=== PATIENT | male | born 1965 | race Caucasian/White ===

== ENCOUNTER → 2019-04-27 07:46 | Outpatient (BNVA) | payer MEDICAID, SELFPAY | PROVIDERS: Family Provider Nurse Practitioner; PCP Nurse Practitioner; Visit Provider Nurse Practitioner | DX: F20.89 Other schizophrenia (principal) | CPT/HCPCS: 99214 ==

== ENCOUNTER → 2019-07-02 08:17 | Outpatient (BNVA) | payer MEDICAID, SELFPAY | PROVIDERS: Family Provider Nurse Practitioner; PCP Nurse Practitioner; Visit Provider Nurse Practitioner | DX: F20.89 Other schizophrenia (principal); F33.1 Major depressive disorder, recurrent, moderate | CPT/HCPCS: 99213 ==

== ENCOUNTER → 2019-08-02 15:09 | Outpatient (BNVA) | payer MEDICAID, SELFPAY | PROVIDERS: Family Provider Nurse Practitioner; PCP Nurse Practitioner; Visit Provider Nurse Practitioner | DX: E11.65 Type 2 diabetes mellitus with hyperglycemia (principal); K59.04 Chronic idiopathic constipation; J44.9 Chronic obstructive pulmonary disease, unspecified; K21.9 Gastro-esophageal reflux disease without esophagitis | CPT/HCPCS: 80053; 80061; 81000; 82044; 83036; 85025 ==

== ENCOUNTER → 2019-09-28 07:39 | Outpatient (BNVA) | payer MEDICAID, SELFPAY | PROVIDERS: Family Provider Nurse Practitioner; PCP Nurse Practitioner; Visit Provider Nurse Practitioner | DX: F20.89 Other schizophrenia (principal); F33.1 Major depressive disorder, recurrent, moderate; F33.2 Major depressive disorder, recurrent severe without psychotic features | CPT/HCPCS: 99213 ==

== ENCOUNTER → 2019-10-29 07:51 | Outpatient (BNVA) | payer MEDICAID, SELFPAY | PROVIDERS: Family Provider Nurse Practitioner; PCP Nurse Practitioner; Visit Provider Nurse Practitioner | DX: F20.89 Other schizophrenia (principal); F33.1 Major depressive disorder, recurrent, moderate | CPT/HCPCS: 99213 ==

== ENCOUNTER → 2019-11-30 14:04 | Outpatient (BNVA) | payer MEDICAID, SELFPAY | PROVIDERS: Family Provider Nurse Practitioner; PCP Nurse Practitioner; Visit Provider Nurse Practitioner Family | DX: E11.65 Type 2 diabetes mellitus with hyperglycemia (principal); R21 Rash and other nonspecific skin eruption | CPT/HCPCS: 80053; 80061; 83036; 84443; 85025 ==

== ENCOUNTER → 2020-01-04 07:36 | Outpatient (BNVA) | payer MEDICAID, SELFPAY | PROVIDERS: Family Provider Nurse Practitioner; PCP Nurse Practitioner; Visit Provider Nurse Practitioner | DX: F33.1 Major depressive disorder, recurrent, moderate (principal); F20.89 Other schizophrenia | CPT/HCPCS: 99213 ==

== ENCOUNTER → 2020-03-16 08:12 | Outpatient (BNVA) | payer MEDICAID, SELFPAY | PROVIDERS: Family Provider Nurse Practitioner; PCP Nurse Practitioner; Visit Provider Nurse Practitioner | DX: F20.89 Other schizophrenia (principal); F33.1 Major depressive disorder, recurrent, moderate | CPT/HCPCS: 99213 ==

== ENCOUNTER → 2020-04-14 12:20 | Outpatient (BNVA) | payer MEDICAID, SELFPAY | PROVIDERS: Family Provider Nurse Practitioner; PCP Nurse Practitioner; Visit Provider Nurse Practitioner | DX: E11.65 Type 2 diabetes mellitus with hyperglycemia (principal); F20.89 Other schizophrenia; F33.1 Major depressive disorder, recurrent, moderate; J44.9 Chronic obstructive pulmonary disease, unspecified; K59.04 Chronic idiopathic constipation; K21.9 Gastro-esophageal reflux disease without esophagitis | CPT/HCPCS: 80053; 80061; 83036; 84443; 85025 ==

== ENCOUNTER → 2020-07-24 15:39 | Outpatient (BNVA) | payer MEDICAID, SELFPAY | PROVIDERS: Family Provider Nurse Practitioner; PCP Nurse Practitioner; Visit Provider Nurse Practitioner | DX: E11.65 Type 2 diabetes mellitus with hyperglycemia (principal); J44.9 Chronic obstructive pulmonary disease, unspecified; K59.04 Chronic idiopathic constipation; K21.9 Gastro-esophageal reflux disease without esophagitis; K29.70 Gastritis, unspecified, without bleeding; M54.12 Radiculopathy, cervical region; I10 Essential (primary) hypertension | CPT/HCPCS: 80053; 80061; 83036; 84443; 85025 ==

== ENCOUNTER → 2020-09-11 14:20 | Outpatient (BNVA) | payer MEDICAID, SELFPAY | PROVIDERS: Family Provider Nurse Practitioner; PCP Nurse Practitioner; Visit Provider Nurse Practitioner | DX: F33.1 Major depressive disorder, recurrent, moderate (principal); F20.89 Other schizophrenia; F17.218 Nicotine dependence, cigarettes, with other nicotine-induced disorders | CPT/HCPCS: 99214 ==

== ENCOUNTER → 2020-11-16 07:28 | Outpatient (BNVA) | payer MEDICAID, SELFPAY | PROVIDERS: Family Provider Nurse Practitioner; PCP Nurse Practitioner; Visit Provider Nurse Practitioner | DX: F33.1 Major depressive disorder, recurrent, moderate (principal); F17.218 Nicotine dependence, cigarettes, with other nicotine-induced disorders; F20.89 Other schizophrenia | CPT/HCPCS: 99214 ==

== ENCOUNTER 2020-11-29 13:50 | Emergency (ER) | payer MEDICAID, SELFPAY ==
[2020-11-29 13:55] VITALS: BP 124/72; PULSE 71; RESP 17; TEMP 37; O2SAT 92; BMI 27.3
--- NOTE | 2020-11-29 14:14 | ECG_ITS ---
[facility] Test Date: 2020-11-29 Pat Name: Osmar Becker Department: Room: Gender: Male Senior Auditor: : 1965 Requested By: Janae Turpin Order Number: [id number] Reading MD: CECILLE STEWART Measurements Intervals [place] Rate: 68 P: -15 RI: 159 QRS: 81 QRSD: 84 T: 64 QT: 375 QTc: 399 Interpretive Statements SINUS RHYTHM Compared to ECG 03/28/2019 16:39:15 No significant changes Electronically Signed On 11-29-2020 21:07:29 CDT by CECILLE STEWART [id number] f
--- NOTE | 2020-11-29 14:14 | XR_ITS ---
WS: [id number] Exam: XR chest 1V portable [id number] Date/Time of Exam: 11/29/2020 2:14 PM Reason For Exam: chest pain Comparison 03/28/2019. Right basal pleural effusion noted with compressive atelectasis of the right lower lobe. There is inf iltrate in the mid and lower right lung. The left lung is clear. Heart does not appear to be enlarged . The mediastinum is not widened. Regional bony structures are intact. XR/XR chest 1V portable [id number] IMPRESSION: 1. Infiltrate in the mid and lower right lung suggesting pneumonia. 2. Moderate-sized right basal pleural effusion with compressive atelectasis of the right lower lobe.
== END 2020-11-29 14:46 | disposition left against medical advice (07) ==
PROVIDERS: Emergency Provider Emergency Medicine; PCP Nurse Practitioner
DX: R07.9 Chest pain, unspecified (principal); R06.02 Shortness of breath; M54.9 Dorsalgia, unspecified; Z53.21 Procedure and treatment not carried out due to patient leaving prior to being seen by health care provider
CPT/HCPCS: 71045; 93005

== ENCOUNTER → 2020-12-15 11:20 | Outpatient (BNVA) | payer MEDICAID, SELFPAY | PROVIDERS: PCP Nurse Practitioner; Visit Provider Nurse Practitioner Family | DX: Z20.822 Contact with and (suspected) exposure to COVID-19 (principal); E11.65 Type 2 diabetes mellitus with hyperglycemia; J18.9 Pneumonia, unspecified organism | CPT/HCPCS: 80053; 80061; 83036; 84443; 85025; 87635 ==

== ENCOUNTER → 2021-01-25 11:35 | Outpatient (BNVA) | payer MEDICAID, SELFPAY | PROVIDERS: PCP Nurse Practitioner; Visit Provider Nurse Practitioner | DX: K59.04 Chronic idiopathic constipation (principal); E11.65 Type 2 diabetes mellitus with hyperglycemia | CPT/HCPCS: 74018; 80053; 81000; 85025 ==

== ENCOUNTER → 2021-02-14 07:23 | Outpatient (BNVA) | payer MEDICAID, SELFPAY | PROVIDERS: PCP Nurse Practitioner; Visit Provider Nurse Practitioner | DX: F33.1 Major depressive disorder, recurrent, moderate (principal); F20.9 Schizophrenia, unspecified; F17.218 Nicotine dependence, cigarettes, with other nicotine-induced disorders | CPT/HCPCS: 99214 ==

== ENCOUNTER → 2021-05-29 14:45 | Outpatient (BNVA) | payer MEDICAID, SELFPAY | PROVIDERS: PCP Nurse Practitioner; Visit Provider Nurse Practitioner | DX: E11.65 Type 2 diabetes mellitus with hyperglycemia (principal) | CPT/HCPCS: 80053; 80061; 83036; 83721; 85025 ==

== ENCOUNTER 2021-08-23 12:37 | Emergency (ER) | payer MEDICAID, SELFPAY ==
[2021-08-23 12:43] VITALS: BP 155/77; PULSE 82; RESP 16; TEMP 36.4; O2SAT 95
--- NOTE | 2021-08-23 13:13 | ED_ITS ---
HPI - General Adult General: Chief complaint: General Medical Stated complaint: headache/lethargic/chest pains/right foot injury Time Seen by Provider: 08/23/21 13:12 Source: patient Mode of arrival: ambulatory Limitations: no limitations History of Present Illness: 55-year-old male presents emergency room after a fall at home. He felt weak he fell backwards hit the back of his head. He also has some chest discomfort. He is not having any pain at this time there is no reported loss of consciousness he is also having come some complaint of right foot pain. Onset (ago): minute(s) Location: head, chest and back Severity: mild Pain Consistency: constant Relieving factors: none Exacerbating factors: none Associated symptoms: Deny chest pain, confusion, cough, diaphoresis, decreased appetite, dyspnea, fevers/chills, headache(s), malaise, nausea, rash, palpitations, seizures, short of breath, syncope, vomiting or weakness Treatments prior to arrival: none Review of Systems Const: Denies: fever(s), chills, body aches, malaise or diaphoresis ENMT: Denies: throat pain, ear or mastoid pain, nasal discharge or nasal congestion Card: Denies: chest pain, palpitations or syncope Resp: Denies: dyspnea GI: Denies: abdominal pain, nausea or vomiting : Denies: flank pain, dysuria, urinary frequency or urinary urgency Musc: Reports: back pain Skin/Breast: Denies: rash Neuro: Denies: headache(s) or confusion PFSH ED PFSH: Medical History Acid reflux Cervical radicular pain Chronic hepatitis C Chronic idiopathic constipation Controlled diabetes mellitus with hyperglycemia, without long-term current use of insulin COPD (chronic obstructive pulmonary disease) Dependence on nocturnal oxygen therapy Essential (primary) hypertension Gastritis HIV disease Major depressive disorder, recurrent, moderate Nicotine dependence, cigarettes, with other nicotine-induced disorders Nocturnal hypoxia 2018 Psychiatric care Schizophrenia Tardive dyskinesia Vitamin D deficiency Surgical History History of adenoidectomy History of appendectomy History of colonoscopy History of tonsillectomy History of tympanostomy Family History Father COPD (chronic obstructive pulmonary disease) Mother COPD (chronic obstructive pulmonary disease) Other Cancer Social History Smoking and tobacco status: current every day smoker cigarettes Second hand smoke exposure: Yes Smoking risk assessment/counseling performed?: Yes Tobacco counseling given: counseling >3 minutes Alcohol intake: unknown Desire information about alcohol rehabilitation?: No Counseling given: No Desire information about substance/drug rehabilitation?: No Counseling given: No Adopted: No Caregiver/support person: Yes (family assists) Lives independently: Yes Household members: none Marital status: Single Number of children: 0 service: No Current occupational status: disabled Current occupational exposures/hazards: No History of recent travel: No Current gender identity: Male Physical Exam Const: COMMON NORMALS: no acute distress GENERAL APPEARANCE: cooperative and comfortable ORIENTATION/CONSCIOUSNESS: Yes awake, Yes oriented to person, Yes oriented to place and Yes oriented to time HENMT: COMMON NORMALS: normocephalic and atraumatic HEAD & SCALP: norm ocephalic and atraumatic Neck/C-Spine: COMMON NORMALS: no JVD Resp: AUSCULTATION: rhonchi right lower Cardio: COMMON NORMALS: no JVD, regular rate, regular rhythm and No murmurs present (Cardio) RATE: regular rate RHYTHM: regular rhythm GI: COMMON NORMALS: Soft to palpation and No hepatosplenomegaly present AUSCULTATION: Yes normoactive bowel sounds PALPATION: Yes Soft to palpation, No Tenderness to palpation present (GI), No Guarding due to palpation present (GI) and Yes No hepatosplenomegaly present Extremity: COMMON NORMALS: normal to inspection, capillary refill normal, no clubbing, cyanosis or edema, no calf tenderness and no pedal edema Neuro: SENSORIUM/ORIENTATION: Yes oriented to person, Yes oriented to place and Yes oriented to time Skin: COMMON NORMALS: no rashes or lesions noted GENERAL SKIN EXAM: no rashes or lesions noted Course Vital Signs: Vital signs: Vital Signs Temperature 97.6 F 08/23/21 12:43 Pulse Rate 73 08/23/21 16:42 Respiratory Rate 16 08/23/21 16:42 Blood Pressure 144/86 08/23/21 16:42 Pulse Oximetry 94 08/23/21 16:42 [facility] - General Adult Medical Decision Making Abnormal chest x-ray and chest CT reviewed with Dr. Colon. He feels it to be appropriate to work-up as an outpatient patient is otherwise doing well he has no signs of injury from his fall. We will discharge him home set him up for follow-up with pulmonology as an outpatient. Return if he has further problems. Medical Records I reviewed the patient's medical records. Lab Data I reviewed the patient's lab results. : 08/23/21 13:30 08/23/21 13:30 Radiology Impressions Chest X-Ray 08/23/21 13:14 Impression: 1. No change in moderate right pleural effusion. 2. No change in interstitial and atelectatic changes of the right lower lobe. 3. Possible small loculated pneumothorax in the right lower space. Head CT 08/23/21 13:14 IMPRESSION: 1. No evidence of intracranial hemorrhage or mass effect. 2. Mild small vessel changes. Moderate parenchymal volume loss. 3. Partial opacification of the RIGHT middle ear. Recommend correlation for otitis media. 4. No acute intracranial findings. Foot X-Ray 08/23/21 13:16 Impression: Negative right foot. Chest CT 08/23/21 14:42 IMPRESSION: 1. Small RIGHT pleural effusion with diffuse pleural thickening extending laterally about the RIGHT lung. Thickening of the parietal and visceral pleura suspicious for empyema. 2. Volume loss RIGHT lung with peripheral fibrotic changes worse in the RIGHT l ower lobe. Cavitary masslike opacity in the RIGHT lower lobe extending to the pleura measuring 1.8 x 3.5 CM. Neoplasm not excluded. Recommend follow-up after treatment and/or pulmonary evaluation. 3. Trace pleural air seen on the sagittal reformats posteriorly. No significant pneumothorax. 4. LEFT lung is well aerated. 5. Numerous normal size anterior mediastinal lymph nodes. 6. Moderate esophageal hiatal hernia. Notified Jalil Otero DO at 08/23/2021 3:54 PM. Laboratory Results WBC 9.2 10^3/uL (4.0-10.0) 08/23/21 13:30 RBC 5.35 10^6/uL (4.1-5.3) H 08/23/21 13:30 Hgb 13.3 g/dL (11.7-16.6) 08/23/21 13:30 Hct 44.2 % (42.0-52.0) 08/23/21 13:30 MCV 82.6 fl (80-94) 08/23/21 13:30 MCH 24.9 pg (28.0-34.0) L 08/23/21 13:30 MCHC 30.1 g/dL (30.0-36.0) 08/23/21 13:30 RDW 15.0 % (12.1-15.1) 08/23/21 13:30 Plt Count 291 10^3/cmm (130-400) 08/23/21 13:30 MPV 9.1 fL (7.4-10.4) 08/23/21 13:30 Neut % (Auto) 69.3 % 08/23/21 13:30 Lymph % (Auto) 19.1 % 08/23/21 13:30 [place] % (Auto) 9.6 % 08/23/21 13:30 Eos % (Auto) 0.7 % 08/23/21 13:30 Baso % (Auto) 0.9 % 08/23/21 13:30 Neut # (Auto) 6.37 10^3/uL (1.8-7.7) 08/23/21 13:30 Lymph # (Auto) 1.8 10^3/uL (0.8-4.8) 08/23/21 13:30 [place] # (Auto) 0.9 10^3/uL (0.2-0.9) 08/23/21 13:30 Eos # (Auto) 0.1 10^3/uL (0.0-0.8) 08/23/21 13:30 Baso # (Auto) 0.1 10^3/uL (0.0-0.1) 08/23/21 13:30 Nucleated RBC % (auto) 0 % 08/23/21 13:30 Nucleated RBCs # 0.0 /100WBC 08/23/21 13:30 Sodium 133 mmol/L (136-145) L 08/23/21 13:30 Potassium 4.1 mmol/L (3.5-5.1) 08/23/21 13:30 Chloride 96 mmol/L (98-107) L 08/23/21 13:30 Carbon Dioxide 27 mmol/L (22-29) 08/23/21 13:30 Anion Gap 14.1 (5-19) 08/23/21 13:30 BUN 8 mg/dL (6-20) 08/23/21 13:30 Creatinine 0.6 mg/dL (0.7-1.2) L 08/23/21 13:30 GFR Calculation 139.9 mL/min (90-130) H 08/23/21 13:30 Glucose 100 mg/dL (65-115) 08/23/21 13:30 Calculated Osmolality 274 mOsm/kg (285-295) L 08/23/21 13:30 Calcium 8.9 mg/dL (8.5-10.5) 08/23/21 13:30 Total Bilirubin 0.2 mg/dL (0.15-1.2) 08/23/21 13:30 AST 20 U/L (0-40) 08/23/21 13:30 ALT 23 U/L (0-41) 08/23/21 13:30 Alkaline Phosphatase 83 IU/L (40-130) 08/23/21 13:30 Troponin T Baseline 14 ng/L (0-15) 08/23/21 13:30 Troponin T 120 Minute 12.12 ng/L (0-15) 08/23/21 15:40 Delta Troponin T -1.88 ABS# (0-10) L 08/23/21 15:40 Total Protein 8.2 g/dL (6.6-8.7) 08/23/21 13:30 Albumin 4.6 g/dL (3.5-5.2) 08/23/21 13:30 Globulin 3.6 g/dL (1.3-4.6) 08/23/21 13:30 Discharge Plan Discharge Patient Disposition: Home Clinical Impression: Fall, Lung abnormality Condition: Stable Prescriptions: No Action aspirin 325 mg tablet,delayed release (DR/EC) 325 mg PO DAILY 0RF nitroglycerin [Nitrostat] 0.4 mg tablet, sublingual 0.4 mg SUBLINGUAL ONCE PRN (Reason: chest pain) 0RF Rx Instructions: take as needed for chest pain albuterol sulfate 90 mcg/actuation HFA aerosol inhaler 2 puff INHALATION Q4H PRN (Reason: shortness of breath) Qty: 8.5 2RF gabapentin 300 mg capsule 300 mg PO BID Qty: 60 2RF Linzess 145 mcg capsule 145 mcg PO QAM Qty: 30 2RF magnesium oxide 400 mg magnesium tablet 400 mg PO BID Qty: 60 2RF pravastatin 10 mg tablet 10 mg PO DAILY Qty: 30 2RF pyridoxine (vitamin B6) 250 mg tablet 250 mg PO DAILY Qty: 30 2RF valsartan 40 mg tablet 40 mg PO DAILY Qty: 30 2RF MediHoney (honey) 100 % paste 1 applic topical BID Qty: 103 0RF Farxiga 5 mg tablet 5 mg PO QAM Qty: 30 2RF triamcinolone acetonide 0.1 % ointment 1 applic TOPICAL BID Qty: 30 0RF Rx Instructions: refill request nystatin 100,000 unit/gram cream 1 applic topical BID PRN (Reason: itching) Qty: 30 0RF Rx Instructions: refill request replacement paliperidone 6 mg tablet extended release 24hr 6 mg PO QAM Qty: 30 2RF paroxetine HCl [Paxil] 10 mg tablet 10 mg PO DAILY Qty: 30 2RF Rx Instructions: Take with Paxil 40mg trihexyphenidyl 5 mg tablet 2.5 mg PO BID Qty: 30 2RF magnesium hydroxide [Milk of Magnesia] 400 mg/5 mL suspension 30 ml PO BID Qty: 480 2RF metformin 500 mg tablet extended release 24 hr 500 mg PO DAILY 0RF trazodone 50 mg tablet 50 mg PO BEDTIME 0RF paroxetine HCl 40 mg tablet 40 mg PO BEDTIME 0RF omeprazole 20 mg tablet,delayed release (DR/EC) 20 mg PO DAILY 0RF Discharge Orders: Discharge ED (Routine); Ordered 08/23/21 Ordered By: Jalil Otero Referrals: Mega Leung DO [Primary Care Provider] - Discharge Diet: Usual diet Discharge Activity: Resume usual activity Patient Instructions: Opioid Safety Activity Restrictions/Additional Instructions: Case management will call to make arrangements for a follow-up with pulmonology. Coding Level of Care Code ED Investigation Manager for Jennyfer Fwmisty Exam Comprehensive
--- NOTE | 2021-08-23 13:14 | CT_ITS ---
WS: [email or web address] CT HEAD TECHNIQUE: Noncontrast CT of the head obtained from the skullbase to the vertex. CLINICAL INFORMATION: closed head injury COMPARISON: CT 4 DLP: 728.[address] scans at [facility] use at least one of these dose optimization techniques: automated e xposure control; mA and/or kV adjustment per patient size (includes targeted exams where dose is matc hed to clinical indication); or iterative reconstruction. FINDINGS: No evidence of intracranial hemorrhage or mass effect. Ventricular system and basal cisterns are ruvalcaba nt. Mild small vessel changes with moderate parenchymal volume loss. No extra-axial fluid collections . No evidence of mass or mass effect Mild mucosal thickening paranasal sinuses. Soft tissue thickening involving the RIGHT tympanic membr ane and RIGHT middle ear likely infectious or inflammatory. Chronic appearing opacification of the RI GHT mastoid air cells. Sclerotic LEFT mastoid air cells. CT/CT head wo con* [id number] IMPRESSION: 1. No evidence of intracranial hemorrhage or mass effect. 2. Mild small vessel changes. Moderate parenchymal volume loss. 3. Partial opacification of the RIGHT middle ear. Recommend correlation for ot itis media. 4. No acute intracranial findings.
--- NOTE | 2021-08-23 13:14 | XR_ITS ---
WS: [id number] Portable AP upright chest, 08/23/2021 Clinical Data: trauma Comparison: Portable chest, 11/29/2020. Findings: The right moderate pleural effusion remains the same. There are atelectatic changes in the right lower lobe. There may be a small loculated right pneumothorax adjacent to the right seventh rib . The left lung shows no change. The heart is normal. There are monitor leads on the chest wall. XR/XR chest 1V portable [id number] Impression: 1. No change in moderate right pleural effusion. 2. No change in interstitial and atelectatic changes of the right lower lobe. 3. Possible small loculated pneumothorax in the right lower space.
--- NOTE | 2021-08-23 13:14 | ECG_ITS ---
[facility] Test Date: 2021-08-23 Pat Name: Osmar Becker Department: Room: Gender: Male Drug Abuse Worker: : 1965 Requested By: Jalil Ruffin Order Number: [id number] Dany MD: Donte Olivia M.D. Measurements Intervals [place] Rate: 74 P: -34 [place]: 156 QRS: 67 QRSD: 86 T: 46 QT: 367 QTc: 410 Interpretive Statements SINUS RHYTHM Compared to ECG 11/29/2020 14:02:35 No significant changes Electronically Signed On 08-23-2021 17:15:17 CDT by Donte Olivia M.D. [email or web address] dav[facility] community hospitalChampionVillagepromedica fostoria community hospitalSimplex Healthcare/store/OM/[id number]/[id number]
--- NOTE | 2021-08-23 13:16 | XR_ITS ---
WS: [email or web address] Right foot, 3 views, 08/23/2021 Clinical Data: pain Comparison: None. Findings: No fractures or dislocations are seen. No bone destruction or erosion is noted. The joint spaces and soft tissues are normal. There is a small plantar spur. XR/XR foot RT min 3V* [id number] Impression: Negative right foot.
[2021-08-23 13:19] VITALS: BP 135/85; PULSE 92; RESP 16; O2SAT 96
[2021-08-23 13:49] LABS: Basophils # 0.1 10^3/uL (0.0-0.1); Basophils % 0.9 %; Eosinophils # 0.1 10^3/uL (0.0-0.8); Eosinophils % 0.7 %; Hematocrit 44.2 % (42.0-52.0); Hemoglobin 13.3 g/dL (11.7-16.6); Lymphocytes # 1.8 10^3/uL (0.8-4.8); Lymphocytes % 19.1 %; Mean Corpuscular HGB Conc 30.1 g/dL (30.0-36.0); Mean Corpuscular Hemoglobin 24.9 pg (28.0-34.0); Mean Corpuscular Volume 82.6 fl (80-94); Mean Platelet Volume 9.1 fL (7.4-10.4); Monocytes # 0.9 10^3/uL (0.2-0.9); Monocytes % 9.6 %; Neutrophils # 6.37 10^3/uL (1.8-7.7); Neutrophils % 69.3 %; Nucleated Red Blood Cells % 0 %; Platelet Count 291 10^3/cmm (130-400); Red Blood Count 5.35 10^6/uL (4.1-5.3); White Blood Count 9.2 10^3/uL (4.0-10.0)
[2021-08-23 14:05] LABS: Alanine Aminotransferase 23 U/L (0-41); Albumin Level 4.6 g/dL (3.5-5.2); Alkaline Phosphatase 83 IU/L (40-130); Anion Gap 14.1 (5-19); Aspartate Amino Transferase 20 U/L (0-40); Blood Urea Nitrogen 8 mg/dL (6-20); Calcium 8.9 mg/dL (8.5-10.5); Carbon Dioxide 27 mmol/L (22-29); Chloride 96 mmol/L (98-107); Globulin 3.6 g/dL (1.3-4.6); Glomerular Filtration Rate 139.9 mL/min (90-130); Glucose 100 mg/dL (65-115); Osmolality Calculated 274 mOsm/kg (285-295); Potassium 4.1 mmol/L (3.5-5.1); Sodium 133 mmol/L (136-145); Total Bilirubin 0.2 mg/dL (0.15-1.2); Total Protein 8.2 g/dL (6.6-8.7)
[2021-08-23 14:07] LABS: Troponin(5th) Baseline 14 ng/L (0-15)
--- NOTE | 2021-08-23 14:42 | CT_ITS ---
WS: [id number] CT CHEST TECHNIQUE: Noncontrast CT of the chest with coronal and sagittal reformatted images. CLINICAL INFORMATION: question of small pneumothorax COMPARISON: CT 4 and radiograph August 23, 2021 DLP: 782.[address] scans at [facility] use at least one of these dose optimization techniques: automated e xposure control; mA and/or kV adjustment per patient size (includes targeted exams where dose is matc hed to clinical indication); or iterative reconstruction. FINDINGS: Volume loss RIGHT hemithorax. Small RIGHT pleural effusion with pleural thickening in the RIGHT lower lobe and RIGHT lateral lung. Fibrotic changes involving the RIGHT lung peripherally with more massli ke consolidation in the RIGHT lower lobe. Recommend correlation for pneumonia. Increased attenuation involving the pleural surfaces suspicious for empyema. More focal area of consolidation RIGHT lower l obe with slight central cavitation measures 3.5 x 1.8 cm. Trace amount of pleural air seen on the sagittal images likely due to fibrotic lung or adhesions. Oth erwise no significant pneumothorax. LEFT lung is well aerated. Normal caliber thoracic aorta. Mild aortic calcification. No mediastinal or hilar lymphadenopathy. Ca lcified RIGHT hilar nodes. Moderate esophageal hiatal hernia. Hepatomegaly partially visualized. CT/CT chest wo con [id number] IMPRESSION: 1. Small RIGHT pleural effusion with diffuse pleural thickening extending late rally about the RIGHT lung. Thickening of the parietal and visceral pleura susp icious for empyema. 2. Volume loss RIGHT lung with peripheral fibrotic changes worse in the RIGHT lower lobe. Cavitary masslike opacity in the RIGHT lower lobe extending to the pleura measuring 1.8 x 3.5 CM. Neoplasm not excluded. Recommend follow-up after treatment and/or pulmonary evaluation. 3. Trace pleural air seen on the sagittal reformats posteriorly. No significan t pneumothorax. 4. LEFT lung is well aerated. 5. Numerous normal size anterior mediastinal lymph nodes. 6. Moderate esophageal hiatal hernia. Notified Jalil Otero DO at 08/23/2021 3:54 PM.
--- NOTE | 2021-08-23 15:14 | ECG_ITS ---
[facility] Test Date: 2021-08-23 Pat Name: Osmar Becker Department: Room: Gender: Male Insurance Adviser: : 1965 Requested By: Jalil Ruffin Order Number: [id number] Reading MD: Measurements Intervals [place] Rate: 74 P: -34 [place]: 156 QRS: 67 QRSD: 86 T: 46 QT: 367 QTc: 410 Interpretive Statements SINUS RHYTHM Compared to ECG 11/29/2020 14:02:35 No significant changes [id number]
[2021-08-23 16:10] LABS: Troponin 5 2HR 12.12 ng/L (0-15)
[2021-08-23 16:42] VITALS: BP 144/86; PULSE 73; RESP 16; O2SAT 94
[2021-08-23 16:43] LABS: Troponin 5 2HR Delta -1.88 ABS# (0-10)
--- NOTE | 2021-08-24 09:40 | DCPLANNER ---
Addendum entered by Princess Núñez 11/28/21 11:29: Patient had a follow up appointment scheduled for 10.03.21 with [facility], pulmonology - patient did not attend appointment. Addendum entered by Princess Núñez 09/14/21 13:47: Patient has a follow up appointment scheduled for 10.03.21 at 9:[address] Colon at [facility]. Clinic will call patient with appointment information. Addendum entered by Princess Núñez 09/01/21 10:13: residential sales manager was told that clinic has not been able to reach patient to schedule a follow up appointment. Patient did not answer phone and no voicemail set up. Original Note: residential sales manager had message to schedule a follow up appointment for patient with pulmonology. residential sales manager sent patients information to the front office staff at [facility]. Patients information will be printed and reviewed. Clinic will call patient with appointment information.
== END 2021-08-23 16:44 | disposition home or self-care (01) ==
PROVIDERS: Emergency Provider Family Medicine; PCP Psychiatry & Neurology Psychiatry
DX: R91.8 Other nonspecific abnormal finding of lung field (principal); F17.210 Nicotine dependence, cigarettes, uncomplicated; R93.89 Abnormal findings on diagnostic imaging of other specified body structures; W19.XXXA Unspecified fall, initial encounter; Z79.84 Long term (current) use of oral hypoglycemic drugs
CPT/HCPCS: 36415; 70450; 71045; 71250; 73630; 80053; 84484; 85025; 87040; 93005; 99284

== ENCOUNTER 2021-08-30 17:40 | Inpatient (IN) | payer MEDICAID, SELFPAY ==
[2021-08-30] VITALS (8 sets, daily range): BP systolic 107–173; BP diastolic 57–93; PULSE 69–87; RESP 16–25; TEMP 36.7–38.5; O2SAT 86–96; BMI 31.6
--- NOTE | 2021-08-30 17:51 | CTR_ITS ---
PROCEDURE INFORMATION: Exam: CT Head Without Contrast Exam date and time: 08/30/2021 5:43 PM Age: 55 years old Clinical indication: Altered mental status/memory loss; Patient HX: RT facial droop. Slurred speech; Additional info: Symptoms of acute stroke TECHNIQUE: Imaging protocol: Computed tomography of the head without contrast. Sagittal and coronal reformatted images were created and reviewed. Radiation optimization: All CT scans at this facility use at least one of these dose optimization techniques: automated exposure control; mA and/or kV adjustment per patient size (includes targeted exams where dose is matched to clinical indication); or iterative reconstruction. COMPARISON: CT head wo con* [id number] 08/23/2021 1:51 PM RADIATION DOSE METRICS: Total DLP (mGy-cm): 1500.02 FINDINGS: Brain: No acute intracranial hemorrhage. No acute infarct. No intra-axial or extra-axial masses. Banegas-white matter differentiation is preserved. No cerebral edema. No extra-axial fluid collections. No midline shift. No evidence for Chiari 1 malformation. Cerebral ventricles: No hydrocephalus. Paranasal sinuses: Paranasal sinuses are clear. Mastoid air cells: Sclerosis of the right and left mastoid suggesting sequela of chronic inflammation. Orbital cavities: Globes and lenses, extraocular muscles, and optic nerves are intact bilaterally. No acute intraorbital abnormality. Bones/joints: Degenerative changes at the temporomandibular joints. Soft tissues: The extracranial soft tissues are unremarkable. CT/CT head wo con* [id number] IMPRESSION: 1. No acute abnormality of the brain. 2. Incidental/nonacute findings are listed in the report.
--- NOTE | 2021-08-30 17:51 | XRR_ITS ---
PROCEDURE INFORMATION: Exam: XR Chest Exam date and time: 08/30/2021 6:08 PM Age: 55 years old Clinical indication: Other: [place]; Additional info: AMS TECHNIQUE: Imaging protocol: XR of the chest. Views: 1 view. COMPARISON: CT chest con [id number] 08/23/2021 3:18 PM FINDINGS: Lungs: Stable scarring with volume loss in the right hemithorax.No focal consolidation. No pulmonary edema. Pleural spaces: Stable chronic right pleural effusion versus pleural thickening. No pneumothorax. Heart/Mediastinum: Stable mild enlargement of the cardiac silhouette. Mediastinal contours are unremarkable. Bones/joints: Unremarkable for age. XR/XR chest 1V portable [id number] IMPRESSION: 1. No acute cardiopulmonary process. 2. Stable chronic right pleural effusion versus pleural thickening. 3. Incidental/nonacute findings are listed in the report.
--- NOTE | 2021-08-30 17:51 | ECG_ITS ---
[facility] Test Date: 2021-08-30 Pat Name: Osmar Becker Department: Room: Gender: Male Sketch Artist: : 1965 Requested By: Vadim Ramirez Order Number: [id number] Dany MD: Donte Olivia M.D. Measurements Intervals [place] Rate: 85 P: -35 [place]: 147 QRS: 79 QRSD: 85 T: 55 QT: 351 QTc: 419 Interpretive Statements SINUS RHYTHM Compared to ECG 08/23/2021 12:48:11 No significant changes Electronically Signed On 08-30-2021 22:24:24 CDT by Donte Olivia M.D. [email or web address] grady memorial hospital.[email or web address]/store/NU/[id number]
[2021-08-30 18:09] LABS: Glucose Point of Care 117 mg/dL (70-110)
[2021-08-30 18:14] LABS: Basophils % 0.3 %; Eosinophils % 0.2 %; Hematocrit 38.9 % (42.0-52.0); Hemoglobin 11.8 g/dL (11.7-16.6); Lymphocytes # 0.8 10^3/uL (0.8-4.8); Lymphocytes % 12.4 %; Mean Corpuscular HGB Conc 30.3 g/dL (30.0-36.0); Mean Corpuscular Hemoglobin 25.2 pg (28.0-34.0); Mean Corpuscular Volume 82.9 fl (80-94); Mean Platelet Volume 8.9 fL (7.4-10.4); Monocytes # 0.6 10^3/uL (0.2-0.9); Monocytes % 9.8 %; Neutrophils # 4.79 10^3/uL (1.8-7.7); Nucleated Red Blood Cells % 0 %; Platelet Count 158 10^3/cmm (130-400); Red Blood Count 4.69 10^6/uL (4.1-5.3); Red Cell Distribution Width 15.5 % (12.1-15.1); White Blood Count 6.2 10^3/uL (4.0-10.0)
[2021-08-30 18:39] LABS: INR 0.98 (0.8-1.2)
[2021-08-30 18:40] LABS: Partial Thromboplastin Time 34.7 SECONDS (23.9-36.7)
[2021-08-30 18:46] LABS: Alanine Aminotransferase 23 U/L (0-41); Albumin Level 4.1 g/dL (3.5-5.2); Alkaline Phosphatase 69 IU/L (40-130); Anion Gap 10.9 (5-19); Aspartate Amino Transferase 21 U/L (0-40); Blood Urea Nitrogen 11 mg/dL (6-20); Calcium 8.7 mg/dL (8.5-10.5); Carbon Dioxide 28 mmol/L (22-29); Chloride 98 mmol/L (98-107); Globulin 2.9 g/dL (1.3-4.6); Glomerular Filtration Rate 172.6 mL/min (90-130); Glucose 102 mg/dL (65-115); Osmolality Calculated 276 mOsm/kg (285-295); Potassium 3.9 mmol/L (3.5-5.1); Sodium 133 mmol/L (136-145); Total Bilirubin 0.2 mg/dL (0.15-1.2)
[2021-08-30 18:47] LABS: Acetaminophen < 5.0 ug/mL (10-30); Salicylate < 0.3 mg/dL (3-10)
[2021-08-30 18:56] LABS: Lactic Sepsis W/Reflex 0.9 mmol/L (0.5-2.2)
[2021-08-30 19:12] LABS: SARS Covid-2 Antigen Positive (Negative)
[2021-08-30 19:29] LABS: Add Urine Microscopic? NO; Charge for UA Resulting for Rev
[2021-08-30 19:33] LABS: Bilirubin Urine Neg (Negative); Blood Urine Neg (Negative); Glucose Urine UA 1+ (Normal); Ketones Urine Negative (Negative); Leukocyte Esterase Urine Negative (Negative); Nitrate Urine Negative (Negative); Protein Urine Neg (Negative); Specific Gravity, Urine 1.005 (1.005-1.030); Urine Appearance Clear (CLEAR); Urine Color Colorless (Yellow); Urobilinogen Urine Norm (Negative); pH Urine 5 (5-7)
[2021-08-30] MEDS: acetaminophen 500 mg Tablet 1000 MG PO (19:33)
[2021-08-30 19:42] LABS: Amphetamines Screen Urine Negative (Negative); Barbiturates Screen Urine Negative (Negative); Benzodiazepines Screen Urine Negative (Negative); Cocaine Screen Urine Negative (Negative); Opiate Screen Urine Negative (Negative); PCP Screen Urine Negative (Negative); THC Screen Urine Negative (Negative)
[2021-08-30] MEDS: nicotine 21 mg Patch 1 PATCH TRANSDERMA (20:04)
--- NOTE | 2021-08-30 20:25 | W.ED.AMS ---
HPI - Altered Mental Status General: Chief Complaint: Altered Mental Status Stated Complaint: STROKE VS HEAD BLEED Time Seen by Provider: 08/30/21 17:54 Source: patient and EMS Mode of arrival: EMS Limitations: no limitations History of Present Illness: 55-year-old male states he has not been feeling well over the last few days. He has had no fever along with some shortness of breath. He has had some confusion as well but here he is answering all my questions appropriately. He denies any chest pain he states that he has had some reflux. Denies any vomiting or diarrhea. Associated symptoms: Deny depression Review of Systems Const: Reports: fever(s) Eyes: Denies: blurry vision or eye discomfort ENMT: Denies: throat pain or dental pain Card: Denies: chest pain Resp: Reports: dyspnea GI: Denies: abdominal pain, nausea, vomiting or diarrhea : Denies: dysuria Musc: Denies: neck pain or back pain Skin/Breast: Denies: rash Neuro: Reports: confusion Psych: Denies: depression Jose Alejandro/Lymph: Denies: easy bruising All/Imm: Denies: urticaria PFSH ED PFSH: Medical History Acid reflux Cervical radicular pain Chronic hepatitis C Chronic idiopathic constipation Controlled diabetes mellitus with hyperglycemia, without long-term current use of insulin COPD (chronic obstructive pulmonary disease) Dependence on nocturnal oxygen therapy Essential (primary) hypertension Gastritis HIV disease Major depressive disorder, recurrent, moderate Nicotine dependence, cigarettes, with other nicotine-induced disorders Nocturnal hypoxia 2018 Psychiatric care Schizophrenia Tardive dyskinesia Vitamin D deficiency Surgical History History of adenoidectomy History of appendectomy History of colonoscopy History of tonsillectomy History of tympanostomy Family History Father COPD (chronic obstructive pulmonary disease) Mother COPD (chronic obstructive pulmonary disease) Other Cancer Social History Smoking and tobacco status: current every day smoker cigarettes Second hand smoke exposure: Yes Smoking risk assessment/counseling performed?: Yes Tobacco counseling given: counseling >3 minutes Alcohol intake: unknown Desire information about alcohol rehabilitation?: No Counseling given: No Desire information about substance/drug rehabilitation?: No Counseling given: No Adopted: No Caregiver/support person: Yes (family assists) Lives independently: Yes Household members: none Marital status: Single Number of children: 0 service: No Current occupational status: disabled Current occupational exposures/hazards: No History of recent travel: No Current gender identity: Male Physical Exam Const: COMMON NORMALS: patient oriented x3 GENERAL APPEARANCE: ill appearing HENMT: COMMON NORMALS: normocephalic and atraumatic HEAD & SCALP: normocephalic and atraumatic Eye: COMMON NORMALS: Equal, round and reactive pupils present PUPIL: Yes Equal, round and reactive pupils present Neck/C-Spine: COMMON NORMALS: full ROM Chest: COMMONS NORMALS: normal inspection of the chest Resp: OTHER: Right-sided rales noted slight respiratory distress here Cardio: COMMON NORMALS: regular rate and regular rhythm RATE: regular rate RHYTHM: regular rhythm GI: COMMON NORMALS: Normal to inspection, nondistended, normoactive bowel sounds present and non-tender Extremity: COMMON NORMALS: normal to inspection Neuro: COMMON NORMALS: patient oriented x3 and no focal motor deficits Psych: COMMON NORMALS: mental status grossly normal and cooperative Skin: COMMON NORMALS: no rashes or lesions noted GENERAL SKIN EXAM: no rashes or lesions noted Course Vital Signs: Vital signs: Vital Signs Temperature 100.1 F H 08/30/21 20:53 Pulse Rate 82 08/30/21 20:53 Respiratory Rate 20 H 08/30/21 20:53 Blood Pressure 141/73 08/30/21 20:53 Pulse Oximetry 92 08/30/21 20:53 MDM - Altered Mental Status Medical Decision Making Patient presents here with some confusion since resolved since his fevers been improved he did test positive for COVID and has a pneumonia on CT patient started on antibiotics spoke to hospitalist will admit at this time. Lab Data : 08/30/21 18:00 08/30/21 18:00 Radiology Impressions Chest X-Ray 08/30/21 17:51 IMPRESSION: 1. No acute cardiopulmonary process. 2. Stable chronic right pleural effusion versus pleural thickening. 3. Incidental/nonacute findings are listed in the report. Head CT 08/30/21 17:51 IMPRESSION: 1. No acute abnormality of the brain. 2. Incidental/nonacute findings are listed in the report. Chest CTA 08/30/21 20:30 IMPRESSION: 1. Interval development of reticulonodular interstitial thickening and patchy ground-glass opacities diffusely in the right lung. Findings are suspicious for pneumonia, including atypical organisms. Recommend followup chest imaging to insure resolution of these findings. 2. No evidence for pulmonary embolism. 3. No evidence for aortic aneurysm or aortic dissection. 4. Stable small left pleural effusion. 5. Mild fatty infiltration of the visualized liver. 6. There is a large stone in the lumen of the gallbladder. 7. Stable large hiatal hernia. ADDENDUM: 08/30/212118 Please note the addendum to the original report: There is an area of more pronounced pleural-parenchymal scarring and opacity with a circular configuration in the posterior right lower lobe that is stable in size. There is no cavitation within this area however on the current study, normal inter vena lung is seen within this area. Multiple vessels are swirling towards this region, and this may represent an area of rounded atelectasis. THIS REPORT CONTAINS FINDINGS THAT MAY BE CRITICAL TO PATIENT CARE. The findings were verbally communicated via telephone conference with Dr. Grove at 9:16 PM CDT on 08/30/2021. The findings were acknowledged and understood. Laboratory Results WBC 6.2 10^3/uL (4.0-10.0) 08/30/21 18:00 RBC 4.69 10^6/uL (4.1-5.3) 08/30/21 18:00 Hgb 11.8 g/dL (11.7-16.6) 08/30/21 18:00 Hct 38.9 % (42.0-52.0) L 08/30/21 18:00 MCV 82.9 fl (80-94) 08/30/21 18:00 MCH 25.2 pg (28.0-34.0) L 08/30/21 18:00 MCHC 30.3 g/dL (30.0-36.0) 08/30/21 18:00 RDW 15.5 % (12.1-15.1) H 08/30/21 18:00 Plt Count 158 10^3/cmm (130-400) 08/30/21 18:00 MPV 8.9 fL (7.4-10.4) 08/30/21 18:00 Neut % (Auto) 77.0 % 08/30/21 18:00 Lymph % (Auto) 12.4 % 08/30/21 18:00 [place] % (Auto) 9.8 % 08/30/21 18:00 Eos % (Auto) 0.2 % 08/30/21 18:00 Baso % (Auto) 0.3 % 08/30/21 18:00 Neut # (Auto) 4.79 10^3/uL (1.8-7.7) 08/30/21 18:00 Lymph # (Auto) 0.8 10^3/uL (0.8-4.8) 08/30/21 18:00 [place]ke # (Auto) 0.6 10^3/uL (0.2-0.9) 08/30/21 18:00 Eos # (Auto) 0.0 10^3/uL (0.0-0.8) 08/30/21 18:00 Baso # (Auto) 0.0 10^3/uL (0.0-0.1) 08/30/21 18:00 Nucleated RBC % (auto) 0 % 08/30/21 18:00 Nucleated RBCs # 0.0 /100WBC 08/30/21 18:00 PT 13.20 SECONDS (12.1-14.9) 08/30/21 18:00 INR 0.98 (0.8-1.2) 08/30/21 18:00 APTT 34.7 SECONDS (23.9-36.7) 08/30/21 18:00 Sodium 133 mmol/L (136-145) L 08/30/21 18:00 Potassium 3.9 mmol/L (3.5-5.1) 08/30/21 18:00 Chloride 98 mmol/L (98-107) 08/30/21 18:00 Carbon Dioxide 28 mmol/L (22-29) 08/30/21 18:00 Anion Gap 10.9 (5-19) 08/30/21 18:00 BUN 11 mg/dL (6-20) 08/30/21 18:00 Creatinine 0.5 mg/dL (0.7-1.2) L 08/30/21 18:00 GFR Calculation 172.6 mL/min (90-130) H 08/30/21 18:00 Glucose 102 mg/dL (65-115) 08/30/21 18:00 POC Glucose 117 mg/dL (70-110) H 08/30/21 18:06 Calculated Osmolality 276 mOsm/kg (285-295) L 08/30/21 18:00 Lactic Acid 0.9 mmol/L (0.5-2.2) 08/30/21 18:00 Calcium 8.7 mg/dL (8.5-10.5) 08/30/21 18:00 Total Bilirubin 0.2 mg/dL (0.15-1.2) 08/30/21 18:00 AST 21 U/L (0-40) 08/30/21 18:00 ALT 23 U/L (0-41) 08/30/21 18:00 Alkaline Phosphatase 69 IU/L (40-130) 08/30/21 18:00 Total Protein 7.0 g/dL (6.6-8.7) 08/30/21 18:00 Albumin 4.1 g/dL (3.5-5.2) 08/30/21 18:00 Globulin 2.9 g/dL (1.3-4.6) 08/30/21 18:00 Urine Color Colorless (Yellow) 08/30/21 19:25 Urine Appearance Clear (CLEAR) 08/30/21 19:25 Urine pH 5 (5-7) 08/30/21 19:25 Ur Specific [place] 1.005 (1.005-1.030) 08/30/21 19:25 Urine Protein Neg (Negative) 08/30/21 19:25 Urine Glucose (UA) 1+ (Normal) H 08/30/21 19:25 Urine Ketones Negative (Negative) 08/30/21 19:25 Urine Blood Neg (Negative) 08/30/21 19:25 Urine Nitrate Negative (Negative) 08/30/21 19:25 Urine Bilirubin Neg (Negative) 08/30/21 19: Urine Urobilinogen Norm mg/dL (Negative) 08/30/21 19:25 Ur Leukocyte Esterase Negative (Negative) 08/30/21 19:25 Salicylates < 0.3 mg/dL (3-10) L 08/30/21 18:00 Urine Opiates Screen Negative ng/mL (Negative) 08/30/21 19:25 Acetaminophen < 5.0 ug/mL (10-30) L 08/30/21 18:00 Ur Barbiturates Screen Negative ng/mL (Negative) 08/30/21 19:25 Ur Phencyclidine Scrn Negative ng/mL (Negative) 08/30/21 19:25 Ur Amphetamines Screen Negative ng/mL (Negative) 08/30/21 19:25 U Benzodiazepines Scrn Negative ng/mL (Negative) 08/30/21 19:25 Urine Cocaine Screen Negative ng/mL (Negative) 08/30/21 19:25 U Marijuana (THC) Screen Negative ng/mL (Negative) 08/30/21 19:25 SARS-CoV-2 Ag (Rapid) Positive (Negative) H 08/30/21 18:15 Critical Care Time Critical Care Time: Critical Care Time: Yes Total Critical Care Time: 40 Attestation: The high probability of a clinically significant, sudden or life threatening deterioration of the patient's resp system(s) required my full and direct attention, intervention and personal management. The critical care time is as shown. This time is in addition to time spent performing any reported procedures but includes the following: [x] Data and vital sign review and interpretation [x] Patient assessment, examination and intervention [x] Documentation [x] Medication orders and management Discharge Plan Discharge Patient Disposition: Admitted As Inpatient Admit Provider: Yayo Grove Clinical Impression: Pneumonia, COVID-19, Acute respiratory failure with hypoxia Condition: Stable Coding Level of Care Code ED Cloth Spreader for Jennyfer Rae
--- NOTE | 2021-08-30 20:30 | CTR_ITS ---
PROCEDURE INFORMATION: Exam: CTA Chest With Contrast Exam date and time: 08/30/2021 8:44 PM Age: 55 years old Clinical indication: Fever; Additional info: SOB TECHNIQUE: Imaging protocol: Computed tomographic angiography of the chest with contrast. 3D rendering (Not supervised by radiologist): MIP and/or 3D reconstructed images were created by the technologist. Radiation optimization: All CT scans at this facility use at least one of these dose optimization techniques: automated exposure control; mA and/or kV adjustment per patient size (includes targeted exams where dose is matched to clinical indication); or iterative reconstruction. Contrast material: OMNIPAQUE 300; Contrast volume: 70 ml; Contrast route: INTRAVENOUS (IV); COMPARISON: 1. CT chest wo con [id number] 08/23/2021 3:18 PM 2. CR (CHEST, ) 08/30/2021 6:08 PM RADIATION DOSE METRICS: Total DLP (mGy-cm): 615.51 FINDINGS: Pulmonary arteries: No filling defects in the pulmonary arteries to suggest pulmonary embolism. Aorta: Mild atherosclerotic changes in the visualized arteries. No evidence for aortic aneurysm or aortic dissection. 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 Trachea: Tracheobronchial structures are patent. Lungs: Stable linear scarring in the right middle lobe and right lower lobe with volume loss in the right hemithorax. Interval development of reticulonodular interstitial thickening and patchy ground-glass opacities diffusely in the right lung. Findings are suspicious for pneumonia, including atypical organisms. Pleural spaces: Stable small left pleural effusion. Heart: No cardiomegaly. No pericardial effusion. Mild atherosclerotic calcification in the coronary arteries. Lymph nodes: Calcified and partially calcified mediastinal and right hilar lymph nodes. No lymphadenopathy. Diaphragm: Stable large hiatal hernia. Liver: Diffuse, mildly decreased attenuation in the visualized liver. Findings are consistent with mild fatty infiltration. Single calcified granuloma in the visualized liver. Gallbladder and bile ducts: There is a large stone in the lumen of the gallbladder. No gallbladder wall thickening. No dilatation of the visualized bile ducts. Pancreas: The visualized pancreas is unremarkable. No pancreatic ductal dilatation. The visualized pancreas is unremarkable. No pancreatic ductal dilatation. Spleen: The visualized spleen is unremarkable. Adrenal glands: The right and left adrenal glands are unremarkable. Kidneys and ureters: The visualized right and left kidneys are unremarkable. Bones/joints: Multilevel degenerative changes of varying severity in the visualized spine. Soft tissues: No acute abnormality in the extrathoracic soft tissues. CT/CT angio chest PE protcl [id number] IMPRESSION: 1. Interval development of reticulonodular interstitial thickening and patchy ground-glass opacities diffusely in the right lung. Findings are suspicious for pneumonia, including atypical organisms. Recommend followup chest imaging to insure resolution of these findings. 2. No evidence for pulmonary embolism. 3. No evidence for aortic aneurysm or aortic dissection. 4. Stable small left pleural effusion. 5. Mild fatty infiltration of the visualized liver. 6. There is a large stone in the lumen of the gallbladder. 7. Stable large hiatal hernia.
[2021-08-30] MEDS: dexamethasone 10 mg/mL INJ 6 MG IVP (20:32)
[2021-08-30] MEDS: iohexol 300 mg/mL 100 mL Btl IV (20:43)
--- NOTE | 2021-08-30 21:33 | P.HP_ITS ---
Providers/Chief Complaint Admitting Physician: Yayo Grove DO Primary Care Provider: LIZA Gutiérrez Chief Complaint: STROKE VS HEAD BLEED History of Present Illness The patient is a 55-year-old male who presented with chief complaint of ?I was feeling bad?. The patient is a poor to fair historian at best. Upon general review of systems, he missed a fever, rigors, nausea, vomiting, cough which is productive of green sputum, wheeze, abdominal pain, myalgia, dyspnea. He admits to peripheral edema as well as 8 hours by mouth. He denies diarrhea, chest pain, dysgeusia, headache. Patient has known history of HIV. He presents for further evaluation Review of Systems General: Reports: 10 or more systems reviewed and unremarkable except in HPI and below Medications/Allergies Home Medications Medication Instructions Recorded Confirmed Last Taken Type aspirin 325 mg tablet,delayed 325 mg PO DAILY tab 04/06/19 08/30/21 08/30/21 History release nitroglycerin 0.4 mg sublingual 0.4 mg SUBLINGUAL ONCE PRN 04/06/19 08/30/21 Unknown History tablet (Nitrostat) triamcinolone acetonide 0.1 % 1 applic TOPICAL BID #30 gm 01/01/20 08/30/21 Unknown Rx topical ointment nystatin 100,000 unit/gram topical 1 applic TOPICAL BID PRN #30 g 04/19/20 08/30/21 Unknown Rx cream paliperidone 6 mg tablet,extended 6 mg PO QAM #30 tab 05/21/21 08/30/21 08/30/21 Rx release 24 hr paroxetine HCl 10 mg tablet (Paxil) 10 mg PO DAILY #30 tab 05/21/21 08/30/21 08/29/21 Rx trihexyphenidyl 5 mg tablet 2.5 mg PO BID #30 tab 05/21/21 08/30/21 08/30/21 Rx honey 100 % topical paste 1 applic TOPICAL BID #103 ml 05/29/21 08/30/21 Unknown Rx (MediHoney (honey)) pyridoxine (vitamin B6) 250 mg 250 mg PO DAILY #30 tab 05/29/21 08/30/21 08/30/21 Rx tablet paroxetine HCl 40 mg tablet 40 mg PO BEDTIME 08/23/21 08/30/21 08/29/21 History trazodone 50 mg tablet 50 mg PO BEDTIME 08/23/21 08/30/21 08/29/21 History albuterol sulfate 90 mcg/actuation 2 puff INHALATION Q4H PRN #8.5 gm 08/30/21 08/30/21 Unknown Rx aerosol inhaler dapagliflozin 5 mg tablet (Farxiga) 5 mg PO QAM #30 tab 08/30/21 08/30/21 08/30/21 Rx gabapentin 300 mg capsule 300 mg PO BID #60 cap 08/30/21 08/30/21 08/30/21 Rx linaclotide 145 mcg capsule 145 mcg PO QAM #30 cap 08/30/21 08/30/21 08/30/21 Rx (Linzess) magnesium hydroxide 400 mg/5 mL 30 ml PO BID #480 ml 08/30/21 08/30/21 Unknown Rx oral suspension (Milk of Magnesia) magnesium oxide 400 mg PO BID #60 tab 08/30/21 08/30/21 08/30/21 Rx omeprazole 20 mg tablet,delayed 20 mg PO DAILY #30 tab 08/30/21 08/30/21 08/30/21 Rx release pravastatin 10 mg tablet 10 mg PO DAILY #30 tab 08/30/21 08/30/21 08/29/21 Rx valsartan 40 mg tablet 40 mg PO DAILY #30 tab 08/30/21 08/30/21 08/30/21 Rx Allergies Allergy/AdvReac Type Severity Reaction Status Date / Time No Known Allergies Allergy Unverified 08/30/21 16:21 PFSH Acute PFSH: Medical History Acid reflux Cervical radicular pain Chronic hepatitis C Chronic idiopathic constipation Controlled diabetes mellitus with hyperglycemia, without long-term current use of insulin COPD (chronic obstructive pulmonary disease) Dependence on nocturnal oxygen therapy Essential (primary) hypertension Gastritis HIV disease Major depressive disorder, recurrent, moderate Nicotine dependence, cigarettes, with other nicotine-induced disorders Nocturnal hypoxia 2018 Psychiatric care Schizophrenia Tardive dyskinesia Vitamin D deficiency Surgical History History of adenoidectomy History of appendectomy History of colonoscopy History of tonsillectomy History of tympanostomy Family History Father COPD (chronic obstructive pulmonary disease) Mother COPD (chronic obstructive pulmonary disease) Other Cancer Social History Smoking and tobacco status: current every day smoker cigarettes Second hand smoke exposure: Yes Smoking risk assessment/counseling performed?: Yes Tobacco counseling given: counseling >3 minutes Alcohol intake: unknown Desire information about alcohol rehabilitation?: No Counseling given: No Desire information about substance/drug rehabilitation?: No Counseling given: No Adopted: No Caregiver/support person: Yes (family assists) Lives independently: Yes Household members: none Marital status: Single Number of children: 0 service: No Current occupational status: disabled Current occupational exposures/hazards: No History of recent travel: No Current gender identity: Male Vitals/I&O/Wt Last Vital Signs Temp 100.1 F H 08/30/21 20:53 Pulse 82 08/30/21 20:53 Resp 20 H 08/30/21 20:53 BP 141/73 08/30/21 20:53 Pulse Ox 92 08/30/21 20:53 Weight last 48 hrs Weight 97.069 kg Physical Exam Narrative: General: -Alert -No acute distress -No dyspnea -No tachypnea Head: -Atraumatic -Normocephalic Eyes: -Pupils equally round and reactive to light and accommodation -Extraocular muscles intact Neurological: -Cranial nerves II-XII intact Neck: -No jugular venous distention -No thyromegaly -No cervical lymphadenopathy Heart: -Regular rate -Regular rhythm -No murmurs -No gallops -No rubs Lungs: -No wheeze -No rhonchi -No rales ? Abdomen: -Normal bowel sounds in all four quadrants -No rebound -No guarding -No tenderness Extremities: -2/4 pulse in all four extremities -No clubbing -No cyanosis -No edema -No calf tenderness present bilaterally -Negative Mary?s sign bilaterally Musculoskeletal: -5/5 bilateral upper extremity strength -5/5 bilateral lower extremity strength -Sensorium of bilateral upper extremities are equal and intact -Sensorium of bilateral lower extremities are equal and intact ? Additional Details / Additional Findings / Exceptions / Miscellaneous: Data : 08/30/21 18:00 08/30/21 18:00 Micro: Microbiology 08/30/21 19:26 Blood Culture - Preliminary Blood SPECIMEN COLLECTED 08/30/21 18:00 Blood Culture - Preliminary Blood SPECIMEN COLLECTED A&P Assessment and plan (1) Pneumonia: Status: Acute Plan pneumonia. Patient is covert 19 positive however I feel that this is likely an incidental finding. Radiology called me on the evening of August 30, 2021 and indicated that the radiograph radiographic findings are more consistent with atypical pneumonia with an covert 19. ABG pending at time of admission. Blood culture ?2 drawn the emergency department pending. Covert 19 isolation precautions. Levaquin 500 Mill grams IV daily plus DuoNeb every 6 hours Hyponatremia. We will monitor sodium level intermittently. IV normal saline 75 ML's per hour Tardive dyskinesia Depression Schizophrenia IBS Neuropathy COPD, patient O2 dependent only not nocturnally however he does not not know his supplemental oxygen flow rate. DuoNeb every 6 hours. I am hesitant to initiate steroids at this point given his history of HIV Diabetes. Will check fasting glucose every before meals and at bedtime and provide insulin sliding scale GERD Hyperlipidemia Hypertension Smoker. The patient will be counseled regarding smoking cessation Hepatitis C. Outpatient follow-up with gastroenterology or infectious disease upon discharge if the patient is never previously been treated HIV. Currently pending: HIV viral load and CD4 count. Outpatient follow-up with infectious disease upon discharge History of vitamin D deficiency Hepatic steatosis DVT Proflex is. Lovenox 40 Mill grams subcu tensely daily Attestations Medical Necessity Statement*: the patient's anticipate length of stay screen the 2 minutes for treatment of pneumonia Coding Level of Care Code Acute Addiction Medicine Physician for Jennyfer Rae Diagnoses Pneumonia J18.9
[2021-08-30] MEDS: levofloxacin-dextrose 5 % 500 MG/100 ML PREMIX 100 MG IV (22:52)
[2021-08-30] MEDS: enoxaparin 40 mg/0.4 mL Syringe SUBCUT (22:52)
[2021-08-30] MEDS: sodium chloride 0.9% 1,000 ML 75 ML IV (22:52)
[2021-08-31] VITALS (13 sets, daily range): BP systolic 111–162; BP diastolic 63–84; PULSE 67–80; RESP 16–20; TEMP 36.4–37.1; O2SAT 90–97
[2021-08-31] MEDS: ipratropium-albuterol 3 mL Neb INHALATION ×3 (03:34→20:28)
--- NOTE | 2021-08-31 06:00 | XR_ITS ---
WS: [id number] Exam: XR chest 1V portable [id number] Date/Time of Exam: 08/31/2021 4:55 AM Reason For Exam: cough Comparison 08/23/2021. Again noted is a infiltrate and atelectasis in the mid and lower right lung. There may be right pleur al effusion versus pleural thickening. The left lung is clear. No pneumothorax is seen. Normal cardio mediastinal silhouette. Bony structures are intact. XR/XR chest 1V portable [id number] IMPRESSION: 1. Infiltrate in the atelectasis in the right lower lung zone with volume loss. There may be right pleural effusion or pleural thickening present. Overall, no change since previous study. 2. Left lung remains clear and fully inflated.
[2021-08-31 07:07] LABS: Glucose Point of Care 196 mg/dL (70-110)
[2021-08-31 07:58] LABS: Ammonia 51 umol/L (16-60)
[2021-08-31 08:06] LABS: Alanine Aminotransferase 22 U/L (0-41); Albumin Level 3.9 g/dL (3.5-5.2); Alkaline Phosphatase 69 IU/L (40-130); Blood Urea Nitrogen 9 mg/dL (6-20); Calcium 8.3 mg/dL (8.5-10.5); Carbon Dioxide 24 mmol/L (22-29); Chloride 99 mmol/L (98-107); Globulin 2.4 g/dL (1.3-4.6); Glomerular Filtration Rate 223.3 mL/min (90-130); Glucose 171 mg/dL (65-115); Osmolality Calculated 281 mOsm/kg (285-295); Sodium 134 mmol/L (136-145); Total Bilirubin 0.2 mg/dL (0.15-1.2); Total Protein 6.3 g/dL (6.6-8.7)
[2021-08-31 08:12] LABS: Anion Gap 15.8 (5-19); Aspartate Amino Transferase 28 U/L (0-40); Potassium 4.8 mmol/L (3.5-5.1)
[2021-08-31] MEDS: insulin lispro 100 unit/1 mL SUBCUT ×3 (08:27→22:27)
--- NOTE | 2021-08-31 09:54 | PC.CHAP ---
Pastoral Care Encounter/Spiritual Assessment Type of Contact [] Declined senior marketing specialist visit [] Patient/Family/Request visit [] Outpatient visit [] Follow-up visit [] Physician referral [] Code/Alert [X] Routine visit [] Staff referral [] Actively dying [] Patient sleeping [] Family support [] [] Out of room [] Palliative care [] [X] Receiving care in room [] Pre-surgical visit [] Trauma [] Long length of stay [] ICU visit [] Other: Relational/Emotional Strength [] Patient feels connected with others/family/visitors/staff [] Distress [] Loneliness/isolation [] Abandonment Spirituality of Patient [] Person of Bettye [] Attends Mandaen of their Bettye [] Believes in Prayer [] Reads Bible or Orthodox materials [] There are Spiritual issues to be addressed Fax Machine Operator Interventions [] Prayer [] Active listening [] Non-anxious presence [] Spiritual/emotional support [] Crisis/trauma care [] Spiritual counseling [] Bereavement support [] Provided bereavement packet [] Provided Bible/devotional materials [] Provided toy/stuffed animal, coloring book to patient or family member [] Provided Communion [] Anointing/[place] [] Salvation [] Completed spiritual assessment [] Other: Impact on Illness or Injury [] Angry [] Fearful [] Anxious [] Often cries [] Exhaustion [] Unable to work [] Unable to attend mu-ism [] Unable to walk/stand [] Unable to read [] Unable to drive [] Unable to eat/drink [] Unable to sleep [] Unable to be with family [] Patient intubated [] Other: Summary Time spent with patient
[2021-08-31 11:16] LABS: Glucose Point of Care 211 mg/dL (70-110)
--- NOTE | 2021-08-31 12:40 | PM.PN ---
Subjective Subjective: He is having some mild cough, intermittently productive of some mild sputum. No chest pain pressure. No vomiting, although I see documented he had reported vomiting during his visit 08/30 in the office. Reports he is not on medication for HIV, he could not give me definitive answer why not, other than he was scared. He asked if there is someone who could see him in town, discussed with him we will give him referral to infectious disease at discharge. Vitals/I&O/Wt Last Vital Signs Temp 98.8 F 08/31/21 11:17 Pulse 78 08/31/21 11:17 Resp 16 08/31/21 11:17 BP 144/79 08/31/21 11:17 Pulse Ox 94 08/31/21 11:17 08/30/21 08/31/21 08/31/21 22:59 06:59 14:59 Intake Total 340 / 340 Output Total 1500 / 1500 950 / 950 Balance -1160 / -1160 -950 / -950 Weight last 48 hrs Weight 97.069 kg Weight 97.069 kg Physical Exam Const: COMMON NORMALS: alert GENERAL APPEARANCE: cooperative ORIENTATION/CONSCIOUSNESS: Yes awake HENMT: COMMON NORMALS: normocephalic, EAC's normal, Normal external nose present and moist oral mucous membranes HEAD & SCALP: normocephalic NOSE: Normal external nose present EXTERNAL AUDITORY CANAL: EAC's normal Neck/C-Spine: COMMON NORMALS: no meningeal signs Chest: CHEST: Yes Symmetrical chest wall rise Resp: COMMON NORMALS: clear to auscultation bilaterally AUSCULTATION: clear to auscultation bilaterally Cardio: COMMON NORMALS: regular rate, regular rhythm and No murmurs present (Cardio) RATE: regular rate RHYTHM: regular rhythm GI: COMMON NORMALS: Normal to inspection, nondistended, normoactive bowel sounds present, Soft to palpation and non-tender PALPATION: Yes Soft to palpation Extremity: COMMON NORMALS: no pedal edema Neuro: COMMON NORMALS: moves all extremities SENSORIUM/ORIENTATION: Yes alert MENINGEAL SIGNS: Yes no meningeal signs Psych: COMMON NORMALS: mental status grossly normal Skin: COMMON NORMALS: no wounds RASHES: no rashes Data : 08/30/21 18:00 08/31/21 07:05 Micro: Microbiology 08/31/21 11:21 Legionella Urinary Antigen - Final Urine,Voided 08/30/21 19:26 Blood Culture - Preliminary Blood SPECIMEN COLLECTED 08/30/21 18:00 Blood Culture - Preliminary Blood SPECIMEN COLLECTED A&P Assessment and plan (1) Pneumonia: Continue empiric Levaquin. Assess COVID-19 PCR. Possibly also aspiration pneumonitis/pneumonia given report of vomiting during his visit in office on 08/30. Sputum culture. Appears to have more chronic findings Will need follow-up regarding HIV. Area of more pronounced pleural-parenchymal scarring and opacity with expected configuration and posterior right lower lobe stable in size. No cavitation within the area on current study. Multiple visible swelling towards this region, may represent area of rounded atelectasis. There appears to be clinically of this finding with CT chest on August 23 reporting cavitary masslike opacity in the right lower lobe extending to pleura, 1.8 x 3.5 cm. Neoplasm not excluded. Would consider follow-up and assessment by pulmonology. Status: Acute Plan Noted cholelithiasis: No symptoms to suggest cholecystitis. Follow-up in office. Mild fatty liver infiltration incidentally noted on CT: Follow-up with primary provider. Large hiatal hernia incidentally noted on CT, follow-up with primary provider. Hyponatremia. Improving. Unrestricted sodium intake. DC IVF. Follow-up sodium. Tardive dyskinesia Depression Schizophrenia IBS Neuropathy COPD, patient O2 dependent only not nocturnally however he does not not know his supplemental oxygen flow rate. DuoNeb every 6 hours. Diabetes. CC diet. Will check fasting glucose every before meals and at bedtime and provide insulin sliding scale GERD Hyperlipidemia Hypertension Smoker. Continue to encourage cessation. Hepatitis C. Outpatient follow-up with gastroenterology or infectious disease upon discharge if the patient is never previously been treated HIV. Currently pending: HIV viral load and CD4 count. Outpatient follow-up with infectious disease upon discharge. Currently afebrile, cannot provide a good reason why, other than she was scared to. Discussed with him risk of progression of illness, complications, need for follow-up and treatment. He is agreeable. History of vitamin D deficiency Hepatic steatosis DVT Proflex is. Lovenox 40 Mill grams subcu tensely daily Attestations Medical Necessity Statement*: Continue admission for cyst management of pneumonia in gentleman with HIV, possible COVID-19 Coding Level of Care Code Acute Oracle Application Architect for [facility] Diagnoses Pneumonia J18.9
[2021-08-31 13:16] LABS: D Dimer 13.76 ug/mIFEU (0-0.59)
[2021-08-31 17:27] LABS: Glucose Point of Care 131 mg/dL (70-110)
[2021-08-31 21:07] LABS: Glucose Point of Care 155 mg/dL (70-110)
[2021-08-31] MEDS: levofloxacin-dextrose 5 % 500 MG/100 ML PREMIX 100 MG IV (22:26)
[2021-08-31] MEDS: enoxaparin 40 mg/0.4 mL Syringe SUBCUT (22:26)
[2021-09-01] VITALS (14 sets, daily range): BP systolic 104–141; BP diastolic 55–85; PULSE 62–78; RESP 18–20; TEMP 36.6–37.2; O2SAT 78–96
[2021-09-01 04:19] LABS: Basophils % 0.3 %; Eosinophils % 0.6 %; Hemoglobin 11.7 g/dL (11.7-16.6); Lymphocytes # 1.2 10^3/uL (0.8-4.8); Lymphocytes % 34.2 %; Mean Corpuscular HGB Conc 28.5 g/dL (30.0-36.0); Mean Corpuscular Hemoglobin 24.6 pg (28.0-34.0); Mean Corpuscular Volume 86.3 fl (80-94); Mean Platelet Volume 10.9 fL (7.4-10.4); Monocytes # 0.6 10^3/uL (0.2-0.9); Monocytes % 16.7 %; Neutrophils # 1.67 10^3/uL (1.8-7.7); Neutrophils % 47.9 %; Nucleated Red Blood Cells % 0 %; Platelet Count 235 10^3/cmm (130-400); Red Blood Count 4.75 10^6/uL (4.1-5.3); Red Cell Distribution Width 15.7 % (12.1-15.1); White Blood Count 3.5 10^3/uL (4.0-10.0)
[2021-09-01 04:35] LABS: D Dimer 0.62 ug/mIFEU (0-0.59)
[2021-09-01 04:39] LABS: Alanine Aminotransferase 22 U/L (0-41); Albumin Level 3.9 g/dL (3.5-5.2); Alkaline Phosphatase 61 IU/L (40-130); Anion Gap 7.5 (5-19); Aspartate Amino Transferase 19 U/L (0-40); Blood Urea Nitrogen 13 mg/dL (6-20); Calcium 8.7 mg/dL (8.5-10.5); Carbon Dioxide 33 mmol/L (22-29); Chloride 101 mmol/L (98-107); Globulin 2.9 g/dL (1.3-4.6); Glomerular Filtration Rate 223.3 mL/min (90-130); Glucose 111 mg/dL (65-115); Osmolality Calculated 285 mOsm/kg (285-295); Potassium 4.5 mmol/L (3.5-5.1); Sodium 137 mmol/L (136-145); Total Bilirubin 0.2 mg/dL (0.15-1.2); Total Protein 6.8 g/dL (6.6-8.7)
[2021-09-01 07:20] LABS: Glucose Point of Care 132 mg/dL (70-110)
[2021-09-01] MEDS: ipratropium-albuterol 3 mL Neb INHALATION ×2 (08:41→19:32)
[2021-09-01] MEDS: remdesivir 200 MG in sodium chloride 0.9% (100 ml) 60 ML 100 MG IV (09:54)
--- NOTE | 2021-09-01 10:44 | PM.PN ---
Subjective Subjective: Reports he still coughing. Breathing is perhaps slightly better. He is wheezing. Still requiring supplemental oxygen. Denies vomiting or diarrhea. Vitals/I&O/Wt Last Vital Signs Temp 98.4 F 09/01/21 07:51 Pulse 75 09/01/21 08:50 Resp 18 09/01/21 08:41 BP 134/80 09/01/21 07:51 Pulse Ox 93 09/01/21 08:41 08/31/21 09/01/21 09/01/21 22:59 06:59 14:59 Intake Total 100 / 100 Output Total 1610 / 2560 200 / 2760 310 / 310 Balance -1610 / -2560 -100 / -2660 -310 / -310 Weight last 48 hrs Weight 97.069 kg Weight 97.069 kg Physical Exam Const: COMMON NORMALS: alert GENERAL APPEARANCE: cooperative ORIENTATION/CONSCIOUSNESS: Yes awake HENMT: COMMON NORMALS: normocephalic, EAC's normal, Normal external nose present and moist oral mucous membranes HEAD & SCALP: normocephalic NOSE: Normal external nose present EXTERNAL AUDITORY CANAL: EAC's normal Neck/C-Spine: COMMON NORMALS: no meningeal signs Chest: CHEST: Yes Symmetrical chest wall rise Resp: AUSCULTATION: wheezes Cardio: COMMON NORMALS: regular rate, regular rhythm and No murmurs present (Cardio) RATE: regular rate RHYTHM: regular rhythm GI: COMMON NORMALS: Normal to inspection, nondistended, normoactive bowel sounds present, Soft to palpation and non-tender PALPATION: Yes Soft to palpation Extremity: COMMON NORMALS: no pedal edema Neuro: COMMON NORMALS: moves all extremities SENSORIUM/ORIENTATION: Yes alert MENINGEAL SIGNS: Yes no meningeal signs Psych: COMMON NORMALS: mental status grossly normal Skin: COMMON NORMALS: no wounds RASHES: no rashes Data : 09/01/21 03:40 09/01/21 03:40 Micro: Microbiology 08/31/21 11:21 Bacterial Antigens - Final Urine,Voided 08/30/21 19:26 Blood Culture - Preliminary Blood NEGATIVE TO DATE 08/30/21 18:00 Blood Culture - Preliminary Blood NEGATIVE TO DATE 08/31/21 11:21 Legionella Urinary Antigen - Final Urine,Voided A&P Assessment and plan (1) Pneumonia: As he is still requiring oxygen, still with cough, dyspnea, discussed with him starting remdesivir, COVID PCR has not been yet collected, requested again. He is also having some wheezing today. We will add inhaled steroid. Continue breathing treatments. Continue empiric Levaquin. Possibly also aspiration pneumonitis/pneumonia given report of vomiting during his visit in office on 08/30. Sputum culture requested D-dimer today better to 0.62. In case not improving consider additional evaluation for opportunistic infections. Viral load, CD4 counts pending. Will need follow-up regarding HIV. Area of more pronounced pleural-parenchymal scarring and opacity with expected configuration and posterior right lower lobe stable in size. No cavitation within the area on current study. Multiple visible swelling towards this region, may represent area of rounded atelectasis. There appears to be clinically of this finding with CT chest on August 23 reporting cavitary masslike opacity in the right lower lobe extending to pleura, 1.8 x 3.5 cm. Neoplasm not excluded. Would consider follow-up and assessment by pulmonology. Status: Acute Plan Noted cholelithiasis: No symptoms to suggest cholecystitis. Follow-up in office. Mild fatty liver infiltration incidentally noted on CT: Follow-up with primary provider. Large hiatal hernia incidentally noted on CT, follow-up with primary provider. Hyponatremia. Improving. Unrestricted sodium intake. DC IVF. Follow-up sodium. Tardive dyskinesia Depression Schizophrenia IBS Neuropathy COPD, patient O2 dependent only not nocturnally however he does not not know his supplemental oxygen flow rate. DuoNeb every 6 hours. Diabetes. CC diet. Will check fasting glucose every before meals and at bedtime and provide insulin sliding scale GERD Hyperlipidemia Hypertension Smoker. Continue to encourage cessation. Hepatitis C. Outpatient follow-up with gastroenterology or infectious disease upon discharge if the patient is never previously been treated HIV. Currently pending: HIV viral load and CD4 count. Outpatient follow-up with infectious disease upon discharge. Currently afebrile, cannot provide a good reason why, other than she was scared to. Discussed with him risk of progression of illness, complications, need for follow-up and treatment. He is agreeable. History of vitamin D deficiency Hepatic steatosis DVT Proflex is. Lovenox 40 Mill grams subcu tensely daily Attestations Medical Necessity Statement*: Admission versus management of pneumonia, treatment of possible severe with ongoing hypoxia COVID, and a gentleman with underlying HIV. Coding Level of Care Code Acute Practice Assistant for [facility] Diagnoses Pneumonia J18.9
[2021-09-01 12:01] LABS: Glucose Point of Care 103 mg/dL (70-110)
[2021-09-01 17:31] LABS: Glucose Point of Care 83 mg/dL (70-110)
[2021-09-01] MEDS: budesonide 0.5 mg/2 mL Neb 0.25 MG INHALATION (19:32)
[2021-09-01 20:21] LABS: Glucose Point of Care 116 mg/dL (70-110)
[2021-09-01] MEDS: levofloxacin-dextrose 5 % 500 MG/100 ML PREMIX 100 MG IV (22:21)
[2021-09-01] MEDS: enoxaparin 40 mg/0.4 mL Syringe SUBCUT (22:21)
[2021-09-02] VITALS (12 sets, daily range): BP systolic 103–131; BP diastolic 53–76; PULSE 54–79; RESP 18–20; TEMP 36.7–37.1; O2SAT 93–97
[2021-09-02 05:33] LABS: Hematocrit 45.3 % (42.0-52.0); Hemoglobin 12.8 g/dL (11.7-16.6); Lymphocytes # 0.9 10^3/uL (0.8-4.8); Lymphocytes % 28.8 %; Mean Corpuscular HGB Conc 28.3 g/dL (30.0-36.0); Mean Corpuscular Volume 88.5 fl (80-94); Mean Platelet Volume 9.5 fL (7.4-10.4); Monocytes # 0.4 10^3/uL (0.2-0.9); Monocytes % 12.8 %; Neutrophils # 1.75 10^3/uL (1.8-7.7); Neutrophils % 55.8 %; Nucleated Red Blood Cells % 0 %; Platelet Count 151 10^3/cmm (130-400); Red Blood Count 5.12 10^6/uL (4.1-5.3); Red Cell Distribution Width 16.1 % (12.1-15.1); White Blood Count 3.1 10^3/uL (4.0-10.0)
[2021-09-02 05:49] LABS: Alanine Aminotransferase 21 U/L (0-41); Albumin Level 3.9 g/dL (3.5-5.2); Alkaline Phosphatase 61 IU/L (40-130); Anion Gap 8.5 (5-19); Aspartate Amino Transferase 17 U/L (0-40); Blood Urea Nitrogen 17 mg/dL (6-20); Calcium 8.6 mg/dL (8.5-10.5); Carbon Dioxide 32 mmol/L (22-29); Chloride 101 mmol/L (98-107); Globulin 2.7 g/dL (1.3-4.6); Glomerular Filtration Rate 172.6 mL/min (90-130); Glucose 91 mg/dL (65-115); Osmolality Calculated 285 mOsm/kg (285-295); Potassium 4.5 mmol/L (3.5-5.1); Sodium 137 mmol/L (136-145); Total Bilirubin 0.2 mg/dL (0.15-1.2); Total Protein 6.6 g/dL (6.6-8.7)
[2021-09-02 06:39] LABS: Glucose Point of Care 102 mg/dL (70-110)
[2021-09-02 06:42] LABS: D Dimer 1.13 ug/mIFEU (0-0.59)
[2021-09-02] MEDS: budesonide 0.5 mg/2 mL Neb 0.25 MG INHALATION (08:32)
[2021-09-02] MEDS: ipratropium-albuterol 3 mL Neb INHALATION ×2 (08:33→15:59)
[2021-09-02] MEDS: remdesivir 100 MG in sodium chloride 0.9% (100 ml) 80 ML IV (09:22)
[2021-09-02] MEDS: guaiFENesin-dextromethorphan UDC 10 mL PO (09:22)
[2021-09-02 11:33] LABS: Glucose Point of Care 136 mg/dL (70-110)
--- NOTE | 2021-09-02 11:46 | P.PN_ITS ---
Subjective Subjective: He is still coughing. Had a bowel movement today, no diarrhea. No vomiting. Discussed with him increasing oxygen requirement. Continuation of remdesivir for now. COVID PCR pending. Vitals/I&O/Wt Last Vital Signs Temp 98.6 F 09/02/21 08:00 Pulse 79 09/02/21 08:52 Resp 20 H 09/02/21 08:33 BP 121/76 09/02/21 08:00 Pulse Ox 93 09/02/21 08:33 09/01/21 09/02/21 09/02/21 22:59 06:59 14:59 Intake Total 100 / 200 350 / 350 Output Total 330 / 1180 1050 / 2230 Balance -330 / -1080 -950 / -2030 350 / 350 Physical Exam Const: COMMON NORMALS: alert GENERAL APPEARANCE: cooperative ORIENTATION/CONSCIOUSNESS: Yes awake HENMT: COMMON NORMALS: normocephalic, EAC's normal, Normal external nose present and moist oral mucous membranes HEAD & SCALP: normocephalic NOSE: Normal external nose present EXTERNAL AUDITORY CANAL: EAC's normal Neck/C-Spine: COMMON NORMALS: no meningeal signs Chest: CHEST: Yes Symmetrical chest wall rise Resp: AUSCULTATION: wheezes Cardio: COMMON NORMALS: regular rate, regular rhythm and No murmurs present (Cardio) RATE: regular rate RHYTHM: regular rhythm GI: COMMON NORMALS: Normal to inspection, nondistended, normoactive bowel sounds present, Soft to palpation and non-tender PALPATION: Yes Soft to palpation Extremity: COMMON NORMALS: no pedal edema Neuro: COMMON NORMALS: moves all extremities SENSORIUM/ORIENTATION: Yes alert MENINGEAL SIGNS: Yes no meningeal signs Psych: COMMON NORMALS: mental status grossly normal Skin: COMMON NORMALS: no wounds RASHES: no rashes Data : 09/02/21 04:44 09/02/21 04:44 Micro: Microbiology 08/31/21 11:21 Bacterial Antigens - Final Urine,Voided A&P Assessment and plan (1) Pneumonia: Follow-up COVID-19 PCR. Continue remdesivir for now. Steroid has been held off given underlying HIV which has been untreated. Inhaled steroid. Continue breathing treatments. Add antitussives. Continue Levaquin. In case fevers recurring or not responding to treatment, consider additional assessment for TB and/or opportunistic infections with untreated HIV. CD4 pending. B-D glucan, galactomannan pending. Possibly also of aspiration pneumonitis/pneumonia given report of vomiting during his visit in office on 08/30. Sputum culture requested Urine bacterial antigens negative. D-dimer so far improved. Follow-up. Will need follow-up regarding HIV. Area of more pronounced pleural-parenchymal scarring and opacity with expected configuration and posterior right lower lobe stable in size. No cavitation wi thin the area on current study. Multiple visible swelling towards this region, may represent area of rounded atelectasis. There appears to be clinically of this finding with CT chest on August 23 reporting cavitary masslike opacity in the right lower lobe extending to pleura, 1.8 x 3.5 cm. Neoplasm not excluded. Would consider follow-up and assessment by pulmonology. Status: Acute Plan Noted cholelithiasis: No symptoms to suggest cholecystitis. Follow-up in office. Mild fatty liver infiltration incidentally noted on CT: Follow-up with primary provider. Large hiatal hernia incidentally noted on CT, follow-up with primary provider. Hyponatremia. Improving. Unrestricted sodium intake. DC IVF. Follow-up sodium. Tardive dyskinesia Depression Schizophrenia IBS Neuropathy COPD, patient O2 dependent only not nocturnally however he does not not know his supplemental oxygen flow rate. DuoNeb every 6 hours. Diabetes. CC diet. Will check fasting glucose every before meals and at bedtim e and provide insulin sliding scale GERD Hyperlipidemia Hypertension Smoker. Continue to encourage cessation. Hepatitis C. Outpatient follow-up with gastroenterology or infectious disease upon discharge if the patient is never previously been treated HIV. Currently pending: HIV viral load and CD4 count. Outpatient follow-up with infectious disease upon discharge. Currently afebrile, cannot provide a good reason why, other than she was scared to. Discussed with him risk of progression of illness, complications, need for follow-up and treatment. He is agreeable. History of vitamin D deficiency Hepatic steatosis DVT Proflex is. Lovenox 40 Mill grams subcu tensely daily Attestations Medical Necessity Statement*: Continue admission for assessment of management of hypoxia, COVID-19 in a gentleman with untreated HIV. Coding Level of Care Code Acute Global Program Director for [facility] Diagnoses Pneumonia J18.9
[2021-09-02 12:51] LABS: Adenovirus Not Detected (NOT DETECT); Chlamydia Pneumoniae Not Detected (NOT DETECT); Coronavirus 229E,HKU1,NL63,OC4 Not Detected (NOT DETECT); Human Metapneumovirus Not Detected (NOT DETECT); Human Rhinovirus/Enterovirus Not Detected (NOT DETECT); Influenza A Not Detected (NOT DETECT); Influenza A H1 Not Detected (NOT DETECT); Influenza A H1-2009 Not Detected (NOT DETECT); Influenza A H3 Not Detected (NOT DETECT); Influenza B Not Detected (NOT DETECT); Mycoplasma Pneumoniae Not Detected (NOT DETECT); Parainfluenza Virus Type 1 Not Detected (NOT DETECT); Parainfluenza Virus Type 2 Not Detected (NOT DETECT); Parainfluenza Virus Type 3 Not Detected (NOT DETECT); Parainfluenza Virus Type 4 Not Detected (NOT DETECT); Respiratory Syncytial Virus A Not Detected (NOT DETECT); Respiratory Syncytial Virus B Not Detected (NOT DETECT); SARS-COV-2 Detected (NOT DETECT)
[2021-09-02 17:10] LABS: Glucose Point of Care 104 mg/dL (70-110)
[2021-09-02] MEDS: levofloxacin-dextrose 5 % 500 MG/100 ML PREMIX 100 MG IV (21:42)
[2021-09-02] MEDS: enoxaparin 40 mg/0.4 mL Syringe SUBCUT (21:43)
[2021-09-02 22:14] LABS: Glucose Point of Care 127 mg/dL (70-110)
[2021-09-03] VITALS (14 sets, daily range): BP systolic 102–147; BP diastolic 62–78; PULSE 61–74; RESP 16–18; TEMP 36.5–37.3; O2SAT 92–97
[2021-09-03] MEDS: ipratropium-albuterol 3 mL Neb INHALATION ×4 (03:09→20:46)
[2021-09-03 05:22] LABS: Basophils % 0.3 %; Eosinophils % 0.6 %; Hematocrit 42.1 % (42.0-52.0); Hemoglobin 12.6 g/dL (11.7-16.6); Lymphocytes # 1.1 10^3/uL (0.8-4.8); Lymphocytes % 29.6 %; Mean Corpuscular HGB Conc 29.9 g/dL (30.0-36.0); Mean Corpuscular Hemoglobin 24.5 pg (28.0-34.0); Mean Corpuscular Volume 81.9 fl (80-94); Monocytes # 0.5 10^3/uL (0.2-0.9); Monocytes % 14.4 %; Neutrophils # 1.97 10^3/uL (1.8-7.7); Neutrophils % 54.5 %; Nucleated Red Blood Cells % 0 %; Platelet Count 169 10^3/cmm (130-400); Red Blood Count 5.14 10^6/uL (4.1-5.3); Red Cell Distribution Width 15.6 % (12.1-15.1); White Blood Count 3.6 10^3/uL (4.0-10.0)
[2021-09-03 05:40] LABS: Alanine Aminotransferase 29 U/L (0-41); Albumin Level 3.9 g/dL (3.5-5.2); Alkaline Phosphatase 68 IU/L (40-130); Anion Gap 12.5 (5-19); Aspartate Amino Transferase 26 U/L (0-40); Blood Urea Nitrogen 13 mg/dL (6-20); Calcium 8.9 mg/dL (8.5-10.5); Carbon Dioxide 28 mmol/L (22-29); Chloride 98 mmol/L (98-107); Globulin 3.2 g/dL (1.3-4.6); Glomerular Filtration Rate 223.3 mL/min (90-130); Glucose 122 mg/dL (65-115); Osmolality Calculated 279 mOsm/kg (285-295); Potassium 4.5 mmol/L (3.5-5.1); Sodium 134 mmol/L (136-145); Total Bilirubin 0.2 mg/dL (0.15-1.2); Total Protein 7.1 g/dL (6.6-8.7)
[2021-09-03 05:41] LABS: D Dimer 1.59 ug/mIFEU (0-0.59)
--- NOTE | 2021-09-03 06:00 | XRR_ITS ---
PROCEDURE INFORMATION: Exam: XR Chest Exam date and time: 09/03/2021 6:12 AM Age: 55 years old Clinical indication: Dyspnea; Additional info: Hypoxia TECHNIQUE: Imaging protocol: XR of the chest. Views: 1 view. COMPARISON: CR XR chest 1V portable [id number] 08/31/2021 5:28 AM FINDINGS: Lungs: There are patchy and strandy opacity seen in the right mid and lower hemithorax likely representing parenchymal pleural scarring or atelectasis. A superimposed right lower lobe pneumonia cannot be excluded. Pleural spaces: Stable small right pleural effusion. Heart/Mediastinum: Unremarkable. No cardiomegaly. Bones/joints: Unremarkable. XR/XR chest 1V portable [id number] IMPRESSION: 1. Stable right pleural effusion 2. Stable strandy and patchy opacities are seen in the right lower hemithorax likely representing atelectasis versus pleural or parenchymal scarring. 3. A superimposed right lower infiltrate and pneumonia cannot be excluded.
[2021-09-03 06:39] LABS: Glucose Point of Care 115 mg/dL (70-110)
[2021-09-03] MEDS: budesonide 0.5 mg/2 mL Neb 0.25 MG INHALATION ×2 (08:43→20:45)
--- NOTE | 2021-09-03 09:17 | PC.NURSE ---
Bedside report received from Pamela VILLAREAL
[2021-09-03] MEDS: remdesivir 100 MG in sodium chloride 0.9% (100 ml) 80 ML IV (09:28)
[2021-09-03 12:57] LABS: Glucose Point of Care 114 mg/dL (70-110)
--- NOTE | 2021-09-03 14:44 | PM.PN ---
Subjective Subjective: 55-year-old male admitted with fevers, cough shortness of breath new oxygen requirement and COVID-positive. He smokes 1 pack/day. 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 He states he lives with his mother. Patient is a poor historian. He tells me that his speech is hard to understand for his family but is not sure how long that has been. He denies that he has had a stroke but there was previously concerned that his speech may be related to his stroke. His CT of his head showed no bleed or old strokes. At this time it is not thought that he has had an acute stroke. Patient has not been treated for HIV but states he is interested in being treated for it. He has CD4 count and HIV RNA tests pending from outside lab. Vitals/I&O/Wt Last Vital Signs Temp 98.5 F 09/03/21 12:00 Pulse 64 09/03/21 12:00 Resp 18 09/03/21 12:00 BP 147/75 09/03/21 12:00 Pulse Ox 94 09/03/21 12:00 09/02/21 09/03/21 09/03/21 22:59 06:59 14:59 Intake Total 100 / 690 820 / 820 Output Total 700 / 700 600 / 1300 Balance -600 / -10 -600 / -610 820 / 820 Physical Exam Narrative: General well-developed General well-developed well-nourished male in no acute cardiopulmonary stress he is alert oriented and pleasant. He has a somewhat childlike affect to his speech and asks if he can go home he is a poor historian regarding his health. He denies IV drug use or blood transfusions but his understanding as well as his history giving our seemingly suboptimal. CV regular rate and rhythm Lungs prolonged respiratory phase with expiratory wheezes and good air movement Calves no swelling. Mood and affect polite, somewhat childlike, not angry Data : 09/03/21 04:45 09/03/21 04:45 CXR: My impression: Chest x-ray shows relatively clear lungs but CT shows progression of right mid and lower lung infiltrate as well as scant bilateral infiltrate consistent with COVID-pneumonia A&P Assessment and plan (1) COVID-19: Patient with hypoxemia and COVID-19. He would typically be a candidate for steroid and I am going to start 6 mg p.o. daily. If his CD4 count comes back particularly low we will then stop the steroids. Status: Acute (2) Controlled diabetes mellitus with hyperglycemia, without long-term current use of insulin: Stable Status: Chronic Qualifiers: Diabetes mellitus type: type 2 Qualified Code(s): E11.65 - Type 2 diabetes mellitus with hyperglycemia (3) Nicotine dependence, cigarettes, with other nicotine-induced disorders: Continue nicotine patch Status: Chronic (4) Schizophrenia: Patient with tardive dyskinesia. Resume paliperidone. Start Cogentin. Status: Acute (5) Tardive dyskinesia: Start Cogentin Status: Chronic Attestations Medical Necessity Statement*: Patient needs titration for his steroids and clarification of an outpatient regimen prior to discharge in 1 to 2 days back to stay with his mother Coding Level of Care Code Acute Sap Pp Consultant for [facility] Diagnoses COVID-19 U07.1 Controlled diabetes mellitus with hyperglycemia, without long-term current use of insulin E11.65 Diabetes mellitus type: type 2 Nicotine dependence, cigarettes, with other nicotine-induced disorders F17.218 Schizophrenia F20.9 Tardive dyskinesia G24.01
[2021-09-03 17:04] LABS: Glucose Point of Care 107 mg/dL (70-110)
[2021-09-03] MEDS: dexamethasone 4 mg Tablet PO (17:46)
[2021-09-03] MEDS: benztropine 1 mg Tablet PO (17:47)
[2021-09-03 21:00] LABS: Glucose Point of Care 142 mg/dL (70-110)
[2021-09-03] MEDS: insulin lispro 100 unit/1 mL SUBCUT (21:04)
[2021-09-03] MEDS: levofloxacin-dextrose 5 % 500 MG/100 ML PREMIX 100 MG IV (22:03)
[2021-09-03] MEDS: enoxaparin 40 mg/0.4 mL Syringe SUBCUT (22:03)
[2021-09-03 23:07] LABS: HIV RNA (CPY/ML) NOT DETECTED (NOT DETECTED); HIV RNA LOG NOT DETECTED copies/mL (NOT DETECTED)
[2021-09-04] VITALS (18 sets, daily range): BP systolic 121–147; BP diastolic 72–83; PULSE 57–76; RESP 16–20; TEMP 36.5–36.9; O2SAT 86–96
[2021-09-04] MEDS: ipratropium-albuterol 3 mL Neb INHALATION ×4 (03:02→20:22)
--- NOTE | 2021-09-04 03:36 | PC.NURSE ---
Patient's oxygen dropped to 86%. This RN in to check on patient, patient instructed on pursed lip breathing and compliant. Saturation did not rise oxygen titrated from 2L to 3L, oxygen sat now 90% and maintaining.
[2021-09-04 08:47] LABS: Glucose Point of Care 135 mg/dL (70-110)
[2021-09-04 08:58] LABS: Glucose Point of Care 133 mg/dL (70-110)
[2021-09-04] MEDS: budesonide 0.5 mg/2 mL Neb 0.25 MG INHALATION ×2 (09:05→20:22)
[2021-09-04] MEDS: dexamethasone 4 mg Tablet PO ×2 (10:09→18:36)
[2021-09-04] MEDS: paliperidone ER 6 mg Tablet PO (10:09)
[2021-09-04] MEDS: benztropine 1 mg Tablet PO ×2 (10:09→18:36)
[2021-09-04] MEDS: nicotine 21 mg Patch 1 PATCH TRANSDERMA (10:10)
[2021-09-04] MEDS: remdesivir 100 MG in sodium chloride 0.9% (100 ml) 80 ML IV (10:16)
[2021-09-04 12:15] LABS: Glucose Point of Care 124 mg/dL (70-110)
--- NOTE | 2021-09-04 13:12 | P.PN_ITS ---
Subjective Subjective: Patient says he is feeling okay he tells me that he can stop smoking and will do so. Also tells me he will wear his oxygen at home. 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 He no longer works but helps with cooking and cleaning a little bit at home with his mother. Vitals/I&O/Wt Last Vital Signs Temp 98.0 F 09/04/21 11:46 Pulse 75 09/04/21 11:46 Resp 18 09/04/21 11:46 BP 146/83 09/04/21 11:46 Pulse Ox 93 09/04/21 11:46 09/03/21 09/04/21 09/04/21 22:59 06:59 14:59 Intake Total 440 / 1260 340 / 1600 100 / 100 Output Total 750 / 750 600 / 1350 Balance -310 / 510 -260 / 250 100 / 100 Physical Exam Narrative: General well-developed well-nourished male in no acute cardiopulmonary distress he is alert oriented pleasant CV regular rate and rhythm Lungs prolonged expiratory phase with wheezes but air movement is good scattered coarse rhonchi heard both lung wilson. Calves no tenderness or pedal edema Neuro patient has tar dive dyskinesia of his mouth. Speech is garbled but seems to make sense and have appropriate content Data : 09/03/21 04:45 09/03/21 04:45 A&P Assessment and plan (1) Pneumonia due to COVID-19 virus: Patient has 1 more dose of remdesivir in the morning and then will discharge home thereafter with his brother Status: Acute (2) Acute and chronic respiratory failure with hypoxia: Stable currently requiring 3.0 L oxygen and will discharge on home O2 to use throughout the day increased from previous. He is counseled to quit smoking and says that he will quit smoking Status: Acute (3) Schizophrenia: Stable and possibly drug-induced from overdose in his 30s Brother says patient used to do methamphetamines Status: Acute (4) Nicotine dependence, cigarettes, with other nicotine-induced disorders: Continue with nicotine patch Status: Chronic Plan HIV screen will be tested as the viral RNA count was 0 is not 100% clear to me that the patient does have HIV as I do not think he is treated for it and therefore should have a viral load positivity Attestations Medical Necessity Statement*: Stays overnight for additional steroids and to finish final dose of remdesivir. Time Spent in Patient Care: Greater than 35 minutes Coding Level of Care Code Acute Mechanical Energy Engineer for [facility] Fwd Diagnoses Pneumonia due to COVID-19 virus U07.1; J12.82 Acute and chronic respiratory failure with hypoxia J96.21 Schizophrenia F20.9 Nicotine dependence, cigarettes, with other nicotine-induced disorders F17.218
[2021-09-04 14:14] LABS: ABG PCO2 53.8 mmHg (35-45); ABG PH Result 7.35 (7.35-7.45); Arterial Blood Gas Hematocrit 36.7 % (42-52); Base Excess ABG 3.2 mmol/L (-2.0-2.0); Blood Gas Sample Site Brachial, right; Blood Gas Sample Type Arterial; HCO3 ABG 29.9 mmol/L (22-26); Oxygen Device NC; PO2 ABG 70.9 mmHg (80.0-100.0)
[2021-09-04 15:13] LABS: Absolute CD4+Cells 181 cells/uL (490-1740); Absolute Lymphocytes 500 cells/uL (850-3900); Percent CD4 36 % (30-61)
[2021-09-04 15:19] LABS: HIV 1 & 2 Antibody Non-Reactive (Non-Reactiv); HIV 1 & 2 Antigen Non-Reactive (Non-Reactiv)
[2021-09-04 17:27] LABS: Glucose Point of Care 226 mg/dL (70-110)
[2021-09-04 17:53] LABS: Fungitell 1-3-B Glucan Assay 89 pg/mL; Interpretation POSITIVE
[2021-09-04] MEDS: insulin lispro 100 unit/1 mL SUBCUT ×2 (18:36→21:41)
[2021-09-04 21:41] LABS: Glucose Point of Care 168 mg/dL (70-110)
[2021-09-04] MEDS: enoxaparin 40 mg/0.4 mL Syringe SUBCUT (21:41)
[2021-09-04] MEDS: levofloxacin-dextrose 5 % 500 MG/100 ML PREMIX 100 MG IV (21:41)
[2021-09-04 21:54] LABS: Glucose Point of Care 205 mg/dL (70-110)
[2021-09-05] VITALS (11 sets, daily range): BP systolic 132–151; BP diastolic 79–87; PULSE 62–78; RESP 17–24; TEMP 36.5–37.1; O2SAT 90–97
[2021-09-05] MEDS: ipratropium-albuterol 3 mL Neb INHALATION ×2 (02:21→08:54)
[2021-09-05 06:55] LABS: Glucose Point of Care 137 mg/dL (70-110)
[2021-09-05] MEDS: budesonide 0.5 mg/2 mL Neb 0.25 MG INHALATION (08:54)
[2021-09-05] MEDS: nicotine 21 mg Patch 1 PATCH TRANSDERMA (09:02)
[2021-09-05] MEDS: dexamethasone 4 mg Tablet PO (09:02)
[2021-09-05] MEDS: remdesivir 100 MG in sodium chloride 0.9% (100 ml) 80 ML IV (09:52)
[2021-09-05] MEDS: paliperidone ER 6 mg Tablet PO (09:52)
--- NOTE | 2021-09-05 11:44 | PM.DCS ---
Discharge Providers Date of Admission: 08/30/21 20:27 Date of Discharge: September 05, 2021 Attending Provider at Admission: Yayo Grove DO Attending Provider at Discharge: Ant Mary MD Primary Care Provider: LIZA Gutiérrez Diagnoses at Discharge Discharge Diagnosis (1) Pneumonia due to COVID-19 virus: Details from hospital stay: Patient came in with hypoxemia. He was treated with steroids and remdesivir. Initially's steroids not given due to fear of HIV or AIDS disease that was untreated. After the HIV RNA test was negative I did the HIV antibody antigen test which was also negative. Patient does not have HIV. Status: Acute (2) Acute and chronic respiratory failure with hypoxia: Details from hospital stay: Chronically he is on 2 L at night and now will be on oxygen throughout the day Status: Acute (3) Schizophrenia: Details from hospital stay: Stable resume paliperidone and trihexyphenidyl Status: Acute (4) Nicotine dependence, cigarettes, with other nicotine-induced disorders: Details from hospital stay: Patient counseled daily to quit smoking and states that he will stop cigarettes. Status: Chronic Reason for Visit Reason for Visit: STROKE VS HEAD BLEED Brief History: Patient with speech disorder and affect change which his brother and he states has been chronic since patient had a drug overdose at age [address] of head showed no signs of stroke family states he is at his baseline Hospital Course Hospital Course 55-year-old male came in short of breath and was found to have COVID-pneumonia. He has been treated with remdesivir 5 doses and then Decadron for the last 2 days. He is breathing is improved and he has been recertified for home O2. Of note his HIV antibody antigen tests are negative and I do not think he has HIV. It was documented in his chart that he did in the past but I think that was an error. Clarify with your primary care physician Physical Exam Narrative: General well-developed well-nourished male in no acute cardiopulmonary distress He is alert oriented and pleasant CV regular rate and rhythm Lungs prolonged expiratory phase with scattered rhonchi and end expiratory wheezes however air movement is good Abdomen soft nontender Calves no tenderness or pretibial edema Discharge Data Studies Completed and Pending Completed Studies During Hospitalization Category Date Time Status CT head wo con* [id number] Stat Cat Scan 08/30/21 17:51 Completed CTA chest [CT angio chest PE protcl 52240] Urgent Cat Scan 08/30/21 20:30 Completed XR chest 1V portable [id number] Routine Exams 08/31/21 06:00 Completed XR chest 1V portable [id number] Routine Exams 09/03/21 06:00 Completed XR chest 1V portable [id number] Stat Exams 08/30/21 17:51 Completed Pending at discharge Category Date Time Status GALACTOMANAN [Aspergillus AG,EIA,Serum] Routine Lab 08/31/21 10:00 Received Sputum Culture and Gram Stain Routine Lab 08/31/21 08:34 Uncollected Radiology Impressions Head CT 08/30/21 17:51 IMPRESSION: 1. No acute abnormality of the brain. 2. Incidental/nonacute findings are listed in the report. Chest CTA 08/30/21 20:30 IMPRESSION: 1. Interval development of reticulonodular interstitial thickening and patchy ground-glass opacities diffusely in the right lung. Findings are suspicious for pneumonia, including atypical organisms. Recommend followup chest imaging to insure resolution of these findings. 2. No evidence for pulmonary embolism. 3. No evidence for aortic aneurysm or aortic dissection. 4. Stable small left pleural effusion. 5. Mild fatty infiltration of the visualized liver. 6. There is a large stone in the lumen of the gallbladder. 7. Stable large hiatal hernia. ADDENDUM: 08/30/212118 Please note the addendum to the original report: There is an area of more pronounced pleural-parenchymal scarring and opacity with a circular configuration in the posterior right lower lobe that is stable in size. There is no cavitation within this area however on the current study, normal inter vena lung is seen within this area. Multiple vessels are swirling towards this region, and this may represent an area of rounded atelectasis. THIS REPORT CONTAINS FINDINGS THAT MAY BE CRITICAL TO PATIENT CARE. The findings were verbally communicated via telephone conference with Dr. Grove at 9:16 PM CDT on 08/30/2021. The findings were acknowledged and understood. Chest X-Ray 09/03/21 06:00 IMPRESSION: 1. Stable right pleural effusion 2. Stable strandy and patchy opacities are seen in the right lower hemithorax likely representing atelectasis versus pleural or parenchymal scarring. 3. A superimposed right lower infiltrate and pneumonia cannot be excluded. Laboratory Results WBC 3.6 10^3/uL (4.0-10.0) L 09/03/21 04:45 RBC 5.14 10^6/uL (4.1-5.3) 09/03/21 04:45 Hgb 12.6 g/dL (11.7-16.6) 09/03/21 04:45 Hct 42.1 % (42.0-52.0) 09/03/21 04:45 MCV 81.9 fl (80-94) D 09/03/21 04:45 MCH 24.5 pg (28.0-34.0) L 09/03/21 04:45 MCHC 29.9 g/dL (30.0-36.0) L D 09/03/21 04:45 RDW 15.6 % (12.1-15.1) H 09/03/21 04:45 Plt Count 169 10^3/cmm (130-400) 09/03/21 04:45 MPV 9.0 fL (7.4-10.4) 09/03/21 04:45 Neut % (Auto) 54.5 % 09/03/21 04:45 Lymph % (Auto) 29.6 % 09/03/21 04:45 [place] % (Auto) 14.4 % 09/03/21 04:45 Eos % (Auto) 0.6 % 09/03/21 04:45 Baso % (Auto) 0.3 % 09/03/21 04:45 Neut # (Auto) 1.97 10^3/uL (1.8-7.7) 09/03/21 04:45 Lymph # (Auto) 1.1 10^3/uL (0.8-4.8) 09/03/21 04:45 [place] # (Auto) 0.5 10^3/uL (0.2-0.9) 09/03/21 04:45 Eos # (Auto) 0.0 10^3/uL (0.0-0.8) 09/03/21 04:45 Baso # (Auto) 0.0 10^3/uL (0.0-0.1) 09/03/21 04:45 Absolute Lymphs (auto) 500 cells/uL (850-3900) L 08/31/21 10:00 Nucleated RBC % (auto) 0 % 09/03/21 04:45 Nucleated RBCs # 0.0 /100WBC 09/03/21 04:45 PT 13.20 SECONDS (12.1-14.9) 08/30/21 18:00 INR 0.98 (0.8-1.2) 08/30/21 18:00 APTT 34.7 SECONDS (23.9-36.7) 08/30/21 18:00 D-Dimer 1.59 ug/mIFEU (0-0.59) H 09/03/21 04:45 Specimen Type Arterial 08/30/21 20:40 Sample Site Brachial, right 08/30/21 20:40 ABG pH 7.35 (7.35-7.45) 08/30/21 20:40 ABG pCO2 53.8 mmHg (35-45) H 08/30/21 20:40 ABG pO2 70.9 mmHg (80.0-100.0) L 08/30/21 20:40 ABG HCO3 29.9 mmol/L (22-26) H 08/30/21 20:40 ABG Base Excess 3.2 mmol/L (-2.0-2.0) H 08/30/21 20:40 Florencio Test N/a 08/30/21 20:40 Hematocrit 36.7 % (42-52) L 08/30/21 20:40 O2 Delivery Device Nc 08/30/21 20:40 O2 Liters/Min 4.0 % 08/30/21 20:40 Composition Roofer ID Randynja 08/30/21 20:40 Sodium 134 mmol/L (136-145) L 09/03/21 04:45 Potassium 4.5 mmol/L (3.5-5.1) 09/03/21 04:45 Chloride 98 mmol/L (98-107) 09/03/21 04:45 Carbon Dioxide 28 mmol/L (22-29) 09/03/21 04:45 Anion Gap 12.5 (5-19) 09/03/21 04:45 BUN 13 mg/dL (6-20) 09/03/21 04:45 Creatinine 0.4 mg/dL (0.7-1.2) L 09/03/21 04:45 GFR Calculation 223.3 mL/min (90-130) H 09/03/21 04:45 Glucose 122 mg/dL (65-115) H 09/03/21 04:45 POC Glucose 137 mg/dL (70-110) H 09/05/21 06:32 Calculated Osmolality 279 mOsm/kg (285-295) L 09/03/21 04:45 Lactic Acid 0.9 mmol/L (0.5-2.2) 08/30/21 18:00 Calcium 8.9 mg/dL (8.5-10.5) 09/03/21 04:45 Total Bilirubin 0.2 mg/dL (0.15-1.2) 09/03/21 04:45 AST 26 U/L (0-40) 09/03/21 04:45 ALT 29 U/L (0-41) 09/03/21 04:45 Alkaline Phosphatase 68 IU/L (40-130) 09/03/21 04:45 Ammonia 51 umol/L (16-60) 08/31/21 07:03 Total Protein 7.1 g/dL (6.6-8.7) 09/03/21 04:45 Albumin 3.9 g/dL (3.5-5.2) 09/03/21 04:45 Globulin 3.2 g/dL (1.3-4.6) 09/03/21 04:45 Urine Color Colorless (Yellow) 08/30/21 19:25 Urine Appearance Clear (CLEAR) 08/30/21 19:25 Urine pH 5 (5-7) 08/30/21 19:25 Ur Specific Colon 1.005 (1.005-1.030) 08/30/21 19:25 Urine Protein Neg (Negative) 08/30/21 19:25 Urine Glucose (UA) 1+ (Normal) H 08/30/21 19:25 Urine Ketones Negative (Negative) 08/30/21 19:25 Urine Blood Neg (Negative) 08/30/21 19:25 Urine Nitrate Negative (Negative) 08/30/21 19:25 Urine Bilirubin Neg (Negative) 08/30/21 19:25 Urine Urobilinogen Norm mg/dL (Negative) 08/30/21 19:25 Ur Leukocyte Esterase Negative (Negative) 08/30/21 19:25 Salicylates < 0.3 mg/dL (3-10) L 08/30/21 18:00 Urine Opiates Screen Negative ng/mL (Negative) 08/30/21 19:25 Acetaminophen < 5.0 ug/mL (10-30) L 08/30/21 18:00 Ur Barbiturates Screen Negative ng/mL (Negative) 08/30/21 19:25 Ur Phencyclidine Scrn Negative ng/mL (Negative) 08/30/21 19:25 Ur Amphetamines Screen Negative ng/mL (Negative) 08/30/21 19:25 U Benzodiazepines Scrn Negative ng/mL (Negative) 08/30/21 19:25 Urine Cocaine Screen Negative ng/mL (Negative) 08/30/21 19:25 U Marijuana (THC) Screen Negative ng/mL (Negative) 08/30/21 19:25 Abs CD3+/CD4+/CD8+ 181 cells/uL (490-1740) L 08/31/21 10:00 % CD4 Cells 36 % (30-61) 08/31/21 10:00 Coronavirus 229E (PCR) Not detected (NOT DETECT) 09/02/21 10:50 HIV-1 RNA copies/mL Not detected (NOT DETECTED) 08/30/21 18:00 HIV-1 RNA (PCR) log10 Not detected copies/mL (NOT DETECTED) 08/30/21 18:00 HIV 1&2 Ab & HIV 1 Ag Non-reactive (Non-Reactiv) 09/03/21 04:45 HIV 1&2 Antibody Non-reactive (Non-Reactiv) 09/03/21 04:45 SARS-CoV-2 (PCR) Detected (NOT DETECT) A 09/02/21 10:50 SARS-CoV-2 Ag (Rapid) Positive (Negative) H 08/30/21 18:15 Beta-(1,3)-D-Glucan 89 pg/mL H 08/31/21 10:00 B-(1,3)-D-Glucan Intrp Positive A 08/31/21 10:00 Misc Test Reference Cancelled 08/31/21 Unknown Vitals Last Vital Signs Temp 97.7 F 09/05/21 11:38 Pulse 73 09/05/21 11:38 Resp 18 09/05/21 11:38 BP 150/83 09/05/21 11:38 Pulse Ox 97 09/05/21 11:38 Discharge Plan Discharge Patient Disposition: Home Condition: Stable Prescriptions: New acetaminophen 325 mg Tablet 650 mg PO Q6H PRN (Reason: Mild/Mod Pain Or Temp >/= 101) Qty: 90 0RF ipratropium-albuterol 0.5 mg-3 mg(2.5 mg base)/3 mL Solution For Nebulization 3 ml inhalation Q4H PRN (Reason: Shortness Of Breath) Qty: 120 0RF nicotine 21 mg/24 hr Patch 24 Hour 1 patch transdermal DAILY Qty: 14 0RF ipratropium-albuterol 0.5 mg-3 mg(2.5 mg base)/3 mL Solution For Nebulization 3 ml inhalation Q6H.RESPIRATORY Qty: 120 0RF budesonide 0.5 mg/2 mL Suspension For Nebulization 0.25 mg inhalation BID.RESPIRATORY Qty: 60 0RF Continued aspirin 325 mg tablet,delayed release (DR/EC) 325 mg PO DAILY 0RF nitroglycerin [Nitrostat] 0.4 mg tablet, sublingual 0.4 mg SUBLINGUAL ONCE PRN (Reason: chest pain) 0RF Rx Instructions: take as needed for chest pain albuterol sulfate 90 mcg/actuation HFA aerosol inhaler 2 puff INHALATION Q4H PRN (Reason: shortness of breath) Qty: 8.5 2RF Farxiga 5 mg tablet 5 mg PO QAM Qty: 30 2RF gabapentin 300 mg capsule 300 mg PO BID Qty: 60 2RF Linzess 145 mcg capsule 145 mcg PO QAM Qty: 30 2RF magnesium hydroxide [Milk of Magnesia] 400 mg/5 mL suspension 30 ml PO BID Qty: 480 2RF magnesium oxide 400 mg magnesium tablet 400 mg PO BID Qty: 60 2RF omeprazole 20 mg tablet,delayed release (DR/EC) 20 mg PO DAILY Qty: 30 2RF pravastatin 10 mg tablet 10 mg PO DAILY Qty: 30 2RF valsartan 40 mg tablet 40 mg PO DAILY Qty: 30 2RF pyridoxine (vitamin B6) 250 mg tablet 250 mg PO DAILY Qty: 30 2RF MediHoney (honey) 100 % paste 1 applic topical BID Qty: 103 0RF triamcinolone acetonide 0.1 % ointment 1 applic TOPICAL BID Qty: 30 0RF Rx Instructions: refill request nystatin 100,000 unit/gram cream 1 applic topical BID PRN (Reason: itching) Qty: 30 0RF Rx Instructions: refill request replacement paliperidone 6 mg tablet extended release 24hr 6 mg PO QAM Qty: 30 2RF paroxetine HCl [Paxil] 10 mg tablet 10 mg PO DAILY Qty: 30 2RF Rx Instructions: Take with Paxil 40mg trihexyphenidyl 5 mg tablet 2.5 mg PO BID Qty: 30 2RF trazodone 50 mg tablet 50 mg PO BEDTIME 0RF No Action paroxetine HCl 40 mg tablet 40 mg PO BEDTIME 0RF Discharge Orders: Discharge Order (Routine); Ordered 09/05/21 Ordered By: Ant Mary Other Ambulatory Orders: DME: Oxygen (Order) Location: None Selected Ordered By: Ant Mary Referrals: [facility] [Other] (Call this number to get [facility] Home Services setup. They will ask you questions & based off your answers, you are given points. You have to have a certain number of points to qualify for services. ) Josefina Ni, MANAGER GENERATION-C [Primary Care Provider] - 4-7 days Daisy Rahman MD [Hospitalist] - 1 week (Untreated HIV) Discharge Diet: Diabetic Discharge Activity: Increase activity as tolerated Patient Instructions: Opioid Safety Activity Restrictions/Additional Instructions: Do not smoke Your HIV test was negative so you do not have HIV Discharge Attestations Time Spent in Discharge Care*: greater than 30 min Quality Metrics Clinical Quality Measures [ No reported AMI, CVA or VTE this stay] Coding Level of Care Code Acute Chg FW DC note Diagnoses Pneumonia due to COVID-19 virus U07.1; J12.82 Acute and chronic respiratory failure with hypoxia J96.21 Schizophrenia F20.9 Nicotine dependence, cigarettes, with other nicotine-induced disorders F17.218
[2021-09-05 11:47] LABS: Glucose Point of Care 171 mg/dL (70-110)
[2021-09-05] MEDS: insulin lispro 100 unit/1 mL SUBCUT (11:49)
[2021-09-05 18:53] LABS: Aspergillus AG,EIA,Serum NOT DETECTED; Aspergillus Galactomannan Inde <0.50
== END 2021-09-05 13:54 | disposition home or self-care (01) | DRG 177 ==
LOC: ER 20:25 → MEDSURG 20:34
PROVIDERS: Emergency Medicine; Internal Medicine; Admitting Provider Internal Medicine; Emergency Provider Emergency Medicine; PCP Nurse Practitioner; Visit Provider Internal Medicine
DX: U07.1 COVID-19 (principal); J12.82 Pneumonia due to coronavirus disease 2019; J96.21 Acute and chronic respiratory failure with hypoxia; E87.1 Hypo-osmolality and hyponatremia; B18.2 Chronic viral hepatitis C; K58.1 Irritable bowel syndrome with constipation; E11.65 Type 2 diabetes mellitus with hyperglycemia; E11.40 Type 2 diabetes mellitus with diabetic neuropathy, unspecified; J44.9 Chronic obstructive pulmonary disease, unspecified; I10 Essential (primary) hypertension; F20.9 Schizophrenia, unspecified; F17.210 Nicotine dependence, cigarettes, uncomplicated; G24.01 Drug induced subacute dyskinesia; K76.0 Fatty (change of) liver, not elsewhere classified; R91.8 Other nonspecific abnormal finding of lung field; Z79.84 Long term (current) use of oral hypoglycemic drugs; Z79.51 Long term (current) use of inhaled steroids; K44.9 Diaphragmatic hernia without obstruction or gangrene
CPT/HCPCS: 36415; 36416; 36600; 70450; 71045; 71275; 80053; 80061; 80306; 80307; 81003; 82140; 82803; 82962; 83036; 83605; 85025; 85378; 85610; 85730; 86361; 86403; 87040; 87305; 87426; 87449; 87536; 87635; 87806; 93005; 94640; 96372; 96374; 99285; J1100; J1650; J1815; J1956; J7030; J7626; J8540; Q9967

== ENCOUNTER 2021-09-27 16:29 | Emergency (ER) | payer MEDICAID, SELFPAY ==
[2021-09-27 16:40] VITALS: BP 142/87; PULSE 72; RESP 18; TEMP 36.8; O2SAT 97
[2021-09-27 16:42] VITALS: BP 153/91; PULSE 70; O2SAT 91
--- NOTE | 2021-09-27 17:30 | ED_ITS ---
HPI - Male Genitourinary General: Chief complaint: Urogenital-Male Stated complaint: Blood in Urine Time Seen by Provider: 09/27/21 17:30 History of Present Illness: 55-year-old male patient comes in today for complaints of blood in his urine and discomfort. Patient appears nontoxic. Patient appears in mild to no pain. Patient has a history of respiratory failure, nicotine dependence, chronic radicular pain, COPD, tardive dyskinesia, controlled diabetes mellitus, major depressive disorder, and reflux. Patient reports symptoms started about 3 days ago. Patient is alert and oriented and responds appropriate to questions. Associated symptoms: Reports hematuria Review of Systems General: Reports: 10 or more systems reviewed and unremarkable except in HPI and below Const: Denies: fever(s) Card: Denies: chest pain Resp: Denies: dyspnea : Reports: flank pain (Left side), difficulty urinating and hematuria PFS ED PFSH: Medical History Acid reflux Cervical radicular pain Chronic hepatitis C Chronic idiopathic constipation Controlled diabetes mellitus with hyperglycemia, without long-term current use of insulin COPD (chronic obstructive pulmonary disease) Dependence on nocturnal oxygen therapy Essential (primary) hypertension Gastritis HIV disease Major depressive disorder, recurrent, moderate Nicotine dependence, cigarettes, with other nicotine-induced disorders Nocturnal hypoxia 2018 Psychiatric care Schizophrenia Tardive dyskinesia Vitamin D deficiency Surgical History History of adenoidectomy History of appendectomy History of colonoscopy History of tonsillectomy History of tympanostomy Family History Father COPD (chronic obstructive pulmonary disease) Mother COPD (chronic obstructive pulmonary disease) Other Cancer Social History Smoking and tobacco status: current every day smoker cigarettes Second hand smoke exposure: Yes Smoking risk assessment/counseling performed?: Yes Tobacco counseling given: counseling >3 minutes Alcohol intake: unknown Desire information about alcohol rehabilitation?: No Counseling given: No Desire information about substance/drug rehabilitation?: No Counseling given: No Adopted: No Caregiver/support person: Yes (family assists) Lives independently: Yes Household members: none Marital status: Single Number of children: 0 service: No Current occupational status: disabled Current occupational exposures/hazards: No History of recent travel: No Current gender identity: Male Physical Exam Const: COMMON NORMALS: alert HENMT: COMMON NORMALS: atraumatic HEAD & SCALP: atraumatic Neck/C-Spine: COMMON NORMALS: full ROM Chest: COMMONS NORMALS: normal inspection of the chest and normal palpation of the breasts BREAST/AXILLA PALPATION: Yes normal palpation of the breasts Resp: COMMON NORMALS: normal respiratory effort and clear to auscultation bilaterally AUSCULTATION: clear to auscultation bilaterally Cardio: COMMON NORMALS: regular rate and regular rhythm RATE: regular rate RHYTHM: regular rhythm GI: AUSCULTATION: Yes normoactive bowel sounds PALPATION: No Tenderness to palpation present (GI) : BLADDER/KIDNEY EXAM: Yes CVA tenderness on the left Back/Pelvis: GENERAL BACK: Yes CVA tenderness Extremity: COMMON NORMALS: normal to inspection Neuro: SENSORIUM/ORIENTATION: Yes alert Skin: COMMON NORMALS: no rashes or lesions noted GENERAL SKIN EXAM: no rashes or lesions noted Course Vital Signs: Vital signs: Vital Signs Temperature 98.3 F 09/27/21 16:40 Pulse Rate 75 09/27/21 18:12 Respiratory Rate 18 09/27/21 16:40 Blood Pressure 135/88 09/27/21 19:00 Pulse Oximetry 93 09/27/21 19:00 [facility] - Male Medical Decision Making 55-year-old male patient comes in today with complaints of blood in his urine and some left flank pain. Patient reports the pain has improved since arriving to the ER and he has not noticed any more blood. Patient appears in no pain. On exam patient has some mild CVA tenderness on the left, no abdominal pain or tenderness on palpation. Respirations are even lungs are clear to auscultation. Differential diagnosis includes infection, renal stone, carcinoma of the bladder. Urinalysis had some blood glucose but otherwise was unremarkable. CBC and CMP was unremarkable. CT of the abdomen pelvis indicated no signs of hydronephrosis or renal calculi. I recommended patient follow-up with urology for repeat evaluation and possible cystoscopy to rule out carcinoma. Although blood was not seen in the urine at this time recommended continuing routine care monitoring for fever or worsening pain or bleeding. Family and patient both reported understanding. Lab Data : 09/27/21 18:55 09/27/21 18:55 Radiology Impressions Abdomen/Pelvis CT 09/27/21 18:10 IMPRESSION: 1. The kidneys are morphologically normal. No nephrolithiasis. No hydronephrosis. No ureteral calculi. No obstructive uropathy. 2. The urinary bladder is unremarkable in appearance. No bladder masses or calculi noted. 3. Decreased hepatic density is noted, consistent with hepatic steatosis. 4. 3.8 cm calcified gallstone in the gallbladder. There are no secondary signs of cholecystitis. 5. Decreased hepatic density is noted, consistent with hepatic steatosis. 6. Diverticulosis of the colon. No evidence of acute diverticulitis. 7. There is a large hiatal hernia present. Laboratory Results WBC 7.7 10^3/uL (4.0-10.0) 09/27/21 18:55 RBC 5.08 10^6/uL (4.1-5.3) 09/27/21 18:55 Hgb 12.5 g/dL (11.7-16.6) 09/27/21 18:55 Hct 39.7 % (42.0-52.0) L 09/27/21 18:55 MCV 78.1 fl (80-94) L 09/27/21 18:55 MCH 24.6 pg (28.0-34.0) L 09/27/21 18:55 MCHC 31.5 g/dL (30.0-36.0) 09/27/21 18:55 RDW 15.4 % (12.1-15.1) H 09/27/21 18:55 Plt Count 273 10^3/cmm (130-400) 09/27/21 18:55 MPV 8.8 fL (7.4-10.4) 09/27/21 18:55 Neut % (Auto) 70.8 % 09/27/21 18:55 Lymph % (Auto) 19.9 % 09/27/21 18:55 [place] % (Auto) 7.5 % 09/27/21 18:55 Eos % (Auto) 0.6 % 09/27/21 18:55 Baso % (Auto) 0.8 % 09/27/21 18:55 Neut # (Auto) 5.45 10^3/uL (1.8-7.7) 09/27/21 18:55 Lymph # (Auto) 1.5 10^3/uL (0.8-4.8) 09/27/21 18:55 [place] # (Auto) 0.6 10^3/uL (0.2-0.9) 09/27/21 18:55 Eos # (Auto) 0.1 10^3/uL (0.0-0.8) 09/27/21 18:55 Baso # (Auto) 0.1 10^3/uL (0.0-0.1) 09/27/21 18:55 Nucleated RBC % (auto) 0 % 09/27/21 18:55 Nucleated RBCs # 0.0 /100WBC 09/27/21 18:55 Sodium 137 mmol/L (136-145) 09/27/21 18:55 Potassium 4.1 mmol/L (3.5-5.1) 09/27/21 18:55 Chloride 100 mmol/L (98-107) 09/27/21 18:55 Carbon Dioxide 27 mmol/L (22-29) 09/27/21 18:55 Anion Gap 14.1 (5-19) 09/27/21 18:55 BUN 13 mg/dL (6-20) 09/27/21 18:55 Creatinine 0.5 mg/dL (0.7-1.2) L 09/27/21 18:55 GFR Calculation 172.6 mL/min (90-130) H 09/27/21 18:55 Glucose 99 mg/dL (65-115) 09/27/21 18:55 Calculated Osmolality 284 mOsm/kg (285-295) L 09/27/21 18:55 Calcium 9.4 mg/dL (8.5-10.5) 09/27/21 18:55 Urine Color Yellow (Yellow) 09/27/21 17:15 Urine Appearance Clear (CLEAR) 09/27/21 17:15 Urine pH 6 (5-7) 09/27/21 17:15 Ur Specific [place] 1.020 (1.005-1.030) 09/27/21 17:15 Urine Protein Neg (Negative) 09/27/21 17:15 Urine Glucose (UA) 4+ (Normal) H 09/27/21 17:15 Urine Ketones Negative (Negative) 09/27/21 17:15 Urine Blood Neg (Negative) 09/27/21 17:15 Urine Nitrate Negative (Negative) 09/27/21 17:15 Urine Bilirubin Neg (Negative) 09/27/21 17:15 Urine Urobilinogen Norm mg/dL (Negative) 09/27/21 17:15 Ur Leukocyte Esterase Negative (Negative) 09/27/21 17:15 Discharge Plan Discharge Patient Disposition: Home Clinical Impression: Hematuria Qualifiers: Hematuria type: unspecified type Qualified Code(s): R31.9 - Hematuria, unspecified Condition: Stable Prescriptions: No Action aspirin 325 mg tablet,delayed release (DR/EC) 325 mg PO DAILY 0RF nitroglycerin [Nitrostat] 0.4 mg tablet, sublingual 0.4 mg SUBLINGUAL ONCE PRN (Reason: chest pain) 0RF Rx Instructions: take as needed for chest pain albuterol sulfate 90 mcg/actuation HFA aerosol inhaler 2 puff INHALATION Q4H PRN (Reason: shortness of breath) Qty: 8.5 2RF Farxiga 5 mg tablet 5 mg PO QAM Qty: 30 2RF gabapentin 300 mg capsule 300 mg PO BID Qty: 60 2RF Linzess 145 mcg capsule 145 mcg PO QAM Qty: 30 2RF magnesium hydroxide [Milk of Magnesia] 400 mg/5 mL suspension 30 ml PO BID Qty: 480 2RF magnesium oxide 400 mg magnesium tablet 400 mg PO BID Qty: 60 2RF omeprazole 20 mg tablet,delayed release (DR/EC) 20 mg PO DAILY Qty: 30 2RF pravastatin 10 mg tablet 10 mg PO DAILY Qty: 30 2RF valsartan 40 mg tablet 40 mg PO DAILY Qty: 30 2RF pyridoxine (vitamin B6) 250 mg tablet 250 mg PO DAILY Qty: 30 2RF MediHoney (honey) 100 % paste 1 applic topical BID Qty: 103 0RF nicotine 21 mg/24 hr patch 24 hour 1 patch transdermal DAILY Qty: 28 0RF triamcinolone acetonide 0.1 % ointment 1 applic TOPICAL BID Qty: 30 0RF Rx Instructions: refill request nystatin 100,000 unit/gram cream 1 applic topical BID PRN (Reason: itching) Qty: 30 0RF Rx Instructions: refill request replacement paliperidone 6 mg tablet extended release 24hr 6 mg PO QAM Qty: 30 2RF trihexyphenidyl 5 mg tablet 2.5 mg PO BID Qty: 30 2RF acetaminophen 325 mg Tablet 650 mg PO Q6H PRN (Reason: Mild/Mod Pain Or Temp >/= 101) Qty: 90 0RF ipratropium-albuterol 0.5 mg-3 mg(2.5 mg base)/3 mL Solution For Nebulization 3 ml inhalation Q4H PRN (Reason: Shortness Of Breath) Qty: 120 0RF budesonide 0.5 mg/2 mL Suspension For Nebulization 0.25 mg inhalation BID.RESPIRATORY Qty: 60 0RF trazodone 50 mg tablet 50 mg PO BEDTIME 0RF paroxetine HCl 40 mg tablet 40 mg PO BEDTIME 0RF Discharge Orders: Discharge ED (Routine); Ordered 09/27/21 Ordered By: Fabricio Lynch Referrals: Josefina Ni, MUD ANALYSIS WELL LOGGING CAPTAIN-C [Primary Care Provider] - Discharge Diet: Usual diet Discharge Activity: Increase activity as tolerated Patient Instructions: Hematuria (ED) Activity Restrictions/Additional Instructions: Activity as tolerated. Continue with routine care. Case management will contact you regarding follow-up appoint with urologist for further evaluation. Return to ER for high fever greater than 100.4, worsening bleeding in the urine, or new concerns. Coding Level of Care Code ED Raw Hide Trimmer for Jennyfer Rae Exam Comprehensive
--- NOTE | 2021-09-27 18:10 | CTR_ITS ---
PROCEDURE INFORMATION: Exam: CT Abdomen And Pelvis Without Contrast Exam date and time: 09/27/2021 6:24 PM Age: 55 years old Clinical indication: Abdominal pain; Prior surgery; Surgery type: Appy; Patient HX: Left flank pain with hematuria/dysuria. ; Additional info: Left flank pain, hematuria TECHNIQUE: Imaging protocol: Computed tomography of the abdomen and pelvis without contrast. Radiation optimization: All CT scans at this facility use at least one of these dose optimization techniques: automated exposure control; mA and/or kV adjustment per patient size (includes targeted exams where dose is matched to clinical indication); or iterative reconstruction. COMPARISON: CT abdomen pelvis w con* [id number] 03/28/2019 11:18 AM RADIATION DOSE METRICS: Total DLP (mGy-cm): 1719.74 FINDINGS: Lungs: Left lung base is unremarkable. Pleural spaces: Small right pleural effusion. Nonspecific fibrosis and volume loss at the right lung base. Diaphragm: There is a large hiatal hernia present. Liver: Decreased hepatic density is noted, consistent with hepatic steatosis. Decreased hepatic density is noted, consistent with hepatic steatosis. There are 2 or 3 punctate calcified granulomas in the liver. Gallbladder and bile ducts: 3.8 cm calcified gallstone in the gallbladder. There are no secondary signs of cholecystitis. Pancreas: The pancreas is normal in appearance. No pancreatic duct dilatation. Spleen: There are 2 punctate calcified granulomas in the spleen no splenomegaly. Adrenal glands: The adrenal glands appear within normal limits. Kidneys and ureters: The kidneys are morphologically normal. No nephrolithiasis. No hydronephrosis. No ureteral calculi. No obstructive uropathy. The kidneys are normal in morphology. No hydronephrosis. No solid mass. Stomach and bowel: Diverticulosis of the colon. No evidence of acute diverticulitis. No acute gastric abnormality demonstrated. The small bowel is unremarkable as demonstrated. Appendix: No evidence of appendicitis. Intraperitoneal space: No pneumoperitoneum. No significant fluid collection. Vasculature: The aorta is atherosclerotic. No aortic aneurysm. Lymph nodes: No pathologically enlarged lymph nodes are demonstrated. Urinary bladder: The urinary bladder is unremarkable in appearance. No bladder masses or calculi noted. The urinary bladder is unremarkable in appearance. Reproductive: Unremarkable as visualized. Bones/joints: Unremarkable. No acute osseous abnormality. Soft tissues: Unremarkable. CT/CT kidney stone [id number] IMPRESSION: 1. The kidneys are morphologically normal. No nephrolithiasis. No hydronephrosis. No ureteral calculi. No obstructive uropathy. 2. The urinary bladder is unremarkable in appearance. No bladder masses or calculi noted. 3. Decreased hepatic density is noted, consistent with hepatic steatosis. 4. 3.8 cm calcified gallstone in the gallbladder. There are no secondary signs of cholecystitis. 5. Decreased hepatic density is noted, consistent with hepatic steatosis. 6. Diverticulosis of the colon. No evidence of acute diverticulitis. 7. There is a large hiatal hernia present.
[2021-09-27 18:12] VITALS: BP 149/92; PULSE 75; O2SAT 92
[2021-09-27 18:13] LABS: Add Urine Microscopic? NO; Charge for UA Resulting for Rev
[2021-09-27 18:21] LABS: Bilirubin Urine Neg (Negative); Blood Urine Neg (Negative); Glucose Urine UA 4+ (Normal); Ketones Urine Negative (Negative); Leukocyte Esterase Urine Negative (Negative); Nitrate Urine Negative (Negative); Protein Urine Neg (Negative); Urine Appearance Clear (CLEAR); Urine Color Yellow (Yellow); Urobilinogen Urine Norm (Negative); pH Urine 6 (5-7)
[2021-09-27 18:30] VITALS: BP 133/85
[2021-09-27 19:00] VITALS: BP 135/88; O2SAT 93
[2021-09-27 19:05] LABS: Basophils # 0.1 10^3/uL (0.0-0.1); Basophils % 0.8 %; Eosinophils # 0.1 10^3/uL (0.0-0.8); Eosinophils % 0.6 %; Hematocrit 39.7 % (42.0-52.0); Hemoglobin 12.5 g/dL (11.7-16.6); Lymphocytes # 1.5 10^3/uL (0.8-4.8); Lymphocytes % 19.9 %; Mean Corpuscular HGB Conc 31.5 g/dL (30.0-36.0); Mean Corpuscular Hemoglobin 24.6 pg (28.0-34.0); Mean Corpuscular Volume 78.1 fl (80-94); Mean Platelet Volume 8.8 fL (7.4-10.4); Monocytes # 0.6 10^3/uL (0.2-0.9); Monocytes % 7.5 %; Neutrophils # 5.45 10^3/uL (1.8-7.7); Neutrophils % 70.8 %; Nucleated Red Blood Cells % 0 %; Platelet Count 273 10^3/cmm (130-400); Red Blood Count 5.08 10^6/uL (4.1-5.3); Red Cell Distribution Width 15.4 % (12.1-15.1); White Blood Count 7.7 10^3/uL (4.0-10.0)
[2021-09-27 19:35] LABS: Anion Gap 14.1 (5-19); Blood Urea Nitrogen 13 mg/dL (6-20); Calcium 9.4 mg/dL (8.5-10.5); Carbon Dioxide 27 mmol/L (22-29); Chloride 100 mmol/L (98-107); Glomerular Filtration Rate 172.6 mL/min (90-130); Glucose 99 mg/dL (65-115); Osmolality Calculated 284 mOsm/kg (285-295); Potassium 4.1 mmol/L (3.5-5.1); Sodium 137 mmol/L (136-145)
[2021-09-27 20:21] VITALS: BP 119/69; PULSE 62; O2SAT 95
--- NOTE | 2021-09-28 14:36 | DCPLANNER ---
Addendum entered by Princess Núñez 10/29/21 10:44: Patient had a follow up appointment scheduled for 10.01.[address] Combs - patient did attend appointment. Original Note: manager respiratory care had message to schedule a follow up appointment for patient with urology. manager respiratory care sent patients information to the front office staff at urology. Patients information will be printed and reviewed. Clinic will call patient with appointment information.
== END 2021-09-27 20:20 | disposition home or self-care (01) ==
PROVIDERS: Emergency Medicine; Emergency Provider Nurse Practitioner Family; PCP Nurse Practitioner
DX: R31.9 Hematuria, unspecified (principal); Z79.82 Long term (current) use of aspirin; Z86.19 Personal history of other infectious and parasitic diseases; E11.9 Type 2 diabetes mellitus without complications; J44.9 Chronic obstructive pulmonary disease, unspecified; I10 Essential (primary) hypertension; B20 Human immunodeficiency virus [HIV] disease; F17.210 Nicotine dependence, cigarettes, uncomplicated
CPT/HCPCS: 36415; 74176; 80048; 81003; 85025; 99283

== ENCOUNTER → 2021-10-01 14:18 | Outpatient (BNVA) | payer MEDICAID, SELFPAY | PROVIDERS: PCP Nurse Practitioner; Visit Provider Urology | DX: R31.0 Gross hematuria (principal) | CPT/HCPCS: 51741; 51798; 52000; 81003; 87086; 88112; 99203 ==

== ENCOUNTER 2021-10-12 11:06 | Inpatient (IN) | payer MEDICAID, SELFPAY ==
[2021-10-12 11:07] VITALS: BP 186/108; PULSE 82; RESP 18; TEMP 36.8; O2SAT 94
--- NOTE | 2021-10-12 11:08 | CT_ITS ---
WS: [id number] CT HEAD TECHNIQUE: Noncontrast CT of the head obtained from the skullbase to the vertex. CLINICAL INFORMATION: slurred speech COMPARISON: August 30, 2021 DLP: 1189.[address] scans at [facility] use at least one of these dose optimization techniques: automated e xposure control; mA and/or kV adjustment per patient size (includes targeted exams where dose is matc hed to clinical indication); or iterative reconstruction. FINDINGS: No evidence of intracranial hemorrhage or mass effect. Ventricular system and basal cisterns are ruvalcaba nt. Minimal parenchymal volume loss. No extra-axial fluid collections. No evidence of mass or mass ef fect. Normal andrea-white differentiation. Paranasal sinuses well aerated. Chronic sclerosis RIGHT greater than LEFT mastoid air cells unchanged . CT/CT head wo con* [id number] IMPRESSION: 1. No evidence of intracranial hemorrhage or mass effect. 2. Minimal parenchymal volume loss. 3. No acute intracranial findings.
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
[2021-10-12 11:29] LABS: ABG PCO2 42.8 mmHg (35-45); ABG PH Result 7.42 (7.35-7.45); Arterial Blood Gas Hematocrit 41.9 % (42-52); Base Excess ABG 2.4 mmol/L (-2.0-2.0); Blood Gas Allen Test Pos; Blood Gas Operator Identificat CAK; Blood Gas Sample Site Brachial, left; Blood Gas Sample Type Arterial; HCO3 ABG 27.4 mmol/L (22-26); Oxygen Device ROOM AIR; PO2 ABG 63.7 mmHg (80.0-100.0)
[2021-10-12 11:51] LABS: Add Urine Microscopic? NO
[2021-10-12 11:52] LABS: Bilirubin Urine Neg (Negative); Blood Urine Neg (Negative); Charge for UA Resulting for Rev; Glucose Urine UA Norm (Normal); Ketones Urine Negative (Negative); Leukocyte Esterase Urine Negative (Negative); Nitrate Urine Negative (Negative); Protein Urine Neg (Negative); Specific Gravity, Urine 1.005 (1.005-1.030); Urine Appearance Clear (CLEAR); Urine Color Yellow (Yellow); Urobilinogen Urine Norm (Negative); pH Urine 7 (5-7)
[2021-10-12 12:00] LABS: Basophils # 0.1 10^3/uL (0.0-0.1); Eosinophils # 0.1 10^3/uL (0.0-0.8); Eosinophils % 1.2 %; Hemoglobin 13.8 g/dL (11.7-16.6); Lymphocytes # 1.5 10^3/uL (0.8-4.8); Lymphocytes % 22.3 %; Mean Corpuscular Hemoglobin 24.6 pg (28.0-34.0); Mean Platelet Volume 9.8 fL (7.4-10.4); Monocytes # 0.7 10^3/uL (0.2-0.9); Monocytes % 10.1 %; Neutrophils % 65.1 %; Nucleated Red Blood Cells % 0 %; Platelet Count 254 10^3/cmm (130-400); Red Blood Count 5.61 10^6/uL (4.1-5.3); Red Cell Distribution Width 15.9 % (12.1-15.1); White Blood Count 6.9 10^3/uL (4.0-10.0)
[2021-10-12 12:22] LABS: Ammonia 15 umol/L (16-60)
[2021-10-12 12:26] LABS: Troponin(5th) Baseline 7 ng/L (0-15)
[2021-10-12 12:37] LABS: Albumin Level 4.6 g/dL (3.5-5.2); Alkaline Phosphatase 86 IU/L (40-130); Blood Urea Nitrogen 12 mg/dL (6-20); Calcium 9.3 mg/dL (8.5-10.5); Carbon Dioxide 28 mmol/L (22-29); Chloride 98 mmol/L (98-107); Free T4 Free Thyroxine 0.88 ng/dL (0.82-1.77); Globulin 3.2 g/dL (1.3-4.6); Glomerular Filtration Rate 139.9 mL/min (90-130); Glucose 105 mg/dL (65-115); Lipase 22 U/L (13-60); Osmolality Calculated 282 mOsm/kg (285-295); Salicylate 5.8 mg/dL (3-10); Sodium 136 mmol/L (136-145); Thyroid Stimulating Hormone 2.92 uIU/mL (0.27-4.20); Total Bilirubin 0.3 mg/dL (0.15-1.2); Total Protein 7.8 g/dL (6.6-8.7)
[2021-10-12 12:40] LABS: Acetaminophen < 5.0 ug/mL (10-30); Alcohol Level < 10 mg/dL (0-10)
[2021-10-12 12:42] LABS: Alanine Aminotransferase 27 U/L (0-41); Anion Gap 15.3 (5-19); Aspartate Amino Transferase 31 U/L (0-40); Potassium 5.3 mmol/L (3.5-5.1)
[2021-10-12 13:06] LABS: Amphetamines Screen Urine Negative (Negative); Barbiturates Screen Urine Negative (Negative); Benzodiazepines Screen Urine Negative (Negative); Cocaine Screen Urine Negative (Negative); Opiate Screen Urine Negative (Negative); PCP Screen Urine Negative (Negative); THC Screen Urine Negative (Negative)
--- NOTE | 2021-10-12 13:08 | ECG_ITS ---
[facility] Test Date: 2021-10-12 Pat Name: Osmar Becker Department: Room: Gender: Male Accredited Pharmacy Technician: : 1965 Requested By: Vadim Ramirez Order Number: [id number] Dany MD: Donte Olivia M.D. Measurements Intervals [place] Rate: 74 P: -6 VA: 153 QRS: 74 QRSD: 85 T: 60 QT: 360 QTc: 401 Interpretive Statements SINUS RHYTHM Compared to ECG 08/30/2021 17:58:47 No significant changes Electronically Signed On 10-12-2021 18:21:35 CDT by Donte Olivia M.D. [id number]
[2021-10-12 14:00] VITALS: BP 164/89; PULSE 78; RESP 18; O2SAT 94
--- NOTE | 2021-10-12 15:00 | PC.NURSE ---
Resting in bed with eyes closed, respirations even and nonlabored.
[2021-10-12 15:15] LABS: Troponin 5 2HR 7.41 ng/L (0-15)
[2021-10-12 16:30] LABS: Troponin 5 2HR Delta 0.41 ABS# (0-10)
--- NOTE | 2021-10-12 16:45 | PC.NURSE ---
Resting in bed with eyes closed, respirations even and nonlabored.
--- NOTE | 2021-10-12 18:45 | ECG_ITS ---
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 Measurements Intervals [place] Rate: 60 P: -32 IN: 171 QRS: 79 QRSD: 72 T: 72 QT: 391 QTc: 393 Interpretive Statements SINUS RHYTHM Compared to ECG 10/12/2021 12:10:34 No significant changes Electronically Signed On 10-14-2021 23:39:44 CDT by Donte Olivia M.D. [id number]
[2021-10-12 19:19] LABS: SARS Covid-2 Antigen Negative (Negative)
--- NOTE | 2021-10-12 22:02 | PC.NURSE ---
Patient was placed on 2L NC at 2203
[2021-10-12 23:52] VITALS: BP 107/59; PULSE 54; RESP 16; O2SAT 89
[2021-10-13] VITALS (10 sets, daily range): BP systolic 102–132; BP diastolic 66–84; PULSE 61–77; RESP 18–22; TEMP 36.6–36.8; O2SAT 90–97
--- NOTE | 2021-10-13 00:41 | PC.NURSE ---
EKG done at 0039 and shown to ER doctor
[2021-10-13] MEDS: LORazepam 1 mg Tablet PO (17:09)
--- NOTE | 2021-10-13 17:22 | PC.NURSE ---
Patient resting most of day, remains AAOx3, some anxiety towards end of shift. Was able to wean patient from oxygen in early AM but has since needed to be placed back on oxygen. No new events or needs at this time. Room clean and clutter free with all safety hazards removed per protocol and sitter at bedside.
[2021-10-13] MEDS: pantoprazole 40 mg SDV IVP (19:17)
--- NOTE | 2021-10-13 23:12 | PC.NURSE ---
Patient's chart faxed to [facility].
[2021-10-14 06:13] VITALS: BP 114/68; PULSE 73; RESP 18; O2SAT 95
--- NOTE | 2021-10-14 07:21 | ECG_ITS ---
[facility] Test Date: 2021-10-14 Pat Name: Osmar Becker Department: Room: ED Gender: Male Service Advocate Contact: : 1965 Requested By: Navneet Jesus Order Number: [id number] Dany MD: Donte Olivia M.D. Measurements Intervals [place] Rate: 70 P: -30 NC: 168 QRS: 68 QRSD: 76 T: 49 QT: 355 QTc: 385 Interpretive Statements SINUS RHYTHM Compared to ECG 10/13/2021 00:38:50 No significant changes Electronically Signed On 10-14-2021 23:35:42 CDT by Donte Olivia M.D. [email or web address] concord medical centerQuIC Financial [id number]
--- NOTE | 2021-10-14 07:23 | PC.NURSE ---
Pt reports some L-sided chest pain that started a few hours ago. Dr. Jesus notified, order received for EKG.
[2021-10-14] MEDS: LORazepam 1 mg Tablet PO (11:35)
[2021-10-14 11:46] VITALS: BP 144/77; PULSE 70; RESP 16; TEMP 36.8; O2SAT 97
[2021-10-14 18:07] VITALS: BP 155/78; PULSE 73; RESP 18; TEMP 36.5; O2SAT 97
--- NOTE | 2021-10-14 18:49 | PC.ADMIT ---
[address] Admission Note: The patient,Osmar Becker,55 y/o, was given written information regarding hospital policies, unit procedures and contact persons. Patient's smoking status: never smoked. Vital Signs - 8 hr 10/14/21 11:46 10/14/21 18:07 Temperature 98.2 F 97.7 F Pulse Rate 70 73 Respiratory Rate 16 18 Blood Pressure 144/77 155/78 Pulse Oximetry 97 97 ADMITTED FROM [facility] ER AT 1816. [address] AND ENDS 10/19/21 AT 0001. PT STATES HE IS HERE DUE TO NOT TAKING HIS MEDICATIONS FOR 2 MONTHS AND STARTED HEARING VOICES. PT REPORTS HE HAD MISSED HIS [facility] APPOINTMENT AND UNABLE TO REMEMBER WHO HE SAW THERE. PT DENIES PAIN. DENIES SI/HI AND AVH AT THIS TIME. PT UNABLE TO REPORT WHAT MEDS HE TOOK SO CURRENTLY TAKES NO HOME MEDS. PT REPORTS HE WEARS 1L OF O2 VIA NC AT NIGHT BUT HAS NOT WORN IT IN AWHILE. ER NURSE REPORTED PT WORE O2 AT 1-2 LITERS THE FIRST NIGHT HE WAS HERE BUT HAS NOT REQUIRED ANY O2 FOR 2 DAYS. PT HAS NO TEETH AND REQUEST A SOFT DIET. ORIENTATED PT TO UNIT. ALL QUESTIONS ANSWERED AND SUPPORT VOICED.
[2021-10-14] MEDS: OLANZapine 5 mg ODT PO (20:49)
[2021-10-14 21:02] VITALS: BP 135/78; PULSE 83; RESP 16; TEMP 37.1; O2SAT 93
[2021-10-15 06:00] VITALS: BP 106/56; PULSE 70; RESP 15; TEMP 36.6; O2SAT 91
--- NOTE | 2021-10-15 09:45 | PC.OT ---
ATTEMPTED TO GIVE OT EVALUATION TWICE, BUT PT DID NOT ACKNOWLEDGE
--- NOTE | 2021-10-15 12:19 | W.PM.NPUH&PS ---
Providers/Chief Complaint Admitting Physician: Alec Pablo MD Primary Care Provider: LIZA Gutiérrez Chief Complaint: auditory hallucinations. HPI NPU History of Present Illness Osmar Becker is a 55 year old male with a history of schizophrenia and and tardive dyskinesia who was admitted involuntarily on a 96-hour hold due to an inability to take care of himself with an increased presence of auditory hallucinations and disorganized thinking and disorganized behavior. Per ED note, He had presented to ED after he was involved in a argument with his mother.? Per patient, he tells me that he was upset with his mom recently and reports that he has been overwhelmed by his thoughts. He was brought here per patient because his mother told him that he needed more help to manage his thoughts. The patient reports that he has been feeling more depressed over the past few months but denies thoughts of hurting himself or others. He reports that he has not received outpatient mental health treatment in several months with previous records indicating follow up withover 1 year ago at [facility]. Past psychiatric history: Patient has reported a history of multiple inpatient hospitalizations beginning at the age of 30. He is uncertain as to when he was last hospitalized. He reports a diagnosis of schizophrenia in the past with previous records indicating a diagnosis of tar dive dyskinesia as well. He had recently been seen by Bijal Cummings in the outpatient clinic approximately 1 year ago. Previous medications include Invega. Current current psychiatric medications: None Allergies: nkda Medical Hx: signficant for COPD, GERD, on CPAP, Medications: Albuterol inhaler, budesonide, omeprazole, Surgeries: reported abdominal surgery Legal Hx: none Social Hx: 1/2 ppd smoker, he was born in [facility] and raised by his biological parents. He reports his father at the age of 10. He reports that he is a homosexual male with no children and with no history of any significant others or previous history of marriage. He reports that he lives with his mother who has significant medical problems. He reports having siblings but reports that they are not supportive. He reports that he is on disability for his mental illness. 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 He denies any history of drug or alcohol use currently. He reports having few social supports. Family psychiatric history: none reported, unknown hx of sexual/physical or emotional trauma. Meds NPU Home Medications Medication Instructions Recorded Confirmed Last Taken Type aspirin 325 mg tablet,delayed 325 mg PO DAILY tab 04/06/19 10/12/21 08/30/21 History release nitroglycerin 0.4 mg sublingual 0.4 mg SUBLINGUAL ONCE PRN 04/06/19 10/12/21 Unknown History tablet (Nitrostat) paliperidone 6 mg tablet,extended 6 mg PO QAM #30 tab 05/21/21 10/12/21 08/30/21 Rx release 24 hr pyridoxine (vitamin B6) 250 mg 250 mg PO DAILY #30 tab 05/29/21 10/12/21 08/30/21 Rx tablet paroxetine HCl 40 mg tablet 40 mg PO BEDTIME 08/23/21 10/12/21 08/29/21 History trazodone 50 mg tablet 50 mg PO BEDTIME 08/23/21 10/12/21 08/29/21 History albuterol sulfate 90 mcg/actuation 2 puff INHALATION Q4H PRN #8.5 gm 08/30/21 10/12/21 Unknown Rx aerosol inhaler dapagliflozin 5 mg tablet (Farxiga) 5 mg PO QAM #30 tab 08/30/21 10/12/21 08/30/21 Rx gabapentin 300 mg capsule 300 mg PO BID #60 cap 08/30/21 10/12/21 08/30/21 Rx linaclotide 145 mcg capsule 145 mcg PO QAM #30 cap 08/30/21 10/12/21 08/30/21 Rx (Linzess) magnesium hydroxide 400 mg/5 mL 30 ml PO BID #480 ml 08/30/21 10/12/21 Unknown Rx oral suspension (Milk of Magnesia) magnesium oxide 400 mg PO BID #60 tab 08/30/21 10/12/21 08/30/21 Rx omeprazole 20 mg tablet,delayed 20 mg PO DAILY #30 tab 08/30/21 10/12/21 08/30/21 Rx release pravastatin 10 mg tablet 10 mg PO DAILY #30 tab 08/30/21 10/12/21 08/29/21 Rx valsartan 40 mg tablet 40 mg PO DAILY #30 tab 05/26/22 07/08/22 05/26/22 Rx acetaminophen 325 mg tablet 650 mg PO Q6H PRN #90 tab 09/05/21 10/12/21 Unknown Rx budesonide 0.5 mg/2 mL suspension 0.25 mg INHALATION BID.RESPIRATORY 09/05/21 10/12/21 Unknown Rx for nebulization #60 ml ipratropium 0.5 mg-albuterol 3 mg 3 ml INHALATION Q4H PRN #120 ml 09/05/21 10/12/21 Unknown Rx (2.5 mg base)/3 mL nebulization soln nicotine 21 mg/24 hr daily 1 patch TRANSDERMAL DAILY #28 ea 09/20/21 10/12/21 Unknown Rx transdermal patch Disposable nebulizer circuit with #1 ea 09/29/21 10/12/21 Unknown Rx mask nebulizers #1 ea 09/29/21 10/12/21 Unknown Rx Allergies Allergy/AdvReac Type Severity Reaction Status Date / Time No Known Allergies Allergy Verified 10/12/21 13:22 PFSH NPU PFSH: Medical History Acid reflux Cervical radicular pain Chronic hepatitis C Chronic idiopathic constipation Controlled diabetes mellitus with hyperglycemia, without long-term current use of insulin COPD (chronic obstructive pulmonary disease) Dependence on nocturnal oxygen therapy Essential (primary) hypertension Gastritis HIV disease Major depressive disorder, recurrent, moderate Nicotine dependence, cigarettes, with other nicotine-induced disorders Nocturnal hypoxia 2018 Psychiatric care Schizophrenia Tardive dyskinesia Vitamin D deficiency Surgical History History of adenoidectomy History of appendectomy History of colonoscopy History of tonsillectomy History of tympanostomy Family History Father COPD (chronic obstructive pulmonary disease) Mother COPD (chronic obstructive pulmonary disease) Other Cancer Social History Smoking and tobacco status: never smoked Alcohol intake: never Marital status: Single Number of children: 0 Current occupational status: disabled History of recent travel: No Mental Status Exam MSE Comments: Osmar is a pleasant white male with poor eye contact who had clear orofacial involuntary movements that were nonrhythmic in nature. There was significant problems with understanding due to the abnormal tongue movements as well. He was alert and oriented to the year season but not the month or day of the week or date. He appeared in some distress and reported his mood as not so good his affect appeared blunted. He did at times appear to be responding to internal stimuli with some evidence of thought blocking. There is no clear evidence of active delusional thinking his attention was poor and his recent and remote memory appeared impaired. Vitals/I&O/Wt Last Vital Signs Temp 97.9 F 10/15/21 06:00 Pulse 70 10/15/21 06:00 Resp 15 10/15/21 06:00 BP 106/56 10/15/21 06:00 Pulse Ox 91 10/15/21 06:00 Weight last 48 hrs Weight 90.718 kg Data NPU : 10/12/21 11:50 10/12/21 11:50 A&P Assessment and plan (1) Other schizophrenia: Status: Chronic (2) COPD (chronic obstructive pulmonary disease): Status: Chronic (3) Tardive dyskinesia: Status: Chronic (4) Controlled diabetes mellitus with hyperglycemia, without long-term current use of insulin: Status: Chronic Qualifiers: Diabetes mellitus type: type 2 Qualified Code(s): E11.65 - Type 2 diabetes mellitus with hyperglycemia (5) Gastritis: Status: Chronic Plan 55-year-old white male with tardive dyskinesia and schizophrenia who has been without medications for several months currently having it declined in regards to his psychotic symptoms. Plan #1 we will attempt to gather collateral information including previous records to determine prior medication history and consider a less intense dopamine jaime to reduce likelihood of worsening tardive dyskinesia. #2 patient to remain under 96-hour involuntary placement with patient to remain on therapeutic observation 15-minute checks #3 engage patient in individual milieu and group therapy #4 engage with social work in regards to establishing potential follow-up with an outpatient mental health clinic. Involuntary Hold Information 96 Hour Hold: 96 Hour Involuntary Admission: Yes 96 Hour Hold Ending Date: 10/19/21 96 Hour Hold Ending Time: 00:01 Attestations NPU Medical Necessity Statement*: Patient will continue to require hospitalization including at least 2 midnights with a planned inpatient stay possibly 4 to 6 days. Coding Level of Care Code New Pt Acute Simulation Developer for Jennyfer aRe Patient Type New History Problem Focused Exam Problem Focused Medical Decision Making Straight Forward Diagnoses Other schizophrenia F20.89 COPD (chronic obstructive pulmonary disease) J44.9 Tardive dyskinesia G24.01 Controlled diabetes mellitus with hyperglycemia, without long-term current use of insulin E11.65 Diabetes mellitus type: type 2 Gastritis K29.70
[2021-10-15 14:00] VITALS: BP 113/76; PULSE 79; RESP 18; TEMP 36.6; O2SAT 95
[2021-10-15] MEDS: hyDROXYzine 25 mg Capsule 50 MG PO (18:47)
[2021-10-15] MEDS: acetaminophen 325 mg Tablet 650 MG PO (18:47)
--- NOTE | 2021-10-15 18:49 | PC.NURSE ---
PRN VISTARIL 50 MG GIVEN PO PER PT C/O STATED ANXIETY. WILL CONT TO MONITOR
[2021-10-15 22:00] VITALS: RESP 18
[2021-10-15] MEDS: trazodone 50 mg Tablet PO (22:36)
[2021-10-16 06:00] VITALS: BP 109/67; PULSE 88; RESP 17; TEMP 36.6; O2SAT 94
[2021-10-16] MEDS: acetaminophen 325 mg Tablet 650 MG PO ×2 (09:12→15:22)
--- NOTE | 2021-10-16 10:50 | PC.NURSE ---
IN DAY AREA. DENIES SI/HI AND VH AT THIS TIME. CONTINUES TO ENDORSE HEARING VOICES AND CHATTERING. PTS SPEECH IS MUMBLED AND EXCESSIVE MOUTH AND TONGUE MOVEMENTS. DECLINES PRN MEDICATION FOR VOICES THIS AM. SUPPORT VOICED.
[2021-10-16] MEDS: OLANZapine 5 mg ODT PO (12:18)
[2021-10-16 14:00] VITALS: BP 113/69; PULSE 78; RESP 20; TEMP 36.8; O2SAT 92
[2021-10-16] MEDS: sennosides 8.6 mg Tablet PO (14:29)
--- NOTE | 2021-10-16 14:42 | P.NPUPN_ITS ---
Subjective NPU Subjective: Osmar is a 55-year-old white male with tardive dyskinesia and schizophrenia admitted with suicidal ideation and depressed mood with continued presence of auditory hallucinations. Patient had been compliant on the milieu. He reports a longstanding problem with his mouth movements. He reports multiple medication trials to target his hallucinations and his unusual thoughts. The patient had reported that he wished to try different medications than he had in the past for management of his hallucinations He had reported sleep initiation and sleep continuity disruption and reports continued depressed mood at this time. Mental Status Exam MSE Comments: Osmar is a pleasant white male with poor eye contact who had clear orobuccalfacial movements that were nonrhythmic in nature.? There was si gnificant problems with understanding what he was saying due to the abnormal tongue movements as well.? He was alert and oriented to the year season but not the month or day of the week or date.? He appeared in some distress and reported his mood as not so good his affect remained blunted.? He did at times appear to be responding to internal stimuli with some evidence of thought blocking.? No overt delusions were displayed. His attention was poor and his recent and remote memory appeared impaired. Vitals/I&O/Wt Last Vital Signs Temp 98.2 F 10/16/21 14:00 Pulse 78 10/16/21 14:00 Resp 20 H 10/16/21 14:00 BP 113/69 10/16/21 14:00 Pulse Ox 92 10/16/21 14:00 Weight last 48 hrs Weight 90.718 kg Data NPU : 10/12/21 11:50 10/12/21 11:50 A&P Assessment and plan (1) Other schizophrenia: Status: Chronic (2) Major depressive disorder, recurrent, moderate: Status: Chronic (3) COPD (chronic obstructive pulmonary disease): Status: Chronic (4) Tardive dyskinesia: Status: Chronic (5) Chronic idiopathic constipation: Status: Chronic (6) Controlled diabetes mellitus with hyperglycemia, without long-term current use of insulin: Status: Chronic Qualifiers: Diabetes mellitus type: type 2 Qualified Code(s): E11.65 - Type 2 diabetes mellitus with hyperglycemia (7) Schizophrenia: Status: Acute Plan 55-year-old white male with tardive dyskinesia and schizophrenia who has been without medications for several months currently having it declined in regards to his psychotic symptoms.? 1. Would like to consider austedo or valbenazine for his Tardive dyskinesia, in interim, will begin Vitamin B6 250mg daily. 2. Start Latuda 40mg at night with food to target schizophrenia. 3. Engage patient in milieu and group therapy Involuntary Hold Information 96 Hour Hold: 96 Hour Involuntary Admission: Yes 96 Hour Hold Ending Date: 10/19/21 96 Hour Hold Ending Time: 00:01 Attestations NPU Medical Necessity Statement*: Patient will continue to require hospitalization including at least 2 midnights with a planned inpatient stay possibly 4 to 6 days. Coding Level of Care Code Established Pt Acute Spooler Operator for Tessag Fwd Patient Type Established History Problem Focused Exam Problem Focused Medical Decision Making Straight Forward Diagnoses Other schizophrenia F20.89 Major depressive disorder, recurrent, moderate F33.1 COPD (chronic obstructive pulmonary disease) J44.9 Tardive dyskinesia G24.01 Chronic idiopathic constipation K59.04 Controlled diabetes mellitus with hyperglycemia, without long-term current use of insulin E11.65 Diabetes mellitus type: type 2 Schizophrenia F20.9
[2021-10-16] MEDS: lurasidone 20 mg Tablet 40 MG PO (17:58)
[2021-10-16 19:51] VITALS: BP 142/82; PULSE 80; RESP 17; TEMP 36.8; O2SAT 93
[2021-10-16] MEDS: sennosides 8.6 mg Tablet 17.2 MG PO (21:07)
[2021-10-17 06:00] VITALS: BP 131/77; PULSE 79; RESP 16; TEMP 36.4; O2SAT 92
[2021-10-17] MEDS: pyridoxine 50 mg Tablet 300 MG PO (09:01)
--- NOTE | 2021-10-17 09:23 | P.NPUPN_ITS ---
Subjective NPU Subjective: Osmar is a 55-year-old white male with tardive dyskinesia and schizophrenia admitted with suicidal ideation and depressed mood with continued presence of auditory hallucinations.? Patient had been compliant on the milieu.? He reports confusion and reports not feeling so good. He reports feeling notably paranoid. He reports difficulties with sleep continuity disruption and reports struggles with speaking due to the movement disorder. He reports feeling confused.' Mental Status Exam MSE Comments: Osmar is a pleasant white male with poor eye contact who had clear orobuccalfacial movements that were nonrhythmic in nature.? There was significant problems with understanding what he was saying due to the abnormal tongue movements as well.? He was alert and oriented to year and place. He ap peared in some distress and reported his mood as not good his affect remained blunted.? He did at times appear to be responding to internal stimuli with some evidence of thought blocking. He had appeared suspicious and acknowledged being paranoid. ? His attention was poor and his recent and remote memory appeared impaired.? Vitals/I&O/Wt Last Vital Signs Temp 98.2 F 10/17/21 19:13 Pulse 75 10/17/21 19:13 Resp 18 10/17/21 19:13 BP 126/74 10/17/21 19:13 Pulse Ox 91 10/17/21 19:13 Data NPU : 10/12/21 11:50 10/12/21 11:50 A&P Assessment and plan (1) Other schizophrenia: Status: Chronic (2) Tardive dyskinesia: Status: Chronic Involuntary Hold Information 96 Hour Hold: 96 Hour Involuntary Admission: Yes 96 Hour Hold Ending Date: 10/19/21 96 Hour Hold Ending Time: 00:01 Attestations NPU Medical Necessity Statement*: 55-year-old white male with tardive dyskinesia and schizophrenia who has been without medications for several months currently having it declined in regards to his psychotic symptoms.? 1.? Would like to consider austedo or valbenazine for his Tardive dyskinesia, in interim, will begin Vitamin B6 300mg daily. 2.? Increase Latuda 60mg at night with food to target schizophrenia.? 3.? Engage patient in milieu and group therapy Coding Level of Care Code Established Pt Acute Manager Clinical for Chg Fwd Patient Type Established History Problem Focused Exam Problem Focused Medical Decision Making Straight Forward Diagnoses Other schizophrenia F20.89 Tardive dyskinesia G24.01
[2021-10-17] MEDS: simethicone 80 mg Chew PO (10:01)
[2021-10-17] MEDS: ondansetron 4 MG Tablet PO (10:32)
[2021-10-17] MEDS: OLANZapine 5 mg ODT PO ×2 (10:32→21:39)
[2021-10-17] MEDS: hyDROXYzine 25 mg Capsule 50 MG PO ×2 (10:35→19:26)
[2021-10-17 14:00] VITALS: BP 160/91; PULSE 73; RESP 20; TEMP 36.7; O2SAT 94
[2021-10-17] MEDS: acetaminophen 325 mg Tablet 650 MG PO (14:02)
[2021-10-17] MEDS: lurasidone 20 mg Tablet 40 MG PO (16:24)
[2021-10-17 19:13] VITALS: BP 126/74; PULSE 75; RESP 18; TEMP 36.8; O2SAT 91
[2021-10-17] MEDS: sennosides 8.6 mg Tablet 17.2 MG PO (19:26)
[2021-10-17] MEDS: trazodone 50 mg Tablet PO (19:26)
[2021-10-17] MEDS: haloperidol 5 mg Tablet PO (19:26)
--- NOTE | 2021-10-17 20:14 | PC.NURSE ---
PT C/O HEARING CHATTERING VOICES, NON COMMANDING IN NATURE. PT DENIES PAIN. DENIES SI/HI AND VH AT THIS TIME. HALDOL WAS GIVEN FOR HEARING VOICES BY MED NURSE. INFORMED PT IF VOICES CONTINUE TO LET STAFF KNOW. SPEECH IS MUMBLED AND IT IS NOTED PT DOES HAVE INVOLUNTARY MOVEMENTS OF FACE DUE TO TD WHICH HE IS BEING TREATED FOR. ALL QUESTIONS ANSWERED AND SUPPORT VOICED.
--- NOTE | 2021-10-17 21:47 | PC.NURSE ---
Patient stated he has some anxiety,medicated with Zyprexa Zydis.
[2021-10-18 05:40] VITALS: BP 126/74; PULSE 75; RESP 18; TEMP 36.8
[2021-10-18 05:56] VITALS: BP 116/65; PULSE 72; RESP 17; TEMP 36.6; O2SAT 93
[2021-10-18] MEDS: pyridoxine 50 mg Tablet 300 MG PO (08:36)
[2021-10-18] MEDS: benztropine 1 mg Tablet PO (08:39)
[2021-10-18] MEDS: docusate sodium 100 mg Capsule PO (12:24)
--- NOTE | 2021-10-18 12:25 | PC.NURSE ---
Patient with c/o constipation. Colace po given for this.
[2021-10-18 13:44] VITALS: BP 152/78; PULSE 91; RESP 17; TEMP 36.1; O2SAT 95
[2021-10-18] MEDS: lurasidone 20 mg Tablet 60 MG PO (16:44)
--- NOTE | 2021-10-18 17:00 | P.NPUPN_ITS ---
Subjective NPU Subjective: Patient presents today reporting that he was struggling with being off of medication and his tardive dyskinesia. He reports that he is doing better on the medication now and that the Latuda has been helpful. He is on a 96-hour hold but he reports that he has arranged with the treatment team that he would stay an additional day into tomorrow with a plan for discharge then. He reports he is eating and sleeping better and says he has safe housing arrangements for discharge. Mental Status Exam MSE Comments: This is an overweight white male in hospital scrubs with limited grooming and eye contact. No abnormal movements except for some clear EPS with unintended movement of his tongue and lips. Cooperative with exam in no acute distress. Speech was limited and decreased rate and volume with poor articulation secondary to his tardive dyskinesia. Mood described as okay, affect congruent. Thought process organized. Thought content: Patient denied suicidal or homicidal ideation, there were no delusions reported or noted, he denied any auditory visual hallucinations. Attention and concentration were intact and memory appeared reliable but none were formally tested. He is alert and oriented x3. Insight and judgment fair impulse control fair. Vitals/I&O/Wt Last Vital Signs Temp 97.6 F 10/18/21 20:02 Pulse 68 10/18/21 20:02 Resp 18 10/18/21 20:02 BP 136/89 10/18/21 20:02 Pulse Ox 94 10/18/21 20:02 Data NPU : 10/12/21 11:50 10/12/21 11:50 A&P Assessment and plan (1) Other schizophrenia: Status: Chronic (2) Major depressive disorder, recurrent, moderate: Status: Chronic (3) COPD (chronic obstructive pulmonary disease): Status: Chronic (4) Tardive dyskinesia: Status: Chronic (5) Chronic idiopathic constipation: Status: Chronic (6) Controlled diabetes mellitus with hyperglycemia, without long-term current use of insulin: Status: Chronic Qualifiers: Diabetes mellitus type: type 2 Qualified Code(s): E11.65 - Type 2 diabetes mellitus with hyperglycemia Plan This is a 55-year-old white male with a long history of schizophrenia and significant EPS/tardive dyskinesia who reports he is doing better on the Latuda and looking forward to discharge tomorrow. 1. Continue current medication. His Latuda was increased to 60 mg p.o. daily with meals. 2. Continue every 15 minute checks for safety. 3. Encourage individual, group and milieu therapies. 4. Tentative plan for discharge in the morning. Involuntary Hold Information 96 Hour Hold: 96 Hour Involuntary Admission: Yes 96 Hour Hold Ending Date: 10/19/21 96 Hour Hold Ending Time: 00:01 Attestations NPU Medical Necessity Statement*: Inpatient hospitalization is medically necessary and the clinically appropriate intervention at this time. We will monitor medication to make changes as indicated. Likely length of stay 1-2 days. Coding Level of Care Code Acute Data Governance Consultant for Chg Fwd Diagnoses Other schizophrenia F20.89 Major depressive disorder, recurrent, moderate F33.1 COPD (chronic obstructive pulmonary disease) J44.9 Tardive dyskinesia G24.01 Chronic idiopathic constipation K59.04 Controlled diabetes mellitus with hyperglycemia, without long-term current use of insulin E11.65 Diabetes mellitus type: type 2
[2021-10-18] MEDS: sennosides 8.6 mg Tablet 17.2 MG PO (20:01)
[2021-10-18 20:02] VITALS: BP 136/89; PULSE 68; RESP 18; TEMP 36.4; O2SAT 94
[2021-10-18] MEDS: hyDROXYzine 25 mg Capsule 50 MG PO (20:05)
[2021-10-19 06:00] VITALS: BP 144/90; PULSE 70; RESP 18; TEMP 36.6; O2SAT 94
[2021-10-19] MEDS: pyridoxine 50 mg Tablet 300 MG PO (07:53)
[2021-10-19] MEDS: benztropine 1 mg Tablet PO (07:53)
[2021-10-19] MEDS: OLANZapine 5 mg ODT PO (08:02)
--- NOTE | 2021-10-19 10:32 | P.NPUDS_ITS ---
Diagnoses at Discharge Discharge Diagnosis (1) Other schizophrenia: (2) Major depressive disorder, recurrent, moderate: Status: Chronic (3) COPD (chronic obstructive pulmonary disease): Status: Chronic (4) Tardive dyskinesia: Status: Chronic (5) Chronic idiopathic constipation: Status: Chronic (6) Controlled diabetes mellitus with hyperglycemia, without long-term current u se of insulin: Status: Chronic Qualifiers: Diabetes mellitus type: type 2 Qualified Code(s): E11.65 - Type 2 diabetes mellitus with hyperglycemia Reason for Visit Reason for Visit: auditory hallucinations. Brief History: History of Present Illness Osmar Becker is a 55 year old male with a history of schizophrenia and and tardive dyskinesia who was admitted involuntarily on a 96-hour hold due to an inability to take care of himself with an increased presence of auditory hallucinations and disorganized thinking and disorganized behavior.? Per ED note, He had presented to? ED after he was involved in a argument with his mother.? Per patient, he tells me that he was upset with his mom recently and reports that he has been overwhelmed by his thoughts.? He was brought here per patient because his mother told him that he needed more help to manage his thoughts.? The patient reports that he has been feeling more depressed over the past few months but denies thoughts of hurting himself or others.? He reports that he has not received outpatient mental health treatment in several months with previous records indicating follow up over 1 year ago at [facility]. Past psychiatric history: Patient has reported a history of multiple inpatient hospitalizations beginning at the age of 30.? He is uncertain as to when he was last hospitalized.? He reports a diagnosis of schizophrenia in the past with previous records indicating a diagnosis of tar dive dyskinesia as well.? He had recently been seen by Bijal Cummings in the outpatient clinic approximately 1 year ago.? Previous medications include Invega. Current current psychiatric medications: None Allergies: nkda Medical Hx: signficant for COPD, GERD, on CPAP, Medications: Albuterol inhaler, budesonide, omeprazole, Surgeries: reported abdominal surgery Legal Hx: none Social Hx: 1/2 ppd smoker, he was born in [facility] and raised by his biological parents.? He reports his father at the age of 10.? He reports that he is a homosexual male with no children and with no history of any significant others or previous history of marriage.? He reports that he lives with his mother who has significant medical problems.? He reports having siblings but reports that they are not supportive.? He reports that he is on disability for his mental illness.? 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 He denies any history of drug or alcohol use currently.? He reports having few social supports. Family psychiatric history: none reported, unknown hx of sexual/physical or emotional trauma.? Hospital Course Hospital Course He slowly acclimated to the individual, group and milieu therapies provided. His Invega was discontinued as well as his Paxil and he was started on Latuda which was slowly titrated to 60 mg p.o. daily with meals. He showed notable improvement and was able to contract for safety outside the hospital prior to discharge. During the hospitalization, patient had routine laboratory studies which were within normal limits except for few outliers. Additionally there was a general medical evaluation which was also within normal limits and revealed no new acute processes. Discharge Summary: At the time of discharge, lethality was denied and psychosis was resolving. Mood and anxiety were well managed. Patient endorsed a plan to avoid all drugs of abuse and follow-up with the aftercare recommendations of the treatment team. Patient was evaluated and deemed to be absent credible lethality, and had achieved the maximum benefit from an inpatient hospitalization, so was discha rged. Involuntary Hold Information 96 Hour Hold: 96 Hour Involuntary Admission: Yes 96 Hour Hold Ending Date: 10/19/21 96 Hour Hold Ending Time: 00:01 Mental Status Exam MSE Comments: This is an overweight white male in hospital scrubs with limited grooming and eye contact.? No abnormal movements except for some clear EPS with unintended movement of his tongue and lips.? Cooperative with exam in no acute distress.? Speech was limited and decreased rate and volume with poor articulation secondary to his tardive dyskinesia.? Mood described as better, affect congruent.? Thought process organized.? Thought content: Patient denied suicidal or homicidal ideation, there were no delusions reported or noted, he denied any auditory visual hallucinations.? Attention and concentration were intact and memory appeared reliable but none were formally tested.? He is alert and oriented x3.? Insight and judgment fair impulse control fair. Discharge Data Studies Completed and Pending: Completed Studies During Hospitalization Category Date Time Status CT head wo con* 2 1103 Urgent Cat Scan 10/12/21 11:08 Completed Radiology Impressions Head CT 10/12/21 11:08 IMPRESSION: 1. No evidence of intracranial hemorrhage or mass effect. 2. Minimal parenchymal volume loss. 3. No acute intracranial findings. Laboratory Results WBC 6.9 10^3/uL (4.0- 10.0) 10/12/21 11:50 RBC 5.61 10^6/uL (4.1 -5.3) H 10/12/21 11:50 Hgb 13.8 g/dL (11.7-1 6.6) 10/12/21 11:50 Hct 46.0 % (42.0-52.0 ) 10/12/21 11:50 MCV 82.0 fl (80-94) 10/12/21 11:50 MCH 24.6 pg (28.0-34. 0) L 10/12/21 11:50 MCHC 30.0 g/dL (30.0-3 6.0) 10/12/21 11:50 RDW 15.9 % (12.1-15.1 ) H 10/12/21 11:50 Plt Count 254 10^3/cmm (130 -400) 10/12/21 11:50 MPV 9.8 fL (7.4-10.4) 10/12/21 11:50 Neut % (Auto) 65.1 % 10/12/21 11:50 Lymph % (Auto) 22.3 % 10/12/21 11:50 [place] % (Auto) 10.1 % 10/12/21 11:50 Eos % (Auto) 1.2 % 10/12/21 11:50 Baso % (Auto) 1.0 % 10/12/21 11:50 Neut # (Auto) 4.50 10^3/uL (1.8 -7.7) 10/12/21 11:50 Lymph # (Auto) 1.5 10^3/uL (0.8- 4.8) 10/12/21 11:50 [place] # (Auto) 0.7 10^3/uL (0.2- 0.9) 10/12/21 11:50 Eos # (Auto) 0.1 10^3/uL (0.0- 0.8) 10/12/21 11:50 Baso # (Auto) 0.1 10^3/uL (0.0- 0.1) 10/12/21 11:50 Nucleated RBC % (a uto) 0 % 10/12/21 11:50 Nucleated RBCs # 0.0 /100WBC 10/12/21 11:50 Specimen Type Arterial 10/12/21 11:18 Sample Site Brachial, left 10/12/21 11:18 ABG pH 7.42 (7.35-7.45) 10/12/21 11:18 ABG pCO2 42.8 mmHg (35-45) 10/12/21 11:18 ABG pO2 63.7 mmHg (80.0-1 00.0) L 10/12/21 11:18 ABG HCO3 27.4 mmol/L (22-2 6) H 10/12/21 11:18 ABG Base Excess 2.4 mmol/L (-2.0- 2.0) H 10/12/21 11:18 Florencio Test Pos 10/12/21 11:18 Hematocrit 41.9 % (42-52) L 10/12/21 11:18 O2 Delivery Device Room air 10/12/21 11:18 FiO2 21.0 % 10/12/21 11:18 Lens Grinder ID Cak 10/12/21 11:18 Sodium 136 mmol/L (136-1 45) 10/12/21 11:50 Potassium 5.3 mmol/L (3.5-5 .1) H 10/12/21 11:50 Chloride 98 mmol/L (98-107 ) 10/12/21 11:50 Carbon Dioxide 28 mmol/L (22-29) 10/12/21 11:50 Anion Gap 15.3 (5-19) 10/12/21 11:50 BUN 12 mg/dL (6-20) 10/12/21 11:50 Creatinine 0.6 mg/dL (0.7-1. 2) L 10/12/21 11:50 GFR Calculation 139.9 mL/min (90- 130) H 10/12/21 11:50 Glucose 105 mg/dL (65-115 ) 10/12/21 11:50 Calculated Osmolal ity 282 mOsm/kg (285- 295) L 10/12/21 11:50 Calcium 9.3 mg/dL (8.5-10 .5) 10/12/21 11:50 Total Bilirubin 0.3 mg/dL (0.15-1 .2) 10/12/21 11:50 AST 31 U/L (0-40) 10/12/21 11:50 ALT 27 U/L (0-41) 10/12/21 11:50 Alkaline Phosphata se 86 IU/L (40-130) 10/12/21 11:50 Ammonia 15 umol/L (16-60) L 10/12/21 11:50 Troponin T Baselin e 7 ng/L (0-15) 10/12/21 11:50 Troponin T 120 Min gian 7.41 ng/L (0-15) 10/12/21 14:42 Delta Troponin T 0.41 ABS# (0-10) 10/12/21 14:42 Total Protein 7.8 g/dL (6.6-8.7 ) 10/12/21 11:50 Albumin 4.6 g/dL (3.5-5.2 ) 10/12/21 11:50 Globulin 3.2 g/dL (1.3-4.6 ) 10/12/21 11:50 Lipase 22 U/L (13-60) 10/12/21 11:50 TSH 2.92 uIU/mL (0.27 -4.20) 10/12/21 11:50 Free T4 0.88 ng/dL (0.82- 1.77) 10/12/21 11:50 Urine Color Yellow (Yellow) 10/12/21 11:41 Urine Appearance Clear (CLEAR) 10/12/21 11:41 Urine pH 7 (5-7) 10/12/21 11:41 Ur Specific Gravit y 1.005 (1.005-1.0 30) 10/12/21 11:41 Urine Protein Neg (Negative) 10/12/21 11:41 Urine Glucose (UA) Norm (Normal) 10/12/21 11:41 Urine Ketones Negative (Negati ve) 10/12/21 11:41 Urine Blood Neg (Negative) 10/12/21 11:41 Urine Nitrate Negative (Negati ve) 10/12/21 11:41 Urine Bilirubin Neg (Negative) 10/12/21 11:41 Urine Urobilinogen Norm mg/dL (Negat elie) 10/12/21 11:41 Ur Leukocyte Leigh Ann ase Negative (Negati ve) 10/12/21 11:41 Salicylates 5.8 mg/dL (3-10) 10/12/21 11:50 Urine Opiates Scre en Negative ng/mL (N egative) 10/12/21 11:40 Acetaminophen < 5.0 ug/mL (10-3 0) L 10/12/21 11:50 Ur Barbiturates Sc reen Negative ng/mL (N egative) 10/12/21 11:40 Ur Phencyclidine S crn Negative ng/mL (N egative) 10/12/21 11:40 Ur Amphetamines Sc reen Negative ng/mL (N egative) 10/12/21 11:40 U Benzodiazepines Scrn Negative ng/mL (N egative) 10/12/21 11:40 Urine Cocaine Scre en Negative ng/mL (N egative) 10/12/21 11:40 U Marijuana (THC) Screen Negative ng/mL (N egative) 10/12/21 11:40 Ethyl Alcohol < 10 mg/dL (0-10) 10/12/21 11:50 SARS-CoV-2 Ag (Rap id) Negative (Negati ve) 10/12/21 18:52 Vitals: Last Vital Signs Temp 98 F 10/19/21 06:00 Pulse 70 10/19/21 06:00 Resp 18 10/19/21 06:00 BP 144/90 10/19/21 06:00 Pulse Ox 94 10/19/21 06:00 Discharge Plan Discharge Patient Disposition: Home Condition: Stable Prescriptions: New lurasidone 60 mg tablet 60 mg PO 1700 30 Days Qty: 30 1RF benztropine 1 mg Tablet 1 mg PO BID PRN (Reason: Mild Extrapyramidal symptoms) 30 Days Qty: 60 1RF Continued aspirin 325 mg tablet,delayed release (DR/EC) 325 mg PO DAILY 0RF nitroglycerin [Nitrostat] 0.4 mg tablet, sublingual 0.4 mg SUBLINGUAL ONCE PRN (Reason: chest pain) 0RF Rx Instructions: take as needed for chest pain albuterol sulfate 90 mcg/actuation HFA aerosol inhaler 2 puff INHALATION Q4H PRN (Reason: shortness of breath) Qty: 8.5 2RF Farxiga 5 mg tablet 5 mg PO QAM Qty: 30 2RF gabapentin 300 mg capsule 300 mg PO BID Qty: 60 2RF Linzess 145 mcg capsule 145 mcg PO QAM Qty: 30 2RF magnesium hydroxide [Milk of Magnesia] 400 mg/5 mL suspension 30 ml PO BID Qty: 480 2RF magnesium oxide 400 mg magnesium tablet 400 mg PO BID Qty: 60 2RF omeprazole 20 mg tablet,delayed release (DR/EC) 20 mg PO DAILY Qty: 30 2RF pravastatin 10 mg tablet 10 mg PO DAILY Qty: 30 2RF valsartan 40 mg tablet 40 mg PO DAILY Qty: 30 2RF nicotine 21 mg/24 hr patch 24 hour 1 patch transdermal DAILY Qty: 28 0RF (DME) nebulizers [facility] [place] See Rx Instructions .ROUTE .MEDSUPPLY Qty: 1 0RF Rx Instructions: As directed (DME) Disposable nebulizer circuit with mask See Rx Instructions .ROUTE .MEDSUPPLY Qty: 1 2RF Rx Instructions: As directed acetaminophen 325 mg Tablet 650 mg PO Q6H PRN (Reason: Mild/Mod Pain Or Temp >/= 101) Qty: 90 0RF ipratropium-albuterol 0.5 mg-3 mg(2.5 mg base)/3 mL Solution For Nebulization 3 ml inhalation Q4H PRN (Reason: Shortness Of Breath) Qty: 120 0RF budesonide 0.5 mg/2 mL Suspension For Nebulization 0.25 mg inhalation BID.RESPIRATORY Qty: 60 0RF pyridoxine (vitamin B6) 250 mg tablet 250 mg PO DAILY 30 Days Qty: 30 2RF Changed trazodone 50 mg tablet 50 mg PO BEDTIME PRN (Reason: insomnia) 30 Days Qty: 30 1RF Discontinued paliperidone 6 mg tablet extended release 24hr 6 mg PO QAM Qty: 30 2RF paroxetine HCl 40 mg tablet 40 mg PO BEDTIME 0RF Discharge Orders: Discharge Order (Routine); Ordered 10/19/21 Ordered By: Aryan Torres [place] [facility] [place] [facility] [place]] - 10/24/21 7:45 am (Initial assessment and check in with Nell) Josefina Ni, [facility] [Primary Care Provider] - Discharge Diet: Regular Discharge Activity: Resume usual activity Patient Instructions: Depression (ED), Schizophrenia (DC), COPD (Chronic Obstructive Pulmonary Disease) (DC), Opioid Safety, Tardive Dyskinesia Discharge Attestations NPU Time Spent in Discharge Care*: less than 30 min Specific Discharge Activities: Specific discharge activities: educating patient, discussing with case packer and sealer/social workers/dc planners, documenting/other paperwork and evaluating patient/reviewing data Coding Level of Care Code Acute Chg FW DC note Diagnoses Other schizophrenia F20.89 Major depressive disorder, recurrent, moderate F33.1 COPD (chronic obstructive pulmonary disease) J44.9 Tardive dyskinesia G24.01 Chronic idiopathic constipation K59.04 Controlled diabetes mellitus with hyperglycemia, without long-term current use of insulin E11.65 Diabetes mellitus type: type 2
[2021-10-19 11:06] VITALS: BP 144/90; PULSE 70; RESP 18; TEMP 36.6; O2SAT 94
[2021-10-19 14:00] VITALS: BP 144/90; PULSE 70; RESP 18; TEMP 36.7; O2SAT 94
== END 2021-10-19 14:58 | disposition home or self-care (01) | DRG 885 ==
LOC: ER 12:55 → ER IP 16:46 → NP 10-14 17:29
PROVIDERS: Admitting Provider Psychiatry & Neurology Psychiatry; Emergency Provider Emergency Medicine; PCP Nurse Practitioner; Visit Provider Psychiatry & Neurology Psychiatry
DX: F20.89 Other schizophrenia (principal); F33.1 Major depressive disorder, recurrent, moderate; R45.851 Suicidal ideations; R47.81 Slurred speech; J44.9 Chronic obstructive pulmonary disease, unspecified; G24.01 Drug induced subacute dyskinesia; K59.04 Chronic idiopathic constipation; I10 Essential (primary) hypertension; E11.9 Type 2 diabetes mellitus without complications; K21.9 Gastro-esophageal reflux disease without esophagitis; F17.210 Nicotine dependence, cigarettes, uncomplicated; T50.916A Underdosing of multiple unspecified drugs, medicaments and biological substances, initial encounter; Z91.14 Patient's other noncompliance with medication regimen; Z63.8 Other specified problems related to primary support group
CPT/HCPCS: 36600; 70450; 80053; 80306; 80307; 81003; 82140; 82803; 83690; 84439; 84443; 84484; 85025; 87426; 93005; 97150; 97165; 99285; C9113; Q0162

== ENCOUNTER 2021-10-31 16:34 | Emergency (ER) | payer MEDICAID, SELFPAY ==
[2021-10-31 17:00] VITALS: BP 137/79; PULSE 74; RESP 16; O2SAT 93
--- NOTE | 2021-10-31 17:29 | ED_ITS ---
HPI - General Adult General: Chief complaint: Psychiatric Symptoms Stated complaint: ABD PAIN Time Seen by Provider: 10/31/21 17:05 History of Present Illness: Patient is a 55-year-old male with a history of COPD, hypertension, schizophrenia major depression depression presenting to the emergency room with complaints of chest pain and abdominal pain. Patient tells me for last 5 days, he has had left-sided flank and abdominal pain. In addition, patient also reports left-sided chest pain shortness of breath. Patient reports ongoing cough for last 5 days. Denies any fever but reports chills. Patient denies any body aches, diarrhea melena hematochezia, or decreased p.o. intake. Patient denies any nausea/vomiting, or urinary complaints. Patient has no other prior abdominal surgeries. Onset:5 days ago Duration:5 days Location:home Severity:moderate Associated symptoms: Reports chest pain (+ L sided chest pain) and dyspnea; Deny nausea, rash, palpitations or vomiting Review of Systems Const: Reports: chills; Denies: fever(s) Eyes: Denies: change in vision ENMT: Denies: mouth pain Card: Reports: chest pain (+ L sided chest pain); Denies: palpitations Resp: Reports: dyspnea and non-productive cough GI: Reports: abdominal pain (+L sided abd pain); Denies: nausea, vomiting or diarrhea : Denies: dysuria Musc: Denies: extremity pain Skin/Breast: Denies: rash or new lesions Neuro: Denies: weakness in extremities Psych: Reports: other (Normal mood) Jose Alejandro/Lymph: Denies: easy bruising PFSH ED PFSH: Medical History Acid reflux Cervical radicular pain Chronic hepatitis C Chronic idiopathic constipation Controlled diabetes mellitus with hyperglycemia, without long-term current use of insulin COPD (chronic obstructive pulmonary disease) Dependence on nocturnal oxygen therapy Essential (primary) hypertension Gastritis HIV disease Major depressive disorder, recurrent, moderate Nicotine dependence, cigarettes, with other nicotine-induced disorders Nocturnal hypoxia 2018 Psychiatric care Schizophrenia Tardive dyskinesia Vitamin D deficiency Surgical History History of adenoidectomy History of appendectomy History of colonoscopy History of tonsillectomy History of tympanostomy Family History Father COPD (chronic obstructive pulmonary disease) Mother COPD (chronic obstructive pulmonary disease) Other Cancer Social History Smoking and tobacco status: never smoked Alcohol intake: never Marital status: Single Number of children: 0 Current occupational status: disabled History of recent travel: No Physical Exam Const: COMMON NORMALS: alert HENMT: COMMON NORMALS: atraumatic HEAD & SCALP: atraumatic MOUTH: moist mucous membranes not abnormal Eye: COMMON NORMALS: EOMs intact bilaterally and conjunctivae normal CONJUNCTIVA: Yes conjunctivae normal Neck/C-Spine: COMMON NORMALS: full ROM and supple Resp: COMMON NORMALS: normal respiratory effort and clear to auscultation bilaterally AUSCULTATION: clear to auscultation bilaterally Cardio: COMMON NORMALS: regular rate RATE: regular rate OTHER: 2+ radial pulses b/l GI: COMMON NORMALS: Soft to palpation and non-tender PALPATION: Yes Soft to palpation OTHER: No focal TTP. NO guarding rebound, guarding, rigidity. No CVA tenderness to percussion. Neg Obrien/Neg McBurney's point tenderness, no suprabupic tenderness to palpation. Extremity: COMMON NORMALS: full ROM Neuro: SENSORIUM/ORIENTATION: Yes alert MOTOR EXAM: No Abnormal motor strength present and Other motor observations present (no focal motor deficits) Psych: COMMON NORMALS: speech normal SPEECH: Yes normal speech MOOD & AFFECT: Yes euthymic mood Course Vital Signs: Vital signs: Vital Signs Pulse Rate 72 10/31/21 18:30 Respiratory Rate 16 10/31/21 17:00 Blood Pressure 138/76 10/31/21 18:30 Pulse Oximetry 96 10/31/21 18:30 Oxygen Delivery Me thod 10/31/21 18:30 [facility] - General Adult Medical Decision Making 55-year-old male with history of schizophrenia, depression, HIV, COPD, hypertension presenting to the emergency room with concerns for chest pain, shortness of breath, abdominal pain, cough, and chills for the last 5 days. On exam, patient is afebrile, hemodynamically stable. Patient no focal tenderness palpation abdominal exam. No guarding or rebound tenderness. Rest of exam unremarkable White count 7.6. Creatinine within normal limit. Rest of lab within normal limit. UA is negative for any UTIs. X-ray chest clear. Troponin within normal limit. EKG is nonischemic. Patient reports that his abdominal pain improved without any intervention. At 8:35 PM, shortly prior to patient going for CT scan, patient elected to go home. At this present time, patient AAOx3, understand the risk of going home today. Patient elects to leave AGAINST MEDICAL ADVICE prior to obtaining CT scan. Patient reassures me that he does not feel suicidal does not have any homicidal ideation denies having any active hallucinations. Patient electing to leave AMA. Patient counseled regarding risks of leaving including severe morbidity, brain , hypoxia, arrythmia, , chest pain, or any other unwanted consequences of leaving against medical advice today. Patient verbalizes understanding of the risks and still wishes to leave AMA. Signed AMA paperwork. Patient advised that patient is welcome to return at any time. Was instructed that patient may come back if symptoms continue to persist and that emergent adverse conditions have not fully been ruled out. Patient is A&Ox3 and has capacity and is of sound mind to make decisions. Disposition: AMA Lab Data : 10/31/21 17:29 10/31/21 17:29 Radiology Impressions Chest X-Ray 10/31/21 17:55 IMPRESSION: 1. No acute chest abnormalities. 2. No significant changes from comparison with chronic right lung base pleural and lung parenchymal abnormalities. Laboratory Results WBC 7.6 10^3/uL (4.0-10.0) 10/31/21 17: RBC 5.37 10^6/uL (4.1-5.3) H 10/31/21 17: Hgb 13.3 g/dL (11.7-16.6) 10/31/21 17: Hct 44.1 % (42.0-52.0) 10/31/21 17: MCV 82.1 fl (80-94) 10/31/21 17: MCH 24.8 pg (28.0-34.0) L 10/31/21 17: MCHC 30.2 g/dL (30.0-36.0) 10/31/21 17: RDW 15.9 % (12.1-15.1) H 10/31/21 17: Plt Count 265 10^3/cmm (130-400) 10/31/21 17: MPV 8.9 fL (7.4-10.4) 10/31/21 17: Neut % (Auto) 72.8 % 10/31/21 17: Lymph % (Auto) 16.3 % 10/31/21 17: [place] % (Auto) 8.8 % 10/31/21 17: Eos % (Auto) 1.3 % 10/31/21 17: Baso % (Auto) 0.5 % 10/31/21 17: Neut # (Auto) 5.52 10^3/uL (1.8-7.7) 10/31/21: Lymph # (Auto) 1.2 10^3/uL (0.8-4.8) 10/31/21 17: [place] # (Auto) 0.7 10^3/uL (0.2-0.9) 10/31/21: Eos # (Auto) 0.1 10^3/uL (0.0-0.8) 10/31/21 17: Baso # (Auto) 0.0 10^3/uL (0.0-0.1) 10/31/21: Nucleated RBC % (auto) 0 % 10/31/21: Nucleated RBCs # 0.0 /100WBC 10/31/21 17: Sodium 139 mmol/L (136-145) 10/31/21 17: Potassium 4.0 mmol/L (3.5-5.1) 10/31/21 17: Chloride 102 mmol/L (98-107) 10/31/21 17: Carbon Dioxide 28 mmol/L (22-29) 10/31/21 17: Anion Gap 13.0 (5-19) 10/31/21 17: BUN 12 mg/dL (6-20) 10/31/21 17: Creatinine 0.5 mg/dL (0.7-1.2) L 10/31/21 17: GFR Calculation 172.6 mL/min (90-130) H 10/31/21 17: Glucose 84 mg/dL (65-115) 10/31/21 17: Calculated Osmolality 287 mOsm/kg (285-295) 10/31/21 17:29 Calcium 9.7 mg/dL (8.5-10.5) 10/31/21 17:29 Total Bilirubin 0.2 mg/dL (0.15-1.2) 10/31/21 17:29 AST 14 U/L (0-40) 10/31/21 17:29 ALT 21 U/L (0-41) 10/31/21 17:29 Alkaline Phosphatase 91 IU/L (40-130) 10/31/21 17:29 Troponin T Baseline 8 ng/L (0-15) 10/31/21 17:30 Total Protein 7.4 g/dL (6.6-8.7) 10/31/21 17:29 Albumin 4.3 g/dL (3.5-5.2) 10/31/21 17: Globulin 3.1 g/dL (1.3-4.6) 10/31/21 17:29 Lipase 19 U/L (13-60) 10/31/21 17:29 Urine Color Yellow (Yellow) 10/31/21 18:18 Urine Appearance Clear (CLEAR) 10/31/21 18:18 Urine pH 7 (5-7) 10/31/21 18:18 Ur Specific [place] 1.005 (1.005-1.030) 10/31/21 18:18 Urine Protein Neg (Negative) 10/31/21 18:18 Urine Glucose (UA) Norm (Normal) 10/31/21 18:18 Urine Ketones Negative (Negative) 10/31/21 18:18 Urine Blood Neg (Negative) 10/31/21 18:18 Urine Nitrate Negative (Negative) 10/31/21 18:18 Urine Bilirubin Neg (Negative) 10/31/21 18:18 Urine Urobilinogen Norm mg/dL (Negative) 10/31/21 18:18 Ur Leukocyte Esterase Negative (Negative) 10/31/21 18:18 SARS-CoV-2 Ag (Rapid) Negative (Negative) 10/31/21 18:43 Discharge Plan Discharge Patient Disposition: Left Against Medical Advice Clinical Impression: Chest pain, Abdominal pain Condition: Stable Prescriptions: No Action aspirin 325 mg tablet,delayed release (DR/EC) 325 mg PO DAILY nitroglycerin [Nitrostat] 0.4 mg tablet, sublingual 0.4 mg SUBLINGUAL ONCE PRN (Reason: chest pain) Rx Instructions: take as needed for chest pain albuterol sulfate 90 mcg/actuation HFA aerosol inhaler 2 puff INHALATION Q4H PRN (Reason: shortness of breath) Qty: 8.5 2RF Farxiga 5 mg tablet 5 mg PO QAM Qty: 30 2RF gabapentin 300 mg capsule 300 mg PO BID Qty: 60 2RF Linzess 145 mcg capsule 145 mcg PO QAM Qty: 30 2RF magnesium hydroxide [Milk of Magnesia] 400 mg/5 mL suspension 30 ml PO BID Qty: 480 2RF magnesium oxide 400 mg magnesium tablet 400 mg PO BID Qty: 60 2RF omeprazole 20 mg tablet,delayed release (DR/EC) 20 mg PO DAILY Qty: 30 2RF pravastatin 10 mg tablet 10 mg PO DAILY Qty: 30 2RF valsartan 40 mg tablet 40 mg PO DAILY Qty: 30 2RF nicotine 21 mg/24 hr patch 24 hour 1 patch transdermal DAILY Qty: 28 0RF (DME) nebulizers Misc See Rx Instructions .ROUTE .MEDSUPPLY Qty: 1 0RF Rx Instructions: As directed (DME) Disposable nebulizer circuit with mask See Rx Instructions .ROUTE .MEDSUPPLY Qty: 1 2RF Rx Instructions: As directed acetaminophen 325 mg Tablet 650 mg PO Q6H PRN (Reason: Mild/Mod Pain Or Temp >/= 101) Qty: 90 0RF ipratropium-albuterol 0.5 mg-3 mg(2.5 mg base)/3 mL Solution For Nebulization 3 ml inhalation Q4H PRN (Reason: Shortness Of Breath) Qty: 120 0RF budesonide 0.5 mg/2 mL Suspension For Nebulization 0.25 mg inhalation BID.RESPIRATORY Qty: 60 0RF lurasidone 60 mg tablet 60 mg PO 1700 30 Days Qty: 30 1RF trazodone 50 mg tablet 50 mg PO BEDTIME PRN (Reason: insomnia) 30 Days Qty: 30 1RF pyridoxine (vitamin B6) 250 mg tablet 250 mg PO DAILY 30 Days Qty: 30 2RF benztropine 1 mg Tablet 1 mg PO BID PRN (Reason: Mild Extrapyramidal symptoms) 30 Days Qty: 60 1RF Referrals: Raine,Glennette R, RADIOLOGICAL DEFENSE OFFICER-[facility] [Primary Care Provider] - Discharge Diet: Advance as tolerated Discharge Activity: Increase activity as tolerated Patient Instructions: Chest Pain (ED), Abdominal Pain (ED) Activity Restrictions/Additional Instructions: Come back to the emergency room if your chest pain worsens, have any fever or chills, worsening shortness of breath, worsening exertional lightheadedness, or any new or concerning complaints. Please come back if you have any worsening abdominal pain, fever or chills, nausea or vomiting, diarrhea, blood in the stool, inability hold down liquid or solids, or any new concerning complaints. Please come back to the emergency room if you need help, have any hallucinations, or you have any depression or have thoughts about hurting yourself or other people. Coding Level of Care Code ED Esthetician/Skin Therapist for Jennyfer Fwd Exam Comprehensive
[2021-10-31 17:46] LABS: Basophils % 0.5 %; Eosinophils # 0.1 10^3/uL (0.0-0.8); Eosinophils % 1.3 %; Hematocrit 44.1 % (42.0-52.0); Hemoglobin 13.3 g/dL (11.7-16.6); Lymphocytes # 1.2 10^3/uL (0.8-4.8); Lymphocytes % 16.3 %; Mean Corpuscular HGB Conc 30.2 g/dL (30.0-36.0); Mean Corpuscular Hemoglobin 24.8 pg (28.0-34.0); Mean Corpuscular Volume 82.1 fl (80-94); Mean Platelet Volume 8.9 fL (7.4-10.4); Monocytes # 0.7 10^3/uL (0.2-0.9); Monocytes % 8.8 %; Neutrophils # 5.52 10^3/uL (1.8-7.7); Neutrophils % 72.8 %; Nucleated Red Blood Cells % 0 %; Platelet Count 265 10^3/cmm (130-400); Red Blood Count 5.37 10^6/uL (4.1-5.3); Red Cell Distribution Width 15.9 % (12.1-15.1); White Blood Count 7.6 10^3/uL (4.0-10.0)
--- NOTE | 2021-10-31 17:55 | XRR_ITS ---
PROCEDURE INFORMATION: Exam: XR Chest Exam date and time: 10/31/2021 6:06 PM Age: 55 years old Clinical indication: Angina; Additional info: Chest pain TECHNIQUE: Imaging protocol: Radiologic exam of the chest. Views: 1 view. COMPARISON: CR (CHEST, ) 09/03/2021 6:12 AM FINDINGS: Lungs: Right lower lung scarring similar to prior. No acute pulmonary consolidation. Chronic right lung volume loss. Pleural spaces: Chronic right lung base pleural thickening with possible small pleural effusion. Heart/Mediastinum: Unremarkable. No cardiomegaly. Bones/joints: Unremarkable. XR/XR chest 1V portable [id number] IMPRESSION: 1. No acute chest abnormalities. 2. No significant changes from comparison with chronic right lung base pleural and lung parenchymal abnormalities.
[2021-10-31 18:00] VITALS: BP 131/68; PULSE 70; O2SAT 94
[2021-10-31 18:19] LABS: Alanine Aminotransferase 21 U/L (0-41); Albumin Level 4.3 g/dL (3.5-5.2); Alkaline Phosphatase 91 IU/L (40-130); Aspartate Amino Transferase 14 U/L (0-40); Blood Urea Nitrogen 12 mg/dL (6-20); Calcium 9.7 mg/dL (8.5-10.5); Carbon Dioxide 28 mmol/L (22-29); Chloride 102 mmol/L (98-107); Globulin 3.1 g/dL (1.3-4.6); Glomerular Filtration Rate 172.6 mL/min (90-130); Glucose 84 mg/dL (65-115); Lipase 19 U/L (13-60); Osmolality Calculated 287 mOsm/kg (285-295); Sodium 139 mmol/L (136-145); Total Bilirubin 0.2 mg/dL (0.15-1.2); Total Protein 7.4 g/dL (6.6-8.7)
[2021-10-31 18:30] VITALS: BP 138/76; PULSE 72; O2SAT 96
[2021-10-31 19:01] LABS: Troponin(5th) Baseline 8 ng/L (0-15)
[2021-10-31 19:01] LABS: Add Urine Microscopic? NO; Charge for UA Resulting for Rev
[2021-10-31 19:06] LABS: Bilirubin Urine Neg (Negative); Blood Urine Neg (Negative); Glucose Urine UA Norm (Normal); Ketones Urine Negative (Negative); Leukocyte Esterase Urine Negative (Negative); Nitrate Urine Negative (Negative); Protein Urine Neg (Negative); Specific Gravity, Urine 1.005 (1.005-1.030); Urine Appearance Clear (CLEAR); Urine Color Yellow (Yellow); Urobilinogen Urine Norm (Negative); pH Urine 7 (5-7)
[2021-10-31 19:20] LABS: SARS Covid-2 Antigen Negative (Negative)
== END 2021-10-31 20:35 | disposition left against medical advice (07) ==
PROVIDERS: Nurse Practitioner Family; Emergency Provider Emergency Medicine; PCP Nurse Practitioner
DX: R10.9 Unspecified abdominal pain (principal); R07.9 Chest pain, unspecified; Z53.21 Procedure and treatment not carried out due to patient leaving prior to being seen by health care provider; Z79.82 Long term (current) use of aspirin; Z20.822 Contact with and (suspected) exposure to COVID-19; Z86.19 Personal history of other infectious and parasitic diseases; E11.9 Type 2 diabetes mellitus without complications; J44.9 Chronic obstructive pulmonary disease, unspecified; I10 Essential (primary) hypertension; B20 Human immunodeficiency virus [HIV] disease
CPT/HCPCS: 36415; 71045; 80053; 81003; 83690; 84484; 85025; 87426; 99285

== ENCOUNTER 2021-11-03 18:22 | Emergency (ER) | payer MEDICAID, SELFPAY ==
[2021-11-03 18:31] VITALS: BP 154/92; PULSE 73; RESP 16; TEMP 36.6; O2SAT 97; BMI 28.7
--- NOTE | 2021-11-03 18:41 | ECG_ITS ---
[facility] Test Date: 2021-11-03 Pat Name: Osmar Becker Department: Room: Gender: Male Medical/Surgery Registered Nurse: : [id number] Requested By: Jalil Ruffin Order Number: [id number] Reading MD: George Shabazz M.D. Measurements Intervals [place] Rate: 75 P: -22 HI: 159 QRS: 72 QRSD: 85 T: 46 QT: 358 QTc: 400 Interpretive Statements SINUS RHYTHM INTERPRETATION BASED ON A DEFAULT AGE OF 40 YEARS Compared to ECG 10/14/2021 07:28:18 No significant changes Electronically Signed On 11-04-2021 10:34:21 CDT by George Shabazz M.D. [id number]
== END 2021-11-03 20:03 | disposition left against medical advice (07) ==
PROVIDERS: Emergency Provider Family Medicine; PCP Nurse Practitioner
DX: Z53.21 Procedure and treatment not carried out due to patient leaving prior to being seen by health care provider (principal)
CPT/HCPCS: 93005

== ENCOUNTER 2021-12-09 12:46 | Emergency (ER) | payer MEDICAID, SELFPAY ==
[2021-12-09 12:56] VITALS: BMI 27.3
[2021-12-09 13:55] LABS: Basophils # 0.1 10^3/uL (0.0-0.1); Basophils % 0.7 %; Eosinophils # 0.1 10^3/uL (0.0-0.8); Eosinophils % 1.1 %; Hematocrit 42.6 % (42.0-52.0); Hemoglobin 12.6 g/dL (11.7-16.6); Lymphocytes # 1.5 10^3/uL (0.8-4.8); Lymphocytes % 16.3 %; Mean Corpuscular HGB Conc 29.6 g/dL (30.0-36.0); Mean Corpuscular Volume 84.5 fl (80-94); Mean Platelet Volume 9.1 fL (7.4-10.4); Monocytes # 0.6 10^3/uL (0.2-0.9); Neutrophils # 6.81 10^3/uL (1.8-7.7); Neutrophils % 74.6 %; Nucleated Red Blood Cells % 0 %; Platelet Count 264 10^3/cmm (130-400); Red Blood Count 5.04 10^6/uL (4.1-5.3); Red Cell Distribution Width 15.9 % (12.1-15.1); White Blood Count 9.1 10^3/uL (4.0-10.0)
[2021-12-09 14:36] LABS: Alanine Aminotransferase 20 U/L (0-41); Albumin Level 4.4 g/dL (3.5-5.2); Alkaline Phosphatase 87 U/L (40-130); Aspartate Amino Transferase 18 U/L (0-40); Blood Urea Nitrogen 15 mg/dL (6-20); Calcium 9.5 mg/dL (8.5-10.5); Carbon Dioxide 25 mmol/L (22-29); Chloride 100 mmol/L (98-107); Globulin 2.8 g/dL (1.3-4.6); Glucose 87 mg/dL (65-115); Osmolality Calculated 284 mOsm/kg (285-295); Sodium 137 mmol/L (136-145); Total Bilirubin 0.2 mg/dL (0.15-1.2); Total Protein 7.2 g/dL (6.6-8.7)
[2021-12-09 15:03] LABS: Acetaminophen < 5.0 ug/mL (10-30); Alcohol Level < 10 mg/dL (0-10); Anion Gap 16.4 (5-19); Salicylate < 0.3 mg/dL (3-10)
[2021-12-09 15:04] LABS: Potassium 4.4 mmol/L (3.5-5.1)
[2021-12-09 15:07] LABS: Add Urine Microscopic? NO; Charge for UA Resulting for Rev
[2021-12-09 15:09] LABS: Bilirubin Urine Neg (Negative); Blood Urine Neg (Negative); Glucose Urine UA 2+ (Normal); Ketones Urine Negative (Negative); Leukocyte Esterase Urine Negative (Negative); Nitrate Urine Negative (Negative); Protein Urine Neg (Negative); Specific Gravity, Urine 1.005 (1.005-1.030); Urine Appearance Clear (CLEAR); Urine Color Colorless (Yellow); Urobilinogen Urine Norm (Negative); pH Urine 7 (5-7)
[2021-12-09 15:18] LABS: Amphetamines Screen Urine Negative (Negative); Barbiturates Screen Urine Negative (Negative); Benzodiazepines Screen Urine Negative (Negative); Cocaine Screen Urine Negative (Negative); Opiate Screen Urine Negative (Negative); PCP Screen Urine Negative (Negative); THC Screen Urine Negative (Negative)
--- NOTE | 2021-12-09 16:13 | W.ED.PSYCHS ---
HPI - Psych General: Chief Complaint: Psychiatric Symptoms Stated Complaint: MHE Time Seen by Provider: 12/09/21 13:07 History of Present Illness: 56-year-old male patient presents to the emergency department complaining of anger issues. Patient states he is having auditory hallucinations. Patient states his family is constantly provoking him and makes him feel aggressive. Patient states he thinks this is issues with his medications. Patient denies any SI or HI. Associated symptoms: Deny depression, homicidal ideation or suicidal ideation Review of Systems Const: Denies: fever(s), chills, body aches, change in appetite, change in weight, fatigue, malaise or diaphoresis Eyes: Denies: change in vision, blurry vision, blind spots, photophobia, eye discomfort, eye discharge, eye redness, floaters or seeing flashes ENMT: Denies: throat pain, uvular edema, enlarged tonsils, odynophagia, hoarseness, mouth pain, swelling of lips/tongue, oral sores, bleeding gums, dental pain, dry mouth, ear or mastoid pain, ear discharge, change in hearing, tinnitus, disequilibrium, nasal discharge, nasal congestion, post nasal drip or sinus pain Card: Denies: chest pain, palpitations, irregular heart rhythm, edema, swelling of feet/ankles, lightheadedness, syncope, pre-syncope, dyspnea on exertion, orthopnea, leg pain with exertion or acrocyanosis Resp: Denies: dyspnea, productive cough, non-productive cough, wheezing, stridor, pain on inspiration, change in phlegm color, hemoptysis or chest congestion GI: Denies: abdominal pain, nausea, vomiting, hematemesis, dysphagia, diarrhea, constipation, GI cramping, change in bowel habits or rectal pain : Denies: flank pain, dysuria, urinary frequency, urinary urgency, urinary hesitancy or hematuria Musc: Denies: neck pain, back pain, extremity pain, extremity swelling, joint pain, joint swelling, joint redness, joint warmth or deformity Skin/Breast: Denies: rash, pruritus, erythema, sores, new lesions, changes in skin color or dry skin Neuro: Denies: headache(s), numbness in extremities, weakness in extremities, sensory changes, lack of coordination, difficulty walking, frequent falls, dizziness, vertigo, confusion, behavioral changes, Slurred speech present, difficulty communicating thoughts or seizure-like activity Psych: Denies: anxiety, depression, suicidal ideation or homicidal ideation Endo: Denies: polyuria, polydipsia, tired all the time, cold intolerance, excessive sweating, flushing, hot flashes or heat intolerance Jose Alejandro/Lymph: Denies: easy bruising, easy bleeding, petechiae, purpura, enlarged lymph nodes or tender lymph nodes All/Imm: Denies: urticaria, throat swelling, tongue swelling, facial swelling, acute wheezing or itchy eyes PFSH ED PFSH: Medical History Acid reflux Cervical radicular pain Chronic hepatitis C Chronic idiopathic constipation Controlled diabetes mellitus with hyperglycemia, without long-term current use of insulin COPD (chronic obstructive pulmonary disease) Dependence on nocturnal oxygen therapy Essential (primary) hypertension Gastritis HIV disease Major depressive disorder, recurrent, moderate Nicotine dependence, cigarettes, with other nicotine-induced disorders Nocturnal hypoxia 2018 Other schizophrenia Psychiatric care Schizophrenia Tardive dyskinesia Vitamin D deficiency Surgical History History of adenoidectomy History of appendectomy History of colonoscopy History of tonsillectomy History of tympanostomy Family History Father COPD (chronic obstructive pulmonary disease) Mother COPD (chronic obstructive pulmonary disease) Other Cancer Social History Smoking and tobacco status: never smoked Alcohol intake: never Marital status: Single Number of children: 0 Current occupational status: disabled History of recent travel: No Physical Exam HENMT: THROAT: no uvular edema MDM - Psych Medical Decision Making I went into see patient and discuss his condition and patient was not in the room. Per nurse patient left AMA. 56-year-old male patient presents to the emergency department complaining of anger issues. Patient states he is having auditory hallucinations. Patient states his family is constantly provoking him and makes him feel aggressive. Patient states he thinks this is issues with his medications. Patient denies any SI or HI. Lab Data : 12/09/21 13:51 12/09/21 13:51 Laboratory Results WBC 9.1 10^3/uL (4.0-10.0) 12/09/21 13:51 RBC 5.04 10^6/uL (4.1-5.3) 12/09/21 13:51 Hgb 12.6 g/dL (11.7-16.6) 12/09/21 13:51 Hct 42.6 % (42.0-52.0) 12/09/21 13:51 MCV 84.5 fl (80-94) 12/09/21 13:51 MCH 25.0 pg (28.0-34.0) L 12/09/21 13:51 MCHC 29.6 g/dL (30.0-36.0) L 12/09/21 13:51 RDW 15.9 % (12.1-15.1) H 12/09/21 13:51 Plt Count 264 10^3/cmm (130-400) 12/09/21 13:51 MPV 9.1 fL (7.4-10.4) 12/09/21 13:51 Neut % (Auto) 74.6 % 12/09/21 13:51 Lymph % (Auto) 16.3 % 12/09/21 13:51 [place] % (Auto) 7.0 % 12/09/21 13:51 Eos % (Auto) 1.1 % 12/09/21 13:51 Baso % (Auto) 0.7 % 12/09/21 13:51 Neut # (Auto) 6.81 10^3/uL (1.8-7.7) 12/09/21 13:51 Lymph # (Auto) 1.5 10^3/uL (0.8-4.8) 12/09/21 13:51 [place] # (Auto) 0.6 10^3/uL (0.2-0.9) 12/09/21 13:51 Eos # (Auto) 0.1 10^3/uL (0.0-0.8) 12/09/21 13:51 Baso # (Auto) 0.1 10^3/uL (0.0-0.1) 12/09/21 13:51 Nucleated RBC % (auto) 0 % 12/09/21 13:51 Nucleated RBCs # 0.0 /100WBC 12/09/21 13:51 Sodium 137 mmol/L (136-145) 12/09/21 13:51 Potassium 4.4 mmol/L (3.5-5.1) 12/09/21 13:51 Chloride 100 mmol/L (98-107) 12/09/21 13:51 Carbon Dioxide 25 mmol/L (22-29) 12/09/21 13:51 Anion Gap 16.4 (5-19) 12/09/21 13:51 BUN 15 mg/dL (6-20) 12/09/21 13:51 Creatinine 0.5 mg/dL (0.7-1.2) L 12/09/21 13:51 GFR Calculation 172.0 mL/min (90-130) H 12/09/21 13:51 Glucose 87 mg/dL (65-115) 12/09/21 13:51 Calculated Osmolality 284 mOsm/kg (285-295) L 12/09/21 13:51 Calcium 9.5 mg/dL (8.5-10.5) 12/09/21 13:51 Total Bilirubin 0.2 mg/dL (0.15-1.2) 12/09/21 13:51 AST 18 U/L (0-40) 12/09/21 13:51 ALT 20 U/L (0-41) 12/09/21 13:51 Alkaline Phosphatase 87 U/L (40-130) 12/09/21 13:51 Total Protein 7.2 g/dL (6.6-8.7) 12/09/21 13:51 Albumin 4.4 g/dL (3.5-5.2) 12/09/21 13:51 Globulin 2.8 g/dL (1.3-4.6) 12/09/21 13:51 Urine Color Colorless (Yellow) 12/09/21 14:30 Urine Appearance Clear (CLEAR) 12/09/21 14:30 Urine pH 7 (5-7) 12/09/21 14:30 Ur Specific [place] 1.005 (1.005-1.030) 12/09/21 14:30 Urine Protein Neg (Negative) 12/09/21 14:30 Urine Glucose (UA) 2+ (Normal) H 12/09/21 14:30 Urine Ketones Negative (Negative) 12/09/21 14:30 Urine Blood Neg (Negative) 12/09/21 14:30 Urine Nitrate Negative (Negative) 12/09/21 14:30 Urine Bilirubin Neg (Negative) 12/09/21 14:30 Urine Urobilinogen Norm mg/dL (Negative) 12/09/21 14:30 Ur Leukocyte Esterase Negative (Negative) 12/09/21 14:30 Salicylates < 0.3 mg/dL (3-10) L 12/09/21 13:51 Urine Opiates Screen Negative ng/mL (Negative) 12/09/21 14:30 Acetaminophen < 5.0 ug/mL (10-30) L 12/09/21 13:51 Ur Barbiturates Screen Negative ng/mL (Negative) 12/09/21 14:30 Ur Phencyclidine Scrn Negative ng/mL (Negative) 12/09/21 14:30 Ur Amphetamines Screen Negative ng/mL (Negative) 12/09/21 14:30 U Benzodiazepines Scrn Negative ng/mL (Negative) 12/09/21 14:30 Urine Cocaine Screen Negative ng/mL (Negative) 12/09/21 14:30 U Marijuana (THC) Screen Negative ng/mL (Negative) 12/09/21 14:30 Ethyl Alcohol < 10 mg/dL (0-10) 12/09/21 13:51 Discharge Plan Discharge Condition: Stable Prescriptions: No Action aspirin 325 mg tablet,delayed release (DR/EC) 325 mg PO DAILY nitroglycerin [Nitrostat] 0.4 mg tablet, sublingual 0.4 mg SUBLINGUAL ONCE PRN (Reason: chest pain) Rx Instructions: take as needed for chest pain albuterol sulfate 90 mcg/actuation HFA aerosol inhaler 2 puff INHALATION Q4H PRN (Reason: shortness of breath) Qty: 8.5 2RF Farxiga 5 mg tablet 5 mg PO QAM Qty: 30 2RF gabapentin 300 mg capsule 300 mg PO BID Qty: 60 2RF Linzess 145 mcg capsule 145 mcg PO QAM Qty: 30 2RF magnesium hydroxide [Milk of Magnesia] 400 mg/5 mL suspension 30 ml PO BID Qty: 480 2RF magnesium oxide 400 mg magnesium tablet 400 mg PO BID Qty: 60 2RF omeprazole 20 mg tablet,delayed release (DR/EC) 20 mg PO DAILY Qty: 30 2RF pravastatin 10 mg tablet 10 mg PO DAILY Qty: 30 2RF valsartan 40 mg tablet 40 mg PO DAILY Qty: 30 2RF nicotine 21 mg/24 hr patch 24 hour 1 patch transdermal DAILY Qty: 28 0RF (DME) nebulizers Misc See Rx Instructions .ROUTE .MEDSUPPLY Qty: 1 0RF Rx Instructions: As directed (DME) Disposable nebulizer circuit with mask See Rx Instructions .ROUTE .MEDSUPPLY Qty: 1 2RF Rx Instructions: As directed acetaminophen 325 mg Tablet 650 mg PO Q6H PRN (Reason: Mild/Mod Pain Or Temp >/= 101) Qty: 90 0RF ipratropium-albuterol 0.5 mg-3 mg(2.5 mg base)/3 mL Solution For Nebulization 3 ml inhalation Q4H PRN (Reason: Shortness Of Breath) Qty: 120 0RF budesonide 0.5 mg/2 mL Suspension For Nebulization 0.25 mg inhalation BID.RESPIRATORY Qty: 60 0RF lurasidone 60 mg tablet 60 mg PO 1700 30 Days Qty: 30 1RF trazodone 50 mg tablet 50 mg PO BEDTIME PRN (Reason: insomnia) 30 Days Qty: 30 1RF pyridoxine (vitamin B6) 250 mg tablet 250 mg PO DAILY 30 Days Qty: 30 2RF benztropine 1 mg Tablet 1 mg PO BID PRN (Reason: Mild Extrapyramidal symptoms) 30 Days Qty: 60 1RF Referrals: Josefina Ni FNP-C [Primary Care Provider] - Coding Level of Care Code ED Acid Polymerization Operator for Jennyfer Rae
== END 2021-12-09 15:35 | disposition left against medical advice (07) ==
PROVIDERS: Emergency Provider Registered Nurse; PCP Nurse Practitioner
DX: R45.4 Irritability and anger (principal); R44.0 Auditory hallucinations; Z79.82 Long term (current) use of aspirin; Z86.19 Personal history of other infectious and parasitic diseases; E11.9 Type 2 diabetes mellitus without complications; J44.9 Chronic obstructive pulmonary disease, unspecified; I10 Essential (primary) hypertension; B20 Human immunodeficiency virus [HIV] disease
CPT/HCPCS: 36415; 80053; 80306; 80307; 81003; 85025; 99283

== ENCOUNTER 2021-12-31 15:15 | Emergency (ER) | payer MEDICAID, SELFPAY ==
[2021-12-31 15:20] VITALS: BP 160/84; PULSE 70; RESP 22; TEMP 36.8; O2SAT 95; BMI 27.2
--- NOTE | 2021-12-31 15:41 | XRR_ITS ---
PROCEDURE INFORMATION: Exam: XR Chest Exam date and time: 12/31/2021 6:57 PM Age: 56 years old Clinical indication: Chest wall pain; Additional info: Shortness of breath TECHNIQUE: Imaging protocol: Radiologic exam of the chest. Views: 1 view. COMPARISON: CR (CHEST, ) 10/31/2021 6:06 PM FINDINGS: Lungs: Stable mild right basilar atelectasis and/or infiltrate and/or effusion and/or scarring. Pleural spaces: Unremarkable. No pleural effusion. No pneumothorax. Heart/Mediastinum: Unremarkable. No cardiomegaly. Bones/joints: Unremarkable. XR/XR chest 1V portable [id number] IMPRESSION: Stable mild right basilar atelectasis and/or infiltrate and/or effusion and/or scarring.
[2021-12-31 18:03] LABS: Add Urine Microscopic? NO; Charge for UA Resulting for Rev
[2021-12-31 18:22] LABS: Bilirubin Urine Neg (Negative); Blood Urine Neg (Negative); Glucose Urine UA 4+ (Normal); Ketones Urine Negative (Negative); Leukocyte Esterase Urine Negative (Negative); Nitrate Urine Negative (Negative); Protein Urine Neg (Negative); Sulfosalicylic Acid Urine Negative (Negative); Urine Appearance Clear (CLEAR); Urine Color Yellow (Yellow); Urobilinogen Urine Neg (Negative); pH Urine 8 (5-7)
--- NOTE | 2021-12-31 19:52 | W.ED.GENADLT ---
HPI - General Adult General: Chief complaint: General Medical Stated complaint: HEADACHE/ NOT FEELING WELL Time Seen by Provider: 12/31/21 19:47 History of Present Illness: 56-year-old male patient comes in today with complaints of feeling. Patient denies any pain. Patient does have a occasional cough. Patient appears nontoxic. Patient appears severe pain. Patient does have a history of major depressive disorder, COPD, diabetes mellitus, chronic constipation, nocturnal oxygen therapy, chronic neck pain. Associated symptoms: Reports malaise; Deny chest pain, headache(s), nausea, rash or vomiting Review of Systems General: Reports: 10 or more systems reviewed and unremarkable except in HPI and below Const: Reports: malaise; Denies: fever(s) ENMT: Denies: throat pain Card: Denies: chest pain Resp: Reports: wheezing GI: Denies: nausea or vomiting : Denies: difficulty urinating or dysuria Musc: Denies: back pain Skin/Breast: Denies: rash Neuro: Denies: headache(s) Psych: Denies: visual hallucinations or auditory hallucinations PFSH ED PFSH: Medical History Acid reflux Cervical radicular pain Chronic hepatitis C Chronic idiopathic constipation Controlled diabetes mellitus with hyperglycemia, without long-term current use of insulin COPD (chronic obstructive pulmonary disease) Dependence on nocturnal oxygen therapy Essential (primary) hypertension Gastritis HIV disease Major depressive disorder, recurrent, moderate Nicotine dependence, cigarettes, with other nicotine-induced disorders Nocturnal hypoxia 2018 Other schizophrenia Schizophrenia Tardive dyskinesia Vitamin D deficiency Surgical History History of adenoidectomy History of appendectomy History of colonoscopy History of tonsillectomy History of tympanostomy Family History Father COPD (chronic obstructive pulmonary disease) Mother COPD (chronic obstructive pulmonary disease) Other Cancer Social History Smoking and tobacco status: never smoked Second hand smoke exposure: No Smoking risk assessment/counseling performed?: No Alcohol intake: never Desire information about alcohol rehabilitation?: No Counseling given: No Desire information about substance/drug rehabilitation?: No Counseling given: No Adopted: No Caregiver/support person: No Lives independently: Yes Housing: House Marital status: Single Number of children: 0 service: No Current occupational status: disabled Current occupational exposures/hazards: No History of recent travel: No Current gender identity: Male Physical Exam Const: COMMON NORMALS: alert HENMT: COMMON NORMALS: normocephalic HEAD & SCALP: normocephalic Neck/C-Spine: COMMON NORMALS: full ROM Resp: COMMON NORMALS: normal respiratory effort AUSCULTATION: wheezes lower bilaterally Cardio: COMMON NORMALS: regular rate and regular rhythm RATE: regular rate RHYTHM: regular rhythm GI: COMMON NORMALS: Soft to palpation and non-tender PALPATION: Yes Soft to palpation Extremity: COMMON NORMALS: normal to inspection and no pedal edema Neuro: SENSORIUM/ORIENTATION: Yes alert Skin: COMMON NORMALS: turgor normal GENERAL SKIN EXAM: turgor normal Course Vital Signs: Vital signs: Vital Signs Temperature 98.2 F 12/31/21 15:20 Pulse Rate 70 12/31/21 15:20 Respiratory Rate 22 H 12/31/21 15:20 Blood Pressure 160/84 12/31/21 15:20 Pulse Oximetry 95 12/31/21 15:20 Oxygen Delivery Me thod 12/31/21 15:20 [facility] - General Adult Medical Decision Making 56-year-old male patient comes in today for complaints of fatigue and not feeling well. On exam patient appears nontoxic. Lungs have good air movement with occasional wheezing throughout. Heart rates regular. Vital signs are normal. No edema is noted. Abdomen soft nontender. Skin is warm and dry. Vital signs are normal except for some elevation of blood pressure. Differential diagnosis includes pneumonia, electrolyte imbalance, malingering, major depressive disorder. Chest x-ray showed some scarring in the right lower lung field. CBC and CMP were unremarkable. Urinalysis was unremarkable. Reviewed exam with patient with recommendations for treatment and follow-up with primary care. Patient reported understanding and agreed to plan. Lab Data : 12/31/21 20:13 12/31/21 20:13 Radiology Impressions Chest X-Ray 12/31/21 15:41 IMPRESSION: Stable mild right basilar atelectasis and/or infiltrate and/or effusion and/or scarring. Laboratory Results WBC 7.8 10^3/uL (4.0-10.0) 12/31/21 20:13 Corrected WBC Cancelled 12/31/21 18:00 RBC 5.07 10^6/uL (4.1-5.3) 12/31/21 20:13 Hgb 12.6 g/dL (11.7-16.6) 12/31/21 20:13 Hct 42.5 % (42.0-52.0) 12/31/21 20:13 MCV 83.8 fl (80-94) 12/31/21 20:13 MCH 24.9 pg (28.0-34.0) L 12/31/21 20:13 MCHC 29.6 g/dL (30.0-36.0) L 12/31/21 20:13 RDW 15.2 % (12.1-15.1) H 12/31/21 20:13 Plt Count 297 10^3/cmm (130-400) 12/31/21 20:13 MPV 8.6 fL (7.4-10.4) 12/31/21 20:13 Gran % Cancelled 12/31/21 18:00 Neut % (Auto) 68.9 % 12/31/21 20:13 Lymph % (Auto) 22.5 % 12/31/21 20:13 [place] % (Auto) 7.0 % 12/31/21 20:13 Eos % (Auto) 1.0 % 12/31/21 20:13 Baso % (Auto) 0.5 % 12/31/21 20:13 Neut # (Auto) 5.39 10^3/uL (1.8-7.7) 12/31/21 20:13 Lymph # (Auto) 1.8 10^3/uL (0.8-4.8) 12/31/21 20:13 [place] # (Auto) 0.6 10^3/uL (0.2-0.9) 12/31/21 20:13 Eos # (Auto) 0.1 10^3/uL (0.0-0.8) 12/31/21 20:13 Baso # (Auto) 0.0 10^3/uL (0.0-0.1) 12/31/21 20:13 Absolute Gran (auto) Cancelled 12/31/21 18:00 Nucleated RBC % (auto) 0 % 12/31/21 20:13 Nucleated RBCs # 0.0 /100WBC 12/31/21 20:13 Sodium 137 mmol/L (136-145) 12/31/21 20:13 Potassium 4.2 mmol/L (3.5-5.1) 12/31/21 20:13 Chloride 102 mmol/L (98-107) 12/31/21 20:13 Carbon Dioxide 26 mmol/L (22-29) 12/31/21 20:13 Anion Gap 13.2 (5-19) 12/31/21 20:13 BUN 12 mg/dL (6-20) 12/31/21 20:13 Creatinine 0.6 mg/dL (0.7-1.2) L 12/31/21 20:13 GFR Calculation 139.4 mL/min (90-130) H 12/31/21 20:13 Glucose 88 mg/dL (65-115) 12/31/21 20:13 Calculated Osmolality 283 mOsm/kg (285-295) L 12/31/21 20:13 Calcium 9.2 mg/dL (8.5-10.5) 12/31/21 20:13 Total Bilirubin 0.3 mg/dL (0.15-1.2) 12/31/21 20:13 AST 15 U/L (0-40) 12/31/21 20:13 ALT 16 U/L (0-41) 12/31/21 20:13 Alkaline Phosphatase 89 U/L (40-130) 12/31/21 20:13 Total Protein 7.5 g/dL (6.6-8.7) 12/31/21 20:13 Albumin 4.2 g/dL (3.5-5.2) 12/31/21 20:13 Globulin 3.3 g/dL (1.3-4.6) 12/31/21 20:13 Urine Color Yellow (Yellow) 12/31/21 18:00 Urine Appearance Clear (CLEAR) 12/31/21 18:00 Urine pH 8 (5-7) H 12/31/21 18:00 Ur Specific [place] 1.010 (1.005-1.030) 12/31/21 18:00 Urine Protein Neg (Negative) 12/31/21 18:00 Urine Glucose (UA) 4+ (Normal) H 12/31/21 18:00 Urine Ketones Negative (Negative) 12/31/21 18:00 Urine Blood Neg (Negative) 12/31/21 18:00 Urine Nitrate Negative (Negative) 12/31/21 18:00 Urine Bilirubin Neg (Negative) 12/31/21 18:00 Prot Sulfosalicylic Acd Negative (Negative) 12/31/21 18:00 Urine Urobilinogen Neg mg/dL (Negative) 12/31/21 18:00 Ur Leukocyte Esterase Negative (Negative) 12/31/21 18:00 Discharge Plan Discharge Patient Disposition: Home Clinical Impression: Malaise and fatigue Condition: Stable Prescriptions: No Action aspirin 325 mg tablet,delayed release (DR/EC) 325 mg PO DAILY nitroglycerin [Nitrostat] 0.4 mg tablet, sublingual 0.4 mg SUBLINGUAL ONCE PRN (Reason: chest pain) Rx Instructions: take as needed for chest pain nicotine 21 mg/24 hr patch 24 hour 1 patch transdermal DAILY Qty: 28 0RF albuterol sulfate 90 mcg/actuation HFA aerosol inhaler 2 puff INHALATION Q4H PRN (Reason: shortness of breath) Qty: 8.5 2RF Farxiga 5 mg tablet 5 mg PO QAM Qty: 30 2RF gabapentin 300 mg capsule 300 mg PO BID Qty: 60 2RF Linzess 145 mcg capsule 145 mcg PO QAM Qty: 30 2RF magnesium hydroxide [Milk of Magnesia] 400 mg/5 mL suspension 30 ml PO BID Qty: 480 2RF magnesium oxide 400 mg magnesium tablet 400 mg PO BID Qty: 60 2RF omeprazole 20 mg tablet,delayed release (DR/EC) 20 mg PO DAILY Qty: 30 2RF pravastatin 10 mg tablet 10 mg PO DAILY Qty: 30 2RF valsartan 40 mg tablet 40 mg PO DAILY Qty: 30 2RF (DME) nebulizers Misc See Rx Instructions .ROUTE .MEDSUPPLY Qty: 1 0RF Rx Instructions: As directed (DME) Disposable nebulizer circuit with mask See Rx Instructions .ROUTE .MEDSUPPLY Qty: 1 2RF Rx Instructions: As directed acetaminophen 325 mg Tablet 650 mg PO Q6H PRN (Reason: Mild/Mod Pain Or Temp >/= 101) Qty: 90 0RF ipratropium-albuterol 0.5 mg-3 mg(2.5 mg base)/3 mL Solution For Nebulization 3 ml inhalation Q4H PRN (Reason: Shortness Of Breath) Qty: 120 0RF budesonide 0.5 mg/2 mL Suspension For Nebulization 0.25 mg inhalation BID.RESPIRATORY Qty: 60 0RF lurasidone 60 mg tablet 60 mg PO 1700 30 Days Qty: 30 1RF trazodone 50 mg tablet 50 mg PO BEDTIME PRN (Reason: insomnia) 30 Days Qty: 30 1RF pyridoxine (vitamin B6) 250 mg tablet 250 mg PO DAILY 30 Days Qty: 30 2RF benztropine 1 mg Tablet 1 mg PO BID PRN (Reason: Mild Extrapyramidal symptoms) 30 Days Qty: 60 1RF Discharge Orders: Discharge ED (Routine); Ordered 12/31/21 Ordered By: Fabricio Lynch Referrals: Josefina Ni, [employer] OFFICER-C [Primary Care Provider] - Discharge Diet: Usual diet Discharge Activity: Increase activity as tolerated Patient Instructions: Weakness (ED) Activity Restrictions/Additional Instructions: Home and rest. Eat a healthy diet. Activity as tolerated. Follow-up with primary care in the morning for further recommendations. Return to ER for worsening symptoms such as fever greater than 100.4, increased shortness of breath, or new concerns. Coding Level of Care Code ED Distribution Operation Supervisor for Jennyfer Fwmisty Exam Comprehensive
[2021-12-31 20:17] LABS: Basophils % 0.5 %; Eosinophils # 0.1 10^3/uL (0.0-0.8); Hematocrit 42.5 % (42.0-52.0); Hemoglobin 12.6 g/dL (11.7-16.6); Lymphocytes # 1.8 10^3/uL (0.8-4.8); Lymphocytes % 22.5 %; Mean Corpuscular HGB Conc 29.6 g/dL (30.0-36.0); Mean Corpuscular Hemoglobin 24.9 pg (28.0-34.0); Mean Corpuscular Volume 83.8 fl (80-94); Mean Platelet Volume 8.6 fL (7.4-10.4); Monocytes # 0.6 10^3/uL (0.2-0.9); Neutrophils # 5.39 10^3/uL (1.8-7.7); Neutrophils % 68.9 %; Nucleated Red Blood Cells % 0 %; Platelet Count 297 10^3/cmm (130-400); Red Blood Count 5.07 10^6/uL (4.1-5.3); Red Cell Distribution Width 15.2 % (12.1-15.1); White Blood Count 7.8 10^3/uL (4.0-10.0)
[2021-12-31 20:38] LABS: Alanine Aminotransferase 16 U/L (0-41); Albumin Level 4.2 g/dL (3.5-5.2); Alkaline Phosphatase 89 U/L (40-130); Anion Gap 13.2 (5-19); Aspartate Amino Transferase 15 U/L (0-40); Blood Urea Nitrogen 12 mg/dL (6-20); Calcium 9.2 mg/dL (8.5-10.5); Carbon Dioxide 26 mmol/L (22-29); Chloride 102 mmol/L (98-107); Globulin 3.3 g/dL (1.3-4.6); Glomerular Filtration Rate 139.4 mL/min (90-130); Glucose 88 mg/dL (65-115); Osmolality Calculated 283 mOsm/kg (285-295); Potassium 4.2 mmol/L (3.5-5.1); Sodium 137 mmol/L (136-145); Total Bilirubin 0.3 mg/dL (0.15-1.2); Total Protein 7.5 g/dL (6.6-8.7)
[2021-12-31 20:42] LABS: Creatinine Clr Calc Pharmacy 152.1979
== END 2021-12-31 21:00 | disposition home or self-care (01) ==
PROVIDERS: Family Medicine; Emergency Provider Nurse Practitioner Family; PCP Nurse Practitioner
DX: R53.81 Other malaise (principal); R53.83 Other fatigue; Z79.82 Long term (current) use of aspirin; Z86.19 Personal history of other infectious and parasitic diseases; E11.9 Type 2 diabetes mellitus without complications; J44.9 Chronic obstructive pulmonary disease, unspecified; Z99.81 Dependence on supplemental oxygen; I10 Essential (primary) hypertension; B20 Human immunodeficiency virus [HIV] disease
CPT/HCPCS: 36415; 71045; 80053; 81003; 85025; 99284

== ENCOUNTER 2022-01-11 14:46 | Emergency (ER) | payer MEDICAID, SELFPAY ==
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
[2022-01-11 14:59] VITALS: BP 117/79; PULSE 81; RESP 18; TEMP 36.8; O2SAT 93; BMI 25.1
--- NOTE | 2022-01-11 15:06 | PC.NURSE ---
PT IS HAVING AUDITORY HALLUCINATIONS BUT DENIES SI/HI AND IS CALM AND COOPERATIVE AT THIS TIME. PT LEFT IN CLOTHES PER DR RICHARDSON.
--- NOTE | 2022-01-11 15:20 | XR_ITS ---
WS: [id number] XR chest 1V portable [id number] REASON FOR EXAM: chest pain FINDINGS: Mild tortuosity the thoracic aorta. Normal heart size. Large retrocardiac mass which contains lucency. Review of previous CT scan of the abdomen 09/27/2021 d emonstrates a large portion of gastric fundus herniated into the middle mediastinum, presumed large h iatal hernia. Blunting of the costophrenic angle and adjacent pleural thickening and atelectatic changes in the low er right lung. These findings are chronic and unchanged compared to 12/31/2021. No acute pulmonary parenchymal or pleural abnormality is identified. XR/XR chest 1V portable [id number] IMPRESSION: Stable abnormal chest with no acute abnormality.
--- NOTE | 2022-01-11 15:20 | CTR_ITS ---
PROCEDURE INFORMATION: Exam: CT Head Without Contrast Exam date and time: 01/11/2022 3:55 PM Age: 56 years old Clinical indication: Pain; Headache TECHNIQUE: Imaging protocol: Computed tomography of the head without contrast. Radiation optimization: All CT scans at this facility use at least one of these dose optimization techniques: automated exposure control; mA and/or kV adjustment per patient size (includes targeted exams where dose is matched to clinical indication); or iterative reconstruction. COMPARISON: CT head wo con* [id number] 10/12/2021 12:42 PM RADIATION DOSE METRICS: Total DLP (mGy-cm): 1096.81 FINDINGS: Brain: Normal. No hemorrhage. Unremarkable white matter. No mass effect. Cerebral ventricles: No ventriculomegaly. Paranasal sinuses: Visualized sinuses are unremarkable. No fluid levels. Mastoid air cells: Visualized mastoid air cells are well aerated. Bones/joints: Unremarkable. No acute fracture. Soft tissues: Unremarkable. CT/CT head wo con* [id number] IMPRESSION: No acute intracranial abnormality.
--- NOTE | 2022-01-11 15:30 | PC.PHAR ---
PT STATES HE TAKES CARE OF HIS OWN MEDICATIONS-PT STATES HE NO LONGER TAKES BENZTROPINE 1MG BID PRN LAST FILLED 11/21/21 30D/S-SYDNI FROM [facility] STATES THEY SENT A REFILL REQUEST BUT HAVENT HEARD BACK-LIZZIES 145MCG DAILY IS ON HOLD NOT COVERED BY INSURANCE-PT STATES DOESNT TAKE TRAZODONE 50MG HS PRN FILLED 11/21/21 30D/S-NOTES ARE MADE IN THE PHARMACY COMMENTS
[2022-01-11 15:36] LABS: Basophils # 0.1 10^3/uL (0.0-0.1); Basophils % 0.9 %; Eosinophils # 0.1 10^3/uL (0.0-0.8); Eosinophils % 1.5 %; Hematocrit 41.2 % (42.0-52.0); Hemoglobin 12.6 g/dL (11.7-16.6); Lymphocytes # 1.7 10^3/uL (0.8-4.8); Lymphocytes % 19.1 %; Mean Corpuscular HGB Conc 30.6 g/dL (30.0-36.0); Mean Corpuscular Hemoglobin 25.1 pg (28.0-34.0); Mean Corpuscular Volume 82.1 fl (80-94); Mean Platelet Volume 8.7 fL (7.4-10.4); Monocytes # 0.9 10^3/uL (0.2-0.9); Monocytes % 10.2 %; Neutrophils # 5.93 10^3/uL (1.8-7.7); Neutrophils % 68.2 %; Nucleated Red Blood Cells % 0 %; Platelet Count 298 10^3/cmm (130-400); Red Blood Count 5.02 10^6/uL (4.1-5.3); Red Cell Distribution Width 15.6 % (12.1-15.1); White Blood Count 8.7 10^3/uL (4.0-10.0)
--- NOTE | 2022-01-11 15:47 | ECG_ITS ---
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 Measurements Intervals [place] Rate: 75 P: -46 MA: 107 QRS: 58 QRSD: 79 T: 48 QT: 357 QTc: 400 Interpretive Statements SINUS RHYTHM WITH SHORT MA INTERVAL Compared to ECG 11/03/2021 18:41:07 Short MA interval now present Electronically Signed On 01-11-2022 22:00:31 CDT by Donte Olivia M.D. [email or web address]
[2022-01-11 16:00] VITALS: BP 144/75
[2022-01-11 16:06] LABS: Troponin(5th) Baseline 8 ng/L (0-15)
[2022-01-11 16:08] LABS: Alanine Aminotransferase 19 U/L (0-41); Albumin Level 4.4 g/dL (3.5-5.2); Alkaline Phosphatase 78 U/L (40-130); Anion Gap 16.6 (5-19); Aspartate Amino Transferase 17 U/L (0-40); Blood Urea Nitrogen 12 mg/dL (6-20); Calcium 9.7 mg/dL (8.5-10.5); Carbon Dioxide 28 mmol/L (22-29); Chloride 99 mmol/L (98-107); Globulin 2.6 g/dL (1.3-4.6); Glucose 100 mg/dL (65-115); Lipase 36 U/L (13-60); Osmolality Calculated 288 mOsm/kg (285-295); Potassium 4.6 mmol/L (3.5-5.1); Sodium 139 mmol/L (136-145); Total Bilirubin 0.2 mg/dL (0.15-1.2)
[2022-01-11 16:47] VITALS: BP 132/65; PULSE 77
--- NOTE | 2022-01-14 11:05 | PC.SOCIAL ---
Addendum entered by Princess Núñez 01/23/22 13:19: Patient had a follow up appointment scheduled with [facility] - patient did attend appointment. Original Note: [facility] F/u Message sent to [facility] Scheduling for f/u for auditory hallucinations.
== END 2022-01-11 16:49 | disposition home or self-care (01) ==
PROVIDERS: Emergency Provider Emergency Medicine; PCP Nurse Practitioner
DX: R51.9 Headache, unspecified (principal); R07.9 Chest pain, unspecified; R10.9 Unspecified abdominal pain; R44.0 Auditory hallucinations; Z79.82 Long term (current) use of aspirin; Z86.19 Personal history of other infectious and parasitic diseases; J44.9 Chronic obstructive pulmonary disease, unspecified; E11.9 Type 2 diabetes mellitus without complications; B20 Human immunodeficiency virus [HIV] disease
CPT/HCPCS: 36415; 70450; 71045; 80053; 83690; 84484; 85025; 93005; 99285

== ENCOUNTER 2022-01-13 21:38 | Emergency (ER) | payer MEDICAID, SELFPAY ==
[2022-01-13 21:40] VITALS: BP 166/91; PULSE 70; RESP 20; TEMP 36.8; O2SAT 96; BMI 28.7
--- NOTE | 2022-01-13 22:29 | XRR_ITS ---
PROCEDURE INFORMATION: Exam: XR Chest Exam date and time: 01/13/2022 10:37 PM Age: 56 years old Clinical indication: Shortness of breath; Additional info: SOB TECHNIQUE: Imaging protocol: Radiologic exam of the chest. Views: 1 view. COMPARISON: CR XR chest 1V portable [id number] 01/11/2022 3:35 PM FINDINGS: Lungs: Right lower lobe pleural thickening suspected with the small right pleural effusion versus pleural scarring. Pleural spaces: See Lungs finding. Heart/Mediastinum: Unremarkable. No cardiomegaly. Bones/joints: Unremarkable. XR/XR chest 1V portable [id number] IMPRESSION: Right lower lobe pleural thickening suspected with the small right pleural effusion versus pleural scarring.
[2022-01-13 22:39] LABS: Basophils # 0.1 10^3/uL (0.0-0.1); Basophils % 1.2 %; Eosinophils # 0.2 10^3/uL (0.0-0.8); Eosinophils % 2.2 %; Hematocrit 39.9 % (42.0-52.0); Hemoglobin 12.2 g/dL (11.7-16.6); Lymphocytes % 28.7 %; Mean Corpuscular HGB Conc 30.6 g/dL (30.0-36.0); Mean Corpuscular Hemoglobin 25.3 pg (28.0-34.0); Mean Corpuscular Volume 82.6 fl (80-94); Mean Platelet Volume 9.6 fL (7.4-10.4); Monocytes # 0.8 10^3/uL (0.2-0.9); Monocytes % 11.8 %; Neutrophils # 3.82 10^3/uL (1.8-7.7); Neutrophils % 55.7 %; Nucleated Red Blood Cells % 0 %; Platelet Count 281 10^3/cmm (130-400); Red Blood Count 4.83 10^6/uL (4.1-5.3); Red Cell Distribution Width 15.5 % (12.1-15.1); White Blood Count 6.9 10^3/uL (4.0-10.0)
[2022-01-13 22:50] LABS: Acetaminophen 8.2 ug/mL (10-30); Alanine Aminotransferase 24 U/L (0-41); Albumin Level 4.2 g/dL (3.5-5.2); Alkaline Phosphatase 76 U/L (40-130); Aspartate Amino Transferase 22 U/L (0-40); Blood Urea Nitrogen 13 mg/dL (6-20); Calcium 9.7 mg/dL (8.5-10.5); Carbon Dioxide 28 mmol/L (22-29); Chloride 98 mmol/L (98-107); Globulin 3.4 g/dL (1.3-4.6); Glucose 95 mg/dL (65-115); Osmolality Calculated 282 mOsm/kg (285-295); Sodium 136 mmol/L (136-145); Total Bilirubin 0.2 mg/dL (0.15-1.2); Total Protein 7.6 g/dL (6.6-8.7)
[2022-01-13 22:55] LABS: Salicylate < 0.3 mg/dL (3-10)
--- NOTE | 2022-01-13 23:07 | W.ED.PSYCHS ---
HPI - Psych General: Chief Complaint: Psychiatric Symptoms Stated Complaint: SOB Time Seen by Provider: 01/13/22 21:42 Source: patient History of Present Illness: 56-year-old male presenting for the second time in as many days. He presents with a main complaint of shortness of breath. He also notes that he has been having auditory hallucinations, but denies this to me. He told the nursing staff that he does not want to hurt himself, but wishes to hurt others. He does not wish to kill anyone including himself. He does not endorse this at all to me. He says he is been coughing, with some clear sputum production. No fever. No vomiting or diarrhea. He complains of chronic back pain, but no body aches. complaint: other Onset (ago): hour(s) Duration: changing over time History of same: Yes Relieving factors: none Exacerbating factors: none Associated symptoms: Reports auditory hallucinations (patient now denies) and depression; Deny homicidal ideation or suicidal ideation Treatments prior to arrival: none Review of Systems Const: Denies: fever(s), chills or body aches Eyes: Denies: change in vision Card: Denies: chest pain Resp: Reports: dyspnea and productive cough (clear) GI: Denies: abdominal pain, nausea, vomiting or hematemesis Musc: Reports: back pain (chronic) Psych: Reports: depression and auditory hallucinations (patient now denies); Denies: suicidal ideation or homicidal ideation [facility] ED PFSH: Medical History Acid reflux Cervical radicular pain Chronic hepatitis C Chronic idiopathic constipation Controlled diabetes mellitus with hyperglycemia, without long-term current use of insulin COPD (chronic obstructive pulmonary disease) Dependence on nocturnal oxygen therapy Essential (primary) hypertension Gastritis HIV disease Major depressive disorder, recurrent, moderate Nicotine dependence, cigarettes, with other nicotine-induced disorders Nocturnal hypoxia 2018 Other schizophrenia Schizophrenia Tardive dyskinesia Vitamin D deficiency Surgical History History of adenoidectomy History of appendectomy History of colonoscopy History of tonsillectomy History of tympanostomy Family History Father COPD (chronic obstructive pulmonary disease) Mother COPD (chronic obstructive pulmonary disease) Other Cancer Social History Smoking and tobacco status: never smoked Second hand smoke exposure: No Smoking risk assessment/counseling performed?: No Alcohol intake: never Desire information about alcohol rehabilitation?: No Counseling given: No Desire information about substance/drug rehabilitation?: No Counseling given: No Adopted: No Caregiver/support person: No Lives independently: Yes Housing: House Marital status: Single Number of children: 0 service: No Current occupational status: disabled Current occupational exposures/hazards: No History of recent travel: No Current gender identity: Male Physical Exam Const: COMMON NORMALS: no acute distress and alert GENERAL APPEARANCE: cooperative; not ill appearing and not frail appearing ORIENTATION/CONSCIOUSNESS: Yes oriented to person and Yes oriented to place HENMT: COMMON NORMALS: normocephalic, atraumatic and Normal external nose present HEAD & SCALP: normocephalic and atraumatic NOSE: Normal external nose present Eye: COMMON NORMALS: Equal, round and reactive pupils present and EOMs intact bilaterally PUPIL: Yes Equal, round and reactive pupils present Neck/C-Spine: GENERAL: Yes trachea midline Chest: CHEST: Yes Symmetrical chest wall rise Resp: COMMON NORMALS: normal respiratory effort, No use of accessory muscles and clear to auscultation bilaterally AUSCULTATION: clear to auscultation bilaterally Cardio: COMMON NORMALS: regular rate and regular rhythm RATE: regular rate RHYTHM: regular rhythm GI: COMMON NORMALS: Normal to inspection, nondistended, normoactive bowel sounds present and Soft to palpation PALPATION: Yes Soft to palpation Extremity: COMMON NORMALS: no pedal edema Neuro: SENSORIUM/ORIENTATION: Yes alert, Yes oriented to person and Yes oriented to place SPEECH: speech normal (baseline) OTHER: EPS Psych: COMMON NORMALS: cooperative and speech normal ATTITUDE: Yes calm ACTIVITY/MOTOR BEHAVIOR: Yes appropriate eye contact SPEECH: Yes normal speech MOOD & AFFECT: Yes depressed mood and Yes Flat affect present THOUGHT PROCESS: Circumstantial thought process present THOUGHT CONTENT: No Suicidality present, No Homicidality present and Yes Hallucination(s) present (denies currently) ATTENTION/CONCENTRATION: Yes attention grossly intact and Yes concentration grossly intact Course Vital Signs: Vital signs: Vital Signs Temperature 98.2 F 01/13/22 21:40 Pulse Rate 70 01/13/22 21:40 Respiratory Rate 20 H 01/13/22 21:40 Blood Pressure 166/91 01/13/22 21:40 Pulse Oximetry 96 01/13/22 21:40 Oxygen Delivery Me thod 01/13/22 21:40 [facility] - Psych Medical Decision Making Medically, this patient appears completely stable. His CBC is not remarkable. BMP is not remarkable. Liver enzymes are normal acetaminophen and salicylates are negative chest x-ray is stable from prior. He is wheezing on exam, and this is responded to breathing treatment here. He is afebrile, and vitals are stable. his pulseox is normal on room air. He'll be given a single dose of dexamethasone for wheezing here, and will continue albuterol at home. He has made previous statements about wanting to hurt family members because they are stalking him . We have no signed affidavits from family members or witnesses on scene. He clinically does have some cognitive impairment. He denies any homicidal ideation currently and states he doesn't want to hurt anyone. He has been calm and compliant. He'll be allowed discharge. Because of his mental illness and cognitive impairment, he is at high risk for re-presentation to the ED. Lab Data : 01/13/22 21:40 01/13/22 21:40 Radiology Impressions Chest X-Ray 01/13/22 22:29 IMPRESSION: Right lower lobe pleural thickening suspected with the small right pleural effusion versus pleural scarring. Laboratory Results WBC 6.9 10^3/uL (4.0-10.0) 01/13/22:40 RBC 4.83 10^6/uL (4.1-5.3) 01/13/22 21:40 Hgb 12.2 g/dL (11.7-16.6) 01/13/22 21: Hct 39.9 % (42.0-52.0) L 01/13/22:40 MCV 82.6 fl (80-94) 01/13/22:40 MCH 25.3 pg (28.0-34.0) L 01/13/22:40 MCHC 30.6 g/dL (30.0-36.0) 01/13/22:40 RDW 15.5 % (12.1-15.1) H 01/13/22 21:40 Plt Count 281 10^3/cmm (130-400) 01/13/22 21:40 MPV 9.6 fL (7.4-10.4) 01/13/22 21:40 Neut % (Auto) 55.7 % 01/13/22 21:40 Lymph % (Auto) 28.7 % 01/13/22 21:40 Wallace % (Auto) 11.8 % 01/13/22 21:40 Eos % (Auto) 2.2 % 01/13/22 21:40 Baso % (Auto) 1.2 % 01/13/22 21:40 Neut # (Auto) 3.82 10^3/uL (1.8-7.7) 01/13/22 21:40 Lymph # (Auto) 2.0 10^3/uL (0.8-4.8) 01/13/22 21:40 Wallace # (Auto) 0.8 10^3/uL (0.2-0.9) 01/13/22 21:40 Eos # (Auto) 0.2 10^3/uL (0.0-0.8) 01/13/22 21:40 Baso # (Auto) 0.1 10^3/uL (0.0-0.1) 01/13/22 21:40 Nucleated RBC % (auto) 0 % 01/13/22 21:40 Nucleated RBCs # 0.0 /100WBC 01/13/22 21:40 Sodium 136 mmol/L (136-145) 01/13/22 21:40 Potassium 4.0 mmol/L (3.5-5.1) 01/13/22 21:40 Chloride 98 mmol/L (98-107) 01/13/22 21:40 Carbon Dioxide 28 mmol/L (22-29) 01/13/22 21:40 Anion Gap 14.0 (5-19) 01/13/22 21:40 BUN 13 mg/dL (6-20) 01/13/22 21:40 Creatinine 0.5 mg/dL (0.7-1.2) L 01/13/22 21:40 GFR Calculation 172.0 mL/min (90-130) H 01/13/22 21:40 Glucose 95 mg/dL (65-115) 01/13/22 21:40 Calculated Osmolality 282 mOsm/kg (285-295) L 01/13/22 21:40 Calcium 9.7 mg/dL (8.5-10.5) 01/13/22 21:40 Total Bilirubin 0.2 mg/dL (0.15-1.2) 01/13/22 21:40 AST 22 U/L (0-40) 01/13/22 21:40 ALT 24 U/L (0-41) 01/13/22 21:40 Alkaline Phosphatase 76 U/L (40-130) 01/13/22 21:40 Total Protein 7.6 g/dL (6.6-8.7) 01/13/22 21:40 Albumin 4.2 g/dL (3.5-5.2) 01/13/22 21:40 Globulin 3.4 g/dL (1.3-4.6) 01/13/22 21:40 Salicylates < 0.3 mg/dL (3-10) L 01/13/22 21:40 Acetaminophen 8.2 ug/mL (10-30) L 01/13/22 21:40 Discharge Plan Discharge Patient Disposition: Home Clinical Impression: COPD (chronic obstructive pulmonary disease) Condition: Stable Prescriptions: No Action aspirin 325 mg tablet,delayed release (DR/EC) 325 mg PO QAM albuterol sulfate 90 mcg/actuation HFA aerosol inhaler 2 puff INHALATION Q4H PRN (Reason: shortness of breath) Qty: 8.5 2RF Farxiga 5 mg tablet 5 mg PO QAM Qty: 30 2RF Linzess 145 mcg capsule 145 mcg PO QAM Qty: 30 2RF magnesium oxide 400 mg magnesium tablet 400 mg PO BID Qty: 60 2RF omeprazole 20 mg tablet,delayed release (DR/EC) 20 mg PO DAILY Qty: 30 2RF (DME) nebulizers Misc See Rx Instructions .ROUTE .MEDSUPPLY Qty: 1 0RF Rx Instructions: As directed (DME) Disposable nebulizer circuit with mask See Rx Instructions .ROUTE .MEDSUPPLY Qty: 1 2RF Rx Instructions: As directed acetaminophen 325 mg Tablet 650 mg PO Q6H PRN (Reason: Mild/Mod Pain Or Temp >/= 101) Qty: 90 0RF ipratropium-albuterol 0.5 mg-3 mg(2.5 mg base)/3 mL Solution For Nebulization 3 ml inhalation Q4H PRN (Reason: Shortness Of Breath) Qty: 120 0RF Nitrostat 0.4 mg Tablet, Sublingual 0.4 mg SUBLINGUAL Q5M PRN (Reason: Chest Pain) Rx Instructions: do not exceed 3 doses per episode pravastatin 10 mg tablet 10 mg PO BEDTIME Milk of Magnesia 400 mg/5 mL suspension 30 ml PO BID PRN (Reason: Constipation) gabapentin 300 mg capsule 300 mg PO BID PRN (Reason: Pain) valsartan 40 mg tablet 40 mg PO QAM lurasidone 60 mg tablet 60 mg PO DAILY@17 Discharge Orders: Discharge ED (Routine); Ordered 01/13/22 Ordered By: Gulshan Cummings Referrals: Josefina Ni, [facility] [Primary Care Provider] - 1-3 days Patient Instructions: COPD (Chronic Obstructive Pulmonary Disease) (ED) Activity Restrictions/Additional Instructions: Use your inhaler every 4 hours while awake for the next 48 hours, then as needed. Take your other medications as prescribed. Return for fever greater than 100, worsening shortness of breath despite treatment, chest pain, or any other concerning symptoms including continued or worsening thoughts about hurting yourself or anyone else. Coding Level of Care Code ED Business Mail Entry Clerk for Jennyfer Fwd Exam Comprehensive
[2022-01-14 10:14] VITALS: BP 174/78; PULSE 88
== END 2022-01-14 10:15 | disposition home or self-care (01) ==
PROVIDERS: Emergency Provider Emergency Medicine; PCP Nurse Practitioner
DX: J44.9 Chronic obstructive pulmonary disease, unspecified (principal); I10 Essential (primary) hypertension; B20 Human immunodeficiency virus [HIV] disease
CPT/HCPCS: 71045; 80053; 80307; 85025; 99284

== ENCOUNTER 2022-01-18 18:12 | Emergency (ER) | payer MEDICAID, SELFPAY ==
[2022-01-18 18:16] VITALS: BP 122/60; PULSE 761; RESP 19; TEMP 36.6; O2SAT 93; BMI 25.8
--- NOTE | 2022-01-18 18:47 | ED_ITS ---
HPI - General Adult General: Chief complaint: Psychiatric Symptoms Stated complaint: Homoicidal ideation Time Seen by Provider: 01/18/22 18:15 History of Present Illness: HPI: [56]yo patient w/ hx of schizophrenia presenting to the emergency room for concerns of homicidal ideation, auditory hallucination visual hallucination. Patient tells me that he has a plan to hurt his sister. Patient tells me that he is hearing voices despite taking his medicine. On arrival, the patient is AAOx3 and cooperative with my evaluation. No focal complaints of chest pain, shortness of breath, palpitations, N/V, focal GI/ complaints. Currently denies SI. Onset: 1 week Duration: ongoing Location: home Severity: severe Associated symptoms: Deny chest pain, dyspnea, nausea, rash, palpitations or vomiting Review of Systems Const: Denies: fever(s) or chills Eyes: Denies: change in vision ENMT: Denies: mouth pain Card: Denies: chest pain or palpitations Resp: Denies: dyspnea or non-productive cough GI: Denies: abdominal pain, nausea, vomiting or diarrhea : Denies: dysuria Musc: Denies: extremity pain Skin/Breast: Denies: rash or new lesions Neuro: Denies: weakness in extremities Psych: Reports: visual hallucinations, auditory hallucinations and homicidal ideation Jose Alejandro/Lymph: Denies: easy bruising PFSH ED PFSH: Medical History Acid reflux Cervical radicular pain Chronic hepatitis C Chronic idiopathic constipation Controlled diabetes mellitus with hyperglycemia, without long-term current use of insulin COPD (chronic obstructive pulmonary disease) Dependence on nocturnal oxygen therapy Essential (primary) hypertension Gastritis HIV disease Major depressive disorder, recurrent, moderate Nicotine dependence, cigarettes, with other nicotine-induced disorders Nocturnal hypoxia 2018 Other schizophrenia Psychiatric care Schizophrenia Tardive dyskinesia Vitamin D deficiency Surgical History History of adenoidectomy History of appendectomy History of colonoscopy History of tonsillectomy History of tympanostomy Family History Father COPD (chronic obstructive pulmonary disease) Mother COPD (chronic obstructive pulmonary disease) Other Cancer Social History Smoking and tobacco status: never smoked Second hand smoke exposure: No Smoking risk assessment/counseling performed?: No Alcohol intake: never Desire information about alcohol rehabilitation?: No Counseling given: No Desire information about substance/drug rehabilitation?: No Counseling given: No Adopted: No Caregiver/support person: No Lives independently: Yes Housing: House Marital status: Single Number of children: 0 service: No Current occupational status: disabled Current occupational exposures/hazards: No History of recent travel: No Current gender identity: Male Physical Exam Const: COMMON NORMALS: alert HENMT: COMMON NORMALS: atraumatic HEAD & SCALP: atraumatic MOUTH: moist mucous membranes not abnormal Eye: COMMON NORMALS: EOMs intact bilaterally and conjunctivae normal CONJUNCTIVA: Yes conjunctivae normal Neck/C-Spine: COMMON NORMALS: full ROM and supple Resp: COMMON NORMALS: normal respiratory effort and clear to auscultation bilaterally AUSCULTATION: clear to auscultation bilaterally Cardio: COMMON NORMALS: regular rate RATE: regular rate GI: COMMON NORMALS: Soft to palpation and non-tender PALPATION: Yes Soft to palpation Extremity: COMMON NORMALS: full ROM Neuro: SENSORIUM/ORIENTATION: Yes alert MOTOR EXAM: No Abnormal motor strength present and Other motor observations present (no focal motor deficits) Psych: COMMON NORMALS: speech normal SPEECH: Yes normal speech MOOD & AFFECT: Yes euthymic mood Course Vital Signs: Vital signs: Vital Signs Temperature 97.9 F 01/18/22 18:16 Pulse Rate 88 01/18/22 22:46 Respiratory Rate 17 01/18/22 22:46 Blood Pressure 122/60 01/18/22 18:16 Pulse Oximetry 93 01/18/22 18:16 Oxygen Delivery Me thod 01/18/22 18:16 MDM - General Adult Medical Decision Making [56]yo patient w/ hx of schizophrenia presenting for AH/VH and HI. HDS, exam within normal limit Thoughts are linear and organized, and the patient has no SI. Clinically the patient displays no overt toxidrome; they are well appearing, with low suspicion for toxic ingestion given history and exam. Symptoms unlikely 2/2 anemia, hypothyroidism, infection, or ICH. Workup: CBC, CMP, Lipase, salicylate/tylenol, TSH/free T4, serum ethanol, UDS Lab findings: wnl, +benzo in the urine [8:00pm] On reassessment, labs and workup wnl. Patient is hemodynamically stable with no acute medical complaints. Case discussed with psychiatric provider Dr. Torres at [facility] inpatient who evaluated patient via telepsych and recommended discharge with close follow-up. Patient tells me that he does not live with his sister and does not plan on harming his sister. Patient tells me that he would like to follow-up with [facility]. I have given patient follow up with our spring encaser to be seen by [facility] for hallucinations and homicidal ideation. Patient aware of a call from our spring encaser to schedule for appointment(s) and verbalizes understanding of the importance of following up. Disposition: Discharge Lab Data : 01/18/22 19:35 01/18/22 19:35 Laboratory Results WBC 6.9 10^3/uL (4.0-10.0) 01/18/22 19:35 RBC 4.77 10^6/uL (4.1-5.3) 01/18/22 19:35 Hgb 11.8 g/dL (11.7-16.6) 01/18/22 19:35 Hct 40.0 % (42.0-52.0) L 01/18/22 19:35 MCV 83.9 fl (80-94) 01/18/22 19:35 MCH 24.7 pg (28.0-34.0) L 01/18/22 19:35 MCHC 29.5 g/dL (30.0-36.0) L 01/18/22 19:35 RDW 15.2 % (12.1-15.1) H 01/18/22 19:35 Plt Count 270 10^3/cmm (130-400) 01/18/22 19:35 MPV 9.0 fL (7.4-10.4) 01/18/22 19:35 Neut % (Auto) 63.7 % 01/18/22 19:35 Lymph % (Auto) 23.5 % 01/18/22 19:35 [place] % (Auto) 9.7 % 01/18/22 19:35 Eos % (Auto) 1.9 % 01/18/22 19:35 Baso % (Auto) 0.9 % 01/18/22 19:35 Neut # (Auto) 4.43 10^3/uL (1.8-7.7) 01/18/22 19:35 Lymph # (Auto) 1.6 10^3/uL (0.8-4.8) 01/18/22 19:35 [place] # (Auto) 0.7 10^3/uL (0.2-0.9) 01/18/22 19:35 Eos # (Auto) 0.1 10^3/uL (0.0-0.8) 01/18/22 19:35 Baso # (Auto) 0.1 10^3/uL (0.0-0.1) 01/18/22 19:35 Nucleated RBC % (auto) 0 % 01/18/22 19:35 Nucleated RBCs # 0.0 /100WBC 01/18/22 19:35 Sodium 132 mmol/L (136-145) L 01/18/22 19:35 Potassium 4.1 mmol/L (3.5-5.1) 01/18/22 19:35 Chloride 99 mmol/L (98-107) 01/18/22 19:35 Carbon Dioxide 27 mmol/L (22-29) 01/18/22 19:35 Anion Gap 10.1 (5-19) 01/18/22 19:35 BUN 14 mg/dL (6-20) 01/18/22 19:35 Creatinine 0.5 mg/dL (0.7-1.2) L 01/18/22 19:35 GFR Calculation 172.0 mL/min (90-130) H 01/18/22 19:35 Glucose 116 mg/dL (65-115) H 01/18/22 19:35 Calculated Osmolality 275 mOsm/kg (285-295) L 01/18/22 19:35 Calcium 8.9 mg/dL (8.5-10.5) 01/18/22 19:35 Total Bilirubin 0.2 mg/dL (0.15-1.2) 01/18/22 19:35 AST 18 U/L (0-40) 01/18/22 19:35 ALT 23 U/L (0-41) 01/18/22 19:35 Alkaline Phosphatase 73 U/L (40-130) 01/18/22 19:35 Total Protein 6.9 g/dL (6.6-8.7) 01/18/22 19:35 Albumin 4.0 g/dL (3.5-5.2) 01/18/22 19:35 Globulin 2.9 g/dL (1.3-4.6) 01/18/22 19:35 Lipase 30 U/L (13-60) 01/18/22 19:35 TSH 3.49 uIU/mL (0.27-4.20) 01/18/22 19:35 Free T4 0.86 ng/dL (0.82-1.77) 01/18/22 19:35 Salicylates 0.9 mg/dL (3-10) L 01/18/22 19:35 Urine Opiates Screen Negative ng/mL (Negative) 01/18/22 16:22 Acetaminophen < 5.0 ug/mL (10-30) L 01/18/22 19:35 Ur Barbiturates Screen Negative ng/mL (Negative) 01/18/22 16:22 Ur Phencyclidine Scrn Negative ng/mL (Negative) 01/18/22 16:22 Ur Amphetamines Screen Negative ng/mL (Negative) 01/18/22 16:22 U Benzodiazepines Scrn Positive ng/mL (Negative) H 01/18/22 16:22 Urine Cocaine Screen Negative ng/mL (Negative) 01/18/22 16:22 U Marijuana (THC) Screen Negative ng/mL (Negative) 01/18/22 16:22 Ethyl Alcohol < 10 mg/dL (0-10) 01/18/22 19:35 Discharge Plan Discharge Patient Disposition: Home Clinical Impression: Hallucination Condition: Stable Prescriptions: No Action aspirin 325 mg tablet,delayed release (DR/EC) 325 mg PO QAM albuterol sulfate 90 mcg/actuation HFA aerosol inhaler 2 puff INHALATION Q4H PRN (Reason: shortness of breath) Qty: 8.5 2RF Farxiga 5 mg tablet 5 mg PO QAM Qty: 30 2RF Linzess 145 mcg capsule 145 mcg PO QAM Qty: 30 2RF magnesium oxide 400 mg magnesium tablet 400 mg PO BID Qty: 60 2RF omeprazole 20 mg tablet,delayed release (DR/EC) 20 mg PO DAILY Qty: 30 2RF (DME) nebulizers Misc See Rx Instructions .ROUTE .MEDSUPPLY Qty: 1 0RF Rx Instructions: As directed (DME) Disposable nebulizer circuit with mask See Rx Instructions .ROUTE .MEDSUPPLY Qty: 1 2RF Rx Instructions: As directed acetaminophen 325 mg Tablet 650 mg PO Q6H PRN (Reason: Mild/Mod Pain Or Temp >/= 101) Qty: 90 0RF ipratropium-albuterol 0.5 mg-3 mg(2.5 mg base)/3 mL Solution For Nebulization 3 ml inhalation Q4H PRN (Reason: Shortness Of Breath) Qty: 120 0RF Nitrostat 0.4 mg Tablet, Sublingual 0.4 mg SUBLINGUAL Q5M PRN (Reason: Chest Pain) Rx Instructions: do not exceed 3 doses per episode pravastatin 10 mg tablet 10 mg PO BEDTIME Milk of Magnesia 400 mg/5 mL suspension 30 ml PO BID PRN (Reason: Constipation) gabapentin 300 mg capsule 300 mg PO BID PRN (Reason: Pain) valsartan 40 mg tablet 40 mg PO QAM lurasidone 60 mg tablet 60 mg PO DAILY@17 Discharge Orders: Discharge ED (Routine); Ordered 01/18/22 Ordered By: Vadim Ramirez Referrals: Josefina Ni, [employer] [Primary Care Provider] - Discharge Diet: Advance as tolerated Discharge Activity: Increase activity as tolerated Activity Restrictions/Additional Instructions: Please come back to the emergency room if you need help, have any hallucinations, or you have any depression or have thoughts about hurting yourself or other people. Coding Level of Care Code ED Roll Up Operator for Jennyfer Fwmisty Exam Comprehensive
[2022-01-18 19:15] LABS: Amphetamines Screen Urine Negative (Negative); Barbiturates Screen Urine Negative (Negative); Benzodiazepines Screen Urine Positive (Negative); Cocaine Screen Urine Negative (Negative); Opiate Screen Urine Negative (Negative); PCP Screen Urine Negative (Negative); THC Screen Urine Negative (Negative)
[2022-01-18 19:51] LABS: Basophils # 0.1 10^3/uL (0.0-0.1); Basophils % 0.9 %; Eosinophils # 0.1 10^3/uL (0.0-0.8); Eosinophils % 1.9 %; Hemoglobin 11.8 g/dL (11.7-16.6); Lymphocytes # 1.6 10^3/uL (0.8-4.8); Lymphocytes % 23.5 %; Mean Corpuscular HGB Conc 29.5 g/dL (30.0-36.0); Mean Corpuscular Hemoglobin 24.7 pg (28.0-34.0); Mean Corpuscular Volume 83.9 fl (80-94); Monocytes # 0.7 10^3/uL (0.2-0.9); Monocytes % 9.7 %; Neutrophils # 4.43 10^3/uL (1.8-7.7); Neutrophils % 63.7 %; Nucleated Red Blood Cells % 0 %; Platelet Count 270 10^3/cmm (130-400); Red Blood Count 4.77 10^6/uL (4.1-5.3); Red Cell Distribution Width 15.2 % (12.1-15.1); White Blood Count 6.9 10^3/uL (4.0-10.0)
[2022-01-18 20:19] LABS: Alanine Aminotransferase 23 U/L (0-41); Alkaline Phosphatase 73 U/L (40-130); Anion Gap 10.1 (5-19); Aspartate Amino Transferase 18 U/L (0-40); Blood Urea Nitrogen 14 mg/dL (6-20); Calcium 8.9 mg/dL (8.5-10.5); Carbon Dioxide 27 mmol/L (22-29); Chloride 99 mmol/L (98-107); Globulin 2.9 g/dL (1.3-4.6); Glucose 116 mg/dL (65-115); Lipase 30 U/L (13-60); Osmolality Calculated 275 mOsm/kg (285-295); Potassium 4.1 mmol/L (3.5-5.1); Salicylate 0.9 mg/dL (3-10); Sodium 132 mmol/L (136-145); Thyroid Stimulating Hormone 3.49 uIU/mL (0.27-4.20); Total Bilirubin 0.2 mg/dL (0.15-1.2); Total Protein 6.9 g/dL (6.6-8.7)
[2022-01-18 20:20] LABS: Acetaminophen < 5.0 ug/mL (10-30); Alcohol Level < 10 mg/dL (0-10)
[2022-01-18 20:35] VITALS: RESP 17
[2022-01-18 22:03] LABS: Free T4 Free Thyroxine 0.86 ng/dL (0.82-1.77)
[2022-01-18 22:46] VITALS: PULSE 88; RESP 17
--- NOTE | 2022-01-21 11:22 | DCPLANNER ---
Addendum entered by Princess Núñez 01/23/22 11:39: Patient had a follow up appointment scheduled for 01.21.22 with the [facility] program - patient did attend appointment. Original Note: manager child had message to schedule a follow up appointment for patient with [facility]. manager child sent patients information to Brittni Payne at [facility], pharmacy benefits coordinator. Patients information will be printed and reviewed. Clinic will call patient with appointment information.
== END 2022-01-18 22:38 | disposition home or self-care (01) ==
PROVIDERS: Emergency Provider Emergency Medicine; PCP Nurse Practitioner
DX: R44.3 Hallucinations, unspecified (principal); Z79.82 Long term (current) use of aspirin; Z86.19 Personal history of other infectious and parasitic diseases; E11.9 Type 2 diabetes mellitus without complications; J44.9 Chronic obstructive pulmonary disease, unspecified; I10 Essential (primary) hypertension; B20 Human immunodeficiency virus [HIV] disease
CPT/HCPCS: 36415; 80053; 80306; 80307; 83690; 84439; 84443; 85025; 99283

== ENCOUNTER → 2022-04-09 16:06 | Outpatient (BNVA) | payer MEDICAID, SELFPAY | PROVIDERS: PCP Nurse Practitioner; Visit Provider Nurse Practitioner | DX: J44.9 Chronic obstructive pulmonary disease, unspecified (principal); E11.65 Type 2 diabetes mellitus with hyperglycemia; M54.12 Radiculopathy, cervical region; K59.04 Chronic idiopathic constipation; K21.9 Gastro-esophageal reflux disease without esophagitis; I10 Essential (primary) hypertension | CPT/HCPCS: 80053; 80061; 81000; 83036 ==

== ENCOUNTER 2022-06-09 14:08 | Emergency (ER) | payer MEDICAID, SELFPAY ==
[2022-06-09 14:18] VITALS: BP 152/76; PULSE 97; RESP 18; TEMP 36.8; O2SAT 98; BMI 27.2
--- NOTE | 2022-06-09 14:50 | CTR_ITS ---
PROCEDURE INFORMATION: Exam: CT Head Without Contrast Exam date and time: 06/09/2022 3:12 PM Age: 56 years old Clinical indication: Dizziness TECHNIQUE: Imaging protocol: Computed tomography of the head without contrast. Axial, coronal and sagittal reformatted images were created and reviewed. Radiation optimization: All CT scans at this facility use at least one of these dose optimization techniques: automated exposure control; mA and/or kV adjustment per patient size (includes targeted exams where dose is matched to clinical indication); or iterative reconstruction. REPORTING DATA: Count of CT and Cardiac NM exams in prior 12 months: This patient has received 7 known CTs and 0 known cardiac nuclear medicine studies in the 12 months prior to the current study. COMPARISON: CT head wo con* [id number] 01/11/2022 3:55 PM RADIATION DOSE METRICS: Total DLP (mGy-cm): 1120.58 FINDINGS: Brain: Subtle, patchy areas of hypoattenuation in the periventricular and subcortical white matter, nonspecific but suggestive of mild chronic small vessel ischemic disease. No CT evidence of acute intracranial hemorrhage or acute territorial infarction. No significant mass effect or midline shift. Basal cisterns patent. Cerebral ventricles: Prominence of the cortical sulci, cisterns and ventricular system, consistent with cerebral and cerebellar volume loss. Paranasal sinuses: Minimal ethmoid mucosal thickening. No fluid levels. Mastoid air cells: Underpneumatized. Bones/joints: No acute osseous abnormality. Soft tissues: Grossly unremarkable. CT/CT head wo con* [id number] IMPRESSION: 1[address] No CT evidence of acute intracranial pathology. 2. Additional findings, as above.
--- NOTE | 2022-06-09 14:54 | ECG_ITS ---
[facility] Test Date: 2022-06-09 Pat Name: Osmar Becker Department: Room: Gender: Male Baker Second: : 1965 Requested By: Merle Minor Order Number: [id number] Dany MD: Donte Olivia M.D. Measurements Intervals [place] Rate: 76 P: 41 ND: 154 QRS: 66 QRSD: 89 T: 68 QT: 369 QTc: 417 Interpretive Statements SINUS RHYTHM Compared to ECG 01/11/2022 15:47:47 Short ND interval no longer present Electronically Signed On 06-09-2022 21:23:28 DAIRY MANAGER by Donte Olivia M.D. [email or web address] [id number]
--- NOTE | 2022-06-09 15:15 | W.ED.DIZZY ---
HPI - Dizziness General: Chief Complaint: Dizziness Stated Complaint: headache Time Seen by Provider: 06/09/22 14:33 Source: patient History of Present Illness: HPI Narrative: 56-year-old male who comes in complaining of difficulty walking due to lightheadedness and visual changes. He states when he walked out into the sun today, his vision went white. He started to feel lightheaded and felt like he was going to faint. He states his dizziness was a lightheaded feeling. He denies associated palpitations. He denies chest pain. He states he felt weak all over and felt like it was difficult to walk. He denies localized weakness or numbness. He is extremely hard of hearing but he states this is chronic. He states his vision has returned to normal now. Review of Systems Narrative: See HPI PFSH ED PFSH: Medical History Acid reflux Cervical radicular pain Chronic hepatitis C Chronic idiopathic constipation Controlled diabetes mellitus with hyperglycemia, without long-term current use of insulin COPD (chronic obstructive pulmonary disease) Dependence on nocturnal oxygen therapy Essential (primary) hypertension Gastritis HIV disease Major depressive disorder, recurrent, moderate Nicotine dependence, cigarettes, with other nicotine-induced disorders Nocturnal hypoxia 2018 Other schizophrenia Psychiatric care Schizophrenia Tardive dyskinesia Vitamin D deficiency Surgical History History of adenoidectomy History of appendectomy History of colonoscopy History of tonsillectomy History of tympanostomy Family History Father COPD (chronic obstructive pulmonary disease) Mother COPD (chronic obstructive pulmonary disease) Other Cancer Social History Smoking and tobacco status: never smoked Second hand smoke exposure: No Smoking risk assessment/counseling performed?: No Alcohol intake: never Desire information about alcohol rehabilitation?: No Counseling given: No Desire information about substance/drug rehabilitation?: No Counseling given: No Adopted: No Caregiver/support person: No Lives independently: Yes Housing: House Marital status: Single Number of children: 0 service: No Current occupational status: disabled Current occupational exposures/hazards: No Current gender identity: Male Physical Exam Const: COMMON NORMALS: no acute distress, patient oriented x3 and alert ORIENTATION/CONSCIOUSNESS: Yes oriented to person, Yes oriented to place and Yes oriented to time OTHER: Patient has dystonic movements of his face and hands. HENMT: COMMON NORMALS: normocephalic, external ears normal, Normal external nose present and moist oral mucous membranes HEAD & SCALP: normocephalic NOSE: Normal external nose present EXTERNAL EAR: Yes external ears normal Eye: COMMON NORMALS: Equal, round and reactive pupils present, EOMs intact bilaterally and conjunctivae normal CONJUNCTIVA: Yes conjunctivae normal PUPIL: Yes Equal, round and reactive pupils present Neck/C-Spine: OTHER: Trachea midline, supple Resp: COMMON NORMALS: normal respiratory effort, No use of accessory muscles and clear to auscultation bilaterally AUSCULTATION: clear to auscultation bilaterally Cardio: COMMON NORMALS: regular rate and regular rhythm RATE: regular rate RHYTHM: regular rhythm GI: COMMON NORMALS: Normal to inspection, nondistended, normoactive bowel sounds present and Soft to palpation PALPATION: Yes Soft to palpation Neuro: COMMON NORMALS: patient oriented x3 and CN's II-XII intact bilaterally SENSORIUM/ORIENTATION: Yes alert, Yes oriented to person, Yes oriented to place and Yes oriented to time COORDINATION/BALANCE: [id number] test normal and [id number]-[id number] test normal SPEECH: speech normal GAIT: Yes Normal gait present SENSORY EXAM: No sensory level loss detected MOTOR EXAM: 5/5 motor strength present throughout, Pronator motor function not present, No Motor abnormalities not present and Motor abnormalites present tardive dyskinesia COORDINATION: [id number]-[id number] test normal and [id number]-[id number]-[id number] test normal Skin: OTHER: No rash noted Course ED course: 1600 -patient has decided he does not want to stay and they are having trouble getting an IV on him. He is becoming agitated and is wanting to leave AGAINST MEDICAL ADVICE. Before I was able to get to the room, patient had insisted on leaving. Patient was medically stable, symptoms resolved at the time of discharge. Vital Signs: Vital signs: Vital Signs Temperature 98.2 F 06/09/22 14:18 Pulse Rate 97 06/09/22 14:18 Respiratory Rate 18 06/09/22 14:18 Blood Pressure 152/76 06/09/22 14:18 Pulse Oximetry 98 06/09/22 14:18 Oxygen Delivery Me thod 06/09/22 14:18 MDM - Dizziness Medical Decision Making 56-year-old male who presents with dizziness and visual changes. The visual changes are a white out of his vision when he went outside into the bright light. At the same time he was having a dizzy sensation which was a lightheaded sensation, feeling like he was going to faint. Patient's symptoms have resolved at this time. He had no focal weakness or numbness in association with his symptoms. He complains of difficulty with his gait at the time but it was that he felt like he was going to faint so he could not walk. He had bilateral lower extremity weakness in association with that. He denies nausea or vomiting. At this time his neurologic exam is normal. He does have tardive dyskinesia which I suspect is from his medications. We will start an IV, obtain labs and given an IV fluid bolus. We will do orthostatics. Will obtain an EKG, CT head and a chest x-ray. We will also obtain a urinalysis and a urine drug screen. We will also check his TSH. Patient is on gabapentin which could be contributing to his dizziness. Differential includes cardiac arrhythmia, posterior circulation insufficiency, cerebral infarct, electrolyte abnormality, UTI, medication side effect, medication toxicity Medical Records I reviewed the patient's medical records. Lab Data I reviewed the patient's lab results. Radiology Impressions Head CT 06/09/22 14:50 IMPRESSION: 1. No CT evidence of acute intracranial pathology. 2. Additional findings, as above. Discharge Plan Discharge Patient Disposition: Left Against Medical Advice Clinical Impression: Dizziness Condition: Stable Prescriptions: No Action aspirin 325 mg tablet,delayed release (DR/EC) 325 mg PO QAM benztropine 1 mg tablet 1 mg PO BID PRN (Reason: EPS) Qty: 60 1RF trazodone 50 mg tablet 50 mg PO .HS Qty: 30 1RF Latuda 80 mg tablet 80 mg PO DAILY Qty: 30 1RF Rx Instructions: must administer with food (at least 350 calories) albuterol sulfate 90 mcg/actuation HFA aerosol inhaler 2 puff INHALATION Q4H PRN (Reason: shortness of breath) Qty: 8.5 2RF Farxiga 5 mg tablet 5 mg PO QAM Qty: 30 2RF gabapentin 300 mg capsule 300 mg PO BID Qty: 60 2RF Linzess 145 mcg capsule 145 mcg PO QAM Qty: 30 2RF magnesium oxide 400 mg magnesium tablet 400 mg PO BID Qty: 60 2RF omeprazole 20 mg tablet,delayed release (DR/EC) 20 mg PO DAILY Qty: 30 2RF pravastatin 10 mg tablet 10 mg PO BEDTIME Qty: 30 2RF valsartan 40 mg tablet 40 mg PO QAM Qty: 30 2RF Milk of Magnesia 400 mg/5 mL suspension 30 ml PO BID Qty: 1200 2RF (DME) nebulizers Misc See Rx Instructions .ROUTE .MEDSUPPLY Qty: 1 0RF Rx Instructions: As directed (DME) Disposable nebulizer circuit with mask See Rx Instructions .ROUTE .MEDSUPPLY Qty: 1 2RF Rx Instructions: As directed acetaminophen 325 mg Tablet 650 mg PO Q6H PRN (Reason: Mild/Mod Pain Or Temp >/= 101) Qty: 90 0RF ipratropium-albuterol 0.5 mg-3 mg(2.5 mg base)/3 mL Solution For Nebulization 3 ml inhalation Q4H PRN (Reason: Shortness Of Breath) Qty: 120 0RF Nitrostat 0.4 mg Tablet, Sublingual 0.4 mg SUBLINGUAL Q5M PRN (Reason: Chest Pain) Rx Instructions: do not exceed 3 doses per episode Referrals: Josefina Ni, TEACHER'S ASSISTANT-C [Primary Care Provider] - Coding Level of Care Code ED Corporate Statistical Financial Analyst for Jennyfer Rae
== END 2022-06-09 16:15 | disposition left against medical advice (07) ==
PROVIDERS: Emergency Provider Emergency Medicine; PCP Nurse Practitioner
DX: R42 Dizziness and giddiness (principal); Z53.21 Procedure and treatment not carried out due to patient leaving prior to being seen by health care provider; Z79.82 Long term (current) use of aspirin; Z86.19 Personal history of other infectious and parasitic diseases; E11.9 Type 2 diabetes mellitus without complications; J44.9 Chronic obstructive pulmonary disease, unspecified; I10 Essential (primary) hypertension; B20 Human immunodeficiency virus [HIV] disease
CPT/HCPCS: 70450; 93005; 99284

== ENCOUNTER 2022-07-03 12:29 | Emergency (ER) | payer MEDICAID, SELFPAY ==
[2022-07-03 12:30] VITALS: BP 114/76; PULSE 80; RESP 18; TEMP 36.8; O2SAT 96; BMI 27.3
--- NOTE | 2022-07-03 12:33 | ECG_ITS ---
[facility] Test Date: 2022-07-03 Pat Name: Osmar Becker Department: Room: Gender: Male Pest Locator: : 1965 Requested By: David Freeman Order Number: [id number] Dany MD: Bonifacio Forbes M.D. Measurements Intervals [place] Rate: 75 P: -24 MI: 148 QRS: 70 QRSD: 84 T: 72 QT: 356 QTc: 398 Interpretive Statements SINUS RHYTHM Compared to ECG 06/09/2022 15:25:53 No significant changes Electronically Signed On 07-03-2022 23:53:44 CDT by Bonifacio Forbes M.D. [id number]
--- NOTE | 2022-07-03 12:33 | XR_ITS ---
WS: [id number] Exam: XR chest 1V portable [id number] Date/Time of Exam: 07/03/2022 12:33 PM Reason For Exam: cp Comparison 01/13/2022. The lungs are fully expanded. No acute infiltrates. Fibrous scarring noted in the mid and lower right lung and pleural thickening at the right costophrenic angle. Normal cardiomediastinal silhouette. Yon ny structures are intact. Monitoring leads superimpose the chest. XR/XR chest 1V portable [id number] IMPRESSION: 1. No acute cardiopulmonary process. 2. Fibrous scarring noted in the mid and lower right lung zone and right basal pleural thickening.
--- NOTE | 2022-07-03 12:44 | ED_ITS ---
HPI - Chest Pain General: Chief Complaint: Chest Pain Stated Complaint: CHEST PAIN/ HEADACHE Time Seen by Provider: 07/03/22 12:33 Source: patient Mode of arrival: EMS Limitations: no limitations History of Present Illness: Gentleman was transported to our emergency department by EMS from his home. He states that approximately 10 AM or thereabouts he developed chest pain in the anterior the front portion of his chest. He states it was sharp in nature seem to increase with deep breaths. He did not have a history of cough, fever etc. He does smoke tobacco but. He does have a history ofCOPD. No known history of coronary artery disease. EMS was dispatched and upon arrival they noted he was in no acute distress normal vital signs but was given sublingual nitroglycerin he thinks that may have helped his pain.It was also noted that he had told EMS crew about his chronic cervical related neuralgia but there is nothing unique or different about his symptoms today. There is been no falls, head trauma, rapid onset headache etc. He has not been exposed to infectious disease as far as he knows. The patient also has a history of chronic schizophrenia. MD complaint: chest discomfort Onset: during rest Associated symptoms: Reports dyspnea; Deny abdominal pain, fever(s), nausea, palpitations, syncope or vomiting Risk Factors: Coronary artery disease risk factors: smoking history Review of Systems Const: Denies: fever(s) or chills Eyes: Denies: change in vision ENMT: Denies: throat pain or odynophagia Card: Reports: chest pain; Denies: palpitations, irregular heart rhythm, lightheadedness, syncope or pre- syncope Resp: Reports: dyspnea; Denies: productive cough or non-productive cough GI: Denies: abdominal pain, nausea or vomiting : Denies: flank pain, difficulty urinating or dysuria Musc: Reports: neck pain; Denies: back pain, extremity pain or extremity swelling Skin/Breast: Denies: rash Neuro: Reports: headache(s); Denies: numbness in extremities, weakness in extremities or sensory changes Psych: Reports: auditory hallucinations; Denies: anxiety, suicidal ideation or homicidal ideation PFS ED PFSH: Medical History Acid reflux Cervical radicular pain Chronic hepatitis C Chronic idiopathic constipation Controlled diabetes mellitus with hyperglycemia, without long-term current use of insulin COPD (chronic obstructive pulmonary disease) Dependence on nocturnal oxygen therapy Essential (primary) hypertension Gastritis HIV disease Major depressive disorder, recurrent, moderate Nicotine dependence, cigarettes, with other nicotine-induced disorders Nocturnal hypoxia 2018 Other schizophrenia Psychiatric care Schizophrenia Tardive dyskinesia Vitamin D deficiency Surgical History History of adenoidectomy History of appendectomy History of colonoscopy History of tonsillectomy History of tympanostomy Family History Father COPD (chronic obstructive pulmonary disease) Mother COPD (chronic obstructive pulmonary disease) Other Cancer Social History Smoking and tobacco status: never smoked Second hand smoke exposure: No Smoking risk assessment/counseling performed?: No Alcohol intake: never Desire information about alcohol rehabilitation?: No Counseling given: No Desire information about substance/drug rehabilitation?: No Counseling given: No Adopted: No Caregiver/support person: No Lives independently: Yes Housing: House Marital status: Single Number of children: 0 service: No Current occupational status: disabled Current occupational exposures/hazards: No Current gender identity: Male Physical Exam Narrative: EXAM NARRATIVE: Dirt. He talks with dysarthric speech which is somewhat difficult to understand but eventually were able to communicate effectively. This appears to be due to his dystonia. Const: COMMON NORMALS: no acute distress, average body habitus and patient oriented x3 GENERAL APPEARANCE: cooperative and comfortable HENMT: COMMON NORMALS: normocephalic, atraumatic, Normal nasal mucous membranes and turbinates present, moist oral mucous membranes and oropharynx normal HEAD & SCALP: normocephalic and atraumatic NOSE: Normal nasal mucous membranes and turbinates present Eye: COMMON NORMALS: Equal, round and reactive pupils present, EOMs intact bilaterally and conjunctivae normal CONJUNCTIVA: Yes conjunctivae normal PUPIL: Yes Equal, round and reactive pupils present Neck/C-Spine: COMMON NORMALS: full ROM, no JVD, Thyroid normal and No carotid bruits THYROID: Thyroid normal Chest: COMMONS NORMALS: normal inspection of the chest and normal palpation of entire chest wall Resp: COMMON NORMALS: normal respiratory effort and No retractions AUSCULTATION: wheezes Cardio: COMMON NORMALS: no JVD, regular rate, regular rhythm and No murmurs present (Cardio) RATE: regular rate RHYTHM: regular rhythm GI: COMMON NORMALS: Normal to inspection, nondistended, normoactive bowel sounds present, Soft to palpation and non-tender PALPATION: Yes Soft to palpation : COMMON NORMALS: Yes no CVA tenderness BLADDER/KIDNEY EXAM: Yes no CVA tenderness Back/Pelvis: COMMON NORMALS: no CVA tenderness, thoracic and lumbar spine normal to inspection, no thoracic nor lumbar tenderness, thoraco-lumbar ROM norm al and straight leg raise negative bilaterally Extremity: COMMON NORMALS: normal to inspection, full ROM, capillary refill normal, no calf tenderness and no pedal edema Neuro: COMMON NORMALS: patient oriented x3, moves all extremities, no focal motor deficits and no sensory deficits noted Psych: COMMON NORMALS: mental status grossly normal and cooperative Skin: COMMON NORMALS: no rashes or lesions noted and no wounds GENERAL SKIN EXAM: no rashes or lesions noted Course Reevaluation(s): Reevaluation #1: Patient states he feels better after his DuoNeb treatment. Feels like his congestion has improved. Initial biomarkers, EKG other findings are reassuringIs clinical picture suggest likely bronchitis given his chest x-ray does not reveal any significant infiltrate. Feel he is at low risk for other potential causes of his presentation such as ACS given his biomarkers and negative EKG, unlikely for thromboembolic events given no tachycardia, hypoxia, pleural chest pain etc. at this point I think we will try to give him MDI instructions and plan on sending him out with a albuterol inhaler and following his response with good return precautions. Time: 14:02 Vital Signs: Vital signs: Vital Signs Temperature 98.2 F 07/03/22 12:30 Pulse Rate 75 07/03/22 13:03 Respiratory Rate 14 07/03/22 13:03 Blood Pressure 119/83 07/03/22 13:03 Pulse Oximetry 91 07/03/22 13:03 Oxygen Delivery Me thod 07/03/22 13:03 MDM - Chest Pain Medical Decision Making Patient transported to the emergency department with some vague chest discomfort which he stated was relieved by nitroglycerin in route. He also had chronic cervical cephalgia which is a not a new issue for him. This was latter was primarily related to EMS prior to arrival as part of their intake evaluation. He is clinical evaluation here revealed him to to be normotensive, normal heart rate, normal pulse oximetry. Clinical evaluation reveals some crackles and wheezes with chest auscultation. Initial EKG, heart rate were very reassuring. Initial biomarkers were unremarkable. He did have a subjective and objective response to DuoNeb. Chest x-ray did not reveal any infiltrative process or suggestion of elevation. He has been afebrile and has not had any productive cough. Feel his risk of ACS thromboembolic events CHF etc. are exceedingly low at this time and likely his presentation is more due to a viral lower respiratory infection with associated bronchospasm. Plan will be to discharge him on a metered-dose inhaler and follow his response. He voiced understanding of our discussion and also return precautions were acknowledged. Medical Records I reviewed the patient's medical records. Lab Data I reviewed the patient's lab results. 07/03/22 13:00 07/03/22 13:00 Radiology Impressions Chest X-Ray 07/03/22 12:33 IMPRESSION: 1. No acute cardiopulmonary process. 2. Fibrous scarring noted in the mid and lower right lung zone and right basal pleural thickening. Laboratory Results WBC 8.6 10^3/uL (4.0-10.0) 07/03/22 13:00 RBC 6.04 10^6/uL (4.1-5.3) H 07/03/22 13:00 Hgb 13.9 g/dL (11.7-16.6) 07/03/22 13:00 Hct 46.7 % (42.0-52.0) 07/03/22 13:00 MCV 77.3 fl (80-94) L 07/03/22 13:00 MCH 23.0 pg (28.0-34.0) L 07/03/22 13:00 MCHC 29.8 g/dL (30.0-36.0) L 07/03/22 13:00 RDW 16.0 % (12.1-15.1) H 07/03/22 13:00 Plt Count 305 10^3/cmm (130-400) 07/03/22 13:00 MPV 8.9 fL (7.4-10.4) 07/03/22 13:00 Neut % (Auto) 70.0 % 07/03/22 13:00 Lymph % (Auto) 19.9 % 07/03/22 13:00 Brooke % (Auto) 7.9 % 07/03/22 13:00 Eos % (Auto) 1.0 % 07/03/22 13:00 Baso % (Auto) 0.9 % 07/03/22 13:00 Neut # (Auto) 6.02 10^3/uL (1.8-7.7) 07/03/22 13:00 Lymph # (Auto) 1.7 10^3/uL (0.8-4.8) 07/03/22 13:00 Brooke # (Auto) 0.7 10^3/uL (0.2-0.9) 07/03/22 13:00 Eos # (Auto) 0.1 10^3/uL (0.0-0.8) 07/03/22 13:00 Baso # (Auto) 0.1 10^3/uL (0.0-0.1) 07/03/22 13:00 Nucleated RBC % (auto) 0 % 07/03/22 13:00 Nucleated RBCs # 0.0 /100WBC 07/03/22 13:00 Sodium 141 mmol/L (136-145) 07/03/22 13:00 Potassium 4.5 mmol/L (3.5-5.1) 07/03/22 13:00 Chloride 101 mmol/L (98-107) 07/03/22 13:00 Carbon Dioxide 28 mmol/L (22-29) 07/03/22 13:00 Anion Gap 16.5 (5-19) 07/03/22 13:00 BUN 16 mg/dL (6-20) 07/03/22 13:00 Creatinine 0.5 mg/dL (0.7-1.2) L 07/03/22 13:00 GFR Calculation 172.0 mL/min (90-130) H 07/03/22 13:00 Glucose 102 mg/dL (65-115) 07/03/22 13:00 Calculated Osmolality 293 mOsm/kg (285-295) 07/03/22 13:00 Calcium 9.9 mg/dL (8.5-10.5) 07/03/22 13:00 Total Bilirubin 0.2 mg/dL (0.15-1.2) 07/03/22 13:00 AST 17 U/L (0-40) 07/03/22 13:00 ALT 19 U/L (0-41) 07/03/22 13:00 Alkaline Phosphatase 72 U/L (40-130) 07/03/22 13:00 Troponin T Baseline 7 ng/L (0-15) 07/03/22 13:00 Total Protein 8.0 g/dL (6.6-8.7) 07/03/22 13:00 Albumin 4.7 g/dL (3.5-5.2) 07/03/22 13:00 Globulin 3.3 g/dL (1.3-4.6) 07/03/22 13:00 EKG Data EKG 1: I personally reviewed and interpreted this EKG as follows: Interpretation: Contemporaneous review of EKG at presentation reveals a ventricular rate of 75 bpm, NE interval, QRS duration and corrected QT interval are all normal. Hornick is normal. Consistent with normal sinus rhythm without any acute ST-T wave changes. Discharge Plan Discharge Patient Disposition: Home Clinical Impression: COPD (chronic obstructive pulmonary disease), Bronchitis Condition: Stable Prescriptions: New Proventil HFA 90 mcg/actuation HFA aerosol inhaler 2 inh inhalation QID PRN (Reason: shortness of breath or wheezing) Qty: 8.5 1RF No Action aspirin 325 mg tablet,delayed release (DR/EC) 325 mg PO QAM benztropine 1 mg tablet 1 mg PO BID PRN (Reason: EPS) Qty: 60 1RF trazodone 50 mg tablet 50 mg PO .HS Qty: 30 1RF Latuda 80 mg tablet 80 mg PO DAILY Qty: 30 1RF Rx Instructions: must administer with food (at least 350 calories) albuterol sulfate 90 mcg/actuation HFA aerosol inhaler 2 puff INHALATION Q4H PRN (Reason: shortness of breath) Qty: 8.5 2RF Farxiga 5 mg tablet 5 mg PO QAM Qty: 30 2RF gabapentin 300 mg capsule 300 mg PO BID Qty: 60 2RF Linzess 145 mcg capsule 145 mcg PO QAM Qty: 30 2RF magnesium oxide 400 mg magnesium tablet 400 mg PO BID Qty: 60 2RF omeprazole 20 mg tablet,delayed release (DR/EC) 20 mg PO DAILY Qty: 30 2RF pravastatin 10 mg tablet 10 mg PO BEDTIME Qty: 30 2RF valsartan 40 mg tablet 40 mg PO QAM Qty: 30 2RF Milk of Magnesia 400 mg/5 mL suspension 30 ml PO BID Qty: 1200 2RF (DME) nebulizers Misc See Rx Instructions .ROUTE .MEDSUPPLY Qty: 1 0RF Rx Instructions: As directed (DME) Disposable nebulizer circuit with mask See Rx Instructions .ROUTE .MEDSUPPLY Qty: 1 2RF Rx Instructions: As directed acetaminophen 325 mg Tablet 650 mg PO Q6H PRN (Reason: Mild/Mod Pain Or Temp >/= 101) Qty: 90 0RF ipratropium-albuterol 0.5 mg-3 mg(2.5 mg base)/3 mL Solution For Nebulization 3 ml inhalation Q4H PRN (Reason: Shortness Of Breath) Qty: 120 0RF Nitrostat 0.4 mg Tablet, Sublingual 0.4 mg SUBLINGUAL Q5M PRN (Reason: Chest Pain) Rx Instructions: do not exceed 3 doses per episode Discharge Orders: Discharge ED (Routine); Ordered 07/03/22 Ordered By: David Freeman Referrals: Josefina Ni, MIXER AND BLENDER-C [Primary Care Provider] - Discharge Diet: Usual diet Discharge Activity: Resume usual activity Patient Instructions: Opioid Safety, Pain Management Activity Restrictions/Additional Instructions: He did not have any evidence that suggested heart related issue or infection related issue at this time. We have recommended an inhaler to help with your breathing and wheezing. Should you have persistent or worsening symptoms at any time return to this or the nearest emergency department. Coding Level of Care Code ED Continuous Pickling Line Pickler Helper for Jennyfer Rae
[2022-07-03 12:55] VITALS: PULSE 77; RESP 18; O2SAT 95
[2022-07-03] MEDS: ipratropium-albuterol 3 mL Neb INHALATION (12:55)
[2022-07-03 13:00] VITALS: PULSE 81
[2022-07-03 13:03] VITALS: BP 119/83; PULSE 75; RESP 14; O2SAT 91
[2022-07-03 13:22] LABS: Basophils # 0.1 10^3/uL (0.0-0.1); Basophils % 0.9 %; Eosinophils # 0.1 10^3/uL (0.0-0.8); Hematocrit 46.7 % (42.0-52.0); Hemoglobin 13.9 g/dL (11.7-16.6); Lymphocytes # 1.7 10^3/uL (0.8-4.8); Lymphocytes % 19.9 %; Mean Corpuscular HGB Conc 29.8 g/dL (30.0-36.0); Mean Corpuscular Volume 77.3 fl (80-94); Mean Platelet Volume 8.9 fL (7.4-10.4); Monocytes # 0.7 10^3/uL (0.2-0.9); Monocytes % 7.9 %; Neutrophils # 6.02 10^3/uL (1.8-7.7); Nucleated Red Blood Cells % 0 %; Platelet Count 305 10^3/cmm (130-400); Red Blood Count 6.04 10^6/uL (4.1-5.3); White Blood Count 8.6 10^3/uL (4.0-10.0)
[2022-07-03 13:46] LABS: Troponin(5th) Baseline 7 ng/L (0-15)
[2022-07-03 13:47] LABS: Alanine Aminotransferase 19 U/L (0-41); Albumin Level 4.7 g/dL (3.5-5.2); Alkaline Phosphatase 72 U/L (40-130); Anion Gap 16.5 (5-19); Aspartate Amino Transferase 17 U/L (0-40); Blood Urea Nitrogen 16 mg/dL (6-20); Calcium 9.9 mg/dL (8.5-10.5); Carbon Dioxide 28 mmol/L (22-29); Chloride 101 mmol/L (98-107); Globulin 3.3 g/dL (1.3-4.6); Glucose 102 mg/dL (65-115); Osmolality Calculated 293 mOsm/kg (285-295); Potassium 4.5 mmol/L (3.5-5.1); Sodium 141 mmol/L (136-145); Total Bilirubin 0.2 mg/dL (0.15-1.2)
== END 2022-07-03 14:40 | disposition home or self-care (01) ==
PROVIDERS: Emergency Provider Emergency Medicine; PCP Nurse Practitioner
DX: J44.9 Chronic obstructive pulmonary disease, unspecified (principal); Z79.82 Long term (current) use of aspirin; Z86.19 Personal history of other infectious and parasitic diseases; E11.9 Type 2 diabetes mellitus without complications; I10 Essential (primary) hypertension; B20 Human immunodeficiency virus [HIV] disease
CPT/HCPCS: 36415; 71045; 80053; 84484; 85025; 93005; 94640; 99285

== ENCOUNTER 2022-07-15 20:53 | Emergency (ER) | payer MEDICAID, SELFPAY ==
--- NOTE | 2022-07-15 20:55 | XRR_ITS ---
PROCEDURE INFORMATION: Exam: XR Chest Exam date and time: 07/15/2022 9:05 PM Age: 56 years old Clinical indication: Pain; Chest pressure; Additional info: Cp TECHNIQUE: Imaging protocol: Radiologic exam of the chest. Views: 1 view. COMPARISON: CR XR chest 1V portable [id number] 07/03/2022 11:52 AM FINDINGS: Lungs: Right mid to lower lobe atelectasis versus infiltrate. Pleural spaces: Trace right pleural effusion. Heart/Mediastinum: Hiatal hernia. Bones/joints: Unremarkable. XR/XR chest 1V portable [id number] IMPRESSION: 1. Trace right pleural effusion. 2. Hiatal hernia. 3. Right mid to lower lobe atelectasis versus infiltrate.
[2022-07-15 20:56] VITALS: BP 166/96; PULSE 79; RESP 26; TEMP 36.4; O2SAT 98; BMI 28.0
--- NOTE | 2022-07-15 20:59 | ED_ITS ---
HPI - Chest Pain General: Chief Complaint: Chest Pain Stated Complaint: chest wall pain Time Seen by Provider: 07/15/22 20:54 Source: patient and EMS Mode of arrival: EMS Limitations: no limitations History of Present Illness: 56-year-old male states he has had a cough along with chest pain over the last week. States his cough is been nonproductive denies any fevers denies any shortness of breath he states the pain is a sharp pain in the left side of his chest he has had some sharp pain in the left neck he denies any worsening improving factors the pain has been constant. Associated symptoms: Deny abdominal pain, dyspnea, fever(s), nausea or vomiting Review of Systems Const: Denies: fever(s), chills, body aches or change in appetite Eyes: Denies: blurry vision or eye discomfort ENMT: Denies: throat pain or dental pain Card: Reports: chest pain Resp: Reports: non-productive cough; Denies: dyspnea GI: Denies: abdominal pain, nausea, vomiting or diarrhea : Denies: dysuria Musc: Denies: neck pain or back pain Skin/Breast: Denies: rash Neuro: Denies: headache(s) Psych: Denies: depression Jose Alejandro/Lymph: Denies: easy bruising All/Imm: Denies: urticaria PFSH ED PFSH: Medical History Acid reflux Cervical radicular pain Chronic hepatitis C Chronic idiopathic constipation Controlled diabetes mellitus with hyperglycemia, without long-term current use of insulin COPD (chronic obstructive pulmonary disease) Dependence on nocturnal oxygen therapy Essential (primary) hypertension Gastritis HIV disease Major depressive disorder, recurrent, moderate Nicotine dependence, cigarettes, with other nicotine-induced disorders Nocturnal hypoxia 2018 Other schizophrenia Psychiatric care Schizophrenia Tardive dyskinesia Vitamin D deficiency Surgical History History of adenoidectomy History of appendectomy History of colonoscopy History of tonsillectomy History of tympanostomy Family History Father COPD (chronic obstructive pulmonary disease) Mother COPD (chronic obstructive pulmonary disease) Other Cancer Social History Smoking and tobacco status: never smoked Second hand smoke exposure: No Smoking risk assessment/counseling performed?: No Alcohol intake: never Desire information about alcohol rehabilitation?: No Counseling given: No Desire information about substance/drug rehabilitation?: No Counseling given: No Adopted: No Caregiver/support person: No Lives independently: Yes Housing: House Marital status: Single Number of children: 0 service: No Current occupational status: disabled Current occupational exposures/hazards: No Current gender identity: Male Physical Exam Const: COMMON NORMALS: no acute distress, patient oriented x3 and healthy appearing HENMT: COMMON NORMALS: normocephalic and atraumatic HEAD & SCALP: normocephalic and atraumatic Eye: COMMON NORMALS: Equal, round and reactive pupils present and EOMs intact bilaterally PUPIL: Yes Equal, round and reactive pupils present Neck/C-Spine: COMMON NORMALS: full ROM and supple Chest: COMMONS NORMALS: normal inspection of the chest OTHER: point tender over left chest Resp: COMMON NORMALS: normal respiratory effort, No retractions, No use of accessory muscles and clear to auscultation bilaterally AUSCULTATION: clear to auscultation bilaterally Cardio: COMMON NORMALS: regular rate, regular rhythm and No murmurs present (Cardio) RATE: regular rate RHYTHM: regular rhythm GI: COMMON NORMALS: Normal to inspection, nondistended, normoactive bowel sounds present, Soft to palpation, non-tender and no masses PALPATION: Yes Soft to palpation Extremity: COMMON NORMALS: normal to inspection and full ROM Neuro: COMMON NORMALS: patient oriented x3, moves all extremities and no focal motor deficits Psych: COMMON NORMALS: mental status grossly normal, Normal thought process present and cooperative THOUGHT PROCESS: Normal thought process present Skin: COMMON NORMALS: no rashes or lesions noted and no wounds GENERAL SKIN EXAM: no rashes or lesions noted Course Vital Signs: Vital signs: Vital Signs Temperature 97.6 F 07/15/22 20:56 Pulse Rate 76 07/15/22 22:21 Respiratory Rate 24 H 07/15/22 22:21 Blood Pressure 150/97 07/15/22 22:21 Pulse Oximetry 98 07/15/22 22:21 Oxygen Delivery Me thod 07/15/22 20:56 MDM - Chest Pain Medical Decision Making Patient presents here with chest pain is atypical in nature has been going on for a week his troponin here is negative blood works all negative chest x-ray shows no acute abnormalities I interpreted myself. He has no signs of aortic dissection or pulmonary embolism I do not believe he has acute coronary syndrome he is stable for discharge he is to follow-up his PCP and return if worsening. Medical Records I reviewed the patient's medical records. Lab Data I reviewed the patient's lab results. 07/15/22 21:12 07/15/22 21:12 Radiology Impressions Chest X-Ray 07/15/22 20:55 IMPRESSION: 1. Trace right pleural effusion. 2. Hiatal hernia. 3. Right mid to lower lobe atelectasis versus infiltrate. Laboratory Results WBC 9.2 10^3/uL (4.0-10.0) 07/15/22 21:12 RBC 5.68 10^6/uL (4.1-5.3) H 07/15/22 21:12 Hgb 13.0 g/dL (11.7-16.6) 07/15/22 21:12 Hct 44.2 % (42.0-52.0) 07/15/22 21:12 MCV 77.8 fl (80-94) L 07/15/22 21:12 MCH 22.9 pg (28.0-34.0) L 07/15/22 21:12 MCHC 29.4 g/dL (30.0-36.0) L 07/15/22 21:12 RDW 16.2 % (12.1-15.1) H 07/15/22 21:12 Plt Count 256 10^3/cmm (130-400) 07/15/22 21:12 MPV 8.7 fL (7.4-10.4) 07/15/22 21:12 Neut % (Auto) 59.8 % 07/15/22 21:12 Lymph % (Auto) 28.2 % 07/15/22 21:12 [place] % (Auto) 8.5 % 07/15/22 21:12 Eos % (Auto) 2.4 % 07/15/22 21:12 Baso % (Auto) 0.9 % 07/15/22 21:12 Neut # (Auto) 5.47 10^3/uL (1.8-7.7) 07/15/22 21:12 Lymph # (Auto) 2.6 10^3/uL (0.8-4.8) 07/15/22 21:12 [place] # (Auto) 0.8 10^3/uL (0.2-0.9) 07/15/22 21:12 Eos # (Auto) 0.2 10^3/uL (0.0-0.8) 07/15/22 21:12 Baso # (Auto) 0.1 10^3/uL (0.0-0.1) 07/15/22 21:12 Nucleated RBC % (auto) 0 % 07/15/22 21:12 Nucleated RBCs # 0.0 /100WBC 07/15/22 21:12 Sodium 134 mmol/L (136-145) L 07/15/22 21:12 Potassium 3.9 mmol/L (3.5-5.1) 07/15/22 21:12 Chloride 96 mmol/L (98-107) L 07/15/22 21:12 Carbon Dioxide 30 mmol/L (22-29) H 07/15/22 21:12 Anion Gap 11.9 (5-19) 07/15/22 21:12 BUN 20 mg/dL (6-20) 07/15/22 21:12 Creatinine 0.5 mg/dL (0.7-1.2) L 07/15/22 21:12 GFR Calculation 172.0 mL/min (90-130) H 07/15/22 21:12 Glucose 108 mg/dL (65-115) 07/15/22 21:12 Calculated Osmolality 281 mOsm/kg (285-295) L 07/15/22 21:12 Calcium 9.6 mg/dL (8.5-10.5) 07/15/22 21:12 Total Bilirubin 0.2 mg/dL (0.15-1.2) 07/15/22 21:12 AST 16 U/L (0-40) 07/15/22 21:12 ALT 18 U/L (0-41) 07/15/22 21:12 Alkaline Phosphatase 85 U/L (40-130) 07/15/22 21:12 Troponin T Baseline 10 ng/L (0-15) 07/15/22 21:12 Total Protein 7.3 g/dL (6.6-8.7) 07/15/22 21:12 Albumin 4.5 g/dL (3.5-5.2) 07/15/22 21:12 Globulin 2.8 g/dL (1.3-4.6) 07/15/22 21:12 EKG Data EKG 1: I personally reviewed and interpreted this EKG as follows: EKG interpretation date: 07/15/22 EKG interpretation time: 21:00 Interpretation: nsr hr [address] or t wave abnormalities qrs 82 qtc 373 Discharge Plan Discharge Patient Disposition: Home Clinical Impression: Atypical chest pain Condition: Stable Prescriptions: New Naprosyn 500 mg tablet 500 mg PO BID PRN (Reason: pain) Qty: 20 0RF No Action aspirin 325 mg tablet,delayed release (DR/EC) 325 mg PO QAM benztropine 1 mg tablet 1 mg PO BID PRN (Reason: EPS) Qty: 60 1RF trazodone 50 mg tablet 50 mg PO .HS Qty: 30 1RF Latuda 80 mg tablet 80 mg PO DAILY Qty: 30 1RF Rx Instructions: must administer with food (at least 350 calories) albuterol sulfate 90 mcg/actuation HFA aerosol inhaler 2 puff INHALATION Q4H PRN (Reason: shortness of breath) Qty: 8.5 2RF Farxiga 5 mg tablet 5 mg PO QAM Qty: 30 2RF gabapentin 300 mg capsule 300 mg PO BID Qty: 60 2RF Linzess 145 mcg capsule 145 mcg PO QAM Qty: 30 2RF magnesium oxide 400 mg magnesium tablet 400 mg PO BID Qty: 60 2RF omeprazole 20 mg tablet,delayed release (DR/EC) 20 mg PO DAILY Qty: 30 2RF pravastatin 10 mg tablet 10 mg PO BEDTIME Qty: 30 2RF valsartan 40 mg tablet 40 mg PO QAM Qty: 30 2RF Milk of Magnesia 400 mg/5 mL suspension 30 ml PO BID Qty: 1200 2RF (DME) nebulizers Misc See Rx Instructions .ROUTE .MEDSUPPLY Qty: 1 0RF Rx Instructions: As directed (DME) Disposable nebulizer circuit with mask See Rx Instructions .ROUTE .MEDSUPPLY Qty: 1 2RF Rx Instructions: As directed acetaminophen 325 mg Tablet 650 mg PO Q6H PRN (Reason: Mild/Mod Pain Or Temp >/= 101) Qty: 90 0RF ipratropium-albuterol 0.5 mg-3 mg(2.5 mg base)/3 mL Solution For Nebulization 3 ml inhalation Q4H PRN (Reason: Shortness Of Breath) Qty: 120 0RF Nitrostat 0.4 mg Tablet, Sublingual 0.4 mg SUBLINGUAL Q5M PRN (Reason: Chest Pain) Rx Instructions: do not exceed 3 doses per episode Proventil HFA 90 mcg/actuation HFA aerosol inhaler 2 inh inhalation QID PRN (Reason: shortness of breath or wheezing) Qty: 8.5 1RF Discharge Orders: Discharge ED (Routine); Ordered 07/15/22 Ordered By: Misha Forrest Referrals: Josefina Ni, REAL ESTATE PROFESSIONAL-C [Primary Care Provider] - 1-3 days Discharge Diet: Advance as tolerated Discharge Activity: Resume usual activity Patient Instructions: Chest Pain (ED) Coding Level of Care Code ED Bottler Helper for Jennyfer Rae
[2022-07-15 21:00] VITALS: BP 162/89
--- NOTE | 2022-07-15 21:00 | ECG_ITS ---
[facility] Test Date: 2022-07-15 Pat Name: Osmar Becker Department: Room: Gender: Male Child Life Assistant: : 1965 Requested By: Misha Forrest Order Number: [id number] Dany MD: Bonifacio Forbes M.D. Measurements Intervals [place] Rate: 79 P: -65 VT: 110 QRS: 64 QRSD: 82 T: 59 QT: 339 QTc: 389 Interpretive Statements Ectopic atrial rhythm ABNORMAL RHYTHM ECG Compared to ECG 07/03/2022 12:36:10 Junctional rhythm now present Sinus rhythm no longer present Electronically Signed On 07-15-2022 23:45:04 CDT by Bonifacio Forbes M.D. [id number]
[2022-07-15 21:19] LABS: Basophils # 0.1 10^3/uL (0.0-0.1); Basophils % 0.9 %; Eosinophils # 0.2 10^3/uL (0.0-0.8); Eosinophils % 2.4 %; Hematocrit 44.2 % (42.0-52.0); Lymphocytes # 2.6 10^3/uL (0.8-4.8); Lymphocytes % 28.2 %; Mean Corpuscular HGB Conc 29.4 g/dL (30.0-36.0); Mean Corpuscular Hemoglobin 22.9 pg (28.0-34.0); Mean Corpuscular Volume 77.8 fl (80-94); Mean Platelet Volume 8.7 fL (7.4-10.4); Monocytes # 0.8 10^3/uL (0.2-0.9); Monocytes % 8.5 %; Neutrophils # 5.47 10^3/uL (1.8-7.7); Neutrophils % 59.8 %; Nucleated Red Blood Cells % 0 %; Platelet Count 256 10^3/cmm (130-400); Red Blood Count 5.68 10^6/uL (4.1-5.3); Red Cell Distribution Width 16.2 % (12.1-15.1); White Blood Count 9.2 10^3/uL (4.0-10.0)
[2022-07-15 21:43] LABS: Alanine Aminotransferase 18 U/L (0-41); Albumin Level 4.5 g/dL (3.5-5.2); Alkaline Phosphatase 85 U/L (40-130); Anion Gap 11.9 (5-19); Aspartate Amino Transferase 16 U/L (0-40); Blood Urea Nitrogen 20 mg/dL (6-20); Calcium 9.6 mg/dL (8.5-10.5); Carbon Dioxide 30 mmol/L (22-29); Chloride 96 mmol/L (98-107); Globulin 2.8 g/dL (1.3-4.6); Glucose 108 mg/dL (65-115); Osmolality Calculated 281 mOsm/kg (285-295); Potassium 3.9 mmol/L (3.5-5.1); Sodium 134 mmol/L (136-145); Total Bilirubin 0.2 mg/dL (0.15-1.2); Total Protein 7.3 g/dL (6.6-8.7)
[2022-07-15 21:58] LABS: Troponin(5th) Baseline 10 ng/L (0-15)
[2022-07-15 22:21] VITALS: BP 150/97; PULSE 76; RESP 24; O2SAT 98
== END 2022-07-15 22:22 | disposition home or self-care (01) ==
PROVIDERS: Emergency Provider Emergency Medicine; PCP Nurse Practitioner
DX: R07.89 Other chest pain (principal); Z79.82 Long term (current) use of aspirin; Z86.19 Personal history of other infectious and parasitic diseases; E11.9 Type 2 diabetes mellitus without complications; J44.9 Chronic obstructive pulmonary disease, unspecified; I10 Essential (primary) hypertension; B20 Human immunodeficiency virus [HIV] disease
CPT/HCPCS: 36415; 71045; 80053; 84484; 85025; 93005; 99285

== ENCOUNTER → 2022-12-19 16:28 | Outpatient (BNVA) | payer MEDICAID, SELFPAY | PROVIDERS: PCP Nurse Practitioner; Visit Provider Nurse Practitioner | DX: E11.65 Type 2 diabetes mellitus with hyperglycemia (principal); K59.04 Chronic idiopathic constipation; I10 Essential (primary) hypertension | CPT/HCPCS: 80053; 80061; 81000; 83036 ==

== ENCOUNTER 2023-02-21 17:02 | Inpatient (IN) | payer MEDICAID, SELFPAY ==
[2023-02-21 17:07] VITALS: BP 135/70; PULSE 75; RESP 18; TEMP 36.9; O2SAT 97; BMI 26.5
--- NOTE | 2023-02-21 17:36 | XRR_ITS ---
PROCEDURE INFORMATION: Exam: XR Chest Exam date and time: 02/21/2023 5:38 PM Age: 57 years old Clinical indication: Chest wall pain; Additional info: Chest pain TECHNIQUE: Imaging protocol: Radiologic exam of the chest. Views: 1 view. COMPARISON: CR (CHEST, ) 07/15/2022 9:05 PM FINDINGS: Lungs: No focal consolidation. Pleural spaces: Potential trace right pleural effusion. No pneumothorax. Heart/Mediastinum: No cardiomegaly. Bones/joints: No acute findings. XR/XR chest 1V portable [id number] IMPRESSION: No acute chest findings.
--- NOTE | 2023-02-21 17:40 | ED.C_ITS ---
HPI - Psych General: Chief Complaint: Psychiatric Symptoms Stated Complaint: weakness, cp, throat pain Time Seen by Provider: 02/21/23 17:30 History of Present Illness: Patient states he has been having generalized weakness throat pain and intermittent chest pain off and on since yesterday. Patient also stated he is hearing voices in his head and they are telling him they are going to kill him. Patient does report he is unable to sleep secondaryTo these voices. Patient does have what appears to be tar dive dyskinesia of the face. Review of Systems General: Reports: 10 or more systems reviewed and unremarkable except in HPI and below PFSH ED PFSH: Medical History Acid reflux Cervical radicular pain Chronic hepatitis C Chronic idiopathic constipation Controlled diabetes mellitus with hyperglycemia, without long-term current use o f insulin COPD (chronic obstructive pulmonary disease) Dependence on nocturnal oxygen therapy Essential (primary) hypertension Gastritis HIV disease Major depressive disorder, recurrent, moderate Nicotine dependence, cigarettes, with other nicotine-induced disorders Nocturnal hypoxia 2018 Other schizophrenia Psychiatric care Schizophrenia Tardive dyskinesia Tardive dyskinesia Vitamin D deficiency Surgical History History of adenoidectomy History of appendectomy History of colonoscopy History of tonsillectomy History of tympanostomy Family History Father COPD (chronic obstructive pulmonary disease) Mother COPD (chronic obstructive pulmonary disease) Other Cancer Social History Smoking and tobacco/nicotine status: never used tobacco/nicotine Second hand smoke exposure: No Alcohol intake: never Substance/Drug Use: never Adopted: No Caregiver/support person: No Lives independently: Yes Housing: House Marital status: Single Number of children: 0 service: No Current occupational status: disabled Current occupational exposures/hazards: No Do you think of yourself as: Straight/Heterosexual Current gender identity: Male Physical Exam Const: COMMON NORMALS: no acute distress, average body habitus, patient orient ed x3, no limitations, healthy appearing, alert and well nourished HENMT: COMMON NORMALS: normocephalic, atraumatic, hearing grossly normal bilaterally, external ears normal, Normal external nose present, moist oral mucous membranes and oropharynx normal HEAD & SCALP: normocephalic and atraumatic NOSE: Normal external nose present EXTERNAL EAR: Yes external ears normal Neck/C-Spine: COMMON NORMALS: full ROM, no lymphadenopathy, supple, no meningeal signs, no JVD and Thyroid normal THYROID: Thyroid normal Chest: COMMONS NORMALS: normal inspection of the chest and normal palpation of entire chest wall Resp: COMMON NORMALS: normal respiratory effort, No retractions, No use of accessory muscles and clear to auscultation bilaterally AUSCULTATION: clear to auscultation bilaterally Cardio: COMMON NORMALS: no JVD, regular rate, regular rhythm, S1 normal heart sound present, S2 normal heart sound present, No gallops present (Cardio), No clicks present (Cardio), No murmurs present (Cardio) and No rub (Cardio) RATE: regular rate RHYTHM: regular rhythm HEART SOUNDS: S1 normal heart sound present and S2 normal heart sound present GI: COMMON NORMALS: Normal to inspection, nondistended, normoactive bowel sounds present, Soft to palpation, non-tender, No hepatosplenomegaly present and no masses PALPATION: Yes Soft to palpation and Yes No hepatosplenomegaly present Neuro: COMMON NORMALS: patient oriented x3 SENSORIUM/ORIENTATION: Yes alert MENINGEAL SIGNS: Yes no meningeal signs Course Vital Signs: Vital signs: Vital Signs Temperature 98.5 F 02/21/23 17:07 Pulse Rate 75 02/21/23 17:07 Respiratory Rate 18 02/21/23 17:07 Blood Pressure 135/70 02/21/23 17:07 Pulse Oximetry 97 02/21/23 17:07 Oxygen Delivery Me thod Room Air 02/21/23 17:07 MDM - Psych Medical Decision Making Presents to the ER today complaining of hearing voices and the voices threatening to kill him. Patient also complains of generalized weakness throat pain and chest pain all off-and-on. Patient was worked up in a standard psychiatric fashion as well as a chest pain fashion. All of which was negative. Dr. Torres was consulted who agreed to take the patient into the [facility] for further evaluation and treatment. Differential Diagnosis Likely suicidal ideation; Unlikely acute psychosis, chronic schizophrenia, bipolar disorder, depression, drug-induced psychotic disorder or acute anxiety Medical Records I reviewed the patient's medical records. Lab Data I reviewed the patient's lab results. 02/21/23 18:11 02/21/23 18:11 Radiology Impressions Chest X-Ray 02/21/23 17:36 IMPRESSION: No acute chest findings. Laboratory Results WBC 9.73 10^3/uL (3.29-11.43) 02/21/23 18:11 RBC 5.54 10^6/uL (3.85-5.65) 02/21/23 18:11 Hgb 11.70 g/dL (11.27-16.99) 02/21/23 18:11 Hct 41.2 % (37-53) 02/21/23 18:11 MCV 74.4 fl (82-101) L 02/21/23 18:11 MCH 21.1 pg (27-33) L 02/21/23 18:11 MCHC 28.4 g/dL (30-55) L 02/21/23 18:11 RDW 17.4 % (12.1-15.1) H 02/21/23 18:11 Plt Count 320 10^3/cmm (157-399) 02/21/23 18:11 MPV 9.0 fL (7.4-10.4) 02/21/23 18:11 Neut % (Auto) 67.1 % 02/21/23 18:11 Lymph % (Auto) 21.6 % 02/21/23 18:11 [place] % (Auto) 7.9 % 02/21/23 18:11 Eos % (Auto) 1.8 % 02/21/23 18:11 Baso % (Auto) 1.2 % 02/21/23 18:11 Neut # (Auto) 6.52 10^3/uL (1.8-7.7) 02/21/23 18:11 Lymph # (Auto) 2.1 10^3/uL (0.8-4.8) 02/21/23 18:11 [place] # (Auto) 0.8 10^3/uL (0.2-0.9) 02/21/23 18:11 Eos # (Auto) 0.2 10^3/uL (0.0-0.8) 02/21/23 18:11 Baso # (Auto) 0.1 10^3/uL (0.0-0.1) 02/21/23 18:11 Nucleated RBC % (auto) 0 % 02/21/23 18:11 Nucleated RBCs # 0.0 /100WBC 02/21/23 18:11 Sodium 139 mmol/L (136-145) 02/21/23 18:11 Potassium 4.2 mmol/L (3.5-5.1) 02/21/23 18:11 Chloride 103 mmol/L (98-107) 02/21/23 18:11 Carbon Dioxide 27 mmol/L (22-29) 02/21/23 18:11 Anion Gap 13.2 (5-19) 02/21/23 18:11 BUN 13 mg/dL (6-20) 02/21/23 18:11 Creatinine 0.7 mg/dL (0.7-1.2) 02/21/23 18:11 GFR Calculation 116.2 mL/min (90-130) 02/21/23 18:11 Glucose 95 mg/dL (65-115) 02/21/23 18:11 Calculated Osmolality 288 mOsm/kg (285-295) 02/21/23 18:11 Calcium 9.6 mg/dL (8.5-10.5) 02/21/23 18:11 Magnesium 2.2 mg/dL (1.7-2.3) 02/21/23 18:11 Total Bilirubin 0.2 mg/dL (0.15-1.2) 02/21/23 18:11 AST 17 U/L (0-40) 02/21/23 18:11 ALT 19 U/L (0-41) 02/21/23 18:11 Alkaline Phosphatase 66 U/L (40-130) 02/21/23 18:11 Troponin T Baseline 8 ng/L (0-15) 02/21/23 18:11 Total Protein 7.5 g/dL (6.6-8.7) 02/21/23 18:11 Albumin 4.8 g/dL (3.5-5.2) 02/21/23 18:11 Globulin 2.7 g/dL (1.3-4.6) 02/21/23 18:11 Urine Color Yellow (Yellow) 02/21/23 17:35 Urine Appearance Clear (CLEAR) 02/21/23 17:35 Urine pH 5 (5-7) 02/21/23 17:35 Ur Specific [place] 1.007 (1.005-1.030) 02/21/23 17:35 Urine Protein Neg (Negative) 02/21/23 17:35 Urine Glucose (UA) Norm (Normal) 02/21/23 17:35 Urine Ketones Negative (Negative) 02/21/23 17:35 Urine Blood Neg (Negative) 02/21/23 17:35 Urine Nitrate Negative (Negative) 02/21/23 17:35 Urine Bilirubin Neg (Negative) 02/21/23 17:35 Urine Urobilinogen Neg mg/dL (Negative) 02/21/23 17:35 Ur Leukocyte Esterase Negative (Negative) 02/21/23 17:35 Salicylates < 0.3 mg/dL (3-10) L 02/21/23 18:11 Urine Opiates Screen Negative ng/mL (Negative) 02/21/23 17:35 Acetaminophen < 5.0 ug/mL (10-30) L 02/21/23 18:11 Ur Barbiturates Screen Negative ng/mL (Negative) 02/21/23 17:35 Ur Phencyclidine Scrn Negative ng/mL (Negative) 02/21/23 17:35 Ur Amphetamines Screen Negative ng/mL (Negative) 02/21/23 17:35 U Benzodiazepines Scrn Negative ng/mL (Negative) 02/21/23 17:35 Urine Cocaine Screen Negative ng/mL (Negative) 02/21/23 17:35 U Marijuana (THC) Screen Negative ng/mL (Negative) 02/21/23 17:35 Ethyl Alcohol < 10 mg/dL (0-10) 02/21/23 18:11 All radiology interpretation(s) finalized by discharge EKG Data EKG 1: I personally reviewed and interpreted this EKG as follows: EKG interpretation date: 02/21/23 EKG interpretation time: 19:23 Prior EKG tracings: not available for review Interpretation: EKG showed ventricular rate 61 beats a minute, [place] interval 157, QRS duration 81, QTc 377, sinus rhythm, no ST-T wave changes Discharge Plan Discharge Patient Disposition: Admitted As Inpatient Clinical Impression: Acute psychosis Condition: Stable Coding Level of Care Code ED Field Research Assistant for Chg Kyra
[2023-02-21 18:13] LABS: Add Urine Microscopic? NO; Charge for UA Resulting for Rev
[2023-02-21 18:17] LABS: Basophils # 0.1 10^3/uL (0.0-0.1); Basophils % 1.2 %; Eosinophils # 0.2 10^3/uL (0.0-0.8); Eosinophils % 1.8 %; Hematocrit 41.2 % (37-53); Lymphocytes # 2.1 10^3/uL (0.8-4.8); Lymphocytes % 21.6 %; Mean Corpuscular HGB Conc 28.4 g/dL (30-55); Mean Corpuscular Hemoglobin 21.1 pg (27-33); Mean Corpuscular Volume 74.4 fl (82-101); Monocytes # 0.8 10^3/uL (0.2-0.9); Monocytes % 7.9 %; Neutrophils # 6.52 10^3/uL (1.8-7.7); Neutrophils % 67.1 %; Nucleated Red Blood Cells % 0 %; Platelet Count 320 10^3/cmm (157-399); Red Blood Count 5.54 10^6/uL (3.85-5.65); Red Cell Distribution Width 17.4 % (12.1-15.1); White Blood Count 9.73 10^3/uL (3.29-11.43)
[2023-02-21 18:19] LABS: Bilirubin Urine Neg (Negative); Blood Urine Neg (Negative); Glucose Urine UA Norm (Normal); Ketones Urine Negative (Negative); Leukocyte Esterase Urine Negative (Negative); Nitrate Urine Negative (Negative); Protein Urine Neg (Negative); Specific Gravity, Urine 1.007 (1.005-1.030); Urine Appearance Clear (CLEAR); Urine Color Yellow (Yellow); Urobilinogen Urine Neg (Negative); pH Urine 5 (5-7)
[2023-02-21 18:27] LABS: Amphetamines Screen Urine Negative (Negative); Barbiturates Screen Urine Negative (Negative); Benzodiazepines Screen Urine Negative (Negative); Cocaine Screen Urine Negative (Negative); Opiate Screen Urine Negative (Negative); PCP Screen Urine Negative (Negative); THC Screen Urine Negative (Negative)
[2023-02-21 18:32] LABS: Troponin(5th) Baseline 8 ng/L (0-15)
[2023-02-21 18:34] LABS: Alanine Aminotransferase 19 U/L (0-41); Albumin Level 4.8 g/dL (3.5-5.2); Alkaline Phosphatase 66 U/L (40-130); Anion Gap 13.2 (5-19); Aspartate Amino Transferase 17 U/L (0-40); Blood Urea Nitrogen 13 mg/dL (6-20); Calcium 9.6 mg/dL (8.5-10.5); Carbon Dioxide 27 mmol/L (22-29); Chloride 103 mmol/L (98-107); Globulin 2.7 g/dL (1.3-4.6); Glomerular Filtration Rate 116.2 mL/min (90-130); Glucose 95 mg/dL (65-115); Magnesium 2.2 mg/dL (1.7-2.3); Osmolality Calculated 288 mOsm/kg (285-295); Potassium 4.2 mmol/L (3.5-5.1); Sodium 139 mmol/L (136-145); Total Bilirubin 0.2 mg/dL (0.15-1.2); Total Protein 7.5 g/dL (6.6-8.7)
[2023-02-21 18:36] LABS: Acetaminophen < 5.0 ug/mL (10-30); Alcohol Level < 10 mg/dL (0-10); Salicylate < 0.3 mg/dL (3-10)
--- NOTE | 2023-02-21 19:37 | ECG_ITS ---
[facility] Test Date: 2023-02-21 Pat Name: Osmar Becker Department: Room: Gender: Male Lasting Machine Operator: : 1965 Requested By: Des Garza Order Number: [id number] Dany MD: Bonifacio Forbes M.D. Measurements Intervals [place] Rate: 61 P: -28 VT: 157 QRS: 72 QRSD: 81 T: 61 QT: 375 QTc: 378 Interpretive Statements SINUS RHYTHM Compared to ECG 07/15/2022 21:00:37 Ectopic atrial rhythm no longer present Electronically Signed On 02-22-2023 15:59:56 SOFTWARE COMPUTER SPECIALIST by Bonifacio Forbes M.D. [id number]
[2023-02-21 20:14] VITALS: RESP 18
[2023-02-21 20:44] LABS: Troponin 5 2HR 10.28 ng/L (0-15); Troponin 5 2HR Delta 2.28 ABS# (0-10)
[2023-02-21] MEDS: trazodone 50 mg Tablet PO (21:03)
[2023-02-21] MEDS: hyDROXYzine 25 mg Capsule 50 MG PO (21:03)
[2023-02-21] MEDS: flu vacc pf 2023-24 (6 mos+) 60 MCG IM (21:10)
[2023-02-21 21:20] VITALS: BP 164/82; PULSE 63; RESP 20; TEMP 36.6; O2SAT 95
[2023-02-21] MEDS: calcium carbonate 500 mg Chew Tablet 1000 MG PO (21:58)
--- NOTE | 2023-02-21 23:37 | ECG_ITS ---
[facility] Test Date: 2023-02-21 Pat Name: Osmar Becker Department: Room: 128 Gender: Male Storage Battery Inspector And Tester: : 1965 Requested By: Des Garza Order Number: [id number] Dany MD: Bonifacio Forbes M.D. Measurements Intervals [place] Rate: 72 P: -18 NE: 141 QRS: 72 QRSD: 91 T: 67 QT: 365 QTc: 402 Interpretive Statements SINUS RHYTHM Compared to ECG 02/21/2023 19:23:35 No significant changes Electronically Signed On 02-22-2023 16:00:24 LICENSED APPRAISER by Bonifacio Forbes M.D. [id number]
[2023-02-22 00:38] LABS: Troponin 5 6HR 9.89 ng/L (0-15); Troponin 5 6HR Delta 1.89 ng/L (0-12)
[2023-02-22 06:00] VITALS: BP 136/67; PULSE 85; RESP 16; O2SAT 93
--- NOTE | 2023-02-22 08:30 | W.PM.NPUH&PS ---
Providers/Chief Complaint Admitting Physician: Aryan Torres MD Primary Care Provider: LIZA Gutiérrez Chief Complaint: weakness, cp, throat pain HPI NPU History of Present Illness Osmar Becker is a 57 year old male who presented to the emergency department with the following report: Chief Complaint: Psychiatric Symptoms Stated Complaint: weakness, cp, throat pain Time Seen by Provider: 02/21/23 17:30 History of Present Illness: Patient states he has been having generalized weakness throat pain and intermittent chest pain off and on since yesterday. Patient also stated he is hearing voices in his head and they are telling him they are going to kill him. Patient does report he is unable to sleep secondaryTo these voices. Patient does have what appears to be tar dive dyskinesia of the face. He was admitted to the neuropsychiatric unit for definitive treatment of those issues. He has a very significant speech impediment that is secondary to history of dyskinesia. This made it very difficult for him to communicate the situation. His last hospitalization here was in October and excerpt of that discharge summary is included below for information. He has been following up at [facility]. His last visit with his nurse practitioner was 12/23/2022 with patient reportedly doing well. He did not identify less changes in the last 2 months that have led to him feeling suicidal and coming to the hospital. It is unclear with his interview what has changed in the last 2 months and that has led to feeling suicidal. He endorses taking medication as prescribed. We agreed we would review his medications and get some collateral information regarding his situation. Per his 10/19/2021 [facility] inpatient psychiatric discharge summary: Discharge Diagnosis (1) Other schizophrenia: (2) Major depressive disorder, recurrent, moderate: Status: Chronic (3) COPD (chronic obstructive pulmonary disease): Status: Chronic (4) Tardive dyskinesia: Status: Chronic (5) Chronic idiopathic constipation: Status: Chronic (6) Controlled diabetes mellitus with hyperglycemia, without long-term current use of insulin: Status: Chronic Qualifiers: Diabetes mellitus type: type 2 Qualified Code(s): E11.65 - Type 2 diabetes mellitus with hyperglycemia Reason for Visit Reason for Visit: auditory hallucinations. Brief History: History of Present Illness Osmar Becker is a 55 year old male with a history of schizophrenia and and tardive dyskinesia who was admitted involuntarily on a 96-hour hold due to an inability to take care of himself with an increased presence of auditory hallucinations and disorganized thinking and disorganized behavior. Per ED note, He had presented to ED after he was involved in a argument with his mother. Per patient, he tells me that he was upset with his mom recently and reports that he has been overwhelmed by his thoughts. He was brought here per patient because his mother told him that he needed more help to manage his thoughts. The patient reports that he has been feeling more depressed over the past few months but denies thoughts of hurting himself or others. He reports that he has not received outpatient mental health treatment in several months with previous records indicating follow up over 1 year ago at [facility]. Past psychiatric history: Patient has reported a history of multiple inpatient hospitalizations beginning at the age of 30. He is uncertain as to when he was last hospitalized. He reports a diagnosis of schizophrenia in the past with previous records indicating a diagnosis of tar dive dyskinesia as well. He had recently been seen by Bijal Cummings in the outpatient clinic approximately 1 year ago. Previous medications include Invega. Current current psychiatric medications: None Allergies: nkda Medical Hx: signficant for COPD, GERD, on CPAP, Medications: Albuterol inhaler, budesonide, omeprazole, Surgeries: reported abdominal surgery Legal Hx: none Social Hx: 1/2 ppd smoker, he was born in [facility] and raised by his biological parents. He reports his father at the age of 10. He reports that he is a homosexual male with no children and with no history of any significant others or previous history of marriage. He reports that he lives with his mother who has significant medical problems. He reports having siblings but reports that they are not supportive. He reports that he is on disability for his mental illness. 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 He denies any history of drug or alcohol use currently. He reports having few social supports. Family psychiatric history: none reported, unknown hx of sexual/physical or emotional trauma. Hospital Course He slowly acclimated to the individual, group and milieu therapies provided. His Invega was discontinued as well as his Paxil and he was started on Latuda which was slowly titrated to 60 mg p.o. daily with meals. He showed notable improvement and was able to contract for safety outside the hospital prior to discharge. During the hospitalization, patient had routine laboratory studies which were within normal limits except for few outliers. Additionally there was a general medical evaluation which was also within normal limits and revealed no new acute processes. Discharge Summary: At the time of discharge, lethality was denied and psychosis was resolving. Mood and anxiety were well managed. Patient endorsed a plan to avoid all drugs of abuse and follow-up with the aftercare recommendations of the treatment team. Patient was evaluated and deemed to be absent credible lethality, and had achieved the maximum benefit from an inpatient hospitalization, so was discharged. Meds NPU Home Medications Medication Instructions Recorded Confirmed Last Taken Type aspirin 325 mg tablet,delayed 325 mg PO QAM 04/06/19 02/21/23 01/11/22 History release ipratropium 0.5 mg-albuterol 3 mg 3 ml inhalation Q4H PRN Shortness 09/05/21 02/21/23 Unknown Rx (2.5 mg base)/3 mL nebulization Of Breath #120 mL soln albuterol sulfate 90 mcg/actuation 2 puff inhalation Q4H PRN 04/09/22 02/21/23 Unknown Rx aerosol inhaler shortness of breath #8.5 grams dapagliflozin propanediol 5 mg 5 mg PO QAM #30 tabs 12/20/22 02/21/23 Unknown Rx tablet (Farxiga) gabapentin 300 mg capsule 300 mg PO BID Pain #60 caps 12/20/22 02/21/23 Unknown Rx linaclotide 145 mcg capsule 145 mcg PO QAM #30 caps 12/20/22 02/21/23 Unknown Rx (Linzess) magnesium hydroxide 400 mg/5 mL 30 ml PO BID Constipation #1,200 mL 12/20/22 02/21/23 Unknown Rx oral suspension (Milk of Magnesia) magnesium oxide 400 mg PO BID #60 tabs 12/20/22 02/21/23 Unknown Rx omeprazole 20 mg tablet,delayed 20 mg PO DAILY #30 tabs 12/20/22 02/21/23 Unknown Rx release valsartan 40 mg tablet 40 mg PO QAM #30 tabs 12/20/22 02/21/23 Unknown Rx benztropine 1 mg tablet 1 mg PO BID PRN EPS #60 tabs 12/23/22 02/21/23 Unknown Rx fenofibrate nanocrystallized 145 145 mg PO DAILY #30 tabs 12/23/22 02/21/23 Unknown Rx mg tablet (Tricor) lurasidone 80 mg tablet (Latuda) 80 mg PO DAILY #30 tabs 12/23/22 02/21/23 Unknown Rx Allergies Allergy/AdvReac Type Severity Reaction Status Date / Time No Known Allergies Allergy Verified 12/23/22 10:58 PFSH NPU PFSH: Medical History Acid reflux Cervical radicular pain Chronic hepatitis C Chronic idiopathic constipation Controlled diabetes mellitus with hyperglycemia, without long-term current use of insulin COPD (chronic obstructive pulmonary disease) Dependence on nocturnal oxygen therapy Essential (primary) hypertension Gastritis HIV disease Major depressive disorder, recurrent, moderate Nicotine dependence, cigarettes, with other nicotine-induced disorders Nocturnal hypoxia 2018 Other schizophrenia Psychiatric care Schizophrenia Tardive dyskinesia Tardive dyskinesia Vitamin D deficiency Surgical History History of adenoidectomy History of appendectomy History of colonoscopy History of tonsillectomy History of tympanostomy Family History Father COPD (chronic obstructive pulmonary disease) Mother COPD (chronic obstructive pulmonary disease) Other Cancer Social History Smoking and tobacco/nicotine status: never used tobacco/nicotine Second hand smoke exposure: No Alcohol intake: never Substance/Drug Use: never Adopted: No Caregiver/support person: No Lives independently: Yes Housing: House Marital status: Single Number of children: 0 service: No Current occupational status: disabled Current occupational exposures/hazards: No Do you think of yourself as: Straight/Heterosexual Current gender identity: Male Mental Status Exam MSE Comments: This is an overweight white male in hospital scrubs with limited grooming and eye contact. No abnormal movements except for some clear EPS with unintended movement of his tongue and lips as well as psychomotor retardation. Cooperative with exam in mild to moderate distress. Speech was limited and decreased rate and volume with poor articulation secondary to his tardive dyskinesia. Mood described as down, affect congruent. Thought process linear. Thought content: Patient endorses suicidal but denied homicidal deation, there were no delusions reported or noted, he did not appear to be attending to internal stimuli. Attention and concentration were limited and memory appeared limited but none were formally tested. He is alert and oriented x person and place. Insight and judgment limited impulse control impaired. Vitals/I&O/Wt Last Vital Signs Temp 97.9 F 02/21/23 21:20 Pulse 63 02/21/23 21:20 Resp 20 H 02/21/23 21:20 BP 164/82 02/21/23 21:20 Pulse Ox 95 02/21/23 21:20 O2 Del Method Room Air 02/21/23 21:20 Weight last 48 hrs Weight 83.915 kg Data NPU 02/21/23 18:11 02/21/23 18:11 A&P Assessment and plan (1) Other schizophrenia: (2) Major depressive disorder, recurrent, moderate: (3) COPD (chronic obstructive pulmonary disease): (4) Tardive dyskinesia: (5) Chronic idiopathic constipation: (6) Controlled diabetes mellitus with hyperglycemia, without long-term current use of insulin: Qualifiers: Diabetes mellitus type: type 2 Qualified Code(s): E11.65 - Type 2 diabetes mellitus with hyperglycemia (7) Acute psychosis: Plan This is a 57-year-old white male with a long history of schizophrenia and significant EPS/tardive dyskinesia who presents endorsing suicidal ideation. 1. Continue current medication. Consider increasing Latuda 2. Continue every 15 minute checks for safety. 3. Encourage individual, group and milieu therapies. Involuntary Hold Information 96 Hour Hold: 96 Hour Involuntary Admission: No 96 Hour Hold Ending Date: 10/19/21 96 Hour Hold Ending Time: 00:01 Attestations NPU Medical Necessity Statement*: Inpatient hospitalization is medically necessary and the clinically appropriate intervention at this time. We will monitor medications and make changes as indicated. He will be in the hospital for over 2 midnights. Likely length of stay 4 to 6 days. Coding Level of Care Code Acute Code for Chg Fwd Diagnoses Other schizophrenia F20.89 Major depressive disorder, recurrent, moderate F33.1 COPD (chronic obstructive pulmonary disease) J44.9 Tardive dyskinesia G24.01 Chronic idiopathic constipation K59.04 Controlled diabetes mellitus with hyperglycemia, without long-term current use of insulin E11.65 Diabetes mellitus type: type 2 Acute psychosis F23
[2023-02-22 13:22] VITALS: BP 119/73; PULSE 80; RESP 15; TEMP 36.4; O2SAT 95
[2023-02-22 19:51] VITALS: BP 132/72; PULSE 80; RESP 16; TEMP 36.6; O2SAT 92
[2023-02-23 06:00] VITALS: RESP 16
--- NOTE | 2023-02-23 06:28 | PC.NURSE ---
Asked pt multiple times to obtain vital signs. Pt rolled over and refused to obtain. Respiration Rate 16
[2023-02-23] MEDS: acetaminophen 325 mg Tablet 650 MG PO (09:05)
[2023-02-23 14:00] VITALS: BP 138/90; PULSE 83; RESP 15; TEMP 36.4; O2SAT 96
[2023-02-23] MEDS: magnesium oxide 400 mg tablet PO (17:54)
[2023-02-23] MEDS: gabapentin 300 mg Capsule PO (17:54)
[2023-02-23] MEDS: lurasidone 80 mg Tablet PO (17:54)
--- NOTE | 2023-02-23 18:16 | W.PM.NPUPNS ---
Subjective NPU Subjective: 57-year-old white male with a history of schizophrenia and tar dive dyskinesia admitted with increased depression and command auditory hallucinations telling him to hurt himself. He continued to report hearing voices telling him to hurt himself. He had reported noncompliance with Latuda over the past few weeks. He reported that he continued to hear voices telling him to hurt hurt himself. Staff notes the patient had isolated himself on the milieu. He had significant problems with attending and engaging in his own self-care. He reported sleep continuity disruption. He had reported that he would like to continue with follow-up at the [facility] when his voices were under better control. Mental Status Exam MSE Comments: This is an overweight white male in hospital scrubs with limited grooming and fleeting eye contact. No abnormal movements except for some clear unintended movement of his tongue and lips as well as psychomotor retardation. He was cooperative with exam in mild to moderate distress. Speech was limited and decreased rate and volume with poor articulation secondary to his tardive dyskinesia. Mood described as sad. His affect was blunted. Thought process was linear. Thought content: Patient endorses suicidal but denied homicidal ideation. There were no delusions reported or noted, he did to be attending to internal stimuli. Attention and concentration were limited and memory appeared limited but none were formally tested. He is alert and oriented x person and place. Insight and judgment were limited. His impulse control was impaired. Vitals/I&O/Wt Last Vital Signs Temp 97.5 F L 02/23/23 14:00 Pulse 83 02/23/23 14:00 Resp 15 02/23/23 14:00 BP 138/90 02/23/23 14:00 Pulse Ox 96 02/23/23 14:00 O2 Del Method Room Air 02/22/23 19:51 Weight last 48 hrs Weight 83.688 kg Data NPU 02/21/23 18:11 02/21/23 18:11 A&P Assessment and plan (1) Other schizophrenia: (2) Major depressive disorder, recurrent, moderate: (3) COPD (chronic obstructive pulmonary disease): (4) Tardive dyskinesia: (5) Chronic idiopathic constipation: (6) Controlled diabetes mellitus with hyperglycemia, without long-term current use of insulin: Qualifiers: Diabetes mellitus type: type 2 Qualified Code(s): E11.65 - Type 2 diabetes mellitus with hyperglycemia (7) Acute psychosis: Plan This is a 57-year-old white male with a long history of schizophrenia and significant EPS/tardive dyskinesia who presents endorsing suicidal ideation. 1. Continue Latuda 80mg at 7PM. Consider deutrobenazine for severe tardive dyskinesia. 2. Continue every 15 minute checks for safety. 3. Encourage individual, group and milieu therapies. Involuntary Hold Information 96 Hour Hold: 96 Hour Involuntary Admission: No 96 Hour Hold Ending Date: 10/19/21 96 Hour Hold Ending Time: 00:01 Attestations NPU Medical Necessity Statement*: Inpatient hospitalization is medically necessary and the clinically appropriate intervention at this time. We will monitor medications and make changes as indicated. His likely length of stay 4 to 6 days. Coding Level of Care Code Acute Code for Chg Fwd Diagnoses Other schizophrenia F20.89 Major depressive disorder, recurrent, moderate F33.1 COPD (chronic obstructive pulmonary disease) J44.9 Tardive dyskinesia G24.01 Chronic idiopathic constipation K59.04 Controlled diabetes mellitus with hyperglycemia, without long-term current use of insulin E11.65 Diabetes mellitus type: type 2 Acute psychosis F23
[2023-02-23 20:04] VITALS: BP 126/75; PULSE 72; RESP 16; TEMP 36.4; O2SAT 96
[2023-02-24 06:00] VITALS: BP 112/72; PULSE 79; RESP 18; O2SAT 95
[2023-02-24 06:40] VITALS: BP 112/72
[2023-02-24] MEDS: losartan 50 mg Tablet 25 MG PO (06:40)
[2023-02-24] MEDS: pantoprazole DR 40 mg Tablet PO (08:12)
[2023-02-24] MEDS: gabapentin 300 mg Capsule PO ×2 (08:12→17:13)
[2023-02-24] MEDS: fenofibrate 145 mg Tablet PO (08:12)
[2023-02-24] MEDS: magnesium oxide 400 mg tablet PO ×2 (08:13→17:13)
--- NOTE | 2023-02-24 10:48 | PC.OT ---
OT EVALUATION ATTEMPTED; PATIENT SLEEPING SOUNDLY AND DOES NOT AWAKEN.
[2023-02-24 14:00] VITALS: BP 138/77; PULSE 76; RESP 16; TEMP 36.6; O2SAT 96
[2023-02-24] MEDS: lurasidone 80 mg Tablet PO (17:13)
--- NOTE | 2023-02-24 17:47 | P.NPUPN_ITS ---
Subjective NPU Subjective: 57-year-old white male with a history of schizophrenia and tardive dyskinesia admitted with increased depression and command auditory hallucinations telling him to hurt himself. Patient continued to endorse hearing voices telling him bad things . He had reported having problems with his speech for months . He was compliant on the milieu. He had reported that the voices were telling him to hurt himself. He reported feeling more frustrated and hopeless that the voices had not quieted and reported that the voices were difficult to manage. Mental Status Exam MSE Comments: This is an overweight white male in hospital scrubs with limited grooming and fleeting eye contact. No abnormal movements except for some clear unintended movement of his tongue and lips as well as psychomotor re tardation.+orobuccalfacial movements appreciated. He was cooperative with exam in moderate distress. Speech was limited and decreased in rate and volume with severe articulation difficulties secondary to his tardive dyskinesia. Mood described as down. His affect was blunted. Thought process was linear. Thought content: Patient endorses suicidal but denied homicidal ideation. There were no delusions reported or noted, he did to be attending to internal stimuli. Attention and concentration were limited and memory appeared limited but none were formally tested. He is alert and oriented x person and place. Insight and judgment were limited. His impulse control was impaired. Vitals/I&O/Wt Last Vital Signs Temp 98 F 02/24/23 14:00 Pulse 76 02/24/23 14:00 Resp 16 02/24/23 14:00 BP 138/77 02/24/23 14:00 Pulse Ox 96 02/24/23 14:00 O2 Del Method Room Air 02/24/23 14:00 Weight last 48 hrs Weight 83.688 kg Data NPU 02/21/23 18:11 02/21/23 18:11 A&P Assessment and plan (1) Other schizophrenia: (2) Tardive dyskinesia: (3) Major depressive disorder, recurrent, moderate: (4) COPD (chronic obstructive pulmonary disease): (5) Chronic idiopathic constipation: (6) Controlled diabetes mellitus with hyperglycemia, without long-term current use of insulin: Qualifiers: Diabetes mellitus type: type 2 Qualified Code(s): E11.65 - Type 2 diabetes mellitus with hyperglycemia (7) Acute psychosis: Plan This is a 57-year-old white male with a long history of schizophrenia and significant EPS/tardive dyskinesia who presents endorsing suicidal ideation. 1. Continue Latuda 80mg at 7PM with titration likely. Trial of austedo 6mg bid to target tardive dyskinesia, B6 300mg to target tardive dyskinesia. 2. Continue every 15 minute checks for safety. 3. Encourage individual, group and milieu therapies. Involuntary Hold Information 96 Hour Hold: 96 Hour Involuntary Admission: No 96 Hour Hold Ending Date: 10/19/21 96 Hour Hold Ending Time: 00:01 Attestations NPU Medical Necessity Statement*: Inpatient hospitalization is medically necessary and the clinically appropriate intervention at this time. We will monitor medications and make changes as indicated. His likely length of stay 4-6 days. Coding Level of Care Code Acute Code for Chg Fwd Diagnoses Other schizophrenia F20.89 Tardive dyskinesia G24.01 Major depressive disorder, recurrent, moderate F33.1 COPD (chronic obstructive pulmonary disease) J44.9 Chronic idiopathic constipation K59.04 Controlled diabetes mellitus with hyperglycemia, without long-term current use of insulin E11.65 Diabetes mellitus type: type 2 Acute psychosis F23
[2023-02-24 20:08] VITALS: BP 123/68; PULSE 76; RESP 18; TEMP 36.8; O2SAT 95
[2023-02-25 06:00] VITALS: BP 123/75; PULSE 75; RESP 18; TEMP 36.8; O2SAT 92
[2023-02-25] MEDS: pantoprazole DR 40 mg Tablet PO (09:15)
[2023-02-25] MEDS: magnesium oxide 400 mg tablet PO ×2 (09:15→17:01)
[2023-02-25] MEDS: gabapentin 300 mg Capsule PO ×2 (09:15→17:01)
[2023-02-25] MEDS: pyridoxine 50 mg Tablet 300 MG PO (09:16)
[2023-02-25] MEDS: fenofibrate 145 mg Tablet PO (09:16)
[2023-02-25 09:17] VITALS: BP 123/75
[2023-02-25] MEDS: losartan 50 mg Tablet 25 MG PO (09:17)
[2023-02-25 14:00] VITALS: BP 122/71; PULSE 78; RESP 16; TEMP 36.6; O2SAT 95
--- NOTE | 2023-02-25 15:57 | W.PM.NPUPNS ---
Subjective NPU Subjective: 57-year-old white male with a history of schizophrenia and tardive dyskinesia admitted with increased depression and command auditory hallucinations telling him to hurt himself. He continue endorse auditory hallucinations. He reported being distracted by his thoughts. He had reported no improvement with his mouth movements that he attributed to antipsychotic use. The patient had stated that he was hoping to go home soon. He had reported he had lived with his parents. He had continued to isolate himself on the milieu. He was redirectable. He stated that the voices continue to say negative things about him at this time with no improvement currently from the Latuda. He had acknowledged that the Latuda had been discontinued by the patient without the doctor's knowledge. Mental Status Exam MSE Comments: This is an overweight white male in hospital scrubs with limited grooming and fleeting eye contact. No abnormal movements except for some clear unintended movement of his tongue and lips as well as psychomotor retardation.+orobuccofacial movements appreciated. He was cooperative with exam in moderate distress. Speech was limited and decreased in rate and volume with severe articulation difficulties secondary to his tardive dyskinesia. Mood described as down. His affect was blunted. Thought process was linear. Thought content: Patient endorses suicidal but denied homicidal ideation. There were no delusions reported or noted, he did to be attending to internal stimuli. Attention and concentration were limited and memory appeared limited but none were formally tested. He is alert and oriented x person and place. Insight and judgment were limited. His impulse control was impaired. Vitals/I&O/Wt Last Vital Signs Temp 98 F 02/25/23 14:00 Pulse 78 02/25/23 14:00 Resp 16 02/25/23 14:00 BP 122/71 02/25/23 14:00 Pulse Ox 95 02/25/23 14:00 O2 Del Method Room Air 02/25/23 14:00 Data NPU 02/21/23 18:11 02/21/23 18:11 A&P Assessment and plan (1) Other schizophrenia: (2) Tardive dyskinesia: (3) Major depressive disorder, recurrent, moderate: (4) COPD (chronic obstructive pulmonary disease): (5) Chronic idiopathic constipation: (6) Controlled diabetes mellitus with hyperglycemia, without long-term current use of insulin: Qualifiers: Diabetes mellitus type: type 2 Qualified Code(s): E11.65 - Type 2 diabetes mellitus with hyperglycemia (7) Acute psychosis: Plan This is a 57-year-old white male with a long history of schizophrenia and significant EPS/tardive dyskinesia who presents endorsing suicidal ideation. 1. Increase Latuda to 100mg at 7PM with titration likely. Attempting to get a trial of austedo 6mg bid or Ingrezza to target tardive dyskinesia, B6 300mg to target tardive dyskinesia. 2. Continue every 15 minute checks for safety. 3. Encourage individual, group and milieu therapies. Involuntary Hold Information 96 Hour Hold: 96 Hour Involuntary Admission: No 96 Hour Hold Ending Date: 10/19/21 96 Hour Hold Ending Time: 00:01 Attestations NPU Medical Necessity Statement*: Inpatient hospitalization is medically necessary and the clinically appropriate intervention at this time. We will monitor medications and make changes as indicated. His likely length of stay 4-6 days. Coding Level of Care Code Acute Code for Chg Fwd Diagnoses Other schizophrenia F20.89 Tardive dyskinesia G24.01 Major depressive disorder, recurrent, moderate F33.1 COPD (chronic obstructive pulmonary disease) J44.9 Chronic idiopathic constipation K59.04 Controlled diabetes mellitus with hyperglycemia, without long-term current use of insulin E11.65 Diabetes mellitus type: type 2 Acute psychosis F23
[2023-02-25] MEDS: lurasidone 20 mg Tablet 100 MG PO (17:01)
[2023-02-25 20:41] VITALS: BP 125/65; PULSE 70; RESP 18; TEMP 36.3; O2SAT 95
[2023-02-25] MEDS: trazodone 50 mg Tablet PO (20:46)
[2023-02-26 06:00] VITALS: BP 127/80; PULSE 74; RESP 18; O2SAT 93
[2023-02-26] MEDS: pantoprazole DR 40 mg Tablet PO (09:20)
[2023-02-26] MEDS: losartan 50 mg Tablet 25 MG PO (09:20)
[2023-02-26] MEDS: magnesium oxide 400 mg tablet PO ×2 (09:21→20:24)
[2023-02-26] MEDS: pyridoxine 50 mg Tablet 300 MG PO (09:21)
[2023-02-26] MEDS: fenofibrate 145 mg Tablet PO (09:21)
[2023-02-26] MEDS: gabapentin 300 mg Capsule PO ×2 (09:21→20:24)
[2023-02-26 14:00] VITALS: BP 144/79; PULSE 69; RESP 16; TEMP 36.6; O2SAT 99
--- NOTE | 2023-02-26 16:54 | P.NPUPN_ITS ---
Subjective NPU Subjective: 57-year-old white male with a history of schizophrenia and tardive dyskinesia admitted with increased depression and command auditory hallucinations telling him to hurt himself. The patient had reported that the auditory hallucinations had been lessened. He reported some improved ability to speak with the addition of vitamin B6 to combat tardive dyskinesia. He had continued to isolate himself on the milieu. Treatment team had failed in our attempts to obtain a FDA approved medication such as Austedo or Ingrezza for a trial here. The patient had expressed desire to go home soon and stated that the voices were getting quieter. He reported no side effects from his current medication regimen. Mental Status Exam MSE Comments: This is an overweight white male in hospital scrubs with limited grooming and fleeting eye contact. No abnormal movements except for some clear unintended movement of his tongue and lips as well as psychomotor retardation.+orobuccofacial movements appreciated. He was cooperative with exam in moderate distress. Speech was more productive and spontaneous with normal volume with severe articulation difficulties secondary to his tardive dyskinesia. Mood described as better. His affect was slightly restricted. Thought process was linear. Thought content: Patient endorses no suicidal or homicidal ideation. There were no delusions reported or noted. he did briefly appear to be responding to internal stimuli. Attention and concentratio n were limited and memory appeared limited but none were formally tested. He is alert and oriented x person and place. Insight and judgment were improving. His impulse control was improving as well. Vitals/I&O/Wt Last Vital Signs Temp 98 F 02/26/23 14:00 Pulse 69 02/26/23 14:00 Resp 16 02/26/23 14:00 BP 144/79 02/26/23 14:00 Pulse Ox 99 02/26/23 14:00 O2 Del Method Room Air 02/26/23 14:00 Data NPU 02/21/23 18:11 02/21/23 18:11 A&P Assessment and plan (1) Other schizophrenia: (2) Tardive dyskinesia: (3) Major depressive disorder, recurrent, moderate: (4) COPD (chronic obstructive pulmonary disease): (5) Chronic idiopathic constipation: (6) Controlled diabetes mellitus with hyperglycemia, without long-term current use of insulin: Qualifiers: Diabetes mellitus type: type 2 Qualified Code(s): E11.65 - Type 2 diabetes mellitus with hyperglycemia (7) Acute psychosis: (8) Schizophrenia, paranoid type: Plan This is a 57-year-old white male with a long history of schizophrenia and significant EPS/tardive dyskinesia who presents endorsing suicidal ideation. 1. Continue Latuda [id number] at 7PM. increase B6 to 400 mg daily. Spoke with outpatient psychiatrist and strongly encouraged the patient Dr./Nurse to follow-up with authorization required for VMAT inhibitors including Austedo and Ingrezza. 2. Continue every 15 minute checks for safety. 3. Encourage individual, group and milieu therapies. Involuntary Hold Information 96 Hour Hold: 96 Hour Involuntary Admission: No 96 Hour Hold Ending Date: 10/19/21 96 Hour Hold Ending Time: 00:01 Attestations NPU Medical Necessity Statement*: Inpatient hospitalization is medically necessary and the clinically appropriate intervention at this time. We will monitor medications and make changes as indicated. His likely length of stay 1-2 days. Coding Level of Care Code Acute Code for Chg Fwd Diagnoses Other schizophrenia F20.89 Tardive dyskinesia G24.01 Major depressive disorder, recurrent, moderate F33.1 COPD (chronic obstructive pulmonary disease) J44.9 Chronic idiopathic constipation K59.04 Controlled diabetes mellitus with hyperglycemia, without long-term current use of insulin E11.65 Diabetes mellitus type: type 2 Acute psychosis F23 Schizophrenia, paranoid type F20.0
[2023-02-26] MEDS: lurasidone 20 mg Tablet 100 MG PO (17:21)
[2023-02-26 20:33] VITALS: BP 126/69; PULSE 65; RESP 15; TEMP 36.4; O2SAT 94
[2023-02-27 06:00] VITALS: BP 118/66; PULSE 75; RESP 15; TEMP 36.5; O2SAT 92
[2023-02-27] MEDS: fenofibrate 145 mg Tablet PO (07:55)
[2023-02-27] MEDS: losartan 50 mg Tablet 25 MG PO (07:55)
[2023-02-27] MEDS: gabapentin 300 mg Capsule PO (07:55)
[2023-02-27] MEDS: magnesium oxide 400 mg tablet PO (07:55)
[2023-02-27] MEDS: pantoprazole DR 40 mg Tablet PO (07:56)
[2023-02-27] MEDS: pyridoxine 50 mg Tablet 400 MG PO (07:56)
[2023-02-27 09:02] VITALS: BP 118/66; PULSE 75; RESP 15; TEMP 36.5; O2SAT 92
--- NOTE | 2023-02-27 10:02 | P.NPUDS_ITS ---
Diagnoses at Discharge Discharge Diagnosis (1) Other schizophrenia: (2) Tardive dyskinesia: Status: Chronic (3) Major depressive disorder, recurrent, moderate: Status: Chronic (4) COPD (chronic obstructive pulmonary disease): Status: Chronic (5) Chronic idiopathic constipation: Status: Chronic (6) Controlled diabetes mellitus with hyperglycemia, without long-term current u se of insulin: Status: Chronic Qualifiers: Diabetes mellitus type: type 2 Qualified Code(s): E11.65 - Type 2 diabetes mellitus with hyperglycemia (7) Acute psychosis: Status: Acute (8) Schizophrenia, paranoid type: Status: Acute Reason for Visit Reason for Visit: weakness, cp, throat pain Brief History: History of Present Illness Osmar Becker is a 57 year old male who presented to the emergency department with the following report: Chief Complaint: Psychiatric Symptoms Stated Complaint: weakness, cp, throat pain Time Seen by Provider: 02/21/23 17:30 History of Present Illness: ? Patient states he has been having generalized weakness throat pain and intermittent chest pain off and on since yesterday.? Patient also stated he is hearing voices in his head and they are telling him they are going to kill him.? Patient does report he is unable to sleep secondaryTo these voices.? Patient does have what appears to be tar dive dyskinesia of the face. He was admitted to the neuropsychiatric unit for definitive treatment of those issues. He has a very significant speech impediment that is secondary to history of dyskinesia.? This made it very difficult for him to communicate the situation. His last hospitalization here was in October and excerpt of that discharge summary is included below for information. He has been following up at [facility].? His last visit with his nurse practitioner was 12/23/2022 with patient reportedly doing well.? He did not identify less changes in the last 2 months that have led to him feeling suicidal and coming to the hospital.? It is unclear with his interview what has changed in the last 2 months and that has led to feeling suicidal.? He endorses taking medication as prescribed.? We agreed we would review his medications and get some collateral information regarding his situation. Per his 10/19/2021 [facility] inpatient psychiatric discharge summary: Discharge Diagnosis (1) Other schizophrenia: (2) Major depressive disorder, recurrent, moderate: ? ? ? Status: Chronic (3) COPD (chronic obstructive pulmonary disease): ? ? ? Status: Chronic (4) Tardive dyskinesia: ? ? ? Status: Chronic (5) Chronic idiopathic constipation: ? ? ? Status: Chronic (6) Controlled diabetes mellitus with hyperglycemia, without long-term current use of insulin: ? ? ? Status: Chronic ? ? ? Qualifiers: ? Diabetes mellitus type: type 2? Qualified Code(s): E11.65 - Type 2 diabetes mellitus with hyperglycemia Reason for Visit Reason for Visit: ? auditory? hallucinations.? ? Brief History: History of Present Illness Osmar Becker is a 55 year old male with a history of schizophrenia and and tardive dyskinesia who was admitted involuntarily on a 96-hour hold due to an inability to take care of himself with an increased presence of auditory hallucinations and disorganized thinking and disorganized behavior.? Per ED note, He had presented to? ED after he was involved in a argument with his mother.? Per patient, he tells me that he was upset with his mom recently and reports that he has been overwhelmed by his thoughts.? He was brought here per patient because his mother told him that he needed more help to manage his thoughts.? The patient reports that he has been feeling more depressed over the past few months but denies thoughts of hurting himself or others.? He reports that he has not received outpatient mental health treatment in several months with previous records indicating follow up over 1 year ago at [facility]. Past psychiatric history: Patient has reported a history of multiple inpatient hospitalizations beginning at the age of 30.? He is uncertain as to when he was last hospitalized.? He reports a diagnosis of schizophrenia in the past with previous records indicating a diagnosis of tar dive dyskinesia as well.? He had recently been seen by Bijal Cummings in the outpatient clinic approximately 1 year ago.? Previous medications include Invega. Current current psychiatric medications: None Allergies: nkda Medical Hx: signficant for COPD, GERD, on CPAP, Medications: Albuterol inhaler, budesonide, omeprazole, Surgeries: reported abdominal surgery Legal Hx: none Social Hx: 1/2 ppd smoker, he was born in [facility] and raised by his biological parents.? He reports his father at the age of 10.? He reports that he is a homosexual male with no children and with no history of any significant others or previous history of marriage.? He reports that he lives with his mother who has significant medical problems.? He reports having siblings but reports that they are not supportive.? He reports that he is on disability for his mental illness.? 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 He denies any history of drug or alcohol use currently.? He reports having few social supports. Family psychiatric history: none reported, unknown hx of sexual/physical or emotional trauma. Hospital Course He slowly acclimated to the individual, group and milieu therapies provided.? His Invega was discontinued as well as his Paxil and he was started on Latuda which was slowly titrated to 60 mg p.o. daily with meals.? He showed notable improvement and was able to contract for safety outside the hospital prior to discharge.? During the hospitalization, patient had routine laboratory studies which were within normal limits except for few outliers.? Additionally there was a general medical evaluation which was also within normal limits and revealed no new acute processes. Discharge Summary: At the time of discharge, lethality was denied and psychosis was resolving.? Mood and anxiety were well managed.? Patient endorsed a plan to avoid all drugs of abuse and follow-up with the aftercare recommendations of the treatment team.? Patient was evaluated and deemed to be absent credible lethality, and had achieved the maximum benefit from an inpatient hospitalization, so was discharged. Hospital Course Hospital Course During the hospitalization, the patient had routine laboratory studies which were within normal limits except for a few outliers.? Additionally, there was a general medical evaluation which was also within normal limits and revealed no new acute processes.? At the time of discharge, lethality was denied and psychosis was resolving.? Mood and anxiety were well managed.? The patient endorsed a plan to avoid all drugs of abuse and follow up with the aftercare recommendations of the treatment team.? The patient was evaluated and deemed to be absent credible lethality and had achieved the maximum benefit from an inpatient hospitalization, and so was discharged. Patient was started on high dose vitamin B6 at 400mg as treatment team failed to get approval for Ingrezza and Juareztedo but it is strongly encouraged to be started to treat TARDIVE DYSKINESIA as the patient's tardive dyskinesia has played a role in the patient discontinuing his antipsychotic. Involuntary Hold Information 96 Hour Hold: 96 Hour Involuntary Admission: No 96 Hour Hold Ending Date: 10/19/21 96 Hour Hold Ending Time: 00:01 Mental Status Exam MSE Comments: This is an overweight white male in hospital scrubs with limited grooming and fair eye contact. No abnormal movements except for some clear unintended movement of his tongue and lips as well as psychomotor retardation.+orobuccofacial movements appreciated. He was cooperative with exam in moderate distress. Speech was more productive and spontaneous with n ormal volume with severe articulation difficulties secondary to his tardive dyskinesia. Mood described as better. His affect was brighter on discharge. Thought process was linear. Thought content: Patient endorses no suicidal or homicidal ideation. There were no delusions reported or noted. He did not appear to be responding to internal stimuli. Attention and concentration were limited and memory appeared limited but none were formally tested. He is alert and oriented x person, time and place. Insight and judgment were improving. His impulse control was improving as well. Discharge Data Studies Completed and Pending: Completed Studies During Hospitalization Category Date Time Status XR chest 1V timoteo ble [id number] Stat Exams 02/21/23 17:36 Completed Radiology Impressions Chest X-Ray 02/21/23 17:36 IMPRESSION: No acute chest findings. Laboratory Results WBC 9.73 10^3/uL (3.2 9-11.43) 02/21/23 18:11 RBC 5.54 10^6/uL (3.8 5-5.65) 02/21/23 18:11 Hgb 11.70 g/dL (11.27 -16.99) 02/21/23 18:11 Hct 41.2 % (37-53) 02/21/23 18:11 MCV 74.4 fl (82-101) L 02/21/23 18:11 MCH 21.1 pg (27-33) L 02/21/23 18:11 MCHC 28.4 g/dL (30-55) L 02/21/23 18:11 RDW 17.4 % (12.1-15.1 ) H 02/21/23 18:11 Plt Count 320 10^3/cmm (157 -399) 02/21/23 18:11 MPV 9.0 fL (7.4-10.4) 02/21/23 18:11 Neut % (Auto) 67.1 % 02/21/23 18:11 Lymph % (Auto) 21.6 % 02/21/23 18:11 Weakley % (Auto) 7.9 % 02/21/23 18:11 Eos % (Auto) 1.8 % 02/21/23 18:11 Baso % (Auto) 1.2 % 02/21/23 18:11 Neut # (Auto) 6.52 10^3/uL (1.8 -7.7) 02/21/23 18:11 Lymph # (Auto) 2.1 10^3/uL (0.8- 4.8) 02/21/23 18:11 [place] # (Auto) 0.8 10^3/uL (0.2- 0.9) 02/21/23 18:11 Eos # (Auto) 0.2 10^3/uL (0.0- 0.8) 02/21/23 18:11 Baso # (Auto) 0.1 10^3/uL (0.0- 0.1) 02/21/23 18:11 Nucleated RBC % (a uto) 0 % 02/21/23 18:11 Nucleated RBCs # 0.0 /100WBC 02/21/23 18:11 Sodium 139 mmol/L (136-1 45) 02/21/23 18:11 Potassium 4.2 mmol/L (3.5-5 .1) 02/21/23 18:11 Chloride 103 mmol/L (98-10 7) 02/21/23 18:11 Carbon Dioxide 27 mmol/L (22-29) 02/21/23 18:11 Anion Gap 13.2 (5-19) 02/21/23 18:11 BUN 13 mg/dL (6-20) 02/21/23 18:11 Creatinine 0.7 mg/dL (0.7-1. 2) 02/21/23 18:11 GFR Calculation 116.2 mL/min (90- 130) 02/21/23 18:11 Glucose 95 mg/dL (65-115) 02/21/23 18:11 Calculated Osmolal ity 288 mOsm/kg (285- 295) 02/21/23 18:11 Calcium 9.6 mg/dL (8.5-10 .5) 02/21/23 18:11 Magnesium 2.2 mg/dL (1.7-2. 3) 02/21/23 18:11 Total Bilirubin 0.2 mg/dL (0.15-1 .2) 02/21/23 18:11 AST 17 U/L (0-40) 02/21/23 18:11 ALT 19 U/L (0-41) 02/21/23 18:11 Alkaline Phosphata se 66 U/L (40-130) 02/21/23 18:11 Troponin T Baselin e 8 ng/L (0-15) 02/21/23 18:11 Troponin T 120 Min kiana 10.28 ng/L (0-15) 02/21/23 20:01 Delta Troponin T 2.28 ABS# (0-10) 02/21/23 20:01 Troponin T Hi Sens 6Hr 9.89 ng/L (0-15) 02/22/23 00:00 Troponin T Hi Sens 6Hr Delta 1.89 ng/L (0-12) 02/22/23 00:00 Total Protein 7.5 g/dL (6.6-8.7 ) 02/21/23 18:11 Albumin 4.8 g/dL (3.5-5.2 ) 02/21/23 18:11 Globulin 2.7 g/dL (1.3-4.6 ) 02/21/23 18:11 Urine Color Yellow (Yellow) 02/21/23 17:35 Urine Appearance Clear (CLEAR) 02/21/23 17:35 Urine pH 5 (5-7) 02/21/23 17:35 Ur Specific Gravit y 1.007 (1.005-1.0 30) 02/21/23 17:35 Urine Protein Neg (Negative) 02/21/23 17:35 Urine Glucose (UA) Norm (Normal) 02/21/23 17:35 Urine Ketones Negative (Negati ve) 02/21/23 17:35 Urine Blood Neg (Negative) 02/21/23 17:35 Urine Nitrate Negative (Negati ve) 02/21/23 17:35 Urine Bilirubin Neg (Negative) 02/21/23 17:35 Urine Urobilinogen Neg mg/dL (Negati ve) 02/21/23 17:35 Ur Leukocyte Leigh Ann ase Negative (Negati ve) 02/21/23 17:35 Salicylates < 0.3 mg/dL (3-10 ) L 02/21/23 18:11 Urine Opiates Scre en Negative ng/mL (N egative) 02/21/23 17:35 Acetaminophen < 5.0 ug/mL (10-3 0) L 02/21/23 18:11 Ur Barbiturates Sc reen Negative ng/mL (N egative) 02/21/23 17:35 Ur Phencyclidine S crn Negative ng/mL (N egative) 02/21/23 17:35 Ur Amphetamines Sc reen Negative ng/mL (N egative) 02/21/23 17:35 U Benzodiazepines Scrn Negative ng/mL (N egative) 02/21/23 17:35 Urine Cocaine Scre en Negative ng/mL (N egative) 02/21/23 17:35 U Marijuana (THC) Screen Negative ng/mL (N egative) 02/21/23 17:35 Ethyl Alcohol < 10 mg/dL (0-10) 02/21/23 18:11 Vitals: Last Vital Signs Temp 97.7 F 02/27/23 09:02 Pulse 75 02/27/23 09:02 Resp 15 02/27/23 09:02 BP 118/66 02/27/23 09:02 Pulse Ox 92 02/27/23 09:02 O2 Del Method Room Air 02/27/23 06:00 Discharge Plan Discharge Patient Disposition: Home Condition: Stable Prescriptions: New pyridoxine (vitamin B6) 50 mg Tablet 400 mg PO DAILY 30 Days Qty: 240 1RF Latuda 80 mg tablet 80 mg PO 1700 30 Days Qty: 30 1RF Latuda 20 mg tablet 20 mg PO DAILY Qty: 30 1RF Rx Instructions: must administer with food (at least 350 calories) after dinner. Continued aspirin 325 mg tablet,delayed release (DR/EC) 325 mg PO QAM albuterol sulfate 90 mcg/actuation HFA aerosol inhaler 2 puff INHALATION Q4H PRN (Reason: shortness of breath) Qty: 8.5 2RF benztropine 1 mg tablet 1 mg PO BID PRN (Reason: EPS) Qty: 60 2RF Farxiga 5 mg tablet 5 mg PO QAM Qty: 30 2RF gabapentin 300 mg capsule 300 mg PO BID Qty: 60 2RF Linzess 145 mcg capsule 145 mcg PO QAM Qty: 30 2RF Milk of Magnesia 400 mg/5 mL suspension 30 ml PO BID Qty: 1200 2RF magnesium oxide 400 mg magnesium tablet 400 mg PO BID Qty: 60 2RF omeprazole 20 mg tablet,delayed release (DR/EC) 20 mg PO DAILY Qty: 30 2RF valsartan 40 mg tablet 40 mg PO QAM Qty: 30 2RF fenofibrate nanocrystallized [Tricor] 145 mg tablet 145 mg PO DAILY Qty: 30 2RF Rx Instructions: stop Pravastatin ipratropium-albuterol 0.5 mg-3 mg(2.5 mg base)/3 mL Solution For Nebulization 3 ml inhalation Q4H PRN (Reason: Shortness Of Breath) Qty: 120 0RF Discontinued Latuda 80 mg tablet 80 mg PO DAILY Qty: 30 2RF Rx Instructions: must administer with food (at least 350 calories) Discharge Orders: Discharge Order (Routine); Ordered 02/27/23 Ordered By: Alec Pablo Referrals: Viki Tubbs PMHNP [Staff Physician] - 03/24/23 Josefina Ni, LABOR RELATIONS ANALYST-C [Primary Care Provider] - Discharge Diet: Usual diet Discharge Activity: Resume usual activity Patient Instructions: Vitamin B/Vitamin C (By mouth), Lurasidone (By mouth), Schizophrenia (GEN), Opioid Safety Discharge Attestations NPU Time Spent in Discharge Care*: less than 30 min Specific Discharge Activities: Specific discharge activities: educating patient, discussing with correctional case manager/social workers/dc planners and documenting/other paperwork Coding Level of Care Code Acute Chg DC note Diagnoses Other schizophrenia F20.89 Tardive dyskinesia G24.01 Major depressive disorder, recurrent, moderate F33.1 COPD (chronic obstructive pulmonary disease) J44.9 Chronic idiopathic constipation K59.04 Controlled diabetes mellitus with hyperglycemia, without long-term current use of insulin E11.65 Diabetes mellitus type: type 2 Acute psychosis F23 Schizophrenia, paranoid type F20.0
== END 2023-02-27 10:12 | disposition home or self-care (01) | DRG 885 ==
LOC: ER 17:42 → NP 19:35
PROVIDERS: Admitting Provider Psychiatry & Neurology Psychiatry; Emergency Provider Emergency Medicine; PCP Nurse Practitioner; Visit Provider Psychiatry & Neurology Psychiatry
DX: F20.89 Other schizophrenia (principal); F33.1 Major depressive disorder, recurrent, moderate; R45.851 Suicidal ideations; B20 Human immunodeficiency virus [HIV] disease; K21.9 Gastro-esophageal reflux disease without esophagitis; B18.2 Chronic viral hepatitis C; K59.04 Chronic idiopathic constipation; E11.65 Type 2 diabetes mellitus with hyperglycemia; J44.9 Chronic obstructive pulmonary disease, unspecified; I10 Essential (primary) hypertension; F17.210 Nicotine dependence, cigarettes, uncomplicated; Z60.8 Other problems related to social environment; G24.01 Drug induced subacute dyskinesia
CPT/HCPCS: 36415; 71045; 80053; 80306; 80307; 81003; 83735; 84484; 85025; 90471; 90686; 93005; 97150; 97165; 99285

== ENCOUNTER 2023-03-19 16:58 | Emergency (ER) | payer MEDICAID, SELFPAY ==
--- NOTE | 2023-03-19 16:59 | ECG_ITS ---
[facility] Test Date: 2023-03-19 Pat Name: Osmar Becker Department: Room: Gender: Male Coke Inspector: : 1965 Requested By: Misha Forrest Order Number: [id number] Dany MD: Bonifacio Forbes M.D. Measurements Intervals [place] Rate: 79 P: -21 [place]: 149 QRS: 47 QRSD: 81 T: 32 QT: 343 QTc: 395 Interpretive Statements SINUS RHYTHM Compared to ECG 02/21/2023 23:47:51 No significant changes Electronically Signed On 03-19-2023 21:48:34 BRAILLE OPERATOR by Bonifacio Forbes M.D. [id number]
--- NOTE | 2023-03-19 16:59 | XRR_ITS ---
PROCEDURE INFORMATION: Exam: XR Chest Exam date and time: 03/19/2023 5:04 PM Age: 57 years old Clinical indication: Shortness of breath; Additional info: SOB TECHNIQUE: Imaging protocol: Radiologic exam of the chest. Views: 1 view. COMPARISON: CR (CHEST, ) 02/21/2023 5:38 PM FINDINGS: Lungs: Mild basilar atelectasis. Pleural spaces: Unremarkable. No pleural effusion. No pneumothorax. Heart/Mediastinum: The heart is accentuated by shallow inspiration but within normal limits. Large hiatal hernia. Bones/joints: Unremarkable. Other findings: Shallow inspiration. XR/XR chest 1V portable [id number] IMPRESSION: 1. No acute findings.
[2023-03-19 17:00] VITALS: BP 121/78; PULSE 82; RESP 18; TEMP 36.7; O2SAT 99; BMI 27.1
--- NOTE | 2023-03-19 17:09 | ED_ITS ---
HPI - URI/Sore Throat 2 General: Chief Complaint: Upper Respiratory Infection Stated Complaint: sob Time Seen by Provider: 03/19/23 16:59 Source: patient and EMS Mode of arrival: EMS Limitations: no limitations History of Present Illness: 57-year-old male who is very well-known to the ER states that over the last 2 days he has had sore throat congestion along with a cough. He denies any fever he is in no respiratory distress here. He denies any chest pain. Denies any worsening proving factors. Associated symptoms: Deny abdominal pain, chills, chest pain, diarrhea, fever(s), headache(s), nausea or vomiting Review of Systems 2 Const: Denies: fever(s), chills, body aches or change in appetite ENMT: Reports: throat pain; Denies: dental pain Card: Denies: chest pain Resp: Reports: dyspnea and non-productive cough GI: Denies: abdominal pain, nausea, vomiting or diarrhea : Denies: dysuria Musc: Denies: neck pain or back pain Skin/Breast: Denies: rash Neuro: Denies: headache(s) PFSH ED 2 PFSH: Medical History (Updated 03/19/23 @ 18:30 by Misha Forrest MD) Controlled diabetes mellitus with hyperglycemia, without long-term current use of insulin Chronic idiopathic constipation Tardive dyskinesia Psychiatric care Schizophrenia Nicotine dependence, cigarettes, with other nicotine-induced disorders Essential (primary) hypertension Cervical radicular pain Dependence on nocturnal oxygen therapy Nocturnal hypoxia 2018 Acid reflux HIV disease Gastritis Tardive dyskinesia COPD (chronic obstructive pulmonary disease) Vitamin D deficiency Chronic hepatitis C Major depressive disorder, recurrent, moderate Other schizophrenia Surgical History History of tympanostomy History of appendectomy History of adenoidectomy History of tonsillectomy History of colonoscopy Family History Father COPD (chronic obstructive pulmonary disease) Mother COPD (chronic obstructive pulmonary disease) Other Cancer Social History Smoking and tobacco/nicotine status: never used tobacco/nicotine Second hand smoke exposure: No Alcohol intake: never Substance/Drug Use: never Adopted: No Caregiver/support person: No Lives independently: Yes Housing: House Marital status: Single Number of children: 0 service: No Current occupational status: disabled Current occupational exposures/hazards: No Do you think of yourself as: Straight/Heterosexual Current gender identity: Male Physical Exam 2 Const: COMMON NORMALS: no acute distress, patient oriented x3 and healthy appearing HENMT: COMMON NORMALS: normocephalic and atraumatic HEAD & SCALP: n ormocephalic and atraumatic Eye: COMMON NORMALS: Equal, round and reactive pupils present and EOMs intact bilaterally PUPIL: Yes Equal, round and reactive pupils present Neck/C-Spine: COMMON NORMALS: full ROM and supple Chest: COMMONS NORMALS: normal inspection of the chest and normal palpation of entire chest wall Resp: COMMON NORMALS: normal respiratory effort, No retractions, No use of accessory muscles and clear to auscultation bilaterally AUSCULTATION: clear to auscultation bilaterally Cardio: COMMON NORMALS: regular rate, regular rhythm and No murmurs present (Cardio) RATE: regular rate RHYTHM: regular rhythm GI: COMMON NORMALS: Normal to inspection, nondistended, normoactive bowel sounds present, Soft to palpation, non-tender and no masses PALPATION: Yes Soft to palpation Extremity: COMMON NORMALS: normal to inspection and full ROM Neuro: COMMON NORMALS: patient oriented x3, moves all extremities and no focal motor deficits Psych: COMMON NORMALS: mental status grossly normal, Normal thought process present and cooperative THOUGHT PROCESS: Normal thought process present Skin: COMMON NORMALS: no rashes or lesions noted and no wounds GENERAL SKIN EXAM: no rashes or lesions noted Course 2 Vital Signs: Vital signs: Vital Signs Temperature 98.1 F 03/19/23 17:00 Pulse Rate 87 03/19/23 19:34 Respiratory Rate 16 03/19/23 19:34 Blood Pressure 121/78 03/19/23 17:00 Pulse Oximetry 98 03/19/23 19:34 Oxygen Delivery Me thod Room Air 03/19/23 17:00 MDM - URI/Sore Throat Medical Decision Making Patient presents with likely upper respiratory infection he has no signs of pneumonia he is well-appearing here no distress he stable for discharge follow- up PCP and return if worsening. Medical Records I reviewed the patient's medical records. Lab Data I reviewed the patient's lab results. 12/13/23 17:16 03/19/23 17:16 Radiology Impressions Chest X-Ray 03/19/23 16:59 IMPRESSION: 1. No acute findings. Laboratory Results WBC 11.45 10^3/uL (3.29-11.43) H 03/19/23 17:16 RBC 5.52 10^6/uL (3.85-5.65) 03/19/23 17:16 Hgb 11.90 g/dL (11.27-16.99) 03/19/23 17:16 Hct 40.8 % (37-53) 03/19/23 17:16 MCV 73.9 fl (82-101) L 03/19/23 17:16 MCH 21.6 pg (27-33) L 03/19/23 17:16 MCHC 29.2 g/dL (30-55) L 03/19/23 17:16 RDW 19.9 % (12.1-15.1) H 03/19/23 17:16 Plt Count 317 10^3/cmm (157-399) 03/19/23 17:16 MPV 8.8 fL (7.4-10.4) 03/19/23 17:16 Neut % (Auto) 91.5 % 03/19/23 17:16 Lymph % (Auto) 3.7 % 03/19/23 17:16 [place] % (Auto) 3.7 % 03/19/23 17:16 Eos % (Auto) 0.6 % 03/19/23 17:16 Baso % (Auto) 0.2 % 03/19/23 17:16 Neut # (Auto) 10.48 10^3/uL (1.8-7.7) H 03/19/23 17:16 Lymph # (Auto) 0.4 10^3/uL (0.8-4.8) L 03/19/23 17:16 [place] # (Auto) 0.4 10^3/uL (0.2-0.9) 03/19/23 17:16 Eos # (Auto) 0.1 10^3/uL (0.0-0.8) 03/19/23 17:16 Baso # (Auto) 0.0 10^3/uL (0.0-0.1) 03/19/23 17:16 Nucleated RBC % (auto) 0 % 03/19/23 17:16 Nucleated RBCs # 0.0 /100WBC 03/19/23 17:16 Sodium 134 mmol/L (136-145) L 03/19/23 17:16 Potassium 4.1 mmol/L (3.5-5.1) 03/19/23 17:16 Chloride 100 mmol/L (98-107) 03/19/23 17:16 Carbon Dioxide 22 mmol/L (22-29) 03/19/23 17:16 Anion Gap 16.1 (5-19) 03/19/23 17:16 BUN 15 mg/dL (6-20) 03/19/23 17:16 Creatinine 0.5 mg/dL (0.7-1.2) L 03/19/23 17:16 GFR Calculation 171.4 mL/min (90-130) H 03/19/23 17:16 Glucose 95 mg/dL (65-115) 03/19/23 17:16 Calculated Osmolality 279 mOsm/kg (285-295) L 03/19/23 17:16 Calcium 9.2 mg/dL (8.5-10.5) 03/19/23 17:16 Total Bilirubin 0.2 mg/dL (0.15-1.2) 03/19/23 17:16 AST 16 U/L (0-40) 03/19/23 17:16 ALT 19 U/L (0-41) 03/19/23 17:16 Alkaline Phosphatase 65 U/L (40-130) 03/19/23 17:16 NT-Pro-B Natriuret Pep < 36 pg/mL (0-125) 03/19/23 17:16 Total Protein 7.8 g/dL (6.6-8.7) 03/19/23 17:16 Albumin 4.6 g/dL (3.5-5.2) 03/19/23 17:16 Globulin 3.2 g/dL (1.3-4.6) 03/19/23 17:16 SARS-CoV-2 Ag (Rapid) negative (Negative) 03/19/23 18:01 Group A Strep Rapid Negative (Negative) 03/19/23 18:01 All radiology interpretation(s) finalized by discharge EKG Data EKG 1: I personally reviewed and interpreted this EKG as follows: EKG interpretation date: 03/19/23 EKG interpretation time: 17:09 Interpretation: nsr hr [address] or t wave abnormalities qrs 81 qtc 378 Discharge Plan Discharge Patient Disposition: Home Clinical Impression: Upper respiratory infection Qualifiers: URI type: unspecified URI Qualified Code(s): J06.9 - Acute upper respiratory infection, unspecified Condition: Stable Prescriptions: No Action aspirin 325 mg tablet,delayed release (DR/EC) 325 mg PO QAM albuterol sulfate 90 mcg/actuation HFA aerosol inhaler 2 puff INHALATION Q4H PRN (Reason: shortness of breath) Qty: 8.5 5RF Farxiga 5 mg tablet 5 mg PO QAM Qty: 30 5RF fenofibrate nanocrystallized [Tricor] 145 mg tablet 145 mg PO DAILY Qty: 30 5RF gabapentin 300 mg capsule 300 mg PO BID Qty: 60 5RF Linzess 145 mcg capsule 145 mcg PO QAM Qty: 30 5RF Milk of Magnesia 400 mg/5 mL suspension 30 ml PO BID Qty: 1200 5RF magnesium oxide 400 mg magnesium tablet 400 mg PO BID Qty: 60 5RF omeprazole 20 mg tablet,delayed release (DR/EC) 20 mg PO DAILY Qty: 30 5RF valsartan 40 mg tablet 40 mg PO QAM Qty: 30 5RF benztropine 1 mg tablet 1 mg PO BID PRN (Reason: EPS) Qty: 60 2RF ipratropium-albuterol 0.5 mg-3 mg(2.5 mg base)/3 mL Solution For Nebulization 3 ml inhalation Q4H PRN (Reason: Shortness Of Breath) Qty: 120 0RF pyridoxine (vitamin B6) 50 mg Tablet 400 mg PO DAILY 30 Days Qty: 240 1RF Latuda 80 mg tablet 80 mg PO 1700 30 Days Qty: 30 1RF Latuda 20 mg tablet 20 mg PO DAILY Qty: 30 1RF Rx Instructions: must administer with food (at least 350 calories) after dinner. Discharge Orders: Discharge ED (Routine); Ordered 03/19/23 Ordered By: Misha Forrest Referrals: Josefina Ni, BARGE CAPTAIN-C [Primary Care Provider] - 1-3 days Discharge Diet: Advance as tolerated Discharge Activity: Resume usual activity Patient Instructions: Upper Respiratory Infection (ED) Coding Level of Care Code ED Rawhide Trimmer for Jennyfer Rae
[2023-03-19 17:31] LABS: Basophils % 0.2 %; Eosinophils # 0.1 10^3/uL (0.0-0.8); Eosinophils % 0.6 %; Hematocrit 40.8 % (37-53); Lymphocytes # 0.4 10^3/uL (0.8-4.8); Lymphocytes % 3.7 %; Mean Corpuscular HGB Conc 29.2 g/dL (30-55); Mean Corpuscular Hemoglobin 21.6 pg (27-33); Mean Corpuscular Volume 73.9 fl (82-101); Mean Platelet Volume 8.8 fL (7.4-10.4); Monocytes # 0.4 10^3/uL (0.2-0.9); Monocytes % 3.7 %; Neutrophils # 10.48 10^3/uL (1.8-7.7); Neutrophils % 91.5 %; Nucleated Red Blood Cells % 0 %; Platelet Count 317 10^3/cmm (157-399); Red Blood Count 5.52 10^6/uL (3.85-5.65); Red Cell Distribution Width 19.9 % (12.1-15.1); White Blood Count 11.45 10^3/uL (3.29-11.43)
[2023-03-19 17:52] LABS: Alanine Aminotransferase 19 U/L (0-41); Albumin Level 4.6 g/dL (3.5-5.2); Alkaline Phosphatase 65 U/L (40-130); Anion Gap 16.1 (5-19); Aspartate Amino Transferase 16 U/L (0-40); Blood Urea Nitrogen 15 mg/dL (6-20); Calcium 9.2 mg/dL (8.5-10.5); Carbon Dioxide 22 mmol/L (22-29); Chloride 100 mmol/L (98-107); Globulin 3.2 g/dL (1.3-4.6); Glomerular Filtration Rate 171.4 mL/min (90-130); Glucose 95 mg/dL (65-115); NT Pro B Type Natriuretic Pept < 36 pg/mL (0-125); Osmolality Calculated 279 mOsm/kg (285-295); Potassium 4.1 mmol/L (3.5-5.1); Sodium 134 mmol/L (136-145); Total Bilirubin 0.2 mg/dL (0.15-1.2); Total Protein 7.8 g/dL (6.6-8.7)
[2023-03-19 18:18] LABS: Rapid Strep A Test Negative (Negative)
[2023-03-19 18:26] LABS: SARS Covid-2 Antigen negative (Negative)
[2023-03-19 19:34] VITALS: PULSE 87; RESP 16; O2SAT 98
== END 2023-03-19 19:35 | disposition home or self-care (01) ==
PROVIDERS: Emergency Provider Emergency Medicine; PCP Nurse Practitioner
DX: J06.9 Acute upper respiratory infection, unspecified (principal); Z79.82 Long term (current) use of aspirin; Z11.52 Encounter for screening for COVID-19; E11.9 Type 2 diabetes mellitus without complications; I10 Essential (primary) hypertension; B20 Human immunodeficiency virus [HIV] disease; Z99.81 Dependence on supplemental oxygen; J44.9 Chronic obstructive pulmonary disease, unspecified; Z86.19 Personal history of other infectious and parasitic diseases
CPT/HCPCS: 36415; 71045; 80053; 83880; 85025; 87081; 87426; 87880; 93005; 99285

== ENCOUNTER 2023-05-16 07:06 | Emergency (ER) | payer MEDICAID, SELFPAY ==
[2023-04-02 16:03] VITALS: BP 130/68; BMI 27.2
[2023-05-16 07:07] VITALS: BP 104/70; PULSE 87; RESP 18; TEMP 36.7; O2SAT 95
--- NOTE | 2023-05-16 07:17 | ECG_ITS ---
[facility] Test Date: 2023-05-16 Pat Name: Osmar Becker Department: Room: Gender: Male Research And Development Specialist: : 1965 Requested By: Jalil Ruffin Order Number: [id number] Dany MD: Donte Olivia M.D. Measurements Intervals [place] Rate: 84 P: -23 MO: 147 QRS: 61 QRSD: 90 T: 46 QT: 355 QTc: 420 Interpretive Statements SINUS RHYTHM WITH OCCASIONAL SUPRAVENTRICULAR PREMATURE COMPLEXES NONSPECIFIC T-WAVE ABNORMALITY Compared to ECG 03/19/2023 17:09:47 T-wave abnormality now present Electronically Signed On 05-16-2023 9:25:09 SORORITY MOTHER by Donte Olivia M.D. [id number]
--- NOTE | 2023-05-16 07:17 | XR_ITS ---
WS: [id number] XR chest 1V portable [id number] REASON FOR EXAM: dyspnea/cough FINDINGS: The chest is unchanged compared to 03/19/2023. Normal thoracic aorta. Normal heart size. Calcified granulomas disease in both hemithoraces. Chronic reticular interstitial lung opacities in the lower lung wilson. Pleural scarring around the right lung base with blunting of the costophrenic angle and pleural thick ening. Moderate degenerative spondylosis in the thoracic spine. IMPRESSION: Stable chest without acute abnormality.
[2023-05-16] MEDS: dexamethasone 10 mg/mL INJ IM (07:33)
[2023-05-16 07:54] VITALS: PULSE 84; RESP 16; O2SAT 94
[2023-05-16] MEDS: ipratropium-albuterol 3 mL Neb INHALATION (07:56)
[2023-05-16 07:58] VITALS: PULSE 90
--- NOTE | 2023-05-16 07:58 | ED_ITS ---
HPI - SOB/Dyspnea General: Chief Complaint: Shortness of Breath/Dyspnea Stated Complaint: sob/copd Time Seen by Provider: 05/16/23 07:12 Source: patient Mode of arrival: EMS History of Present Illness: HPI Narrative: 57-year-old male presents emergency room complaining of shortness of breath began around 7:00 today. He has a history of COPD used albuterol at home with only mild relief no fever sweats or chills cough is nonproductive does use oxygen at night but not usually during the day. Denies chest pain MD elicited complaint: shortness of breath Pertinent past history: COPD Associated symptoms: Deny abdominal pain, chest pain or fever(s) Review of Systems Const: Denies: fever(s) or chills Card: Denies: chest pain Resp: Reports: dyspnea GI: Denies: abdominal pain : Denies: dysuria, urinary frequency or urinary urgency Musc: Denies: neck pain or back pain Skin/Breast: Denies: rash PFSH ED PFSH: Medical History Controlled diabetes mellitus with hyperglycemia, without long-term current use of insulin Chronic idiopathic constipation Tardive dyskinesia Psychiatric care Schizophrenia Nicotine dependence, cigarettes, with other nicotine-induced disorders Essential (primary) hypertension Cervical radicular pain Dependence on nocturnal oxygen therapy Nocturnal hypoxia 2018 Acid reflux HIV disease Gastritis Tardive dyskinesia COPD (chronic obstructive pulmonary disease) Vitamin D deficiency Chronic hepatitis C Major depressive disorder, recurrent, moderate Other schizophrenia Surgical History History of tympanostomy History of appendectomy History of adenoidectomy History of tonsillectomy History of colonoscopy Family History Father COPD (chronic obstructive pulmonary disease) Mother COPD (chronic obstructive pulmonary disease) Other Cancer Social History Smoking and tobacco/nicotine status: never used tobacco/nicotine Second hand smoke exposure: No Alcohol intake: never Substance/Drug Use: never Adopted: No Caregiver/support person: No Lives independently: Yes Housing: House Marital status: Single Number of children: 0 service: No Current occupational status: disabled Current occupational exposures/hazards: No Do you think of yourself as: Straight/Heterosexual Current gender identity: Male Physical Exam Const: COMMON NORMALS: no acute distress GENERAL APPEARANCE: cooperative and comfortable ORIENTATION/CONSCIOUSNESS: Yes awake, Yes oriented to person, Yes oriented to place and Yes oriented to time HENMT: COMMON NORMALS: normocephalic, atraumatic and hearing grossly normal bilaterally HEAD & SCALP: normocephalic and atraumatic Resp: COMMON NORMALS: normal respiratory effort, No retractions, No use of accessory muscles and clear to auscultation bilaterally AUSCULTATION: clear to auscultation bilaterally Cardio: COMMON NORMALS: regular rate, regular rhythm and No murmurs present (Cardio) RATE: regular rate RHYTHM: regular rhythm GI: COMMON NORMALS: Soft to palpation and No hepatosplenomegaly present AUSCULTATION: Yes normoactive bowel sounds PALPATION: Yes Soft to palpation, No Tenderness to palpation present (GI), No Guarding due to palpation present (GI) and Yes No hepatosplenomegaly present Extremity: COMMON NORMALS: normal to inspection, capillary refill normal, no clubbing, cyanosis or edema, no calf tenderness and no pedal edema Neuro: SENSORIUM/ORIENTATION: Yes oriented to person, Yes oriented to place and Yes oriented to time Skin: COMMON NORMALS: no rashes or lesions noted GENERAL SKIN EXAM: no rashes or lesions noted Course Vital Signs: Vital signs: Vital Signs Temperature 98.0 F 05/16/23 07:07 Pulse Rate 85 05/16/23 08:24 Respiratory Rate 16 05/16/23 07:54 Blood Pressure 127/84 05/16/23 08:24 Pulse Oximetry 95 05/16/23 08:24 Oxygen Delivery Me thod Room Air 05/16/23 08:24 MDM - SOB/Dyspnea Medical Decision Making EKG does not show acute changes. Laboratory test reviewed, no significant abnormality. Chest x-ray Does not show any acute infiltrates., Improved with interventions in the emergency room discharge home with steroid taper continue use albuterol return if has further problems Medical Records I reviewed the patient's medical records. Lab Data I reviewed the patient's lab results. Labs/Radiology: Laboratory Results Coronavirus 229E (PCR) Not detected (NOT DETECT) 05/16/23 08:11 Influenza Type A Ag negative (Negative) 05/16/23 08:11 Influenza Type B Ag negative (Negative) 05/16/23 08:11 SARS-CoV-2 (PCR) Not detected (NOT DETECT) 05/16/23 08:11 All radiology interpretation(s) finalized by discharge Discharge Plan Discharge Patient Disposition: Home Clinical Impression: Viral URI with cough Condition: Stable Prescriptions: New Medrol (Francesco) 4 mg tablets,dose pack See Rx Instructions .ROUTE .COMPLEX Qty: 21 0RF Rx Instructions: orally per package directions albuterol sulfate 90 mcg/actuation HFA aerosol inhaler 2 inh INHALATION Q4H PRN (Reason: shortness of breath or wheezing) Qty: 18 0RF No Action aspirin 325 mg tablet,delayed release (DR/EC) 325 mg PO QAM Farxiga 5 mg tablet 5 mg PO QAM Qty: 30 5RF fenofibrate nanocrystallized [Tricor] 145 mg tablet 145 mg PO DAILY Qty: 30 5RF gabapentin 300 mg capsule 300 mg PO BID Qty: 60 5RF Linzess 145 mcg capsule 145 mcg PO QAM Qty: 30 5RF magnesium oxide 400 mg magnesium tablet 400 mg PO BID Qty: 60 5RF valsartan 40 mg tablet 40 mg PO QAM Qty: 30 5RF Latuda 20 mg tablet 20 mg PO QPM Qty: 30 1RF Rx Instructions: must administer with food (at least 350 calories) after dinner. benztropine 1 mg tablet 1 mg PO BID Qty: 60 1RF ipratropium-albuterol 0.5 mg-3 mg(2.5 mg base)/3 mL Solution For Nebulization 3 ml inhalation Q4H PRN (Reason: Shortness Of Breath) Qty: 120 0RF Tylenol Ex Str Rapid Release 500 mg Tablet 1,000 mg PO Q6H PRN (Reason: Pain) Milk of Magnesia 400 mg/5 mL suspension 30 ml PO DAILY albuterol sulfate 90 mcg/actuation HFA aerosol inhaler 2 puff INHALATION QID PRN (Reason: shortness of breath) Discharge Orders: Discharge ED (Routine); Ordered 05/16/23 Ordered By: Jalil Otero Referrals: Josefina Ni, ORNAMENTAL IRONWORKING SUPERVISOR-C [Primary Care Provider] - Patient Instructions: Opioid Safety, Pain Management Activity Restrictions/Additional Instructions: Thank you for choosing [facility] for your healthcare needs today. Please realize this is an emergency room and that we are providing you with a medical screening exam and this may not be complete and all inclusive of all the testing and or work up that you may need to determine your ailment or severity of your illness. It is very important that you follow up as instructed or that you return to the Emergency Department should you have concerns or if your condition changes or worsens in any way. Chest x-ray today was normal. Your oxygen sat is normal recommend use of prednisone taper starting tomorrow and use albuterol as needed follow-up with your primary care doctor flu and COVID were also tested we will contact you with those results when they are available. Coding Level of Care Code ED Physician Practice Consultant for Jennyfer Rae
[2023-05-16] MEDS: acetaminophen 325 mg Tablet 650 MG PO (08:06)
--- NOTE | 2023-05-16 08:06 | PC.PHAR ---
pt and pts sister raheem frias states the pt takes care of his own medications-pt states still takes linzess 145mcg daily last filled 03/11/23 30d/s rx has refills-cl drug last filled latuda 20mg qpm on 03/26/23 30d/s no refills-another rx written 05/07/23 20mg daily-pt also had a latuda 80mg filled 02/19/23 30d/s rx has refills pt states only takes the 20mg tab qpm
[2023-05-16 08:24] VITALS: BP 127/84; PULSE 85; O2SAT 95
[2023-05-16 08:43] LABS: Influenza A by IFA negative (Negative); Influenza B by IFA negative (Negative)
[2023-05-16 10:08] LABS: Adenovirus Not Detected (NOT DETECT); Chlamydia Pneumoniae Not Detected (NOT DETECT); Coronavirus 229E,HKU1,NL63,OC4 Not Detected (NOT DETECT); Human Metapneumovirus Not Detected (NOT DETECT); Human Rhinovirus/Enterovirus Not Detected (NOT DETECT); Influenza A Not Detected (NOT DETECT); Influenza A H1 Not Detected (NOT DETECT); Influenza A H1-2009 Not Detected (NOT DETECT); Influenza A H3 Not Detected (NOT DETECT); Influenza B Not Detected (NOT DETECT); Mycoplasma Pneumoniae Not Detected (NOT DETECT); Parainfluenza Virus Type 1 Not Detected (NOT DETECT); Parainfluenza Virus Type 2 Not Detected (NOT DETECT); Parainfluenza Virus Type 3 Not Detected (NOT DETECT); Parainfluenza Virus Type 4 Not Detected (NOT DETECT); Respiratory Syncytial Virus A Not Detected (NOT DETECT); Respiratory Syncytial Virus B Not Detected (NOT DETECT); SARS-COV-2 Not Detected (NOT DETECT)
== END 2023-05-16 08:37 | disposition home or self-care (01) ==
PROVIDERS: Emergency Provider Family Medicine; PCP Nurse Practitioner
DX: J06.9 Acute upper respiratory infection, unspecified (principal); R05.9 Cough, unspecified; Z11.52 Encounter for screening for COVID-19; Z79.82 Long term (current) use of aspirin; E11.9 Type 2 diabetes mellitus without complications; I10 Essential (primary) hypertension; B20 Human immunodeficiency virus [HIV] disease; J44.9 Chronic obstructive pulmonary disease, unspecified; Z86.19 Personal history of other infectious and parasitic diseases
CPT/HCPCS: 71045; 87635; 87804; 93005; 94640; 96372; 99285; J1100

== ENCOUNTER → 2023-05-26 15:34 | Outpatient (BNVA) | payer MEDICAID, SELFPAY ==
[2023-05-26 15:41] VITALS: BP 130/68; BMI 27.2
== END ==
PROVIDERS: PCP Nurse Practitioner; Visit Provider Nurse Practitioner
DX: E11.9 Type 2 diabetes mellitus without complications (principal)
CPT/HCPCS: 80053; 81000; 83036

== ENCOUNTER 2023-05-28 15:52 | Emergency (ER) | payer MEDICAID, SELFPAY ==
[2023-05-26 15:41] VITALS: BP 130/68; BMI 27.2
[2023-05-28] VITALS (8 sets, daily range): BP systolic 129–162; BP diastolic 74–77; PULSE 94; TEMP 36.9; O2SAT 91–96
--- NOTE | 2023-05-28 16:03 | W.ED.SOB ---
HPI - SOB/Dyspnea General: Chief Complaint: Shortness of Breath/Dyspnea Stated Complaint: SOB Time Seen by Provider: 05/28/23 15:55 History of Present Illness: HPI Narrative: 57-year-old male patient was brought in by EMS for concerns of shortness of breath. Patient was given a nebulizer treatment and route and had improvement of symptoms. Patient appears nontoxic. Patient does have a history of diabetes mellitus, tardive dyskinesia, schizophrenia, HIV, COPD. Patient is clean and well kempt. Patient appears nontoxic. Patient moves all extremities well. Patient does have uncontrolled movement of the left arm and face due to tardive dyskinesia. Patient would like jail placement due to increasing difficulty with ADLs. Review of Systems General: Reports: 10 or more systems reviewed and unremarkable except in HPI and below PFSH ED PFSH: Medical History Controlled diabetes mellitus with hyperglycemia, without long-term current use of insulin Chronic idiopathic constipation Tardive dyskinesia Psychiatric care Schizophrenia Nicotine dependence, cigarettes, with other nicotine-induced disorders Essential (primary) hypertension Cervical radicular pain Dependence on nocturnal oxygen therapy Nocturnal hypoxia 2018 Acid reflux HIV disease Gastritis Tardive dyskinesia COPD (chronic obstructive pulmonary disease) Vitamin D deficiency Chronic hepatitis C Major depressive disorder, recurrent, moderate Other schizophrenia Surgical History History of tympanostomy History of appendectomy History of adenoidectomy History of tonsillectomy History of colonoscopy Family History Father COPD (chronic obstructive pulmonary disease) Mother COPD (chronic obstructive pulmonary disease) Other Cancer Social History Smoking and tobacco/nicotine status: never used tobacco/nicotine Second hand smoke exposure: No Alcohol intake: never Substance/Drug Use: never Adopted: No Caregiver/support person: No Lives independently: Yes Housing: House Marital status: Single Number of children: 0 service: No Current occupational status: disabled Current occupational exposures/hazards: No Do you think of yourself as: Straight/Heterosexual Current gender identity: Male Physical Exam Const: COMMON NORMALS: alert Neck/C-Spine: COMMON NORMALS: full ROM Resp: COMMON NORMALS: normal respiratory effort and clear to auscultation bilaterally AUSCULTATION: clear to auscultation bilaterally Cardio: COMMON NORMALS: regular rate and regular rhythm RATE: regular rate RHYTHM: regular rhythm GI: COMMON NORMALS: Soft to palpation and non-tender PALPATION: Yes Soft to palpation Extremity: COMMON NORMALS: normal to inspection and no pedal edema Neuro: SENSORIUM/ORIENTATION: Yes alert Skin: COMMON NORMALS: turgor normal GENERAL SKIN EXAM: turgor normal Course Vital Signs: Vital signs: Vital Signs Temperature 98.5 F 05/28/23 15:54 Pulse Rate 94 05/28/23 15:54 Blood Pressure 129/77 05/28/23 16:15 Pulse Oximetry 93 05/28/23 16:30 Oxygen Delivery Me thod Room Air 05/28/23 15:54 MDM - SOB/Dyspnea Medical Decision Making Patient comes in today for evaluation of shortness of breath and to be evaluated to get into a jail. Patient skin is clean warm and dry. Color is pink. Lungs are clear to auscultation. Abdomen soft nontender. Vital signs are normal. Patient does have involuntary movements secondary to tardive dyskinesia. Patient is ambulatory without difficulty. No signs of acute illness is noted. Differential diagnosis includes but not limited to anxiety about health, exacerbation of COPD, asthma, upper respiratory infection. Patient was negative for influenza and the flu. Chest x-ray was stable with chronic changes in the right lower wilson. Reviewed exam with patient recommended follow-up with primary care to discuss jail admission and placement. Patient reported understanding and agreed to plan. Lab Data Labs/Radiology: Laboratory Results Influenza Type A Ag negative (Negative) 05/28/23 16:31 Influenza Type B Ag negative (Negative) 05/28/23 16:31 SARS-CoV-2 Ag (Rapid) negative (Negative) 05/28/23 16:31 All radiology interpretation(s) finalized by discharge Discharge Plan Discharge Patient Disposition: Home Clinical Impression: COPD (chronic obstructive pulmonary disease) Qualifiers: COPD type: unspecified COPD Qualified Code(s): J44.9 - Chronic obstructive pulmonary disease, unspecified Condition: Stable Prescriptions: No Action aspirin 325 mg tablet,delayed release (DR/EC) 325 mg PO QAM magnesium oxide 400 mg magnesium tablet 400 mg PO BID Qty: 60 5RF valsartan 40 mg tablet 40 mg PO QAM Qty: 30 5RF Linzess 145 mcg capsule 145 mcg PO QAM Qty: 30 5RF gabapentin 300 mg capsule 300 mg PO BID Qty: 60 5RF fenofibrate nanocrystallized [Tricor] 145 mg tablet 145 mg PO DAILY Qty: 30 5RF Farxiga 5 mg tablet 5 mg PO QAM Qty: 30 5RF Latuda 20 mg tablet 20 mg PO QPM Qty: 30 1RF Rx Instructions: must administer with food (at least 350 calories) after dinner. benztropine 1 mg tablet 1 mg PO BID Qty: 60 1RF ipratropium-albuterol 0.5 mg-3 mg(2.5 mg base)/3 mL Solution For Nebulization 3 ml inhalation Q4H PRN (Reason: Shortness Of Breath) Qty: 120 0RF Tylenol Ex Str Rapid Release 500 mg Tablet 1,000 mg PO Q6H PRN (Reason: Pain) Milk of Magnesia 400 mg/5 mL suspension 30 ml PO DAILY albuterol sulfate 90 mcg/actuation HFA aerosol inhaler 2 puff INHALATION QID PRN (Reason: shortness of breath) albuterol sulfate 90 mcg/actuation HFA aerosol inhaler 2 inh INHALATION Q4H PRN (Reason: shortness of breath or wheezing) Qty: 18 0RF Discharge Orders: Discharge ED (Routine); Ordered 05/28/23 Ordered By: Fabricio Lynch Referrals: Josefina Ni, SHEAR OPERATOR AUTOMATIC-C [Primary Care Provider] - Discharge Diet: Usual diet Discharge Activity: Increase activity as tolerated Patient Instructions: COPD (Chronic Obstructive Pulmonary Disease) (ED) Activity Restrictions/Additional Instructions: Continue with inhalers as directed. Continue routine medicines as ordered. Follow-up with primary care office in the morning to discuss with them jail placement if that is what you feel you need. Return to ED for new concerns. Coding Level of Care Code ED Operator Electronic Warfare for Jennyfer Rae
--- NOTE | 2023-05-28 16:10 | XR_ITS ---
WS: [id number] Examination: XR chest 1V portable [id number] Reason for Exam: short of breath Date: 07/27 2023 Comparison: May 16, 2023 Findings: The heart is not grossly enlarged on this AP film. There is increased density in the right base with blunting of the costophrenic angle. I suspect this is minimal residual scarring There is no pulmonary edema. There is no infiltrate on the left. Impression: Findings suggest chronic changes in the right base. No failure or new dense consolidation is apprecia migue.
[2023-05-28 16:54] LABS: Influenza A by IFA negative (Negative); Influenza B by IFA negative (Negative); SARS Covid-2 Antigen negative (Negative)
== END 2023-05-28 17:14 | disposition home or self-care (01) ==
PROVIDERS: Emergency Provider Nurse Practitioner Family; PCP Nurse Practitioner
DX: J44.9 Chronic obstructive pulmonary disease, unspecified (principal); Z79.82 Long term (current) use of aspirin; Z11.52 Encounter for screening for COVID-19; E11.9 Type 2 diabetes mellitus without complications; I10 Essential (primary) hypertension; B20 Human immunodeficiency virus [HIV] disease; Z86.19 Personal history of other infectious and parasitic diseases
CPT/HCPCS: 71045; 87426; 87804; 99284

== ENCOUNTER → 2023-08-12 11:33 | Outpatient (BNVA) | payer MEDICAID, SELFPAY ==
[2023-05-26 15:41] VITALS: BP 130/68; BMI 27.2
== END ==
PROVIDERS: PCP Nurse Practitioner; Visit Provider Nurse Practitioner
DX: E11.65 Type 2 diabetes mellitus with hyperglycemia (principal); E78.1 Pure hyperglyceridemia; M54.12 Radiculopathy, cervical region; K59.04 Chronic idiopathic constipation; I10 Essential (primary) hypertension; J44.9 Chronic obstructive pulmonary disease, unspecified; J41.8 Mixed simple and mucopurulent chronic bronchitis
CPT/HCPCS: 81000

== ENCOUNTER → 2024-02-02 14:01 | Outpatient (BNVA) | payer MEDICAID, SELFPAY ==
[2024-02-02 14:16] VITALS: BP 130/68; BMI 27.2
== END ==
PROVIDERS: PCP Nurse Practitioner; Visit Provider Nurse Practitioner
DX: E55.9 Vitamin D deficiency, unspecified (principal); E11.9 Type 2 diabetes mellitus without complications; E11.65 Type 2 diabetes mellitus with hyperglycemia
CPT/HCPCS: 80053; 80061; 81000; 82043; 82306; 82607; 83036; 84443

== ENCOUNTER 2024-05-07 14:53 | Outpatient (CLI) | payer MEDICAID, SELFPAY ==
[2024-02-05 10:28] VITALS: BP 105/60; BMI 26.5
--- NOTE | 2024-05-07 17:00 | US_ITS ---
WS: [id number] RENAL ULTRASOUND HISTORY: R35.0 - Frequency of micturition COMPARISON: None available. TECHNIQUE: 2-D and color Doppler imaging of the kidney submitted. Right kidney: 12.3 cm x 4.7 cm x 5.0 cm. Cortex: 1.0 cm Normal echogenicity with no hydronephrosis or mass. Left kidney: 11.5 cm x 5.2 cm x 4.4 cm. Cortex: 1.0 cm Normal echogenicity with no hydronephrosis or mass. Aorta: Normal. Urinary Bladder: Moderately distended bladder. Cholelithiasis. Dense shadowing from the gallbladder fossa. Gallbladder is contracted around the ston es. US/US renal BI* [id number] IMPRESSION: 1. No renal obstruction or calcifications. 2. No cortical thinning. 3. Cholelithiasis. Also described on prior ultrasound from 2016.
== END 2024-05-07 14:54 | disposition home or self-care (01) ==
LOC: RAD 14:53
PROVIDERS: PCP Nurse Practitioner; Visit Provider Nurse Practitioner
DX: R35.0 Frequency of micturition (principal); K80.20 Calculus of gallbladder without cholecystitis without obstruction
CPT/HCPCS: 76770

== ENCOUNTER → 2024-06-22 15:30 | Outpatient (BNVA) | payer MEDICAID, SELFPAY ==
[2024-02-05 10:28] VITALS: BP 105/60; BMI 26.5
== END ==
PROVIDERS: PCP Nurse Practitioner; Visit Provider Nurse Practitioner
DX: I10 Essential (primary) hypertension (principal); E11.65 Type 2 diabetes mellitus with hyperglycemia; E55.9 Vitamin D deficiency, unspecified
CPT/HCPCS: 80053; 82306

== ENCOUNTER → 2024-09-21 15:21 | Outpatient (BNVA) | payer OTHER, SELFPAY ==
[2024-02-05 10:28] VITALS: BP 105/60; BMI 26.5
== END ==
PROVIDERS: PCP Nurse Practitioner; Visit Provider Nurse Practitioner
DX: E55.9 Vitamin D deficiency, unspecified (principal); M54.12 Radiculopathy, cervical region; G43.909 Migraine, unspecified, not intractable, without status migrainosus; J44.9 Chronic obstructive pulmonary disease, unspecified; I10 Essential (primary) hypertension; Z79.899 Other long term (current) drug therapy
CPT/HCPCS: 81000

== ENCOUNTER → 2024-12-15 10:22 | Outpatient (BNVA) | payer MEDICAID, SELFPAY ==
[2024-12-15 10:37] VITALS: BP 105/60; BMI 26.5
== END ==
PROVIDERS: PCP Nurse Practitioner; Visit Provider Nurse Practitioner
DX: I10 Essential (primary) hypertension (principal); E78.1 Pure hyperglyceridemia; E55.9 Vitamin D deficiency, unspecified; E11.65 Type 2 diabetes mellitus with hyperglycemia; Z12.5 Encounter for screening for malignant neoplasm of prostate
CPT/HCPCS: 80053; 80061; 81000; 82306; 83036; 84443; G0103